=== PATIENT | female | born 1940 | race Caucasian/White ===

== ENCOUNTER 2016-04-19 14:58 | Inpatient (IN) | payer MEDICARE, BC ==
[~2016-04-19] VITALS: Ht 177.8 cm; Wt 74.8 kg
[~2016-04-19 14:58] MED LIST: BLOO-129 IN; DOCU-25 PO; DULO20CA PO; FURO20TA4 PO; INSU100V13 SQ; POTA10CA43 PO; PREG50CA PO; VANC750F IV; WARF2TAB57 PO; [UNRECOGNIZED DRUG - CODE] PO
[2016-04-19 15:51] LABS: BASOPHILS % (AUTO) 0.9 % (0.0-2.0); DIFF TOTAL % 100 %; EOSINOPHILS % (AUTO) 0.6 % (0.0-6.0); HEMATOCRIT 43 % (33-45); HEMOGLOBIN 13.6 g/dL (11.5-14.8); LYMPHOCYTES # (AUTO) 1.1 /CMM (0.8-4.8); MEAN CORPUSCULAR HEMOGLOBIN 24 PG (26.0-33.0); MEAN CORPUSCULAR HGB CONC 32 g/dl (31.0-36.0); MEAN CORPUSCULAR VOLUME 75 fL (82-100); MONOCYTES # (AUTO) 0.6 /CMM (0.1-1.30); MONOCYTES % (AUTO) 11.8 % (2.0-12.0); NEUTROPHILS # (AUTO) 3.6 /CMM (1.8-8.9); NEUTROPHILS % (AUTO) 65.7 % (43.0-81.0); PLATELET COUNT (AUTO) 167 /CMM (150-450); RED BLOOD CELL COUNT(AUTO) 5.76 MIL/uL (4.0-5.2); WHITE BLOOD COUNT (AUTO) 5.3 K/uL (4.3-11.0)
[2016-04-19] MEDS ORDERED: IV NS 0.9% 500 ML BAG IV ONE (16:00)
[2016-04-19 16:07] LABS: INR 1.32 (0.87-1.13); PROTHROMBIN TIME 13.9 SECS (9.5-12.7)
[2016-04-19 16:17] LABS: ANION GAP 12 (5-14); CALCIUM, SERUM 8.9 mg/dL (8.5-10.1); CARBON DIOXIDE 29 mmol/L (21-32); CHLORIDE 105 mmol/L (98-107); CREATININE 1.1 mg/dL (0.6-1.3); GLUCOSE 160 mg/dL (74-106); POTASSIUM 4.2 mmol/L (3.5-5.1); SODIUM SERUM 142 mmol/L (136-145); UREA NITROGEN, BLOOD 23 mg/dL (7-18)
[2016-04-19] MEDS ORDERED: IV NS 0.9% 500 ML IV ONE (16:21)
[2016-04-19] MEDS ORDERED: IV SET PRIMARY 1 EA INFUS.SET MC ONE ×2 (16:21→18:22)
[2016-04-19 16:22] LABS: ALANINE AMINOTRANSFERASE 10 U/L (12-78); ASPARTATE AMINOTRANSFERASE 13 U/L (15-37); BILIRUBIN,DIRECT 0.1 mg/dL (0.0-0.2); BILIRUBIN,TOTAL 0.4 mg/dL (0.2-1.0); INDIRECT BILIRUBIN 0.3 mg/dL (0.0-1.1); TOTAL PROTEIN, SERUM 6.8 g/dL (6.4-8.2)
[2016-04-19 16:26] LABS: LACTIC ACID 1.2 mmol/L (0.4-2.0)
[2016-04-19 16:43] LABS: TROPONIN I < 0.017 ng/mL (0.00-0.056)
[2016-04-19 17:28] LABS: KETONES,URINE Negative (NEGATIVE); LEUKOCYTE ESTERASE ,URINE Large (NEGATIVE); PH,URINE 6.5 (5.0-8.0)
[2016-04-19 17:31] LABS: ADD UA MICROSCOPIC YES
[2016-04-19 17:40] LABS: ADD URINE CULTURE YES; RBC,URINE 21-50 /HPF (0-2); WBC,URINE T /HPF (0-3)
[2016-04-19] MEDS ORDERED: AZTREONAM 1 G in IV NS 0.9% 100 ML IV ONE (18:00)
[2016-04-19] MEDS ORDERED: FURO40TA5 PO (18:05)
[2016-04-19] MEDS ORDERED: POTA10TA15 PO (18:05)
[2016-04-19] MEDS ORDERED: WARF1TAB6 PO (18:05)
[2016-04-19] MEDS ORDERED: VANCOMYCIN 1 GM in IV D5W 250 ML IV ONE (20:30)
[2016-04-19] MEDS ORDERED: FLUCONAZOLE (100 MG) 100 MG TABLET PO ONE (20:30)
[2016-04-19] MEDS ORDERED: IV SET PRIMARY PUMP SET 1 EA INFUS.SET MC ONE (20:41)
[2016-04-19] MEDS ORDERED: IV D5W 250 ML IV ONE (20:41)
[2016-04-19] MEDS ORDERED: FLUCONAZOLE (100 MG) 100 MG TABLET ONE (20:41)
[2016-04-19] MEDS ORDERED: VANCOMYCIN 1 GM VIAL ONE (20:41)
[2016-04-19 22:30] VITALS: BP 147/61
[2016-04-19] MEDS ORDERED: DEXTROSE 50%-WATER 50 ML DISP.SYRIN IV PRN (23:30)
[2016-04-20] VITALS (9 sets, daily range): BP systolic 82–157; BP diastolic 44–85
[2016-04-20] MEDS ORDERED: INSULIN REGULAR, HUMAN 100 UNIT/ML 10 ML VIAL ONE (06:25)
[2016-04-20] MEDS: INSULIN REGULAR, HUMAN 100 UNIT/ML 3 ML VIAL SQ PRN ×2 (06:39→17:58)
[2016-04-20] MEDS: BLOOD SUGAR DIAGNOSTIC 1 EACH STRIP IN SCH ×4 (06:39→21:28)
[2016-04-20 06:58] LABS: BASOPHILS % (AUTO) 0.6 % (0.0-2.0); DIFF TOTAL % 100 %; EOSINOPHILS % (AUTO) 0.3 % (0.0-6.0); HEMATOCRIT 38 % (33-45); HEMOGLOBIN 12.1 g/dL (11.5-14.8); LYMPHOCYTES # (AUTO) 0.7 /CMM (0.8-4.8); MEAN CORPUSCULAR HEMOGLOBIN 24 PG (26.0-33.0); MEAN CORPUSCULAR HGB CONC 32 g/dl (31.0-36.0); MEAN CORPUSCULAR VOLUME 76 fL (82-100); MONOCYTES # (AUTO) 0.5 /CMM (0.1-1.30); MONOCYTES % (AUTO) 11.7 % (2.0-12.0); NEUTROPHILS # (AUTO) 3.3 /CMM (1.8-8.9); NEUTROPHILS % (AUTO) 71.4 % (43.0-81.0); PLATELET COUNT (AUTO) 142 /CMM (150-450); RED BLOOD CELL COUNT(AUTO) 5.06 MIL/uL (4.0-5.2); WHITE BLOOD COUNT (AUTO) 4.6 K/uL (4.3-11.0)
[2016-04-20 07:28] LABS: INR 1.35 (0.87-1.13); PROTHROMBIN TIME 14.6 SECS (9.5-12.7)
[2016-04-20 07:39] LABS: CALCIUM, SERUM 8.4 mg/dL (8.5-10.1); CREATININE 0.9 mg/dL (0.6-1.3); PHOSPHORUS 2.9 mg/dL (2.5-4.9); POTASSIUM 4.1 mmol/L (3.5-5.1)
[2016-04-20] MEDS ORDERED: ACETAMINOPHEN 325 MG TABLET PO PRN (08:30)
[2016-04-20] MEDS ORDERED: [UNRECOGNIZED DRUG - REMARK] XX PRN (08:30)
[2016-04-20] MEDS ORDERED: ONDANSETRON HCL/PF 4 MG/2 ML VIAL IV PRN ×2 (08:30→12:00)
[2016-04-20] MEDS: PANTOPRAZOLE 40 MG TABLET.DR PO SCH ×2 (09:00→10:32)
[2016-04-20] MEDS: AZTREONAM 1 G in IV NS 0.9% 100 ML IV SCH ×2 (10:31→18:05)
[2016-04-20] MEDS ORDERED: ACETAMINOPHEN 650 MG/SUPP.RECT RC PRN (12:00)
[2016-04-20] MEDS ORDERED: IV SET PRIMARY PUMP SET 1 EA INFUS.SET MC ONE (12:01)
[2016-04-20] MEDS: IV D5/0.45 NACL 1,000 ML IV PRN (12:06)
[2016-04-20] MEDS ORDERED: IV NS 0.9% 1,000 ML IV ONE (16:45)
[2016-04-20] MEDS ORDERED: WARFARIN SODIUM 1 MG TABLET PO SCH (17:00)
[2016-04-20] MEDS: WARFARIN SODIUM 2 MG TABLET PO SCH (17:57)
[2016-04-20] MEDS ORDERED: SECONDARY IV SET 1 EA INFUS.SET MC ONE (18:03)
[2016-04-20] MEDS: INSULIN DETEMIR 100 UNIT/ML CARTRIDGE SQ SCH (21:28)
[2016-04-20] MEDS ORDERED: INSULIN GLARGINE, 100 UNIT/ML CARTRIDGE SQ SCH (22:00)
[2016-04-20] MEDS ORDERED: GENTAMICIN 80 MG in IV D5W 100 ML IV SCH (23:00)
[2016-04-20] MEDS ORDERED: MEROPENEM 500 MG in IV NS 0.9% 50 ML IV SCH (23:00)
[2016-04-20] MEDS ORDERED: MEROPENEM 500 MG VIAL IV ONE (23:27)
[2016-04-20] MEDS ORDERED: IV NS 0.9% 50 ML IV ONE (23:30)
[2016-04-21] VITALS: BP 118/70
[2016-04-21] MEDS: IV D5/0.45 NACL 1,000 ML IV PRN ×2 (02:59→16:53)
[2016-04-21 04:00] VITALS: BP 110/61
[2016-04-21] MEDS: BLOOD SUGAR DIAGNOSTIC 1 EACH STRIP IN SCH ×4 (05:46→22:07)
[2016-04-21] MEDS: INSULIN REGULAR, HUMAN 100 UNIT/ML 3 ML VIAL SQ PRN ×4 (05:48→22:13)
[2016-04-21 08:00] VITALS: BP 120/69
[2016-04-21] MEDS ORDERED: FOSFOMYCIN TROMETHAMINE 3 G/PKT PACKET PO ONE (08:00)
[2016-04-21] MEDS ORDERED: MEROPENEM 500 MG in IV NS 0.9% 50 ML IV SCH (08:31)
[2016-04-21 08:39] LABS: BASOPHILS % (AUTO) 0.8 % (0.0-2.0); DIFF TOTAL % 100 %; EOSINOPHILS # (AUTO) 0.1 /CMM (0.0-0.7); EOSINOPHILS % (AUTO) 3.3 % (0.0-6.0); HEMATOCRIT 38 % (33-45); HEMOGLOBIN 12.3 g/dL (11.5-14.8); LYMPHOCYTES # (AUTO) 1.2 /CMM (0.8-4.8); LYMPHOCYTES % (AUTO) 34.1 % (20.0-44.0); MEAN CORPUSCULAR HEMOGLOBIN 24 PG (26.0-33.0); MEAN CORPUSCULAR HGB CONC 33 g/dl (31.0-36.0); MEAN CORPUSCULAR VOLUME 74 fL (82-100); MONOCYTES # (AUTO) 0.5 /CMM (0.1-1.30); MONOCYTES % (AUTO) 13.1 % (2.0-12.0); NEUTROPHILS # (AUTO) 1.7 /CMM (1.8-8.9); NEUTROPHILS % (AUTO) 48.7 % (43.0-81.0); PLATELET COUNT (AUTO) 124 /CMM (150-450); WHITE BLOOD COUNT (AUTO) 3.4 K/uL (4.3-11.0)
[2016-04-21 09:05] LABS: INR 1.43 (0.87-1.13); PROTHROMBIN TIME 15.5 SECS (9.5-12.7)
[2016-04-21 09:32] LABS: CALCIUM, SERUM 7.9 mg/dL (8.5-10.1); CREATININE 0.9 mg/dL (0.6-1.3); POTASSIUM 3.8 mmol/L (3.5-5.1)
[2016-04-21] MEDS: PANTOPRAZOLE 40 MG TABLET.DR PO SCH (10:07)
[2016-04-21] MEDS: MEROPENEM 500 MG in IV NS 0.9% 50 ML IV SCH (12:19)
[2016-04-21 16:00] VITALS: BP 140/73
[2016-04-21] MEDS: WARFARIN SODIUM 2 MG TABLET PO SCH (16:52)
[2016-04-21 20:00] VITALS: BP 104/62
[2016-04-21 22:00] VITALS: BP 104/62
[2016-04-21] MEDS: INSULIN DETEMIR 100 UNIT/ML CARTRIDGE SQ SCH (22:12)
[2016-04-21] MEDS ORDERED: FLUCONAZOLE IN NS,PREMIX 200 MG in PREMIX 1 EA IV ONE ×2 (23:30)
[2016-04-22] MEDS: MEROPENEM 500 MG in IV NS 0.9% 50 ML IV SCH ×3 (00:26→22:57)
[2016-04-22] MEDS ORDERED: SECONDARY IV SET 1 EA INFUS.SET MC ONE ×2 (05:14→14:59)
[2016-04-22] MEDS: INSULIN REGULAR, HUMAN 100 UNIT/ML 3 ML VIAL SQ PRN ×4 (05:58→22:52)
[2016-04-22] MEDS: BLOOD SUGAR DIAGNOSTIC 1 EACH STRIP IN SCH ×4 (05:59→22:53)
[2016-04-22 06:29] LABS: BASOPHILS % (AUTO) 0.7 % (0.0-2.0); DIFF TOTAL % 100 %; EOSINOPHILS # (AUTO) 0.1 /CMM (0.0-0.7); EOSINOPHILS % (AUTO) 2.8 % (0.0-6.0); HEMATOCRIT 35 % (33-45); HEMOGLOBIN 11.3 g/dL (11.5-14.8); LYMPHOCYTES # (AUTO) 1.4 /CMM (0.8-4.8); LYMPHOCYTES % (AUTO) 41.1 % (20.0-44.0); MEAN CORPUSCULAR HEMOGLOBIN 24 PG (26.0-33.0); MEAN CORPUSCULAR HGB CONC 32 g/dl (31.0-36.0); MEAN CORPUSCULAR VOLUME 75 fL (82-100); MONOCYTES # (AUTO) 0.3 /CMM (0.1-1.30); MONOCYTES % (AUTO) 8.6 % (2.0-12.0); NEUTROPHILS # (AUTO) 1.6 /CMM (1.8-8.9); NEUTROPHILS % (AUTO) 46.8 % (43.0-81.0); PLATELET COUNT (AUTO) 126 /CMM (150-450); RED BLOOD CELL COUNT(AUTO) 4.71 MIL/uL (4.0-5.2); WHITE BLOOD COUNT (AUTO) 3.4 K/uL (4.3-11.0)
[2016-04-22 08:00] VITALS: BP 137/74
[2016-04-22 09:03] LABS: INR 1.27 (0.87-1.13); PROTHROMBIN TIME 13.7 SECS (9.5-12.7)
[2016-04-22] MEDS: FLUCONAZOLE (100 MG) 100 MG TABLET PO SCH (09:32)
[2016-04-22] MEDS: PANTOPRAZOLE 40 MG TABLET.DR PO SCH (09:32)
[2016-04-22 11:02] LABS: CALCIUM, SERUM 7.6 mg/dL (8.5-10.1); PHOSPHORUS 2.5 mg/dL (2.5-4.9); POTASSIUM 4.1 mmol/L (3.5-5.1)
[2016-04-22] MEDS: Magnesium 1GM/D5W 100ML PREMIX 100 ML IV SCH ×2 (14:25→15:30)
[2016-04-22 16:00] VITALS: BP 137/70
[2016-04-22] MEDS: WARFARIN SODIUM 2 MG TABLET PO SCH (16:31)
[2016-04-22 20:00] VITALS: BP 146/76
[2016-04-22] MEDS: INSULIN DETEMIR 100 UNIT/ML CARTRIDGE SQ SCH (22:51)
[2016-04-23] MEDS: BLOOD SUGAR DIAGNOSTIC 1 EACH STRIP IN SCH ×4 (06:18→21:51)
[2016-04-23] MEDS: INSULIN REGULAR, HUMAN 100 UNIT/ML 3 ML VIAL SQ PRN ×3 (06:35→21:55)
[2016-04-23 07:23] LABS: CALCIUM, SERUM 7.6 mg/dL (8.5-10.1); CREATININE 0.9 mg/dL (0.6-1.3)
[2016-04-23 08:00] VITALS: BP 128/66
[2016-04-23] MEDS: PANTOPRAZOLE 40 MG TABLET.DR PO SCH (08:47)
[2016-04-23] MEDS: FLUCONAZOLE (100 MG) 100 MG TABLET PO SCH (08:47)
[2016-04-23] MEDS: MEROPENEM 500 MG in IV NS 0.9% 50 ML IV SCH (12:01)
[2016-04-23 12:34] LABS: INR 1.29 (0.87-1.13)
[2016-04-23 16:00] VITALS: BP 136/79
[2016-04-23] MEDS: WARFARIN SODIUM 2 MG TABLET PO SCH (17:20)
[2016-04-23 20:00] VITALS: BP 159/83
[2016-04-23] MEDS: INSULIN DETEMIR 100 UNIT/ML CARTRIDGE SQ SCH (21:54)
[2016-04-24] MEDS: MEROPENEM 500 MG in IV NS 0.9% 50 ML IV SCH ×2 (00:20→12:15)
[2016-04-24] MEDS: BLOOD SUGAR DIAGNOSTIC 1 EACH STRIP IN SCH ×3 (05:37→16:56)
[2016-04-24 07:03] LABS: CREATININE 0.8 mg/dL (0.6-1.3); PHOSPHORUS 2.3 mg/dL (2.5-4.9)
[2016-04-24 07:04] LABS: BASOPHILS % (AUTO) 0.7 % (0.0-2.0); EOSINOPHILS # (AUTO) 0.2 /CMM (0.0-0.7); HEMATOCRIT 37 % (33-45); HEMOGLOBIN 12.1 g/dL (11.5-14.8); LYMPHOCYTES # (AUTO) 1.5 /CMM (0.8-4.8); LYMPHOCYTES % (AUTO) 35.7 % (20.0-44.0); MEAN CORPUSCULAR HEMOGLOBIN 24 PG (26.0-33.0); MEAN CORPUSCULAR HGB CONC 33 g/dl (31.0-36.0); MEAN CORPUSCULAR VOLUME 74 fL (82-100); MONOCYTES # (AUTO) 0.3 /CMM (0.1-1.30); MONOCYTES % (AUTO) 7.3 % (2.0-12.0); NEUTROPHILS # (AUTO) 2.2 /CMM (1.8-8.9); NEUTROPHILS % (AUTO) 51.3 % (43.0-81.0); PLATELET COUNT (AUTO) 147 /CMM (150-450); WHITE BLOOD COUNT (AUTO) 4.3 K/uL (4.3-11.0)
[2016-04-24 08:00] VITALS: BP 131/70
[2016-04-24] MEDS: PANTOPRAZOLE 40 MG TABLET.DR PO SCH (08:37)
[2016-04-24] MEDS: FLUCONAZOLE (100 MG) 100 MG TABLET PO SCH (08:37)
[2016-04-24 11:40] LABS: BAND % (MANUAL) 4 % (0.0-5.0); EOSINOPHILS % (MANUAL) 3 % (0-4); LYMPHOCYTES % (MANUAL) 36 % (16-48)
[2016-04-24 11:51] LABS: ANISOCYTOSIS 1+; PLATELET ESTIMATE DECRE
[2016-04-24] MEDS ORDERED: Magnesium 1GM/D5W 100ML PREMIX 100 ML IV SCH (13:30)
[2016-04-24 15:32] LABS: INR 1.42 (0.87-1.13); PROTHROMBIN TIME 15.4 SECS (9.5-12.7)
[2016-04-24 16:00] VITALS: BP_SYST 131; BP_SYST 138; BP_DIAS 70; BP_DIAS 83
[2016-04-24] MEDS ORDERED: K PHOS NEUTRAL 250 MG TABLET PO ONE (16:00)
== END 2016-04-24 16:59 | disposition home health service (06) | DRG 682 ==
LOC: ER 14:59 → TELE 21:36 → MED 04-21 12:42
PROVIDERS: ADMIT Internal Medicine; ATTEND Internal Medicine
DX: N17.0 Acute kidney failure with tubular necrosis (principal); G93.41 Metabolic encephalopathy; N39.0 Urinary tract infection, site not specified; I69.854 Hemiplegia and hemiparesis following other cerebrovascular disease affecting left non-dominant side; L03.116 Cellulitis of left lower limb; L03.115 Cellulitis of right lower limb; B37.49 Other urogenital candidiasis; E86.0 Dehydration; D64.9 Anemia, unspecified; I48.91 Unspecified atrial fibrillation; I87.2 Venous insufficiency (chronic) (peripheral); Z86.718 Personal history of other venous thrombosis and embolism; M81.0 Age-related osteoporosis without current pathological fracture; J20.9 Acute bronchitis, unspecified; E11.9 Type 2 diabetes mellitus without complications; Z95.0 Presence of cardiac pacemaker; Z88.0 Allergy status to penicillin; B96.5 Pseudomonas (aeruginosa) (mallei) (pseudomallei) as the cause of diseases classified elsewhere; X58.XXXA Exposure to other specified factors, initial encounter; Y93.9 Activity, unspecified; Y92.009 Unspecified place in unspecified non-institutional (private) residence as the place of occurrence of the external cause; Y99.9 Unspecified external cause status; S70.212A Abrasion, left hip, initial encounter; S70.211A Abrasion, right hip, initial encounter; S71.102A Unspecified open wound, left thigh, initial encounter; S71.101A Unspecified open wound, right thigh, initial encounter; E66.01 Morbid (severe) obesity due to excess calories; Z68.23 Body mass index [BMI] 23.0-23.9, adult; I25.10 Atherosclerotic heart disease of native coronary artery without angina pectoris; I69.349 Monoplegia of lower limb following cerebral infarction affecting unspecified side; K21.9 Gastro-esophageal reflux disease without esophagitis; N18.9 Chronic kidney disease, unspecified; I12.9 Hypertensive chronic kidney disease with stage 1 through stage 4 chronic kidney disease, or unspecified chronic kidney disease; E11.22 Type 2 diabetes mellitus with diabetic chronic kidney disease
CPT/HCPCS: 36415; 71010-TC; 80048-TC; 80076-TC; 81000-TC; 82962-TC; 83605-TC; 83735-TC; 84100-TC; 84484-TC; 85025-TC; 85610-TC; 85730-TC; 87040-TC; 87081-TC; 87086-TC; 87186-TC; 87400; A4216; A4606; J1450; J1580; J1815; J2185; J3370; J3475; J3490; J7030; J7040; J7060; Z7610

== ENCOUNTER 2016-08-16 17:51 | Emergency (ER) | payer MEDICARE, BC ==
[~2016-08-16] VITALS: Ht 177.8 cm; Wt 88.5 kg
[~2016-08-16 17:51] MED LIST changes: -BLOO-129 IN; -DOCU-25 PO; -DULO20CA PO; -FURO20TA4 PO; -INSU100V13 SQ; -POTA10CA43 PO; -PREG50CA PO; -VANC750F IV; +WARF1TAB6 PO; -WARF2TAB57 PO; -[UNRECOGNIZED DRUG - CODE] PO
--- NOTE | 2016-08-16 18:15 | NUR ---
ASSUMED CARE OF PT AT THIS TIME. HERE FOR "RECURRENT UTI'S" PER DAUGHTER. STATES "SHE ALSO HAS DIAPER RASH". DENIES ANY ABD PAIN/FEVER/N/V/BACK PAIN. NON DIAPHROETIC. RESP EVEN AND UNLABORED. CALM AND COOPERATIVE. ON MONITOR. CARE PLAN DISCUSSED.
[2016-08-16 18:54] LABS: APPEARANCE,URINE Cloudy (CLEAR); BILIRUBIN,URINE Negative (NEGATIVE); BLOOD, URINE Large Ery/uL (NEGATIVE); COLOR,URINE Yellow (YELLOW); KETONES,URINE Negative (NEGATIVE); LEUKOCYTE ESTERASE ,URINE Large (NEGATIVE); NITRITE, URINE Positive (NEGATIVE); PH,URINE 6.5 (5.0-8.0); PROTEIN,URINE 100 mg/dl (NEGATIVE); UGLUCOSE Negative (NEGATIVE); UROBILINOGEN,URINE 0.2 EU/dL (0.2)
--- NOTE | 2016-08-16 19:16 | NUR ---
REPORT GIVEN TO RAYNE/RN FOR ABENA.
[2016-08-16 19:27] LABS: ADD URINE CULTURE YES; BACTERIA,URINE Few /HPF (None Seen); RBC,URINE TOO NUMEROUS TO COUN /HPF (0-2); SQUAMOUS EPITHELIAL CELL,UR Many /HPF (None Seen); WBC,URINE TOO NUMEROUS TO COUN /HPF (0-3)
--- NOTE | 2016-08-16 20:34 | NUR ---
Patient discharged to home in stable condition. Written and verbal after care instructions given. Patient verbalizes understanding of instruction. Patient is picked up by 2 [facility] paramedics, daughter at bedside. No further complaints.
[2016-08-16 20:35] VITALS: BP 169/78
== END 2016-08-16 20:36 | disposition home or self-care (01) ==
LOC: ER 17:57
DX: N39.0 Urinary tract infection, site not specified (principal); E11.9 Type 2 diabetes mellitus without complications; I10 Essential (primary) hypertension; Z79.01 Long term (current) use of anticoagulants; Z86.73 Personal history of transient ischemic attack (TIA), and cerebral infarction without residual deficits; Z88.0 Allergy status to penicillin; Z95.0 Presence of cardiac pacemaker; Z88.2 Allergy status to sulfonamides; Z91.040 Latex allergy status
CPT/HCPCS: 81000-TC; 87086-TC; A4606; Z7610

== ENCOUNTER 2016-09-26 14:28 | Outpatient (CLI) | payer MEDICARE, BC ==
[2016-09-26] MEDS ORDERED: INSU100V7 SQ (16:02)
[2016-09-26] MEDS ORDERED: BLOO-668 IN (16:02)
== END 2016-09-26 23:59 | disposition home or self-care (01) ==
LOC: WOU 14:28
PROVIDERS: ATTEND Surgery
DX: N76.4 Abscess of vulva (principal); Z88.1 Allergy status to other antibiotic agents; Z88.0 Allergy status to penicillin; Z88.2 Allergy status to sulfonamides; I69.954 Hemiplegia and hemiparesis following unspecified cerebrovascular disease affecting left non-dominant side; E11.22 Type 2 diabetes mellitus with diabetic chronic kidney disease; I12.9 Hypertensive chronic kidney disease with stage 1 through stage 4 chronic kidney disease, or unspecified chronic kidney disease; N18.9 Chronic kidney disease, unspecified; I48.91 Unspecified atrial fibrillation; Z95.0 Presence of cardiac pacemaker; Z86.718 Personal history of other venous thrombosis and embolism; E66.01 Morbid (severe) obesity due to excess calories; Z68.35 Body mass index [BMI] 35.0-35.9, adult; I25.10 Atherosclerotic heart disease of native coronary artery without angina pectoris; E11.9 Type 2 diabetes mellitus without complications; S71.102D Unspecified open wound, left thigh, subsequent encounter; S71.101D Unspecified open wound, right thigh, subsequent encounter; X58.XXXD Exposure to other specified factors, subsequent encounter
CPT/HCPCS: G0463

== ENCOUNTER 2016-09-26 15:30 | Inpatient (IN) | payer MEDICARE, BC ==
[~2016-09-26] VITALS: Ht 160 cm; Wt 83.0 kg
--- NOTE | 2016-09-26 15:45 | NUR ---
PT BIBA FOR C/O SKIN RASH OVER A YEAR ON BILATERAL BACK OF THE THIGH AND INNER THIGH. DAUGHTER AT BS FOR INFO, REPORTS THAT PT WAS STARTED ON SOME ABX PRIOR AND THEN PT DEVELOPED RASHES FROM IT. PT BED BOUND, AAOX1. VSS. SEEN BY FOR EVAL. SAFETY AND COMFORT MEASURES PROVIDED. WILL MONITOR.
[2016-09-26] MEDS ORDERED: INSU100V7 SQ (16:02)
[2016-09-26] MEDS ORDERED: BLOO-668 IN (16:02)
[2016-09-26 16:09] LABS: BASOPHILS # (AUTO) 0.1 /CMM (0.0-0.2); BASOPHILS % (AUTO) 0.8 % (0.0-2.0); EOSINOPHILS # (AUTO) 0.1 /CMM (0.0-0.7); EOSINOPHILS % (AUTO) 1.1 % (0.0-6.0); HEMATOCRIT 46 % (33-45); HEMOGLOBIN 14.9 g/dL (11.5-14.8); LYMPHOCYTES # (AUTO) 1.1 /CMM (0.8-4.8); LYMPHOCYTES % (AUTO) 14.1 % (20.0-44.0); MEAN CORPUSCULAR HEMOGLOBIN 25 PG (26.0-33.0); MEAN CORPUSCULAR HGB CONC 32 g/dl (31.0-36.0); MEAN CORPUSCULAR VOLUME 77 fL (82-100); MONOCYTES # (AUTO) 0.4 /CMM (0.1-1.30); MONOCYTES % (AUTO) 4.7 % (2.0-12.0); NEUTROPHILS # (AUTO) 6.2 /CMM (1.8-8.9); NEUTROPHILS % (AUTO) 79.3 % (43.0-81.0); PLATELET COUNT (AUTO) 183 /CMM (150-450); RDW COEFFICIENT OF VARIATION 16.9 (11.5-15.0); RED BLOOD CELL COUNT(AUTO) 5.99 MIL/uL (4.0-5.2); WHITE BLOOD COUNT (AUTO) 7.9 K/uL (4.3-11.0)
--- NOTE | 2016-09-26 16:10 | NUR ---
IV ACCESS STARTED. CLERICAL WAREHOUSE WORKER AT FOR BLOOD DRAW. URINE SAMPLE OBTAINED, SENT.
[2016-09-26 16:20] LABS: CARBON DIOXIDE 31 mmol/L (21-32); CHLORIDE 105 mmol/L (98-107); CREATININE 0.8 mg/dL (0.6-1.3); GLUCOSE 143 mg/dL (74-106); POTASSIUM 4.5 mmol/L (3.5-5.1); SODIUM SERUM 140 mmol/L (136-145); UREA NITROGEN, BLOOD 18 mg/dL (7-18)
[2016-09-26 16:25] LABS: INR 0.99 (0.87-1.13); PROTHROMBIN TIME 10.3 SECS (9.5-12.7)
[2016-09-26] MEDS ORDERED: IV SET PRIMARY PUMP SET 1 EA INFUS.SET MC ONE ×2 (16:25→21:12)
[2016-09-26 16:28] LABS: TROPONIN I < 0.017 ng/mL (0.00-0.056)
[2016-09-26] MEDS ORDERED: VANCOMYCIN 1 GM in IV D5W 250 ML IV ONE (16:30)
[2016-09-26 16:34] LABS: APPEARANCE,URINE Cloudy (CLEAR); BILIRUBIN,URINE Negative (NEGATIVE); BLOOD, URINE Small Ery/uL (NEGATIVE); COLOR,URINE Yellow (YELLOW); KETONES,URINE Trace (NEGATIVE); LEUKOCYTE ESTERASE ,URINE Large (NEGATIVE); NITRITE, URINE Positive (NEGATIVE); PROTEIN,URINE Negative (NEGATIVE); UGLUCOSE Negative (NEGATIVE); UROBILINOGEN,URINE 0.2 EU/dL (0.2)
[2016-09-26 16:39] LABS: BACTERIA,URINE Few /HPF (None Seen); SQUAMOUS EPITHELIAL CELL,UR Few /HPF (None Seen); WBC,URINE TOO NUMEROUS TO COUN /HPF (0-3)
--- NOTE | 2016-09-26 16:41 | NUR ---
PT MEDICATED ORDERED.
--- NOTE | 2016-09-26 17:26 | NUR ---
REPORT GIVEN TO SAE ORDOÑEZ FOR MS ROOM 201
[2016-09-26] MEDS ORDERED: ONDANSETRON HCL/PF 4 MG/2 ML VIAL IVP PRN (18:30)
[2016-09-26] MEDS ORDERED: ACETAMINOPHEN 325 MG TABLET PO PRN (18:30)
[2016-09-26] MEDS ORDERED: DEXTROSE 50%-WATER 50 ML DISP.SYRIN IV PRN (18:30)
[2016-09-26] MEDS ORDERED: MORPHINE SULFATE INJ 2 MG/ML DISP.SYRIN IV PRN (18:30)
[2016-09-26] MEDS ORDERED: HYDROCODONE/APAP 5/325MG 1 EACH TABLET PO PRN (18:30)
--- NOTE | 2016-09-26 18:46 | NUR ---
AM RN NOTE Received patient from ER via [facility] @ 1800 as accompanied by ER staff and daughter at bedside. Pt A/O X1 verbally responsive able to make simple needs known. Denies any pain or discomfort at this time. Admitting orders obtained from Dr. Dilma Johnson by ER staff. Per Keiko ([facility]) pt noted with rash after vancomycin given in ER. Per daughter, pt had vancomycin IV in past and she did develop redness once. Pt seen and assessed by Dr. Philip for vulvar abscess and he saw pt with redness on her face which is subsiding. Dr. Philip called Dr. Dilma Johnson & made her aware about redness with NNO. Mason (Pharmacist) also made aware about redness. Pt denies any SOB at this time. Will coniine to monitor. Will endorse care to next shift.
--- NOTE | 2016-09-26 19:00 | NUR ---
AM RN NOTE Called Mason (Pharmacist) again & he added vancomycin to allergy list. Pt ate 100% at dinner time. No redness on her face noted at this time. V/S BP119/60 T98.0 P83 R20 PA0/10 O2 sat 97%.
--- NOTE | 2016-09-26 19:30 | NUR ---
RN NOTES RECEIVED PT AWAKE, LEFT SIDED WEAKNESS, DENIES PAIN, NO SOB, CONTINUE TO MONITOR
--- NOTE | 2016-09-26 19:30 | NUR ---
RN NOTES RECEIVED PT. AWAKE FROM ER DAUGHTER AT BEDSIDE, ADMISSION INSTRUCTION WAS GIVEN TO THE FAMILY, CALL LIGHT WITHIN REACH, SIDERAILS UPX2 CONTINUE TO MONITOR
[2016-09-26 20:00] VITALS: BP 128/75
[2016-09-26] MEDS ORDERED: diphenhydrAMINE HCL 25 MG CAPSULE PO PRN (21:00)
[2016-09-26] MEDS ORDERED: FEE PK DOSING 1 MIN EA MC ONE (21:07)
[2016-09-26] MEDS ORDERED: [UNRECOGNIZED DRUG - REMARK] MC ONE (21:07)
[2016-09-26] MEDS ORDERED: SECONDARY IV SET 1 EA INFUS.SET MC ONE (21:11)
[2016-09-26] MEDS ORDERED: IV NS 0.9% 250 ML IV ONE (21:12)
[2016-09-26] MEDS: GENTAMICIN 100 MG in IV D5W 100 ML IV SCH (21:19)
--- NOTE | 2016-09-26 22:00 | NUR ---
RN NOTES BLOOD SUGAR-167, BECAUSE FAMILY JUST FED THE PT. , STATED THAT WE CAN CHECK AGAIN IN THE MORNING
[2016-09-26] MEDS: BLOOD SUGAR DIAGNOSTIC 1 EACH STRIP IN SCH (22:04)
--- NOTE | 2016-09-27 05:00 | NUR ---
RN NOTES MORNING CARE RENDERED
[2016-09-27 07:05] LABS: BASOPHILS % (AUTO) 0.6 % (0.0-2.0); EOSINOPHILS # (AUTO) 0.1 /CMM (0.0-0.7); EOSINOPHILS % (AUTO) 1.2 % (0.0-6.0); HEMATOCRIT 38 % (33-45); HEMOGLOBIN 12.5 g/dL (11.5-14.8); LYMPHOCYTES # (AUTO) 1.3 /CMM (0.8-4.8); LYMPHOCYTES % (AUTO) 15.8 % (20.0-44.0); MEAN CORPUSCULAR HEMOGLOBIN 25 PG (26.0-33.0); MEAN CORPUSCULAR HGB CONC 33 g/dl (31.0-36.0); MEAN CORPUSCULAR VOLUME 77 fL (82-100); MONOCYTES # (AUTO) 0.4 /CMM (0.1-1.30); MONOCYTES % (AUTO) 4.8 % (2.0-12.0); NEUTROPHILS # (AUTO) 6.4 /CMM (1.8-8.9); NEUTROPHILS % (AUTO) 77.6 % (43.0-81.0); PLATELET COUNT (AUTO) 185 /CMM (150-450); RDW COEFFICIENT OF VARIATION 17.5 (11.5-15.0); RED BLOOD CELL COUNT(AUTO) 4.93 MIL/uL (4.0-5.2); WHITE BLOOD COUNT (AUTO) 8.2 K/uL (4.3-11.0)
[2016-09-27 07:11] LABS: CALCIUM, SERUM 8.4 mg/dL (8.5-10.1); CARBON DIOXIDE 28 mmol/L (21-32); CHLORIDE 104 mmol/L (98-107); CREATININE 0.8 mg/dL (0.6-1.3); GLUCOSE 174 mg/dL (74-106); POTASSIUM 4.4 mmol/L (3.5-5.1); SODIUM SERUM 139 mmol/L (136-145); UREA NITROGEN, BLOOD 18 mg/dL (7-18)
[2016-09-27] MEDS: INSULIN REGULAR, HUMAN 100 UNIT/ML 3 ML VIAL SQ PRN ×3 (07:16→16:55)
[2016-09-27] MEDS: BLOOD SUGAR DIAGNOSTIC 1 EACH STRIP IN SCH ×4 (07:16→23:59)
--- NOTE | 2016-09-27 07:21 | NUR ---
RN NOTES AWAKE, MORNING CARE RENDERED, PT. NEEDS ATTENDED
--- NOTE | 2016-09-27 07:26 | NUR ---
MS RN OPENING RECEIVED PATIENT STABLE NO COMPLAINTS NO SOB, DIFFICULTY BREATHING OR PAIN. PATIENT A/OX3. IN POSITION OF COMFORT AND WILL ASSIST TO TURN PATIENT Q2H. ALL NEEDS WITHIN REACH, BED LOWERED AND LOCKED, RAILS UPX3 FOR SAFETY AND WILL ROUND Q2H OR LESS PER NEEDS
[2016-09-27 08:00] VITALS: BP 124/60
--- NOTE | 2016-09-27 08:57 | NUR ---
WOUND CARE CONSULT: PT PRESENTS WITH REDNESS AND EDEMA TO LEFT LOWER LEG, REDNESS TO THIGHS, VULVA AREAS PRESENT ON ADMISSION. DEFER TO MD. LEGS ELEVATED. PT TO BE PLACED ON ISOFLEX LOW AIRLOSS BED. ALL SKIN PROTECTION MEASURES IN PLACE AND DISCUSSED WITH NURSING STAFF. MD IN AGREEMENT WITH PLAN OF CARE. Addendum: 09/27/16 at 0858 by SERGIO LEDESMA WNDNU Amended: Links added.
--- NOTE | 2016-09-27 10:05 | NUR ---
MS RN NOTES DR DENNY AT BEDSIDE. ASSISTED MD WITH OBTAINING ORDERED SWABS. CALLED LAB FOR ORTHODONTIST ASSISTANT
--- NOTE | 2016-09-27 10:22 | NUR ---
MS RN NOTES FIRST STEP MATTRESS AT BEDSIDE. DEPUTY SHERIFF BAILIFF ASSISTING WITH APPLYING TO BED
[2016-09-27] MEDS ORDERED: VANCOMYCIN 1 GM in IV D5W 250 ML IV SCH (12:00)
--- NOTE | 2016-09-27 14:07 | NUR ---
MS RN NOTES DR LAGUNA AT BEDSIDE. NOTIFIED MD COUMADIN HELD. PER MD CONTINUE 4MG DAILY 5PM ORALLY
--- NOTE | 2016-09-27 14:09 | NUR ---
MS RN NOTES CALLED PHARMACY TO BRING GENTAMYCIN AX
--- NOTE | 2016-09-27 14:14 | NUR ---
MS RN NOTES PER MD HOLD SERGIO AT THIS TIME.
[2016-09-27] MEDS: GENTAMICIN 100 MG in IV D5W 100 ML IV SCH (14:17)
[2016-09-27 14:45] LABS: INR 0.97 (0.87-1.13); PROTHROMBIN TIME 10.4 SECS (9.5-12.7)
[2016-09-27 16:00] VITALS: BP 130/74
[2016-09-27 16:14] VITALS: BP 130/74
[2016-09-27] MEDS: LACTOBACILLUS RHAMNOSUS GG 1 EACH CAP.SPRINK PO SCH (16:54)
[2016-09-27] MEDS: WARFARIN SODIUM 2 MG TABLET PO SCH (16:59)
--- NOTE | 2016-09-27 18:42 | NUR ---
MS RN CLOSING PATIENT STABLE NO COMPLICATIONS NO CHANGES. KCI MATTRESS ON. PATIENT TURNED Q2H AND HEELS OFFLOADED AND ELBOWS. PATIENT DAUGHTER AT BEDSIDE. ALL DUE MEDS GIVEN AND ALL NEEDS MET. WILL ENDORSE CARE TO RN FOR ABENA
[2016-09-27 20:00] VITALS: BP 164/86
--- NOTE | 2016-09-27 20:49 | NUR ---
MS2/RN PATIENT IS AWAKE AT THIS TIME, CAREGIVER FEEDING HER, COMFORTABLE, NO C/O NO DISTRESS NOTED. CALL LIGHT IN REACH. WILL MONITOR.
[2016-09-27] MEDS: LINEZOLID 600 MG TABLET PO SCH (22:16)
--- NOTE | 2016-09-28 02:26 | NUR ---
MS2/RN PATIENT IS SLEEPING, AROUSABLE, APPEAR COMFORTABLE, NO SIGNS OF DISTRESS NOTED, CALL LIGHT IN REACH. WILL CONTINUE TO MONITOR.
[2016-09-28 06:36] LABS: BASOPHILS % (AUTO) 0.7 % (0.0-2.0); EOSINOPHILS # (AUTO) 0.3 /CMM (0.0-0.7); EOSINOPHILS % (AUTO) 4.2 % (0.0-6.0); HEMATOCRIT 39 % (33-45); HEMOGLOBIN 12.9 g/dL (11.5-14.8); LYMPHOCYTES # (AUTO) 1.7 /CMM (0.8-4.8); LYMPHOCYTES % (AUTO) 27.3 % (20.0-44.0); MEAN CORPUSCULAR HEMOGLOBIN 26 PG (26.0-33.0); MEAN CORPUSCULAR HGB CONC 33 g/dl (31.0-36.0); MEAN CORPUSCULAR VOLUME 77 fL (82-100); MONOCYTES # (AUTO) 0.4 /CMM (0.1-1.30); MONOCYTES % (AUTO) 6.8 % (2.0-12.0); NEUTROPHILS # (AUTO) 3.7 /CMM (1.8-8.9); PLATELET COUNT (AUTO) 161 /CMM (150-450); RDW COEFFICIENT OF VARIATION 17.4 (11.5-15.0); RED BLOOD CELL COUNT(AUTO) 5.05 MIL/uL (4.0-5.2); WHITE BLOOD COUNT (AUTO) 6.1 K/uL (4.3-11.0)
[2016-09-28 06:46] LABS: INR 0.96 (0.87-1.13); PROTHROMBIN TIME 10.2 SECS (9.5-12.7)
[2016-09-28] MEDS: INSULIN REGULAR, HUMAN 100 UNIT/ML 3 ML VIAL SQ PRN ×4 (06:58→21:21)
[2016-09-28] MEDS: BLOOD SUGAR DIAGNOSTIC 1 EACH STRIP IN SCH ×4 (06:58→21:26)
[2016-09-28 07:05] LABS: CALCIUM, SERUM 8.5 mg/dL (8.5-10.1); CARBON DIOXIDE 28 mmol/L (21-32); CHLORIDE 105 mmol/L (98-107); GLUCOSE 177 mg/dL (74-106); POTASSIUM 4.3 mmol/L (3.5-5.1); SODIUM SERUM 141 mmol/L (136-145); UREA NITROGEN, BLOOD 21 mg/dL (7-18)
[2016-09-28 07:06] LABS: MAGNESIUM 1.7 mg/dL (1.8-2.4); PHOSPHORUS 3.2 mg/dL (2.5-4.9)
--- NOTE | 2016-09-28 07:10 | NUR ---
MS RN NOTES RECEIVED PATIENT IN BED, AWAKE, A/O X2. BREATHING EVEN AND NON LABORED, NO SOB. AFEBRILE. NO C/O PAIN AT THIS TIME. ON ANGELY MATTRESS, WILL CONT TO REPOSITION IN BED. CALL LIGHT WITHIN REACH.
[2016-09-28 08:00] VITALS: BP 161/73
[2016-09-28] MEDS: LACTOBACILLUS RHAMNOSUS GG 1 EACH CAP.SPRINK PO SCH ×2 (08:23→17:28)
[2016-09-28] MEDS: LINEZOLID 600 MG TABLET PO SCH ×2 (08:23→21:14)
[2016-09-28 08:33] VITALS: BP 144/90
[2016-09-28] MEDS: GENTAMICIN 100 MG in IV D5W 100 ML IV SCH (09:13)
[2016-09-28] MEDS ORDERED: SECONDARY IV SET 1 EA INFUS.SET MC ONE (09:54)
[2016-09-28] MEDS: Magnesium 1GM/D5W 100ML PREMIX 100 ML IV SCH ×2 (10:34→11:33)
--- NOTE | 2016-09-28 12:09 | NUR ---
PATIENT IS SEEN BY CARSON MONTENEGRO, PER FAMILY'S REQUEST TO APPLY DESITIN CREAM TO PATIENTS BLE DERMATITIS, SACRAL, BOTH GROINS AND BOTH INNER THIGH BLISTERING. WILL CONT TO REPOSITION PATIENT.
[2016-09-28 16:00] VITALS: BP 153/86
[2016-09-28] MEDS: WARFARIN SODIUM 2 MG TABLET PO SCH (17:34)
--- NOTE | 2016-09-28 18:25 | NUR ---
MS RN CLOSING NOTES PATIENT IN BED, NOT IN DISTRESS. ON ANTIBIOTIC TREATMENT WITH NO ADVERSE REACTION, AFEBRILE. NO S/S OF HYPO/HYPERGLYCEMIA NOTED. MAGNESIUM SUPPLEMENTED. ON COUMADIN WITH NO S/S OF BLEEDING NOTED. REPOSITION Q 2HR. CALL LIGHT WITHIN REACH. WILL ENDORSE TO COIL PLACER RN FOR CONTINUITY OF CARE.
[2016-09-28 20:00] VITALS: BP 157/91
--- NOTE | 2016-09-28 20:23 | NUR ---
MS2/RN RECEIVE PATIENT AWAKE, ALERT, ORIENTED COMFORTABLE, NO C/O PAIN, NO DISTRESS NOTED, CALL LIGHT IN REACH. NEEDS ATTENDED. WILL MONITOR.
--- NOTE | 2016-09-29 02:00 | NUR ---
MS2/RN PATIENT IS SLEEPING, EASILY AROUSABLE, APPEAR COMFORTABLE, NO SIGNS OF DISTRESS NOTED, CALL LIGHT IN REACH. WILL CONTINUE TO MONITOR.
[2016-09-29] MEDS: GENTAMICIN 100 MG in IV D5W 100 ML IV SCH ×2 (02:57→20:47)
[2016-09-29] MEDS: INSULIN REGULAR, HUMAN 100 UNIT/ML 3 ML VIAL SQ PRN ×4 (06:40→21:40)
[2016-09-29] MEDS: BLOOD SUGAR DIAGNOSTIC 1 EACH STRIP IN SCH ×4 (06:43→21:40)
[2016-09-29 06:45] LABS: RED BLOOD CELL COUNT(AUTO) 4.73 MIL/uL (4.0-5.2); WHITE BLOOD COUNT (AUTO) 7.1 K/uL (4.3-11.0)
--- NOTE | 2016-09-29 06:45 | NUR ---
MS2/RN AWAKE AT THIS TIME, COMFORTABLE, NO CHANGE IN CONDITION. TURNED AND REPOSITIONED PER PROTOCOL, MORNING CARE HAS BEEN DONE. ALL NEEDS ATTENDED AT THIS TIME, WILL CONTINUE TO MONITOR AND WILL ENDORSE.
[2016-09-29 06:46] LABS: BASOPHILS % (AUTO) 0.5 % (0.0-2.0); EOSINOPHILS # (AUTO) 0.3 /CMM (0.0-0.7); EOSINOPHILS % (AUTO) 4.2 % (0.0-6.0); HEMATOCRIT 36 % (33-45); HEMOGLOBIN 11.9 g/dL (11.5-14.8); LYMPHOCYTES # (AUTO) 1.7 /CMM (0.8-4.8); LYMPHOCYTES % (AUTO) 24.4 % (20.0-44.0); MEAN CORPUSCULAR HEMOGLOBIN 25 PG (26.0-33.0); MEAN CORPUSCULAR HGB CONC 33 g/dl (31.0-36.0); MEAN CORPUSCULAR VOLUME 77 fL (82-100); MONOCYTES # (AUTO) 0.4 /CMM (0.1-1.30); MONOCYTES % (AUTO) 5.7 % (2.0-12.0); NEUTROPHILS # (AUTO) 4.7 /CMM (1.8-8.9); NEUTROPHILS % (AUTO) 65.2 % (43.0-81.0); PLATELET COUNT (AUTO) 175 /CMM (150-450); RDW COEFFICIENT OF VARIATION 17.5 (11.5-15.0)
[2016-09-29 06:47] LABS: CALCIUM, SERUM 8.4 mg/dL (8.5-10.1); CARBON DIOXIDE 30 mmol/L (21-32); CHLORIDE 104 mmol/L (98-107); CREATININE 0.9 mg/dL (0.6-1.3); GLUCOSE 198 mg/dL (74-106); PHOSPHORUS 3.3 mg/dL (2.5-4.9); POTASSIUM 4.3 mmol/L (3.5-5.1); SODIUM SERUM 138 mmol/L (136-145); UREA NITROGEN, BLOOD 21 mg/dL (7-18)
--- NOTE | 2016-09-29 07:00 | NUR ---
MS RN NOTES RECEIVED PATIENT IN BED, SLEEPING, AROUSES EASILY. BREATHING EVEN AND NON LABORED, ON ROOM AIR, NO SOB NOTED. NO FACIAL GRIMACING. ON ANGELY MATTRESS, WILL CONT TO REPOSITION IN BED. CALL LIGHT WITHIN REACH. WILL CONT TO MONITOR.
[2016-09-29 08:00] VITALS: BP 146/75
[2016-09-29] MEDS: LINEZOLID 600 MG TABLET PO SCH ×2 (08:29→20:46)
[2016-09-29] MEDS: LACTOBACILLUS RHAMNOSUS GG 1 EACH CAP.SPRINK PO SCH ×2 (08:29→16:45)
--- NOTE | 2016-09-29 12:57 | NUR ---
PATIENT IS SEEN BY DR. MEHTA TODAY, REVIEW CULTURE SHOWING YEAST AND EXAMINED PATIENT'S VULVA. WILL START ANTIFUNGAL CREAM ORDERED. Addendum: 09/29/16 at 1320 by ALPA ALLAN RN ERROR ABOVE NOTES. NOT FOR PATIENT PRAFUL CORTEZ. Addendum: 09/29/16 at 1324 by ALPA ALLAN RN PLS DISREGARD ADDENDUM.
[2016-09-29] MEDS: CLOTRIMAZOLE 1% 15 GM TUBE TP SCH ×2 (13:51→17:52)
[2016-09-29 14:53] LABS: INR 0.94 (0.87-1.13)
--- NOTE | 2016-09-29 15:35 | NUR ---
C/O LEFT SHOULDER PAIN 3/10, GIVEN TYLENOL 650MG PO PRN, WILL REASSESS.
[2016-09-29 16:00] VITALS: BP 152/80
[2016-09-29] MEDS: WARFARIN SODIUM 2 MG TABLET PO SCH (16:46)
[2016-09-29 17:13] VITALS: BP 152/80
--- NOTE | 2016-09-29 18:14 | NUR ---
MS RN CLOSING NOTES PATIENT IN BED, NOT IN DISTRESS. ON ANTIBIOTIC TREATMENT WITH NO ADVERSE REACTION, AFEBRILE. NO S/S OF HYPO/HYPERGLYCEMIA NOTED. ON COUMADIN WITH NO S/S OF BLEEDING NOTED. ON ANGELY MATTRESS, REPOSITION Q 2HR. CALL LIGHT WITHIN REACH. NO C/O SHOULDER PAIN, TYLENOL PO EFFECTIVE. WILL ENDORSE TO DATA CONTROL CLERK SUPERVISOR RN FOR CONTINUITY OF CARE.
[2016-09-29 20:00] VITALS: BP 124/68
[2016-09-29 21:15] LABS: *HSV 1 DNA PCR Negative (Negative); *HSV 2 DNA PCR Negative (Negative)
--- NOTE | 2016-09-30 06:13 | NUR ---
rn note; PT IN BED SLEEPING, AROUSES EASILY. BREATHING EVENLY. NO SOB. NAD. NO ACUTE CHANGES OVER THE NIGHT. NO C/O PAIN OR DISCOMFORT. GOOD SKIN CARE RENDERED. CLEANED AND DRIED. REPOSITIONED ROUTINELY. CALL LIGHT WITHIN REACH. WILL CONT TO MONITOR AND WILL ENDORSE TO AM SHIFT FOR ABENA.
[2016-09-30] MEDS: BLOOD SUGAR DIAGNOSTIC 1 EACH STRIP IN SCH ×3 (06:45→17:47)
[2016-09-30] MEDS: INSULIN REGULAR, HUMAN 100 UNIT/ML 3 ML VIAL SQ PRN ×3 (06:46→17:49)
--- NOTE | 2016-09-30 07:00 | NUR ---
MS RN NOTES RECEIVED PATIENT IN BED, AWAKE, A/O X2. BREATHING EVEN AND NON LABORED, ON ROOM AIR, NO SOB NOTED. ON ANGELY MATTRESS, WILL CONT TO REPOSITION IN BED. NO C/O PAIN OR ANY DISCOMFORT. CALL LIGHT WITHIN REACH. WILL CONT TO MONITOR.
[2016-09-30 07:03] LABS: CALCIUM, SERUM 8.7 mg/dL (8.5-10.1); CARBON DIOXIDE 28 mmol/L (21-32); CHLORIDE 104 mmol/L (98-107); CREATININE 0.8 mg/dL (0.6-1.3); GLUCOSE 159 mg/dL (74-106); POTASSIUM 4.6 mmol/L (3.5-5.1); SODIUM SERUM 138 mmol/L (136-145); UREA NITROGEN, BLOOD 21 mg/dL (7-18)
[2016-09-30 08:00] VITALS: BP 150/74
[2016-09-30] MEDS: LINEZOLID 600 MG TABLET PO SCH (08:07)
[2016-09-30] MEDS: LACTOBACILLUS RHAMNOSUS GG 1 EACH CAP.SPRINK PO SCH ×2 (08:07→17:47)
[2016-09-30] MEDS: CLOTRIMAZOLE 1% 15 GM TUBE TP SCH ×2 (09:07→17:52)
--- NOTE | 2016-09-30 11:19 | NUR ---
PATIENT IS SEEN BY DR. LUZ ELENA VELÁSQUEZ TODAY, PATIENT TO BE DISCHARGED HOME ORDERED WITH HOME HEALTH TO FOLLOW.
--- NOTE | 2016-09-30 15:45 | NUR ---
PATIENT IS SEEN BY DR. MARIO, EXAMINED PATIENT AND MD SPOKE TO THE DAUGHTER-CHESTER. DR. BULLOCK WROTE PRESCRIPTION-MYCOLOG CREAM FOR VULVA AREA. DAUGHTER-CHESTER IS AWARE.
[2016-09-30 16:00] VITALS: BP 161/78
[2016-09-30] MEDS ORDERED: GENTAMICIN 120 MG in IV D5W 100 ML IV SCH (16:00)
[2016-09-30 16:56] LABS: INR 0.94 (0.87-1.13)
[2016-09-30 17:30] VITALS: BP 152/76
[2016-09-30] MEDS: WARFARIN SODIUM 2 MG TABLET PO SCH (17:48)
--- NOTE | 2016-09-30 18:34 | NUR ---
MS RN NOTES PATIENT HAS BEEN CLEARED FOR DISCHARGE HOME WITH MD. [facility] TO FOLLOW. DISCHARGE INSTRUCTION GIVEN TO THE DAUGHTER-CHESTER, VERBALIZED UNDERSTANDING. BELONGINGS CHECKED BY THE STEEL POURER HELPER. PRESCRIPTION GIVEN TO CHESTER-DAUGHTER. IV IN RIGHT AC PATENT AND INTACT REMAINS IN PLACE, ANTIBIOTIC IV THROUGH 10/02/16 WILL BE GIVEN AT HOME BY HOME HEALTH NURSE, DAUGHTER-CHESTER IS AWARE. PATIENT NOT IN DISTRESS, IN STABLE CONDITION. WILL ENDORSE TO GIZZARD SKIN REMOVER RN FOR CONTINUITY OF CARE.
--- NOTE | 2016-09-30 19:30 | NUR ---
RN NOTE; RECEIVED PT IN BED AWAKE AND RESPONSIVE W/ DTR AT THE BED SIDE . BREATHING EVENLY. NO SOB. NAD. NO C/O PAIN OR DISCOMFORT .D/C PROCESS WAS DISCUSSED W/ THE FAMILY W/ UNDERSTANDING. AWAITING FOR THE TRANSPORTATION.
--- NOTE | 2016-09-30 20:18 | NUR ---
PT WAS PICKED UP BY AMBULANCE VIA GURNEY IN STABLE CONDITION. 2 PRESCHOOL ADVISER AND THE DTR ACCOMPANIED THE PT. ALL THE BELONGINGS WERE PICKED UP BY THE FAMILY. ALL PAPER WORKS GIVEN TO THE DTR W/ UNDERSTANDING . IV LINE REMAINED IN PLACE PER AM NURSE FOR THE TWO MORE DOSES OF ATB TO BE GIVEN BY HH.
== END 2016-09-30 20:15 | disposition home health service (06) | DRG 757 ==
LOC: ER 15:33 → MEDSG2 17:22
PROVIDERS: ADMIT Internal Medicine Nephrology; ATTEND Internal Medicine Nephrology
DX: N76.2 Acute vulvitis (principal); G92 Toxic encephalopathy; L03.116 Cellulitis of left lower limb; I69.354 Hemiplegia and hemiparesis following cerebral infarction affecting left non-dominant side; N39.0 Urinary tract infection, site not specified; L03.115 Cellulitis of right lower limb; N76.4 Abscess of vulva; E11.9 Type 2 diabetes mellitus without complications; Z95.0 Presence of cardiac pacemaker; Z88.0 Allergy status to penicillin; Z88.2 Allergy status to sulfonamides; I48.91 Unspecified atrial fibrillation; I25.10 Atherosclerotic heart disease of native coronary artery without angina pectoris; K21.9 Gastro-esophageal reflux disease without esophagitis; I89.0 Lymphedema, not elsewhere classified; M81.0 Age-related osteoporosis without current pathological fracture; Z74.01 Bed confinement status; I10 Essential (primary) hypertension; B96.5 Pseudomonas (aeruginosa) (mallei) (pseudomallei) as the cause of diseases classified elsewhere; L30.9 Dermatitis, unspecified; B37.3 Candidiasis of vulva and vagina
CPT/HCPCS: 36415; 71010-TC; 80048-TC; 80170-TC; 81000-TC; 82962-TC; 83605-TC; 83735-TC; 84100-TC; 84484-TC; 85025-TC; 85610-TC; 85730-TC; 87040-TC; 87070-TC; 87081-TC; 87086-TC; 87186-TC; A4606; J1580; J1815; J3370; J3475; J7050; J7060; Z7610

== ENCOUNTER 2016-12-24 17:43 | Inpatient (IN) | payer MEDICARE, BC ==
[~2016-12-24] VITALS: Ht 157.5 cm; Wt 79.4 kg
[~2016-12-24 17:43] MED LIST changes: +BLOO-668 IN; +INSU100V7 SQ
--- NOTE | 2016-12-24 17:50 | NUR ---
PATIENT BIB RA C/O DVT IN LEFT LOWER EXTREMITY, REPORTED PER PATIENT'S PCP. PATIENT'S LLE INFLAMED AND IN PAIN. NO SOB, BREATHING EVEN AND UNLABORED. VITALS STABLE. SAFETY AND COMFORT MEASURES IN PLACE. AWAITING MD ORDERS.
--- NOTE | 2016-12-24 18:00 | NUR ---
NEW IV STARTED ON RFA, 20 G.
[2016-12-24 18:34] LABS: BASOPHILS # (AUTO) 0.1 /CMM (0.0-0.2); BASOPHILS % (AUTO) 0.8 % (0.0-2.0); EOSINOPHILS # (AUTO) 0.3 /CMM (0.0-0.7); EOSINOPHILS % (AUTO) 4.1 % (0.0-6.0); HEMATOCRIT 44 % (33-45); HEMOGLOBIN 14.4 g/dL (11.5-14.8); LYMPHOCYTES # (AUTO) 1.6 /CMM (0.8-4.8); LYMPHOCYTES % (AUTO) 22.5 % (20.0-44.0); MEAN CORPUSCULAR HEMOGLOBIN 26 PG (26.0-33.0); MEAN CORPUSCULAR HGB CONC 33 g/dl (31.0-36.0); MEAN CORPUSCULAR VOLUME 79 fL (82-100); MONOCYTES # (AUTO) 0.2 /CMM (0.1-1.30); MONOCYTES % (AUTO) 3.3 % (2.0-12.0); NEUTROPHILS # (AUTO) 4.9 /CMM (1.8-8.9); NEUTROPHILS % (AUTO) 69.3 % (43.0-81.0); PLATELET COUNT (AUTO) 154 /CMM (150-450); RDW COEFFICIENT OF VARIATION 16.1 (11.5-15.0); WHITE BLOOD COUNT (AUTO) 7.1 K/uL (4.3-11.0)
[2016-12-24 18:38] LABS: CALCIUM, SERUM 8.8 mg/dL (8.5-10.1); CARBON DIOXIDE 29 mmol/L (21-32); CHLORIDE 104 mmol/L (98-107); CREATININE 0.9 mg/dL (0.6-1.3); GLUCOSE 176 mg/dL (74-106); POTASSIUM 4.4 mmol/L (3.5-5.1); SODIUM SERUM 140 mmol/L (136-145); UREA NITROGEN, BLOOD 25 mg/dL (7-18)
[2016-12-24 18:41] LABS: INR 0.95 (0.87-1.13); PROTHROMBIN TIME 9.9 SECS (9.5-12.7)
--- NOTE | 2016-12-24 19:08 | NUR ---
REPORT GIVEN TO SMITA MATHIAS FOR ABENA.
--- NOTE | 2016-12-24 19:10 | NUR ---
RECEIVED REPORT FROM SMITA CUEVAS FOR ABENA. PT APPEARS TO BE COMFORTABLE. DAUGHTER AT BEDSIDE
--- NOTE | 2016-12-24 19:32 | NUR ---
PAGED DR ROMO, PAPER CORE MACHINE OPERATOR FOR DR MARTIN
--- NOTE | 2016-12-24 19:34 | NUR ---
PT ASSIGNED TO 306-1
--- NOTE | 2016-12-24 19:41 | NUR ---
REPORT GIVEN TO SMITA PRADO FOR CONTINUE OF CARE.
--- NOTE | 2016-12-24 19:49 | NUR ---
DR. ORDONEZ SPOKE TO DR. BRAVO REGARDING ADMISSION. PER MD FOR FLOOR RN TO F/U FOR ORDERS.
[2016-12-24] MEDS ORDERED: ENOXAPARIN SODIUM 80 MG/0.8 ML DISP.SYRIN SQ ONE (19:52)
[2016-12-24 20:00] VITALS: BP 157/73
--- NOTE | 2016-12-24 20:08 | NUR ---
PT TRANSFERRED VIA [facility]
[2016-12-24 21:00] VITALS: BP 157/73
[2016-12-24] MEDS ORDERED: WARFARIN SODIUM 5 MG TABLET ONE (22:15)
[2016-12-24] MEDS ORDERED: WARFARIN SODIUM 5 MG TABLET PO SCH (22:30)
[2016-12-24] MEDS ORDERED: ACETAMINOPHEN 650 MG/20.3 ML UDC PO PRN (22:30)
[2016-12-24] MEDS ORDERED: ZOLPIDEM TARTRATE 5 MG TABLET PO PRN (22:30)
--- NOTE | 2016-12-24 22:30 | NUR ---
PT'S BS LEVEL IS 159 NO INSULIN PROVIDED, MESSAGE OF CONTRAINDICATION RECEIVED DUE TO PT'S LATEX ALLERGY, MD CANO PAGED TO CLARIFY IF PT SHOULD RECEIVE INSULIN, CHARGE NURSE MADE AWARE, WILL CONTINUE TO MONITOR CLOSELY.
[2016-12-25 07:09] LABS: BASOPHILS % (AUTO) 0.7 % (0.0-2.0); EOSINOPHILS # (AUTO) 0.3 /CMM (0.0-0.7); EOSINOPHILS % (AUTO) 4.3 % (0.0-6.0); HEMATOCRIT 40 % (33-45); HEMOGLOBIN 13.2 g/dL (11.5-14.8); LYMPHOCYTES # (AUTO) 1.6 /CMM (0.8-4.8); MEAN CORPUSCULAR HEMOGLOBIN 26 PG (26.0-33.0); MEAN CORPUSCULAR HGB CONC 33 g/dl (31.0-36.0); MEAN CORPUSCULAR VOLUME 79 fL (82-100); MONOCYTES # (AUTO) 0.3 /CMM (0.1-1.30); MONOCYTES % (AUTO) 5.4 % (2.0-12.0); NEUTROPHILS # (AUTO) 3.9 /CMM (1.8-8.9); NEUTROPHILS % (AUTO) 63.6 % (43.0-81.0); PLATELET COUNT (AUTO) 145 /CMM (150-450); RDW COEFFICIENT OF VARIATION 16.7 (11.5-15.0); RED BLOOD CELL COUNT(AUTO) 5.06 MIL/uL (4.0-5.2); WHITE BLOOD COUNT (AUTO) 6.1 K/uL (4.3-11.0)
--- NOTE | 2016-12-25 07:22 | NUR ---
MS RN CLOSING NOTE PT REMAINED STABLE DURING SYRUP MIXER HELPER, NO SIGNIFICANT CHANGE IN CONDITION NOTED, WILL ENDORSE TO INCOMING NURSE FOR ABENA.
[2016-12-25 07:24] LABS: ALANINE AMINOTRANSFERASE 14 U/L (12-78); ALBUMIN 2.7 g/dL (3.4-5.0); ALKALINE PHOSPHATASE 77 U/L (46-116); ASPARTATE AMINOTRANSFERASE 16 U/L (15-37); BILIRUBIN,TOTAL 0.4 mg/dL (0.2-1.0); CALCIUM, SERUM 8.5 mg/dL (8.5-10.1); CARBON DIOXIDE 28 mmol/L (21-32); CHLORIDE 109 mmol/L (98-107); CREATININE 0.9 mg/dL (0.6-1.3); GLUCOSE 166 mg/dL (74-106); POTASSIUM 4.1 mmol/L (3.5-5.1); SODIUM SERUM 143 mmol/L (136-145); TOTAL PROTEIN, SERUM 6.1 g/dL (6.4-8.2); UREA NITROGEN, BLOOD 23 mg/dL (7-18)
[2016-12-25] MEDS ORDERED: DEXTROSE 50%-WATER 50 ML DISP.SYRIN IV PRN (07:30)
[2016-12-25 08:00] VITALS: BP 167/85
--- NOTE | 2016-12-25 08:01 | NUR ---
MED SURGE RN: INITIAL NOTE RECEIVED PT ALERT AND ORIENTED X1-2. HAS A LEFT SUBCLAVIAN PACEMAKER. SITE CLEAR. IS ON REGULAR DIET. L FOREARM IV #20. IV PATENT. NO REDNESS. NO INFILTRATION. NO DISTRESS NOTED. NO SOB NOTED. RESTING COMFORTABLY IN BED. CALL LIGHT WITHIN REACH.
[2016-12-25] MEDS: ENOXAPARIN SODIUM 80 MG/0.8 ML DISP.SYRIN SQ SCH ×2 (08:46→21:49)
[2016-12-25] MEDS: BLOOD SUGAR DIAGNOSTIC 1 EACH STRIP IN SCH ×4 (08:47→21:39)
[2016-12-25] MEDS: INSULIN REGULAR, HUMAN 100 UNIT/ML 3 ML VIAL SQ PRN ×3 (09:30→22:45)
[2016-12-25] MEDS ORDERED: [UNRECOGNIZED DRUG - OTHER] XX SCH (14:30)
--- NOTE | 2016-12-25 14:30 | NUR ---
WOUND CARE CONSULT: PT PRESENTS WITH INCONTINENCE AND MOISTURE RELATED EXCORIATED AREAS TO POSTERIOR THIGHS, PRESENT ON ADMISSION. RECOMMENDATIONS MADE FOR SKIN PROTECTION. DISCUSSED WITH NURSING STAFF AND SAUTE CHEF. PT USING HER OWN CALMOSEPTINE FROM HOME. FIRST STEP MATTRESS ORDERED. ALL SKIN PROTECTION MEASURES IN PLACE. WILL SEE PRN. RIZZO IN AGREEMENT WITH PLAN OF CARE. Addendum: 12/25/16 at 1432 by SERGIO LEDESMA WNDNU Amended: Links added.
[2016-12-25 16:09] VITALS: BP 167/91
[2016-12-25] MEDS: WARFARIN SODIUM 5 MG TABLET PO SCH (17:17)
--- NOTE | 2016-12-25 18:10 | NUR ---
MED SURGE RN: CLOSING NOTE PT ALERT AND ORIENTED X1-2. HAS LEFT SUBCLAVIAN PACEMAKER. NO DISTRESS NOTED. NO SOB NOTED. NO PAIN NOTED. ATE LUNCH/ DINNER WITHOUT N/V NOTED. LEFT FOREARM #20 WITH NO IV FLUIDS RUNNING. SITE CLEAR, NO REDNESS, PATENT. REPOSITIONED Q2HRS. RESTING COMFORTABLY IN BED. CALL LIGHT WITHIN REACH.
--- NOTE | 2016-12-25 19:40 | NUR ---
MS RN NOTE: PATIENT RESTING IN BED, NO ACUTE DISTRESS NOTED. BREATHING EVEN AND UNLABORED, NO SOB NOTED. IV TO LFA IN PLACE. NO S/S OF HYPER/HYPOGLYCEMIA NOTED. BED LOCKED AND IN LOWEST POSITION, CALL LIGHT IN REACH. WILL CONTINUE TO MONITOR.
[2016-12-25 20:00] VITALS: BP 164/75
--- NOTE | 2016-12-25 20:15 | NUR ---
MS RN NOTE: PATIENT RESULTS FROM DOPPLER TO VERIFY DVT RECEIVED. CONFIRMED THAT PATIENT HAD DVT TO BLE. PATIENT ADMITTED FOR DVT AND ON ANTICOAGULANTS PER MD ORDER. WILL CONTINUE TO MONITOR.
[2016-12-25] MEDS: CALMOSEPTINE TP PRN (21:40)
[2016-12-25] MEDS: CALMOSEPTINE TP SCH (21:40)
--- NOTE | 2016-12-25 21:45 | NUR ---
MS RN NOTE: PATIENT BLOOD SUGAR LEVEL 193 MG/DL, PATIENT TO RECEIVE 3 UNITS OF INSULIN PER MD. NO S/S OF HYPER/HYPOGLYCEMIA NOTED. WILL CONTINUE TO MONITOR.
--- NOTE | 2016-12-26 06:10 | NUR ---
MS RN NOTE: PATIENT RESTING IN BED, NO ACUTE DISTRESS NOTED. BREATHING EVEN AND UNLABORED, NO SOB NOTED. IV TO LFA IN PLACE. BLOOD SUGAR LEVEL 154 MG/DL, PATIENT TO RECEIVE 2 UNITS OF INSULIN PER SLIDING SCALE. NO S/S OF HYPER/HYPOGLYCEMIA NOTED. BED LOCKED AND IN LOWEST POSITION, CALL LIGHT IN REACH. WILL ENDORSE TO TODAY NURSE TO CONTINUE WITH PLAN OF CARE.
[2016-12-26] MEDS: BLOOD SUGAR DIAGNOSTIC 1 EACH STRIP IN SCH ×4 (06:39→20:53)
[2016-12-26] MEDS: INSULIN REGULAR, HUMAN 100 UNIT/ML 3 ML VIAL SQ PRN ×4 (06:57→20:55)
--- NOTE | 2016-12-26 07:25 | NUR ---
RN MS NOTES PATIENT IN BED, RESTING COMFORTABLY, AROUSABLE EASILY, NO DISTRESS NOTED, BREATHING EVEN AND UNLABORED, NO SOB NOTED, BLE EDEMA OBSERVED, ALL NEEDS ATTENDED AND ANTICIPATED, PIV PATENT AND FLUSHES WELL, SAFETY MEASURES IN PLACED, CALL LIGHT WITHIN REACH, WILL CONTINUE TO MONITOR.
[2016-12-26 07:36] LABS: INR 1.08 (0.87-1.13); PROTHROMBIN TIME 11.6 SECS (9.5-12.7)
[2016-12-26 07:37] LABS: THYROID STIMULATING HORMONE 2.628 uIU/mL (0.358-3.74)
[2016-12-26 08:00] VITALS: BP 153/83
[2016-12-26] MEDS: ENOXAPARIN SODIUM 80 MG/0.8 ML DISP.SYRIN SQ SCH ×2 (08:55→20:58)
[2016-12-26] MEDS: CALMOSEPTINE TP PRN (08:56)
[2016-12-26] MEDS: CALMOSEPTINE TP SCH ×2 (08:58→20:59)
[2016-12-26 16:00] VITALS: BP 106/69
[2016-12-26] MEDS: WARFARIN SODIUM 5 MG TABLET PO SCH (17:18)
--- NOTE | 2016-12-26 18:36 | NUR ---
SMITA MS NOTES PATIENT IN BED, ALERT AND ORIENTED, FAMILY AT BEDSIDE, NO DISTRESS NOTED, BREATHING EVEN AND UNLABORED, SKIN CARE RENDERED, WOUND TREATMENT COMPLETED, TURNED AND REPOSITIONED EVER 2 HOURS AND PRN, OFFLOADED, ADL CARE PROVIDED, PIV PATENT AND FLUSHES WELL, ALL DUE MEDS ADMINISTERED, NO S/SX OF HYPO OR HYPERGLYCEMIA, SAFETY MEASURES IN PLACED, CALL LIGHT WITHIN REACH, WILL CONTINUE TO MONITOR. Addendum: 12/26/16 at 1842 by SHERIF ZAMUDIO RN ADDENDUM: WILL ENDORSE TO DIRECTOR OF DIVERSITY AND INCLUSION FOR ABENA.
--- NOTE | 2016-12-26 19:45 | NUR ---
[facility] HOLD/NOTES SEEN PT IN BED AWAKE AND ALERT DENIES ANY PAIN OR ANY DISCOMFORT. AT THE BEDSIDE. CONCERNED REGARDING PT MENU FOR CHUCK AND TELLING ME THAT HE'S BEEN WAITING FOR THAT. SPOKE TO HIM THAT I WILL TRY MY BEST TO GET TONITE. AND CHECK THEM FIRST IF STILL OPEN . CALLED DIETARY AND SPOKE TO JORGE AND SHE BROUGHT MENUE AND GAVE IT TO THE FAMILY THEN THEY RESPONSE "THANK YOU". WILL ENDORSE TO ANOTHER NURSE SOPHIE FOR CONTINUITY OF CARE.
[2016-12-26 20:00] VITALS: BP 147/72
--- NOTE | 2016-12-26 20:00 | NUR ---
RN NOTE RECEIVED REPORT FROM OUTGOING RN. PT AAOX2-3, NO S/S OF ANY DISTRESS AT THIS TIME. BREATHING NON-LABORED AND EVEN. SKIN WARM TO TOUCH. APPEARS COMFORTABLE. FAMILY AT BEDSIDE. IV INTACT AND PATENT. WILL CONT TO MONITOR.
[2016-12-26] MEDS: TRIAMCINOLONE ACETONIDE 0.1% CR 15 GM TUBE TP SCH (20:53)
[2016-12-27 06:39] LABS: INR 1.11 (0.87-1.13); PROTHROMBIN TIME 11.9 SECS (9.5-12.7)
[2016-12-27] MEDS: BLOOD SUGAR DIAGNOSTIC 1 EACH STRIP IN SCH ×4 (06:49→21:55)
--- NOTE | 2016-12-27 06:50 | NUR ---
RN NOTE NO EVENTS OVERNIGHT- PT SLEPT WELL. KEPT CLEAN AND COMFORTABLY T/O SHIFT. NO S/S OR C/O ANY PAIN OR DISCOMFORT AT THIS TIME. NO DISTRESS NOTED. IV INTACT AND PATENT. ALL NEEDS ATTENDED. WILL F/U WITH DAY SHIFT FOR ABENA.
[2016-12-27 06:52] LABS: BASOPHILS % (AUTO) 0.5 % (0.0-2.0); EOSINOPHILS # (AUTO) 0.3 /CMM (0.0-0.7); EOSINOPHILS % (AUTO) 4.1 % (0.0-6.0); HEMATOCRIT 37 % (33-45); HEMOGLOBIN 12.3 g/dL (11.5-14.8); LYMPHOCYTES # (AUTO) 1.8 /CMM (0.8-4.8); LYMPHOCYTES % (AUTO) 26.3 % (20.0-44.0); MEAN CORPUSCULAR HEMOGLOBIN 26 PG (26.0-33.0); MEAN CORPUSCULAR HGB CONC 33 g/dl (31.0-36.0); MEAN CORPUSCULAR VOLUME 78 fL (82-100); MONOCYTES # (AUTO) 0.4 /CMM (0.1-1.30); MONOCYTES % (AUTO) 5.7 % (2.0-12.0); NEUTROPHILS # (AUTO) 4.4 /CMM (1.8-8.9); NEUTROPHILS % (AUTO) 63.4 % (43.0-81.0); PLATELET COUNT (AUTO) 160 /CMM (150-450); RDW COEFFICIENT OF VARIATION 16.9 (11.5-15.0); RED BLOOD CELL COUNT(AUTO) 4.76 MIL/uL (4.0-5.2)
[2016-12-27 06:55] LABS: CALCIUM, SERUM 8.4 mg/dL (8.5-10.1); CARBON DIOXIDE 27 mmol/L (21-32); CHLORIDE 110 mmol/L (98-107); CREATININE 0.8 mg/dL (0.6-1.3); GLUCOSE 125 mg/dL (74-106); MAGNESIUM 1.8 mg/dL (1.8-2.4); PHOSPHORUS 3.3 mg/dL (2.5-4.9); POTASSIUM 4.1 mmol/L (3.5-5.1); SODIUM SERUM 144 mmol/L (136-145); UREA NITROGEN, BLOOD 29 mg/dL (7-18)
[2016-12-27 08:00] VITALS: BP 149/85
--- NOTE | 2016-12-27 08:00 | NUR ---
MS RN NOTES PATIENT SLEEPING IN BED COMFORTABLY. NO DISTRESS ,NO DISCOMFORT NOTED. PERIPHERAL IV LINE ON LFA, INTACT & PATENT. BED IN LOW LOCKED POSITION. CALL LIGHT WITHIN REACH. OBSERVING CLOSELY.
[2016-12-27 08:12] LABS: CA 27.29 15.8 U/mL (0.0-38.6); CANCER AG, 125 97.4 U/mL (0.0-38.1); CANCER AG, 15-3 14.2 U/mL (0.0-25.0); CARCINOEMBRYONIC AG (CEA) 4.3 ng/mL (0.0-4.7)
--- NOTE | 2016-12-27 08:30 | NUR ---
MS ORDOÑEZ BREAKFAST SERVED, DUE MEDS GIVEN,TOLERATED WELL.
[2016-12-27] MEDS: CALMOSEPTINE TP SCH ×2 (08:38→21:55)
[2016-12-27] MEDS: TRIAMCINOLONE ACETONIDE 0.1% CR 15 GM TUBE TP SCH ×2 (08:39→21:55)
[2016-12-27] MEDS: ENOXAPARIN SODIUM 80 MG/0.8 ML DISP.SYRIN SQ SCH ×2 (08:40→21:00)
--- NOTE | 2016-12-27 12:00 | NUR ---
MS RN BS - 143 - REFUSED COVERAGE, DUE TO PATIENT NOT EATING MUCH.
[2016-12-27 16:00] VITALS: BP 144/74
[2016-12-27] MEDS: WARFARIN SODIUM 5 MG TABLET PO SCH (17:13)
[2016-12-27] MEDS: INSULIN REGULAR, HUMAN 100 UNIT/ML 3 ML VIAL SQ PRN ×2 (17:16→21:57)
--- NOTE | 2016-12-27 17:38 | NUR ---
MS RN PM CARE DONE W/ DYE CAN OPERATOR, DRESSING TO BILATERAL GROIN DONE, TOLERATED WELL.
--- NOTE | 2016-12-27 17:47 | NUR ---
MS RN NOTICED SOME BLEEDING COMING FROM VAGINA, CALLED DR. GODINEZ W/ ORDER TO HOLD LOVENOX TILL FURTHER ORDER AND H AND H IN AM.
--- NOTE | 2016-12-27 19:30 | NUR ---
MS/RN NOTES RECEIVED PT. LYING IN BED. AWAKE, ALERT AND ORIENTED X2-3. BREATHING EVEN AND UNLABORED ON ROOM AIR. NO SOB OR RESPIRATORY DISTRESS NOTED. PT. COMPLAINING OF LOWER BACK PAIN /. PT. REFUSING PAIN MEDICATION AT THIS TIME. EDUCATED PT. ON IMPORTANCE OF PAIN MANAGEMENT. PT. VERBALIZED UNDERSTANDING AND CONTINUES TO REFUSE PAIN MEDICATION AT THIS TIME. PT. WITH LEFT FOREARM 20 GAUGE IV SALINE LOCK PRESENT, PATENT AND INTACT. PT. WITH FAMILY MEMBER PRESENT AT BEDSIDE. PER DAYSHIFT NURSE PT. HAD SLIGHT VAGINAL BLEEDING. DR. GODINEZ WAS INFORMED. PER DAYSHIFT NURSE DR. GODINEZ STATED TO HOLD LOVENOX TONIGHT AND ORDERED H/H IN THE MORNING 12/28/16. BED IN LOWEST POSITION, CALL LIGHT WITHIN REACH, SIDE RAILS UP X2, WILL CONTINUE TO MONITOR.
[2016-12-27 20:24] VITALS: BP 160/91
--- NOTE | 2016-12-28 05:35 | NUR ---
MS/RN NOTES VAGINAL BLEEDING NOTED WHEN CLEANING AND REPOSITIONING THE PT. PT. IN STABLE CONDITION. PT. VITAL SIGNS STABLE. PT. HAS NO COMPLAINTS OF SOB, RESPIRATORY DISTRESS OR PAIN AT THIS TIME. CHARGE NURSE TIESHA NOTIFIED. PT. HAD H/H AND MORNING LABS DRAWN @ 0505 AWAITING RESULTS.
[2016-12-28 06:34] LABS: BASOPHILS % (AUTO) 0.5 % (0.0-2.0); EOSINOPHILS # (AUTO) 0.3 /CMM (0.0-0.7); EOSINOPHILS % (AUTO) 4.4 % (0.0-6.0); HEMATOCRIT 36 % (33-45); HEMOGLOBIN 11.6 g/dL (11.5-14.8); LYMPHOCYTES # (AUTO) 1.8 /CMM (0.8-4.8); MEAN CORPUSCULAR HEMOGLOBIN 25 PG (26.0-33.0); MEAN CORPUSCULAR HGB CONC 32 g/dl (31.0-36.0); MEAN CORPUSCULAR VOLUME 78 fL (82-100); MONOCYTES # (AUTO) 0.4 /CMM (0.1-1.30); MONOCYTES % (AUTO) 6.1 % (2.0-12.0); NEUTROPHILS # (AUTO) 3.9 /CMM (1.8-8.9); PLATELET COUNT (AUTO) 158 /CMM (150-450); RDW COEFFICIENT OF VARIATION 16.9 (11.5-15.0); RED BLOOD CELL COUNT(AUTO) 4.61 MIL/uL (4.0-5.2); WHITE BLOOD COUNT (AUTO) 6.3 K/uL (4.3-11.0)
[2016-12-28] MEDS: BLOOD SUGAR DIAGNOSTIC 1 EACH STRIP IN SCH ×4 (06:46→21:28)
[2016-12-28 06:47] LABS: INR 1.11 (0.87-1.13)
[2016-12-28] MEDS: INSULIN REGULAR, HUMAN 100 UNIT/ML 3 ML VIAL SQ PRN ×4 (06:48→21:38)
--- NOTE | 2016-12-28 06:50 | NUR ---
MS/RN NOTES PT. IS LYING IN BED RESTING. BREATHING EVEN AND UNLABORED ON ROOM AIR. NO SOB OR RESPIRATORY DISTRESS NOTED. PT. WITH LEFT FOREARM 20 GAUGE IV SALINE LOCK PRESENT, PATENT AND INTACT. ALL PT. NEEDS MET. ALL DUE MEDS GIVEN. WOUND CARE PROVIDED ORDERED. PT. TURNED AND REPOSITIONED Q2H AND NEEDED. BED IN LOWEST POSITION, CALL LIGHT WITHIN REACH, SIDE RAILS UP X2, WILL ENDORSE TO DAYSHIFT NURSE FOR CONTINUITY OF CARE.
[2016-12-28 06:54] LABS: CALCIUM, SERUM 8.2 mg/dL (8.5-10.1); CARBON DIOXIDE 27 mmol/L (21-32); CHLORIDE 109 mmol/L (98-107); CREATININE 0.8 mg/dL (0.6-1.3); GLUCOSE 168 mg/dL (74-106); MAGNESIUM 1.8 mg/dL (1.8-2.4); PHOSPHORUS 3.8 mg/dL (2.5-4.9); POTASSIUM 4.3 mmol/L (3.5-5.1); SODIUM SERUM 143 mmol/L (136-145); UREA NITROGEN, BLOOD 29 mg/dL (7-18)
--- NOTE | 2016-12-28 07:40 | NUR ---
MS RN OPEN NOTES RECEIVED REPORT FROM LEGAL COMPLIANCE OFFICER NURSE. PATIENT IS IN BED. COMFORTABLY WITH HER EYES CLOSED AND EASILY AWAKEN. IV SITES INTACT WITH NO SIGNS AND SYMPTOMS OF INFILTRATION OR REDNESS NOTED. RESPIRATIONS EVEN AND UNLABORED. CALL LIGHT WITHIN EASY TO REACH, BED IN LOW POSITION, 2 SIDE RAILS ARE UP. TO ENSURE SAFETY. WILL CONTINUE TO ASSESS AND MONITOR PATIENT
[2016-12-28 08:00] VITALS: BP 116/57
[2016-12-28] MEDS: CALMOSEPTINE TP PRN (08:54)
[2016-12-28] MEDS: TRIAMCINOLONE ACETONIDE 0.1% CR 15 GM TUBE TP SCH ×2 (08:55→21:29)
[2016-12-28] MEDS: CALMOSEPTINE TP SCH ×2 (08:55→21:29)
[2016-12-28] MEDS: ENOXAPARIN SODIUM 80 MG/0.8 ML DISP.SYRIN SQ SCH ×3 (09:00→21:37)
--- NOTE | 2016-12-28 09:00 | NUR ---
HELD LOVENOX DUE TO VAGINAL BLEED. WILL NOTIFY
--- NOTE | 2016-12-28 11:20 | NUR ---
DR LONGORIA MADE AWARE OF HOLDING LOVENOX. DR VELARDE REQUESTED TO ADMINISTERED LOVENOX. LOVENOX ADMINISTERED
[2016-12-28 16:00] VITALS: BP 128/75
[2016-12-28] MEDS: WARFARIN SODIUM 5 MG TABLET PO SCH (16:55)
--- NOTE | 2016-12-28 18:28 | NUR ---
RN CLOSING NOTES PATIENT IS ALERT AND ORIENTED TO NAME AND PLACE. IS AT BEDSIDE. NO SIGNS AND SYMPTOMS OF DISTRESS. DENIED PAIN. BED IN LOW POSITION LOCKED AND TWO SIDE RAILS ARE UP. CALL LIGHT WITHIN REACH. ALL NURSING CARE ANTICIPATED AND PROVIDED. IV SITE IN INTACT AND PATENT. WILL ENDORSE TO KEVIN SHIFT NURSE.
--- NOTE | 2016-12-28 19:40 | NUR ---
MS RN NOTE: PATIENT RESTING IN BED, NO ACUTE DISTRESS NOTED, FAMILY AT BEDSIDE. BREATHING EVEN AND UNLABORED, NO SOB NOTED. IV TO LFA IN PLACE. PATIENT CONTINUES TO HAVE VAGINAL BLEEDING AND MD ARE AWARE. CONTINUE TO MONITOR FOR INCREASE BLEEDING. S/S OF HYPER/HYPOGLYCEMIA NOTED. BED LOCKED AND IN LOWEST POSITION, CALL LIGHT IN REACH. WILL CONTINUE TO MONITOR.
[2016-12-28 20:00] VITALS: BP 153/80
--- NOTE | 2016-12-28 21:30 | NUR ---
MS RN NOTE: PATIENT BLOOD SUGAR LEVEL 184 MG/DL, PATIENT TO RECEIVE 3 UNITS OF INSULIN PER SLIDING SCALE. NO S/S OF HYPER/HYPOGLYCEMIA NOTED. WILL CONTINUE TO MONITOR.
--- NOTE | 2016-12-29 06:20 | NUR ---
MS RN NOTE: PATIENT RESTING IN BED, NO ACUTE DISTRESS NOTED. BREATHING EVEN AND UNLABORED, NO SOB NOTED. IV TO RFA IN PLACE. PATIENT CONTINUES TO HAVE MODERATE VAGINAL BLEEDING, CONTINUE TO MONITOR FOR INCREASE BLEEDING. PATIENT BLOOD SUGAR LEVEL 174 MG/DL, PATIENT TO RECEIVE 3 UNITS PER SLIDING SCALE, S/S OF HYPER/HYPOGLYCEMIA NOTED. BED LOCKED AND IN LOWEST POSITION, CALL LIGHT IN REACH. WILL ENDORSE TO DAY NURSE TO CONTINUE WITH PLAN OF CARE.
[2016-12-29] MEDS: BLOOD SUGAR DIAGNOSTIC 1 EACH STRIP IN SCH ×4 (06:53→21:50)
[2016-12-29] MEDS: INSULIN REGULAR, HUMAN 100 UNIT/ML 3 ML VIAL SQ PRN ×4 (06:54→23:28)
--- NOTE | 2016-12-29 07:15 | NUR ---
RN OPEN NOTES RECEIVED REPORT FROM CLINIC CLERK NURSE. WILL CONTINUE TO MONITOR AND ASSESS PATIENT THROUGH OUT MY SHIFT
[2016-12-29 08:00] VITALS: BP 135/74
[2016-12-29] MEDS: TRIAMCINOLONE ACETONIDE 0.1% CR 15 GM TUBE TP SCH ×2 (09:15→21:49)
[2016-12-29] MEDS: CALMOSEPTINE TP SCH ×2 (09:15→21:50)
[2016-12-29] MEDS: ENOXAPARIN SODIUM 80 MG/0.8 ML DISP.SYRIN SQ SCH ×2 (09:19→21:51)
--- NOTE | 2016-12-29 10:45 | NUR ---
RIGHT HAND 24G IV SITE STARTED. PATIENT TOLERATED PROCEDURE WELL
--- NOTE | 2016-12-29 12:20 | NUR ---
DR VELARDE AT BEDSIDE
[2016-12-29] MEDS: POLYETHYLENE GLYCOL 3350 17 GM POWD.PACK PO PRN (12:33)
[2016-12-29 14:10] LABS: BASOPHILS % (AUTO) 0.6 % (0.0-2.0); EOSINOPHILS # (AUTO) 0.2 /CMM (0.0-0.7); EOSINOPHILS % (AUTO) 3.9 % (0.0-6.0); HEMATOCRIT 36 % (33-45); HEMOGLOBIN 11.9 g/dL (11.5-14.8); LYMPHOCYTES # (AUTO) 1.5 /CMM (0.8-4.8); LYMPHOCYTES % (AUTO) 23.1 % (20.0-44.0); MEAN CORPUSCULAR HEMOGLOBIN 26 PG (26.0-33.0); MEAN CORPUSCULAR HGB CONC 33 g/dl (31.0-36.0); MEAN CORPUSCULAR VOLUME 78 fL (82-100); MONOCYTES # (AUTO) 0.3 /CMM (0.1-1.30); MONOCYTES % (AUTO) 5.1 % (2.0-12.0); NEUTROPHILS # (AUTO) 4.3 /CMM (1.8-8.9); NEUTROPHILS % (AUTO) 67.3 % (43.0-81.0); PLATELET COUNT (AUTO) 184 /CMM (150-450); RDW COEFFICIENT OF VARIATION 17.5 (11.5-15.0); RED BLOOD CELL COUNT(AUTO) 4.62 MIL/uL (4.0-5.2); WHITE BLOOD COUNT (AUTO) 6.4 K/uL (4.3-11.0)
[2016-12-29 14:46] LABS: ALANINE AMINOTRANSFERASE 32 U/L (12-78); ALBUMIN 2.7 g/dL (3.4-5.0); ALKALINE PHOSPHATASE 80 U/L (46-116); ASPARTATE AMINOTRANSFERASE 32 U/L (15-37); BILIRUBIN,TOTAL 0.2 mg/dL (0.2-1.0); CALCIUM, SERUM 8.7 mg/dL (8.5-10.1); CARBON DIOXIDE 30 mmol/L (21-32); CHLORIDE 111 mmol/L (98-107); CREATININE 0.9 mg/dL (0.6-1.3); GLUCOSE 191 mg/dL (74-106); MAGNESIUM 2.1 mg/dL (1.8-2.4); PHOSPHORUS 3.4 mg/dL (2.5-4.9); POTASSIUM 4.2 mmol/L (3.5-5.1); SODIUM SERUM 148 mmol/L (136-145); TOTAL PROTEIN, SERUM 6.1 g/dL (6.4-8.2); UREA NITROGEN, BLOOD 29 mg/dL (7-18)
[2016-12-29 15:12] LABS: INR 1.24 (0.87-1.13); PROTHROMBIN TIME 13.5 SECS (9.5-12.7)
[2016-12-29 16:00] VITALS: BP 127/71
[2016-12-29] MEDS: WARFARIN SODIUM 5 MG TABLET PO SCH (16:39)
--- NOTE | 2016-12-29 19:40 | NUR ---
MS RN NOTE: PATIENT RESTING IN BED, NO ACUTE DISTRESS NOTED, FAMILY AT BEDSIDE. BREATHING EVEN AND UNLABORED, NO SOB NOTED. IV TO RIGHT HAND IN PLACE. PATIENT CONTINUES TO HAVE VAGINAL BLEEDING AND MD ARE AWARE. CONTINUE TO MONITOR FOR INCREASE BLEEDING. S/S OF HYPER/HYPOGLYCEMIA NOTED. BED LOCKED AND IN LOWEST POSITION, CALL LIGHT IN REACH. WILL CONTINUE TO MONITOR.
[2016-12-29 20:00] VITALS: BP 156/66
--- NOTE | 2016-12-29 22:00 | NUR ---
MS RN NOTE: PATIENT BLOOD SUGAR LEVEL 222 MG/DL, PATIENT TO RECEIVE 4 UNITS OF INSULIN PER SLIDING SCALE. NO S/S OF HYPER/HYPOGLYCEMIA NOTED. WILL CONTINUE TO MONITOR.
--- NOTE | 2016-12-30 06:10 | NUR ---
MS RN NOTE: PATIENT RESTING IN BED, NO ACUTE DISTRESS NOTED. BREATHING EVEN AND UNLABORED, NO SOB NOTED. IV TO RIGHT HAND #24G IN PLACE. PATIENT CONTINUES TO HAVE MODERATE VAGINAL BLEEDING, CONTINUE TO MONITOR FOR INCREASE BLEEDING. PATIENT BLOOD SUGAR LEVEL 204 MG/DL, PATIENT TO RECEIVE 4 UNITS PER SLIDING SCALE, S/S OF HYPER/HYPOGLYCEMIA NOTED. BED LOCKED AND IN LOWEST POSITION, CALL LIGHT IN REACH. WILL ENDORSE TO DAY NURSE TO CONTINUE WITH PLAN OF CARE.
[2016-12-30] MEDS: BLOOD SUGAR DIAGNOSTIC 1 EACH STRIP IN SCH ×4 (06:59→21:46)
[2016-12-30] MEDS: INSULIN REGULAR, HUMAN 100 UNIT/ML 3 ML VIAL SQ PRN ×4 (07:00→21:47)
[2016-12-30 07:10] LABS: INR 1.34 (0.87-1.13); PROTHROMBIN TIME 14.6 SECS (9.5-12.7)
--- NOTE | 2016-12-30 07:30 | NUR ---
MS RN OPENING RECEIVED PATIENT AWAKE NODS YES AND NO TO SOME QUESTIONS. PATIENT DENIES PAIN, SOB, DIFFICULTY BREATHING AT THIS TIME. PATIENT POSITIONED TO LEFT LATERAL WITH CLIVE DAVE. IV INTACT PATENT AND NO S/S INFILTRATION. WILL ROUND Q2H OR LESS PER NEEDS. HEELS AND ELBOWS OFFLOADED.
[2016-12-30 07:32] LABS: BASOPHILS # (AUTO) 0.1 /CMM (0.0-0.2); BASOPHILS % (AUTO) 0.8 % (0.0-2.0); EOSINOPHILS # (AUTO) 0.3 /CMM (0.0-0.7); EOSINOPHILS % (AUTO) 4.7 % (0.0-6.0); HEMATOCRIT 37 % (33-45); HEMOGLOBIN 12.8 g/dL (11.5-14.8); LYMPHOCYTES # (AUTO) 1.9 /CMM (0.8-4.8); LYMPHOCYTES % (AUTO) 30.2 % (20.0-44.0); MEAN CORPUSCULAR HEMOGLOBIN 27 PG (26.0-33.0); MEAN CORPUSCULAR HGB CONC 35 g/dl (31.0-36.0); MEAN CORPUSCULAR VOLUME 79 fL (82-100); MONOCYTES # (AUTO) 0.4 /CMM (0.1-1.30); MONOCYTES % (AUTO) 6.8 % (2.0-12.0); NEUTROPHILS # (AUTO) 3.6 /CMM (1.8-8.9); NEUTROPHILS % (AUTO) 57.5 % (43.0-81.0); PLATELET COUNT (AUTO) 151 /CMM (150-450); RDW COEFFICIENT OF VARIATION 17.6 (11.5-15.0); RED BLOOD CELL COUNT(AUTO) 4.67 MIL/uL (4.0-5.2); WHITE BLOOD COUNT (AUTO) 6.3 K/uL (4.3-11.0)
[2016-12-30 08:00] VITALS: BP 140/78
[2016-12-30 08:28] LABS: ALANINE AMINOTRANSFERASE 34 U/L (12-78); ALBUMIN 2.7 g/dL (3.4-5.0); ALKALINE PHOSPHATASE 70 U/L (46-116); ASPARTATE AMINOTRANSFERASE 27 U/L (15-37); BILIRUBIN,TOTAL 0.3 mg/dL (0.2-1.0); CALCIUM, SERUM 8.5 mg/dL (8.5-10.1); CARBON DIOXIDE 28 mmol/L (21-32); CHLORIDE 110 mmol/L (98-107); CREATININE 0.8 mg/dL (0.6-1.3); GLUCOSE 189 mg/dL (74-106); PHOSPHORUS 3.3 mg/dL (2.5-4.9); POTASSIUM 4.5 mmol/L (3.5-5.1); SODIUM SERUM 144 mmol/L (136-145); TOTAL PROTEIN, SERUM 6.1 g/dL (6.4-8.2); UREA NITROGEN, BLOOD 29 mg/dL (7-18)
[2016-12-30] MEDS: TRIAMCINOLONE ACETONIDE 0.1% CR 15 GM TUBE TP SCH ×2 (08:50→21:48)
[2016-12-30] MEDS: ENOXAPARIN SODIUM 80 MG/0.8 ML DISP.SYRIN SQ SCH ×2 (08:54→21:46)
--- NOTE | 2016-12-30 08:55 | NUR ---
MS RN NOTES PATIENT CALMOSEPTINE IS ALMOST EMPTY. CALLED PHARMACY TO HAVE MORE BROUGHT UP
[2016-12-30] MEDS: CALMOSEPTINE TP SCH ×2 (10:21→21:48)
[2016-12-30 16:00] VITALS: BP 144/67
[2016-12-30] MEDS ORDERED: WARFARIN SODIUM 5 MG TABLET PO SCH (17:00)
--- NOTE | 2016-12-30 17:13 | NUR ---
MS RN NOTES NON ADMIN COUMADIN NEW ORDER. CORRECT DOSE GIVEN ORDERED ALREADY.
[2016-12-30] MEDS ORDERED: WARFARIN SODIUM 2 MG TABLET PO ONE (17:30)
--- NOTE | 2016-12-30 19:30 | NUR ---
MS/RN NOTES RECEIVED PT. LYING DOWN IN BED. AWAKE, ALERT AND ORIENTED X 2. BREATHING EVEN AND UNLABORED ON ROOM AIR. NO SOB, RESPIRATORY DISTRESS OR COMPLAINTS OF PAIN NOTED AT THIS TIME. PT. WITH RIGHT HAND 24 GAUGE IV SALINE LOCK PRESENT, PATENT AND INTACT. PT. WITH FAMILY MEMBER PRESENT AT BEDSIDE. BED IN LOWEST POSITION, SIDE RAILS UP X2, BED ALARM ON, CALL LIGHT WITHIN REACH, WILL CONTINUE TO MONITOR.
[2016-12-30 20:00] VITALS: BP 116/65
[2016-12-30] MEDS: POLYETHYLENE GLYCOL 3350 17 GM POWD.PACK PO PRN (21:46)
--- NOTE | 2016-12-31 06:06 | NUR ---
MS/RN NOTES PT. IS LYING DOWN IN BED RESTING. BREATHING EVEN AND UNLABORED ON ROOM AIR. NO SOB, RESPIRATORY DISTRESS OR S/S OF PAIN NOTED AT THIS TIME. PT. WITH RIGHT HAND 24 GAUGE IV SALINE LOCK PRESENT, PATENT AND INTACT. ALL PT. NEEDS MET. PT. OFFLOADED. TURNED AND REPOSITIONED Q2H AND NEEDED. BED IN LOWEST POSITION, SIDE RAILS UP X2, BED ALARM ON, CALL LIGHT WITHIN REACH, WILL ENDORSE TO DAYSHIFT NURSE FOR CONTINUITY OF CARE.
[2016-12-31] MEDS: BLOOD SUGAR DIAGNOSTIC 1 EACH STRIP IN SCH ×4 (06:39→22:24)
[2016-12-31] MEDS: INSULIN REGULAR, HUMAN 100 UNIT/ML 3 ML VIAL SQ PRN ×4 (06:41→22:37)
[2016-12-31 07:04] LABS: INR 1.42 (0.87-1.13); PROTHROMBIN TIME 15.5 SECS (9.5-12.7)
[2016-12-31 07:11] LABS: BASOPHILS % (AUTO) 0.2 % (0.0-2.0); EOSINOPHILS # (AUTO) 0.4 /CMM (0.0-0.7); EOSINOPHILS % (AUTO) 5.1 % (0.0-6.0); HEMATOCRIT 36 % (33-45); HEMOGLOBIN 11.8 g/dL (11.5-14.8); LYMPHOCYTES % (AUTO) 28.5 % (20.0-44.0); MEAN CORPUSCULAR HEMOGLOBIN 26 PG (26.0-33.0); MEAN CORPUSCULAR HGB CONC 33 g/dl (31.0-36.0); MEAN CORPUSCULAR VOLUME 79 fL (82-100); MONOCYTES # (AUTO) 0.5 /CMM (0.1-1.30); MONOCYTES % (AUTO) 6.8 % (2.0-12.0); NEUTROPHILS # (AUTO) 4.2 /CMM (1.8-8.9); NEUTROPHILS % (AUTO) 59.4 % (43.0-81.0); PLATELET COUNT (AUTO) 152 /CMM (150-450); RDW COEFFICIENT OF VARIATION 17.1 (11.5-15.0); RED BLOOD CELL COUNT(AUTO) 4.57 MIL/uL (4.0-5.2)
--- NOTE | 2016-12-31 07:30 | NUR ---
MS RN AM NOTES RECEIVED PT IN BED, AWAKE, ALERT AND ORIENTED X 2. ON ROOM AIR, BREATHING EVEN AND UNLABORED, NO SOB, NO RESPIRATORY DISTRESS OR COMPLAINTS OF PAIN NOTED AT THIS TIME. PT. WITH RIGHT HAND 24 GAUGE IV SALINE LOCK, FLUSHES WELL, SITE CLEAR. SEE NURSING FLOWSHEET FOR SKIN ISSUES. NEEDS ASSIST IN EATING . BED IN LOWEST POSITION, SIDE RAILS UP X2, BED ALARM ON, CALL LIGHT WITHIN REACH, WILL CONTINUE TO MONITOR.
[2016-12-31 07:39] LABS: CALCIUM, SERUM 8.4 mg/dL (8.5-10.1); CARBON DIOXIDE 29 mmol/L (21-32); CHLORIDE 108 mmol/L (98-107); CREATININE 0.7 mg/dL (0.6-1.3); GLUCOSE 176 mg/dL (74-106); MAGNESIUM 1.9 mg/dL (1.8-2.4); PHOSPHORUS 3.3 mg/dL (2.5-4.9); POTASSIUM 4.8 mmol/L (3.5-5.1); SODIUM SERUM 143 mmol/L (136-145); UREA NITROGEN, BLOOD 28 mg/dL (7-18)
[2016-12-31 08:00] VITALS: BP_SYST 143; BP_SYST 147; BP_DIAS 82; BP_DIAS 83
[2016-12-31] MEDS: TRIAMCINOLONE ACETONIDE 0.1% CR 15 GM TUBE TP SCH ×2 (09:02→22:39)
[2016-12-31] MEDS: ENOXAPARIN SODIUM 80 MG/0.8 ML DISP.SYRIN SQ SCH ×2 (09:03→22:14)
[2016-12-31] MEDS: CALMOSEPTINE TP SCH ×2 (09:03→22:39)
--- NOTE | 2016-12-31 09:30 | NUR ---
MS RN NOTES ADMINISTERED DUE MED, ASSISTED IN TURNING AND REPOSITIONING.
--- NOTE | 2016-12-31 11:30 | NUR ---
MS RN NOTES ACCUCHECK. BS 257 MG/DL. ADMINISTERED 6 UNITS HUM R PER SLIDING SCALE.
[2016-12-31 16:00] VITALS: BP 147/77
[2016-12-31] MEDS ORDERED: WARFARIN SODIUM 2 MG TABLET PO SCH (17:00)
[2016-12-31] MEDS: WARFARIN SODIUM 1 MG TABLET PO SCH (17:20)
--- NOTE | 2016-12-31 17:28 | NUR ---
MS RN NOTES ACCUCHECK. BS 183 MG/DL. ADMINISTERED 3 UNITS HUM R PER SLIDING SCALE.
[2016-12-31 18:00] VITALS: BP 147/77
--- NOTE | 2016-12-31 18:28 | NUR ---
MS RN CLOSING NOTES PT IN BED RESTING, FAMILY AT BEDSIDE. AWAKE, ALERT AND ORIENTED X 2. ON ROOM AIR, BREATHING EVEN AND UNLABORED, NO SOB, NO RESPIRATORY DISTRESS OR COMPLAINTS OF PAIN NOTED AT THIS TIME. PT. WITH RIGHT HAND 24 GAUGE IV SALINE LOCK, FLUSHES WELL, SITE CLEAR. ASSISTED BY FAMILY IN EATING. PT SEEN BY DR. MARTIN EARLIER, DECIDED TO KEEP PATIENT FOR 1 MORE NIGHT. FOR POSSIBLE DC TOMORROW. NO BLEEDING NOTED, ON COUMADIN. BED IN LOWEST POSITION, SIDE RAILS UP X2, BED ALARM ON, CALL LIGHT WITHIN REACH, TURNED AND REPOSITIONED, OFFLOAD, ALL NEEDS MET, NO OTHER SIGNIFICANT CHANGE IN CONDITION. WILL ENDORSE TO NEXT SHIFT FOR ABENA.
--- NOTE | 2016-12-31 19:35 | NUR ---
RN OPENING NOTES RECEIVED REPORT FROM Shaina RNTERESA. Pt ARRIVED TO FLOOR VIA GURNEY. FAMILY AT BEDSIDE. NO S/S OF ACUTE DISTRESS OR SOB NOTED. Pt IS A/OX3, VERBAL, ABLE TO MAKE NEEDS KNOWN. ABLE TO AMBULATE. IV ACCESS ON RAC #18G, SL. SAFETY MEASURES IN PLACE. BED LOW, LOCKED, HOB ELEVATED, SIDE RAILS UP, CALL LIGHT AND BEDSIDE TABLE WITHIN REACH. WILL CONTINUE TO MONITOR Pt THROUGHOUT THE NIGHT FOR SAFETY. Addendum: 01/01/17 at 0417 by JANICE DANIELLE RN DISREGARD THIS NOTE. FROM A DIFFERENT Pt
--- NOTE | 2016-12-31 19:35 | NUR ---
RN OPENING NOTES RECEIVED REPORT FROM HOLLEY RNBRADY. DAUGHTER VISITING AT BEDSIDE. NO S/S OF ACUTE DISTRESS OR SOB NOTED. Pt IS A/OX2, VERBAL, ABLE TO MAKE NEEDS KNOWN. IV ACCESS ON R HAND #24G, SL. SAFETY MEASURES IN PLACE. BED LOW, LOCKED, HOB ELEVATED, SIDE RAILS UP, CALL LIGHT AND BEDSIDE TABLE WITHIN REACH. WILL CONTINUE TO MONITOR Pt THROUGHOUT THE NIGHT FOR SAFETY.
[2016-12-31 20:00] VITALS: BP 130/70
--- NOTE | 2016-12-31 22:00 | NUR ---
RN NOTES HS ACCUCHECK BG 221. ADMINISTERED 4UN OF INSULIN PER SLIDING SCALE.
[2017-01-01] MEDS: BLOOD SUGAR DIAGNOSTIC 1 EACH STRIP IN SCH ×4 (06:23→21:17)
[2017-01-01] MEDS: INSULIN REGULAR, HUMAN 100 UNIT/ML 3 ML VIAL SQ PRN ×4 (06:28→21:30)
[2017-01-01 06:29] LABS: BASOPHILS # (AUTO) 0.1 /CMM (0.0-0.2); BASOPHILS % (AUTO) 0.9 % (0.0-2.0); EOSINOPHILS # (AUTO) 0.4 /CMM (0.0-0.7); HEMATOCRIT 35 % (33-45); HEMOGLOBIN 11.5 g/dL (11.5-14.8); LYMPHOCYTES # (AUTO) 1.6 /CMM (0.8-4.8); LYMPHOCYTES % (AUTO) 21.9 % (20.0-44.0); MEAN CORPUSCULAR HEMOGLOBIN 26 PG (26.0-33.0); MEAN CORPUSCULAR HGB CONC 33 g/dl (31.0-36.0); MEAN CORPUSCULAR VOLUME 79 fL (82-100); MONOCYTES # (AUTO) 0.5 /CMM (0.1-1.30); MONOCYTES % (AUTO) 6.9 % (2.0-12.0); NEUTROPHILS # (AUTO) 4.6 /CMM (1.8-8.9); NEUTROPHILS % (AUTO) 65.3 % (43.0-81.0); PLATELET COUNT (AUTO) 181 /CMM (150-450); RDW COEFFICIENT OF VARIATION 17.3 (11.5-15.0); RED BLOOD CELL COUNT(AUTO) 4.42 MIL/uL (4.0-5.2); WHITE BLOOD COUNT (AUTO) 7.1 K/uL (4.3-11.0)
--- NOTE | 2017-01-01 06:29 | NUR ---
RN NOTES AC ACCUCHECK BG 205. ADMINISTERED 4UN OF INSULIN PER SLIDING SCALE.
[2017-01-01 06:34] LABS: INR 1.51 (0.87-1.13); PROTHROMBIN TIME 16.6 SECS (9.5-12.7)
--- NOTE | 2017-01-01 06:34 | NUR ---
RN CLOSING NOTES NO SIGNIFICANT CHANGES IN Pt's CONDITION. Pt REMAINS STABLE. NO S/S OF ACUTE DISTRESS OR SOB NOTED DURING THE NIGHT. ALL NEEDS MET AND ATTENDED TO. SAFETY MEASURES IN PLACE. WILL ENDORSE TO DAYSHIFT RN FOR Pt's ABENA.
[2017-01-01 07:02] LABS: ALANINE AMINOTRANSFERASE 36 U/L (12-78); ALBUMIN 2.7 g/dL (3.4-5.0); ALKALINE PHOSPHATASE 74 U/L (46-116); ASPARTATE AMINOTRANSFERASE 27 U/L (15-37); BILIRUBIN,TOTAL 0.3 mg/dL (0.2-1.0); CALCIUM, SERUM 8.6 mg/dL (8.5-10.1); CARBON DIOXIDE 28 mmol/L (21-32); CHLORIDE 108 mmol/L (98-107); CREATININE 0.7 mg/dL (0.6-1.3); GLUCOSE 205 mg/dL (74-106); PHOSPHORUS 3.1 mg/dL (2.5-4.9); POTASSIUM 4.7 mmol/L (3.5-5.1); SODIUM SERUM 143 mmol/L (136-145); UREA NITROGEN, BLOOD 31 mg/dL (7-18)
[2017-01-01 08:00] VITALS: BP 135/72
[2017-01-01] MEDS: CALMOSEPTINE TP SCH ×2 (09:20→21:16)
[2017-01-01] MEDS: TRIAMCINOLONE ACETONIDE 0.1% CR 15 GM TUBE TP SCH ×2 (09:20→21:16)
[2017-01-01] MEDS: ENOXAPARIN SODIUM 80 MG/0.8 ML DISP.SYRIN SQ SCH ×2 (09:21→21:18)
--- NOTE | 2017-01-01 09:30 | NUR ---
MS RN NOTES ADMINISTERED DUE MED, ASSISTED IN TURNING AND REPOSITIONING.
--- NOTE | 2017-01-01 11:25 | NUR ---
MS RN NOTES ACCUCHECK. BS 233 MG/DL. ADMINISTERED 4 UNITS HUM R PER SLIDING SCALE.
[2017-01-01 16:00] VITALS: BP 117/65
[2017-01-01] MEDS: WARFARIN SODIUM 1 MG TABLET PO SCH (17:24)
--- NOTE | 2017-01-01 17:30 | NUR ---
MS RN NOTES ACCUCHECK. BS 166 MG/DL. ADMINISTERED 3 UNITS HUM R PER SLIDING SCALE.
[2017-01-01 18:00] VITALS: BP 117/65
--- NOTE | 2017-01-01 18:12 | NUR ---
MS RN CLOSING NOTES PT IN BED RESTING, FAMILY AT BEDSIDE. AWAKE, ALERT AND ORIENTED X 2. ON ROOM AIR, BREATHING EVEN AND UNLABORED, NO SOB, NO RESPIRATORY DISTRESS OR COMPLAINTS OF PAIN NOTED AT THIS TIME. PT. WITH LEFT HAND 24 GAUGE IV SALINE LOCK, FLUSHES WELL, SITE CLEAR. ASSISTED BY FAMILY IN EATING. PT SEEN BY DR. Phi GODINEZ EARLIER, DECIDED TO KEEP PATIENT FOR 1 MORE NIGHT. FOR POSSIBLE DC TOMORROW. MODERATE VAGINAL BLEEDING NOTED DURING PM CARE. MD AWARE. REPEAT H&H CHUCK AM. ON COUMADIN. BED IN LOWEST POSITION, SIDE RAILS UP X2, BED ALARM ON, CALL LIGHT WITHIN REACH, TURNED AND REPOSITIONED, OFFLOAD, ALL NEEDS MET, NO OTHER SIGNIFICANT CHANGE IN CONDITION. WILL ENDORSE TO NEXT SHIFT FOR ABENA.
--- NOTE | 2017-01-01 19:45 | NUR ---
MS RN INITIAL NOTES PT IS IN BED RESTING. A/O X2, DAUGHTER AT BEDSIDE. BREATHING EVENLY AND UNLABORED ON ROOM AIR. ON ROOM AIR, NO SIGNS OF SOB OR DISTRESS. PT HAS SOME MILD VAGINAL BLEEDING. NO S/S OF PAIN AT THIS TIME. BED IS IN LOW AND LOCKED POSITION. CALL LIGHT WITHIN REACH. WILL CONTINUE TO MONITOR PT.
[2017-01-01 20:00] VITALS: BP 120/69
[2017-01-01] MEDS ORDERED: KEY,NONCONTROL,TO KEEP IN PYXI 1 EA MC ONE (20:38)
[2017-01-02] MEDS: BLOOD SUGAR DIAGNOSTIC 1 EACH STRIP IN SCH ×4 (06:48→21:29)
[2017-01-02] MEDS: INSULIN REGULAR, HUMAN 100 UNIT/ML 3 ML VIAL SQ PRN ×4 (06:49→21:31)
[2017-01-02 06:58] LABS: BASOPHILS % (AUTO) 0.3 % (0.0-2.0); EOSINOPHILS # (AUTO) 0.3 /CMM (0.0-0.7); EOSINOPHILS % (AUTO) 4.5 % (0.0-6.0); HEMATOCRIT 33 % (33-45); LYMPHOCYTES % (AUTO) 29.7 % (20.0-44.0); MEAN CORPUSCULAR HEMOGLOBIN 26 PG (26.0-33.0); MEAN CORPUSCULAR HGB CONC 33 g/dl (31.0-36.0); MEAN CORPUSCULAR VOLUME 79 fL (82-100); MONOCYTES # (AUTO) 0.4 /CMM (0.1-1.30); MONOCYTES % (AUTO) 6.8 % (2.0-12.0); NEUTROPHILS # (AUTO) 3.9 /CMM (1.8-8.9); NEUTROPHILS % (AUTO) 58.7 % (43.0-81.0); PLATELET COUNT (AUTO) 180 /CMM (150-450); RDW COEFFICIENT OF VARIATION 17.4 (11.5-15.0); RED BLOOD CELL COUNT(AUTO) 4.18 MIL/uL (4.0-5.2); WHITE BLOOD COUNT (AUTO) 6.6 K/uL (4.3-11.0)
[2017-01-02 07:23] LABS: CALCIUM, SERUM 8.3 mg/dL (8.5-10.1); CARBON DIOXIDE 29 mmol/L (21-32); CHLORIDE 109 mmol/L (98-107); CREATININE 0.7 mg/dL (0.6-1.3); GLUCOSE 186 mg/dL (74-106); INR 1.68 (0.87-1.13); MAGNESIUM 1.9 mg/dL (1.8-2.4); PHOSPHORUS 3.7 mg/dL (2.5-4.9); POTASSIUM 4.4 mmol/L (3.5-5.1); PROTHROMBIN TIME 18.6 SECS (9.5-12.7); SODIUM SERUM 144 mmol/L (136-145); UREA NITROGEN, BLOOD 34 mg/dL (7-18)
--- NOTE | 2017-01-02 07:27 | NUR ---
MS RN OPENING NOTE PATIENT IS ALERT AND ORIENTED x2-3. NO PAIN AT THIS TIME. NO SOB OR DISTRESS NOTED. CALL LIGHT WITHIN REACH. SAFETY MEASURES IMPLEMENTED. ABLE TO COMMUNICATE NEEDS. IV INTACT AND PATENT, NO REDNESS NOTED. WILL CONTINUE TO MONITOR
--- NOTE | 2017-01-02 07:39 | NUR ---
MS RN CLOSING NOTES PT IS A/O X2, COMFORTABLE IN BED. NO SIGNS OF SOB OR DISTRESS. WOUND CARE WAS RENDERED. BED IS IN LOW AND LOCKED POSITION. WILL ENDORSE TO DAY SHIFT
[2017-01-02 08:00] VITALS: BP 128/74
[2017-01-02] MEDS: TRIAMCINOLONE ACETONIDE 0.1% CR 15 GM TUBE TP SCH ×2 (09:12→21:28)
[2017-01-02] MEDS: CALMOSEPTINE TP SCH ×2 (09:12→21:28)
[2017-01-02] MEDS: ENOXAPARIN SODIUM 80 MG/0.8 ML DISP.SYRIN SQ SCH ×2 (09:16→21:32)
[2017-01-02 16:00] VITALS: BP 127/69
[2017-01-02] MEDS: WARFARIN SODIUM 1 MG TABLET PO SCH (16:54)
--- NOTE | 2017-01-02 18:29 | NUR ---
MS RN CLOSING NOTE PATIENT IS ALERT AND ORIENTED x2-3. NO PAIN AT THIS TIME NOTED. NO SOB OR DISTRESS NOTED. ON ROOM AIR O2 SATURATION AT 96%. CALL LIGHT WITHIN REACH AT ALL TIMES. SAFETY MEASURES IMPLEMENTED. BED BATH GIVEN. ALL WOUND CARE TREATMENTS DONE x2. PATIENT DOES HAVE SMALL VAGINAL BLEEDING, CHARGE NURSE AWARE. DAUGHTER MENTIONED SHE HAS HAD BLEEDING FOR YEARS NOW AND IS SEEING A DOCTOR OUTPATIENT. ALL DUE MEDICATIONS GIVEN ORDERED. BLOOD SUGARS MONITORED AND INSULIN GIVEN NEEDED. HAS LOVENOX AND COUMADIN FOR BILATERAL DVT. IV INTACT AND PATENT, NO REDNESS OR SWELLING NOTED. POSSIBLE DISCHARGE TOMORROW, WILL ENDORSE TO [employer] DEVELOPER NURSE FOR ABENA.
--- NOTE | 2017-01-02 19:30 | NUR ---
MS RN NOTE RECEIVED PATIENT FROM DAY SHIFT, PATIENT IS ALERT AND ORIENTEDX2, NO S/S OF RESPIRATORY DISTRESS OR PAIN AT THIS TIME. IV ON RIGHT HAND IS PATENT AND INTACT, HL ONLY. SRX2, BED IN LOW POSITION, CALL LIGHT WITHIN REACH, WILL CONTINUE TO MONITOR PATIENT.
[2017-01-02 20:00] VITALS: BP 113/70
[2017-01-03] MEDS: BLOOD SUGAR DIAGNOSTIC 1 EACH STRIP IN SCH ×4 (05:39→21:15)
[2017-01-03] MEDS: INSULIN REGULAR, HUMAN 100 UNIT/ML 3 ML VIAL SQ PRN ×3 (05:40→21:17)
[2017-01-03 06:30] LABS: BASOPHILS # (AUTO) 0.1 /CMM (0.0-0.2); BASOPHILS % (AUTO) 0.7 % (0.0-2.0); EOSINOPHILS # (AUTO) 0.2 /CMM (0.0-0.7); EOSINOPHILS % (AUTO) 2.8 % (0.0-6.0); HEMATOCRIT 32 % (33-45); HEMOGLOBIN 10.5 g/dL (11.5-14.8); LYMPHOCYTES # (AUTO) 1.7 /CMM (0.8-4.8); LYMPHOCYTES % (AUTO) 21.4 % (20.0-44.0); MEAN CORPUSCULAR HEMOGLOBIN 26 PG (26.0-33.0); MEAN CORPUSCULAR HGB CONC 33 g/dl (31.0-36.0); MEAN CORPUSCULAR VOLUME 79 fL (82-100); MONOCYTES # (AUTO) 0.4 /CMM (0.1-1.30); MONOCYTES % (AUTO) 4.6 % (2.0-12.0); NEUTROPHILS # (AUTO) 5.7 /CMM (1.8-8.9); NEUTROPHILS % (AUTO) 70.5 % (43.0-81.0); PLATELET COUNT (AUTO) 198 /CMM (150-450); RDW COEFFICIENT OF VARIATION 17.2 (11.5-15.0); RED BLOOD CELL COUNT(AUTO) 3.99 MIL/uL (4.0-5.2); WHITE BLOOD COUNT (AUTO) 8.1 K/uL (4.3-11.0)
[2017-01-03 06:38] LABS: CALCIUM, SERUM 8.5 mg/dL (8.5-10.1); CARBON DIOXIDE 28 mmol/L (21-32); CHLORIDE 109 mmol/L (98-107); CREATININE 0.8 mg/dL (0.6-1.3); GLUCOSE 203 mg/dL (74-106); MAGNESIUM 2.1 mg/dL (1.8-2.4); PHOSPHORUS 3.9 mg/dL (2.5-4.9); POTASSIUM 4.7 mmol/L (3.5-5.1); SODIUM SERUM 143 mmol/L (136-145); UREA NITROGEN, BLOOD 35 mg/dL (7-18)
[2017-01-03 06:41] LABS: INR 1.79 (0.87-1.13); PROTHROMBIN TIME 19.9 SECS (9.5-12.7)
--- NOTE | 2017-01-03 06:51 | NUR ---
MS RN NOTE PATIENT IS RESTING IN BED, NO ACUTE DISTRESS NOTED, STILL HAVE VAGINAL BLEEDING. BED SEGUN RENDERED, ALL DUE MEDS GIVEN. IV ON RIGHT HAND IS PATENT AND INTACT. Q2H TURN AND REPOSITION PERFORMED. WILL ENDORSE TO DAY SHIFT NURSE FOR ABENA.
--- NOTE | 2017-01-03 07:36 | NUR ---
RN NOTES RECEIVED PT. PT IS STABLE AND IN BED. A/OX2. NO S/S OF DISTRESS OR SOB. PT HAS NO C/O PAIN AT THIS TIME. PT IS ON RA, O2 SAT >95%. IV ACCESS IS LOCATED ON THE RIGHT HAND 24G, SL. SAFETY MEASURES IN PLACE, CALL LIGHT WITHIN REACH. WILL CONTINUE TO MONITOR.
[2017-01-03 08:00] VITALS: BP 107/62
[2017-01-03] MEDS: ENOXAPARIN SODIUM 80 MG/0.8 ML DISP.SYRIN SQ SCH (08:51)
[2017-01-03] MEDS: CALMOSEPTINE TP SCH ×2 (08:52→21:17)
[2017-01-03] MEDS: TRIAMCINOLONE ACETONIDE 0.1% CR 15 GM TUBE TP SCH ×2 (08:53→21:16)
[2017-01-03] MEDS ORDERED: IV NS 0.9% 1,000 ML IV PRN (12:00)
[2017-01-03] MEDS ORDERED: IV NS 0.9% 1,000 ML BAG IV PRN (12:00)
--- NOTE | 2017-01-03 14:19 | NUR ---
RN NOTES DISCUSSED IVC FILTER PLACEMENT WITH PT AND DAUGHTER. PER PT'S REQUEST, CONSENT WILL BE SIGNED FOLLOWING THE ARRIVAL OF PT'S AND DR. BENEDICT. AWARE.
[2017-01-03 16:00] VITALS: BP 123/69
[2017-01-03] MEDS ORDERED: WARFARIN SODIUM 1 MG TABLET PO SCH (17:00)
[2017-01-03] MEDS ORDERED: IOHEXOL 50 ML IV ONE ×2 (17:37→17:46)
[2017-01-03] MEDS ORDERED: LIDOCAINE 1% INJ 50 ML MDV IJ ONE (17:37)
[2017-01-03] MEDS ORDERED: ANESTHESIA TRAY IN PYXIS 1 EA TRAY MC ONE (18:49)
--- NOTE | 2017-01-03 19:35 | NUR ---
RN INITIAL NOTES: RECEIVED REPORT FROM ALFRED ORDOÑEZ, PT IN BED, AWAKE, A/O X2 ON ROOM AIR RESPIRATION EVEN AND UNLABORED, PT CURRENTLY EATING HER DINNER ASSISTED BY DAUGHTER. DENIES ANY PAIN OR DISCOMFORT AT THIS TIME, FAMILY AT BED SIDE, S/P IVC FILTER PLACEMENT TODAY AT 1700 01/03/[address] BENEDICT, RIGHT GROIN DRESSING C/D/I, WITH TRANSPARENT DRESSING IN PLACED, NO ACTIVE BLEEDING NOTED, PER ORDER TO CHECK THE GROIN [id number] X1HR THE [id number] FOR 1HR, THEN Q1HR X4HRS/I WILL START ON CHECKING THE GROIN [id number] DAY RN DID THE Q15 FOR 1HR ALREADY. PT HAS LEFT HANG IV G24 PATENT AND FLUSHING WELL, ON HL. BLE OFFLOADED. SAFETY PRECAUTIONS FOR FALL INITIATED CALL LIGHT IN REACH, WILL CONTINUE TO MONITOR.
--- NOTE | 2017-01-03 19:43 | NUR ---
RN CLOSING NOTE PT IS IN BED RESTING. NO S/S OF DISTRESS OR SOB. NO C/O PAIN AT THIS MOMENT. FAMILY IS BEDSIDE. PATIENT RETURNED FROM IVC FILTER PLACEMENT. HEPARIN WAS REFUSED DUE TO POTENTIAL BLEEDING FROM SURGICAL SITE. SAFETY MEASURES IN PLACE. CALL LIGHT WITHIN REACH. WILL ENDORSE TO RECREATION TECHNICIAN FOR ABENA.
[2017-01-03 20:00] VITALS: BP 123/63
--- NOTE | 2017-01-03 20:00 | NUR ---
RN NOTES: CHECKED PT'S RIGHT GROIN, NO ACTIVE BLEEDING NOTED, TRANSPARENT DRESSING AND GAUZE REMAINS IN PLACED, WILL CONTINUE TO MONITOR
[2017-01-03 21:00] VITALS: BP 119/65
--- NOTE | 2017-01-03 21:00 | NUR ---
REASSESSMENT: NO BLEEDING NOTED ON PT'S RIGHT GROIN AREA, WILL CONTINUE TO MONITOR
--- NOTE | 2017-01-03 21:18 | NUR ---
RN NOTES:l CHECKED BLOOD SUGAR AND REVEAL 152, PT'S DAUGHTER REFUSED TO GIVE 2UNITS OF INSULIN FOR THE PT, EDUCATE FAMILY REGARDING MEDICATION COMPLIANCE, SHE STATED HER MOJM WILL NOT EAT THAT MUCH TONIGHT SO SHES AFRAID THAT HER BLOOD SUGAR WILL GO WAY TOO LOW IN AM, SO SHE WOULD LIKE TO HOLD OFF FOR THE INSULIN FOR NOW.
--- NOTE | 2017-01-03 21:30 | NUR ---
RN NOTES: DRESSING ON PT'S RIGHT GROIN STILL CLEAN DRY AND INTACT, NO BLEEDING NOTED AT THIS TIME, WILL CONTINUE MONITORING THE PT
--- NOTE | 2017-01-03 22:00 | NUR ---
RN NOTES: ASSITED STAFF OCCUPATIONAL THERAPIST IN PROVIDING BED BATH FOR THE PT, ALSO CHECKED THE RIGHT GROIN, NO BLEEDING NOTED, DRESSING IS C/D/I, TRANSPARENT DRESSING IN PLACED, NO VAGINAL BLEEDING NOTED UPON CHANGING PATIENT'S DIAPER AND CLEANING THE PERINEAL AREA
--- NOTE | 2017-01-03 22:30 | NUR ---
RN NOTES: CHECKED THE RIGHT GROIN FOR ANY BLEEDING, NO BLEEDING NOTED AT THIS TIME, TRANSPARENT DRESSING IN PLACED, WILL CONTINUE TO MONITOR
--- NOTE | 2017-01-03 23:03 | NUR ---
RN NOTES: PT RESTING IN BED, APPEARS COMFORTABLE, NO FACIAL GRIMACE NOTED, RIGHT GROIN DRESSING IS C/D/I, NO ACTIVE BLEEDING NOTED, WILL CONTINUE TO MONITOR
--- NOTE | 2017-01-04 | NUR ---
REASSESSMENT OF GROIN: CHECKED PT'S RIGHT GROIN AREA, NO BLEEDING NOTED, DRESSING REMAINS C/D/I, WILL CONTINUE TO MONITOR
--- NOTE | 2017-01-04 05:24 | NUR ---
RN NOTES: BED BATH PROVIDED BY CLIVE DAVE V, NOTED THERE'S VAGINAL BLEEDING MODERATE IN AMOUNT, NO BLEEDING NOTED ON RIGHT GROIN, WILL CONTINUE TO MONITOR
[2017-01-04 05:25] VITALS: BP 130/66
[2017-01-04 06:37] LABS: BASOPHILS % (AUTO) 0.7 % (0.0-2.0); EOSINOPHILS # (AUTO) 0.3 /CMM (0.0-0.7); EOSINOPHILS % (AUTO) 3.7 % (0.0-6.0); HEMATOCRIT 29 % (33-45); HEMOGLOBIN 9.5 g/dL (11.5-14.8); LYMPHOCYTES # (AUTO) 1.5 /CMM (0.8-4.8); LYMPHOCYTES % (AUTO) 22.5 % (20.0-44.0); MEAN CORPUSCULAR HEMOGLOBIN 26 PG (26.0-33.0); MEAN CORPUSCULAR HGB CONC 33 g/dl (31.0-36.0); MEAN CORPUSCULAR VOLUME 79 fL (82-100); MONOCYTES # (AUTO) 0.4 /CMM (0.1-1.30); MONOCYTES % (AUTO) 5.4 % (2.0-12.0); NEUTROPHILS # (AUTO) 4.7 /CMM (1.8-8.9); NEUTROPHILS % (AUTO) 67.7 % (43.0-81.0); PLATELET COUNT (AUTO) 200 /CMM (150-450); RDW COEFFICIENT OF VARIATION 17.3 (11.5-15.0); RED BLOOD CELL COUNT(AUTO) 3.63 MIL/uL (4.0-5.2); WHITE BLOOD COUNT (AUTO) 6.9 K/uL (4.3-11.0)
[2017-01-04 06:42] LABS: INR 1.99 (0.87-1.13); PROTHROMBIN TIME 22.2 SECS (9.5-12.7)
[2017-01-04] MEDS: BLOOD SUGAR DIAGNOSTIC 1 EACH STRIP IN SCH ×4 (06:42→21:27)
[2017-01-04] MEDS: INSULIN REGULAR, HUMAN 100 UNIT/ML 3 ML VIAL SQ PRN ×4 (06:43→21:24)
--- NOTE | 2017-01-04 06:44 | NUR ---
ACCU CHECK: BLOOD SUGAR WAS CHECK AND REVEAL 169, PT REFUSED INSULIN AND STATED SHE DOESNT WANT IT, EDUCATE PT REGARDING MEDICATION COMPLIANCE BUT PT REFUSED, WILL MONITOR PT FOR ANY S/S OF HYPER OR HYPOGLYCEMIA.
--- NOTE | 2017-01-04 06:49 | NUR ---
RN CLOSING NOTES: PT IN BED, REMAINS A/O X2 ON RA RESPIRATION EVEN AND UNLABORED, LEFT HAND IV ACCESS REMAINS PATENT AND FLUSHING WELL, INFUSING WITH NS AT 75ML/HR, RIGHT GROIN DRESSING REMAINS C/D/I, NO ACTIVE BLEEDING NOTED, BLE KEPT OFFLOADED ON PILLOWS. VS REMAINS STABLE, NEEDS ATTENDED, SAFETY PRECAUTIONS FOR FALL REMAINS ENGAGED, CALL LIGHT IN REACH, WILL ENDORSE TO DAY RN FOR ABENA.
[2017-01-04 07:46] LABS: CALCIUM, SERUM 8.3 mg/dL (8.5-10.1); CARBON DIOXIDE 26 mmol/L (21-32); CHLORIDE 111 mmol/L (98-107); CREATININE 1.1 mg/dL (0.6-1.3); GLUCOSE 170 mg/dL (74-106); PHOSPHORUS 3.7 mg/dL (2.5-4.9); POTASSIUM 4.3 mmol/L (3.5-5.1); SODIUM SERUM 145 mmol/L (136-145); UREA NITROGEN, BLOOD 37 mg/dL (7-18)
[2017-01-04 08:00] VITALS: BP 144/83
--- NOTE | 2017-01-04 08:00 | NUR ---
MS NOTES PATIENT SLEEPING IN BED. NO SOB OR ACUTE DISTRESS NOTED. BED IN LOW LOCK POSITION. CALL LIGHT WITHIN REACH. PIV ON LEFT HAND INTACT AND PATENT. WILL CONTINUE TO MONITOR.
[2017-01-04] MEDS: TRIAMCINOLONE ACETONIDE 0.1% CR 15 GM TUBE TP SCH ×2 (09:19→21:27)
[2017-01-04] MEDS: CALMOSEPTINE TP SCH ×2 (09:19→21:26)
[2017-01-04] MEDS ORDERED: PHYTONADIONE 5 MG TABLET PO ONE (13:30)
--- NOTE | 2017-01-04 13:30 | NUR ---
MS RN NOTES PATIENT SEEN AND EVALUATED BY DR. ARROYO ORDERS NOTED AND CARRIED.
--- NOTE | 2017-01-04 19:00 | NUR ---
MS RN NOTES RECEIVE PT RESTING IN BED, A/OX 3. NO S/S OF DISTRESS OR SOB. SAFETY MEASURES IN PLACE, ON LOW BED TO ENSURE SAFETY. CALL LIGHT WITHIN REACH. WILL CONTINUE TO MONITOR.
[2017-01-04 20:00] VITALS: BP 154/79
[2017-01-04 20:10] VITALS: BP 154/79
[2017-01-05] MEDS: BLOOD SUGAR DIAGNOSTIC 1 EACH STRIP IN SCH ×4 (05:35→21:58)
[2017-01-05] MEDS: INSULIN REGULAR, HUMAN 100 UNIT/ML 3 ML VIAL SQ PRN ×4 (05:38→22:00)
[2017-01-05 06:32] LABS: BASOPHILS % (AUTO) 0.9 % (0.0-2.0); EOSINOPHILS # (AUTO) 0.1 /CMM (0.0-0.7); EOSINOPHILS % (AUTO) 2.1 % (0.0-6.0); HEMATOCRIT 28 % (33-45); HEMOGLOBIN 9.1 g/dL (11.5-14.8); LYMPHOCYTES # (AUTO) 0.9 /CMM (0.8-4.8); LYMPHOCYTES % (AUTO) 18.9 % (20.0-44.0); MEAN CORPUSCULAR HEMOGLOBIN 26 PG (26.0-33.0); MEAN CORPUSCULAR HGB CONC 33 g/dl (31.0-36.0); MEAN CORPUSCULAR VOLUME 79 fL (82-100); MONOCYTES # (AUTO) 0.4 /CMM (0.1-1.30); MONOCYTES % (AUTO) 8.4 % (2.0-12.0); NEUTROPHILS # (AUTO) 3.2 /CMM (1.8-8.9); NEUTROPHILS % (AUTO) 69.7 % (43.0-81.0); PLATELET COUNT (AUTO) 185 /CMM (150-450); RED BLOOD CELL COUNT(AUTO) 3.49 MIL/uL (4.0-5.2); WHITE BLOOD COUNT (AUTO) 4.6 K/uL (4.3-11.0)
--- NOTE | 2017-01-05 06:40 | NUR ---
MS RN NOTES PATIENT COMFORTABLY ASLEEP AND EASILY AWAKEN, HEAD OF BED ELEVATED. NO S/S OF HYPO/HYPERGLYCEMIA. L HAND 24 G PATENT AND INTACT WITH NO S/S OF INFILTRATION NOTED. APPEARS NOT IN DISTRESS. RESPIRATIONS EVEN AND UNLABORED, TOLERATING ROOM AIR 02 SAT 98% FREQUENT VISUAL CHECK DONE FOR SAFETY EVERY 2 HOURS. PATIENT ASSISTED REPOSITIONED EVERY 2 HOURS FOR SKIN MGT. NURSING CARE RENDERED, NEEDS ATTENDED AND ANTICIPATED, KEPT CLEAN AND DRY AND COMFORTABLE, TREATMENT ORDERED. GOOD SKIN CARE PROVIDED. OFFLOAD AT ALL TIMES. SAFE HAZARD FREE ENVIRONMENT PROVIDED. CALL LIGHT WITHIN EASY TO REACH, ON LOW BED AT ALL TIMES TO ENSURE SAFETY, WILL ENDORSE TO THE NEXT SHIFT CONTINUE PLAN OF CARE
[2017-01-05 06:51] LABS: INR 1.17 (0.87-1.13); PROTHROMBIN TIME 12.7 SECS (9.5-12.7)
[2017-01-05 06:52] LABS: CALCIUM, SERUM 8.3 mg/dL (8.5-10.1); CARBON DIOXIDE 27 mmol/L (21-32); CHLORIDE 110 mmol/L (98-107); CREATININE 0.8 mg/dL (0.6-1.3); GLUCOSE 167 mg/dL (74-106); MAGNESIUM 1.8 mg/dL (1.8-2.4); PHOSPHORUS 3.2 mg/dL (2.5-4.9); POTASSIUM 3.9 mmol/L (3.5-5.1); SODIUM SERUM 144 mmol/L (136-145); UREA NITROGEN, BLOOD 28 mg/dL (7-18)
--- NOTE | 2017-01-05 07:30 | NUR ---
RN MS NOTES PT IN BED, ASLEEP, EASY TO AROUSE, ALERT, NO COMPLAINT OF PAIN, NOT IN DISTRESS, CALL LIGHT WITHIN REACH, KEPT WARM AND COMFORTABLE IN BED.
[2017-01-05 08:12] VITALS: BP 142/76
[2017-01-05] MEDS: CALMOSEPTINE TP SCH ×2 (08:45→22:02)
[2017-01-05] MEDS: TRIAMCINOLONE ACETONIDE 0.1% CR 15 GM TUBE TP SCH ×2 (08:45→22:02)
--- NOTE | 2017-01-05 12:32 | NUR ---
RN MS NOTES PT IN BED, ASLEEP, EASY TO AROUSE, NO SIGN OF PAIN OR DISCOMFORT, BLOOD SUGAR CHECKED, INSULIN GIVEN ORDERED, PT SEEN BY DR. GODINEZ, ORDERS GIVEN, NOTED AND CARRIED OUT, TURNED AND REPOSITIONED PT, SKIN TREATMENTS DONE, KEPT COMFORTABLE.
[2017-01-05 16:00] VITALS: BP_SYST 110; BP_SYST 154; BP_DIAS 63; BP_DIAS 78
--- NOTE | 2017-01-05 18:25 | NUR ---
RN MS NOTES PT IN BED, RESTING, ALERT AND VERBALLY RESPONSIVE, CALL LIGHT WITHIN REACH, DAUGHTER CHESTER AT BEDSIDE, ASSISTED WITH NEEDS, KEPT CLEAN AND COMFORTABLE.
--- NOTE | 2017-01-05 19:00 | NUR ---
MS RN OPENING NOTES RECEIVE PT RESTING IN BED, A/OX 2. WITH DAUGHTER AT BEDSIDE, NO S/S OF DISTRESS OR SOB. SAFETY MEASURES IN PLACE, ON LOW BED TO ENSURE SAFETY. CALL LIGHT WITHIN REACH. WILL CONTINUE TO MONITOR.
[2017-01-05 20:00] VITALS: BP 113/58
[2017-01-06] MEDS: INSULIN REGULAR, HUMAN 100 UNIT/ML 3 ML VIAL SQ PRN ×3 (05:39→17:19)
[2017-01-06] MEDS: BLOOD SUGAR DIAGNOSTIC 1 EACH STRIP IN SCH ×3 (05:41→17:16)
--- NOTE | 2017-01-06 06:30 | NUR ---
MS RN CLOSING NOTES PATIENT COMFORTABLY ASLEEP AND EASILY AWAKEN, HEAD OF BED ELEVATED FOR BETTER LUNG EXPANSION AND GOOD CIRCULATION. RESPIRATIONS EVEN AND UNLABORED, TOLERATING ROOM AIR 02 SAT 98% L HAND 24 G PATENT AND INTACT WITH NO S/S OF INFILTRATION NOTED. NO S/S OF HYPO/HYPERGLYCEMIA. APPEARS NOT IN DISTRESS. IN STABLE CONDITION, NO COMPLAINS OF PAIN AT THIS TIME. FREQUENT VISUAL CHECK DONE FOR SAFETY EVERY 2 HOURS.REPOSITIONED EVERY 2 HOURS FOR SKIN MGT. NURSING CARE RENDERED, NEEDS ATTENDED AND ANTICIPATED, KEPT CLEAN AND DRY AND COMFORTABLE, TREATMENT ORDERED. GOOD SKIN CARE PROVIDED. OFFLOAD AT ALL TIMES. SAFE HAZARD FREE ENVIRONMENT PROVIDED. CALL LIGHT WITHIN EASY TO REACH, ON LOW BED AT ALL TIMES TO ENSURE SAFETY, WILL ENDORSE TO THE NEXT SHIFT CONTINUE PLAN OF CARE
[2017-01-06 07:32] LABS: BASOPHILS % (AUTO) 0.7 % (0.0-2.0); EOSINOPHILS # (AUTO) 0.3 /CMM (0.0-0.7); EOSINOPHILS % (AUTO) 6.5 % (0.0-6.0); HEMATOCRIT 28 % (33-45); HEMOGLOBIN 9.3 g/dL (11.5-14.8); LYMPHOCYTES # (AUTO) 1.4 /CMM (0.8-4.8); LYMPHOCYTES % (AUTO) 26.9 % (20.0-44.0); MEAN CORPUSCULAR HEMOGLOBIN 26 PG (26.0-33.0); MEAN CORPUSCULAR HGB CONC 33 g/dl (31.0-36.0); MEAN CORPUSCULAR VOLUME 79 fL (82-100); MONOCYTES # (AUTO) 0.5 /CMM (0.1-1.30); MONOCYTES % (AUTO) 10.2 % (2.0-12.0); NEUTROPHILS # (AUTO) 2.8 /CMM (1.8-8.9); NEUTROPHILS % (AUTO) 55.7 % (43.0-81.0); PLATELET COUNT (AUTO) 189 /CMM (150-450); RDW COEFFICIENT OF VARIATION 16.9 (11.5-15.0); RED BLOOD CELL COUNT(AUTO) 3.58 MIL/uL (4.0-5.2); WHITE BLOOD COUNT (AUTO) 5.1 K/uL (4.3-11.0)
--- NOTE | 2017-01-06 07:42 | NUR ---
MED SURGE RN: INITIAL NOTE RECEIVED PT A/O X2. LEFT HAND GAUGE 24 NO IV FLUIDS RUNNING. SITE CLEAR, PATENT. NO DISTRESS. NO SOB NOTED. SATING AT 98% AT ROOM AIR. NO N/V NOTED. RESTING COMFORTABLY IN BED. CALL LIGHT WITHIN REACH.
[2017-01-06 07:44] LABS: INR 0.99 (0.87-1.13); PROTHROMBIN TIME 10.6 SECS (9.5-12.7)
[2017-01-06 07:46] LABS: CALCIUM, SERUM 8.2 mg/dL (8.5-10.1); CARBON DIOXIDE 26 mmol/L (21-32); CHLORIDE 110 mmol/L (98-107); CREATININE 0.8 mg/dL (0.6-1.3); GLUCOSE 172 mg/dL (74-106); MAGNESIUM 1.9 mg/dL (1.8-2.4); PHOSPHORUS 3.3 mg/dL (2.5-4.9); POTASSIUM 4.1 mmol/L (3.5-5.1); SODIUM SERUM 144 mmol/L (136-145); UREA NITROGEN, BLOOD 30 mg/dL (7-18)
[2017-01-06 08:00] VITALS: BP 133/80
[2017-01-06] MEDS: CALMOSEPTINE TP SCH (08:54)
[2017-01-06] MEDS: TRIAMCINOLONE ACETONIDE 0.1% CR 15 GM TUBE TP SCH (08:54)
--- NOTE | 2017-01-06 18:13 | NUR ---
JOEY BALDERAS RN: DISCHARGE NOTE PT D/C HOME WITH HOME HEALTH. DAUGHTER/ AT BEDSIDE. TRANSPORTED VIA AMBULANCE WITH TWO EMT. TOOK ALL MEDICATIONS ON TIME. NO ADVERSE REACTIONS NOTED. NO PAIN NOTED. NO SOB NOTED. SATING AT 985 ROOM AIR. IV LINE ON LEFT WRIST D/C. NO INFILTRATION, NO REDNESS NOTED. A/O X2. NO CHANGES IN CONDITION. ALL BELONGINGS ACCOUNTED FOR. ALL DISCHARGE PAPERS SIGNED/ EDUCATED AND COPIES PROVIDED TO FAMILY.
== END 2017-01-06 18:15 | disposition home health service (06) | DRG 253 ==
LOC: ER 17:45 → TELE 19:48 → MED 19:51
PROVIDERS: ADMIT Internal Medicine; ATTEND Internal Medicine Nephrology
PROC: 06H03DZ Insertion of Intraluminal Device into Inferior Vena Cava, Percutaneous Approach (ICD-10-PCS; principal; 2017-01-03 16:00)
DX: I82.403 Acute embolism and thrombosis of unspecified deep veins of lower extremity, bilateral (principal); I69.354 Hemiplegia and hemiparesis following cerebral infarction affecting left non-dominant side; D68.9 Coagulation defect, unspecified; D64.9 Anemia, unspecified; E11.9 Type 2 diabetes mellitus without complications; I10 Essential (primary) hypertension; I48.91 Unspecified atrial fibrillation; M41.9 Scoliosis, unspecified; I70.0 Atherosclerosis of aorta; I25.10 Atherosclerotic heart disease of native coronary artery without angina pectoris; I87.8 Other specified disorders of veins; I87.2 Venous insufficiency (chronic) (peripheral); M81.0 Age-related osteoporosis without current pathological fracture; N89.8 Other specified noninflammatory disorders of vagina; Z79.01 Long term (current) use of anticoagulants; Z95.0 Presence of cardiac pacemaker; Z86.718 Personal history of other venous thrombosis and embolism; Z88.0 Allergy status to penicillin; Z88.1 Allergy status to other antibiotic agents; Z91.02 Food additives allergy status; Z91.040 Latex allergy status; N93.9 Abnormal uterine and vaginal bleeding, unspecified; N89.9 Noninflammatory disorder of vagina, unspecified; R60.9 Edema, unspecified
CPT/HCPCS: 36415; 71010-TC; 74000-TC; 80048-TC; 80053-TC; 82306; 82378; 82962-TC; 83615-TC; 83735-TC; 84100-TC; 84443-TC; 84550-TC; 85025-TC; 85027-TC; 85610-TC; 85730-TC; 86300; 86301; 86304; 86850-TC; 86921-TC; 87081-TC; 93970-TC; A4606; A6402; A6403; C1769; C1880; J1644; J1650; J1815; J2704; J3490; J7030; Q9967; Z7610

== ENCOUNTER 2017-04-26 15:04 | Inpatient (IN) | payer MEDICARE, BC ==
[~2017-04-26] VITALS: Ht 160 cm; Wt 81.6 kg
--- NOTE | 2017-04-26 15:08 | NUR ---
PT BIBRA FROM HOME TO ER BED 10. PER DAUGHTER, MORE CONFUSED. POSSIBLE UTI STATING FOUL SMELLING URINE. BED BOUND FROM STROKE YEARS AGO. L SIDED WEAKNESS. GOWNED AND PLACED ON MONITOR. STABLE VITALS. AFEBRILE. AWAITING MD BAKER.
--- NOTE | 2017-04-26 15:13 | NUR ---
IV LINE STARTED BLOOD DRAWN AND SENT TO LAB.
--- NOTE | 2017-04-26 15:18 | NUR ---
DR BEAL AT BEDSIDE FOR EVAL.
[2017-04-26] MEDS ORDERED: IV NS 0.9% 1,000 ML BAG IV ONE (15:30)
[2017-04-26 15:36] LABS: BASOPHILS # (AUTO) 0.1 /CMM (0.0-0.2); EOSINOPHILS # (AUTO) 0.1 /CMM (0.0-0.7); MONOCYTES # (AUTO) 0.3 /CMM (0.1-1.30)
[2017-04-26 15:39] LABS: BASOPHILS % (AUTO) 0.8 % (0.0-2.0); EOSINOPHILS % (AUTO) 1.5 % (0.0-6.0); HEMATOCRIT 38 % (33-45); HEMOGLOBIN 12.1 g/dL (11.5-14.8); LYMPHOCYTES # (AUTO) 1.5 /CMM (0.8-4.8); LYMPHOCYTES % (AUTO) 20.4 % (20.0-44.0); MEAN CORPUSCULAR HEMOGLOBIN 21 PG (26.0-33.0); MEAN CORPUSCULAR HGB CONC 32 g/dl (31.0-36.0); MEAN CORPUSCULAR VOLUME 67 fL (82-100); MONOCYTES % (AUTO) 3.9 % (2.0-12.0); NEUTROPHILS # (AUTO) 5.2 /CMM (1.8-8.9); NEUTROPHILS % (AUTO) 73.4 % (43.0-81.0); PLATELET COUNT (AUTO) 248 /CMM (150-450); RDW COEFFICIENT OF VARIATION 18.3 (11.5-15.0); RED BLOOD CELL COUNT(AUTO) 5.65 MIL/uL (4.0-5.2); WHITE BLOOD COUNT (AUTO) 7.2 K/uL (4.3-11.0)
[2017-04-26 15:45] LABS: CALCIUM, SERUM 9.3 mg/dL (8.5-10.1); CARBON DIOXIDE 29 mmol/L (21-32); CHLORIDE 111 mmol/L (98-107); CREATININE 0.9 mg/dL (0.6-1.3); GLUCOSE 164 mg/dL (74-106); POTASSIUM 4.3 mmol/L (3.5-5.1); SODIUM SERUM 145 mmol/L (136-145); UREA NITROGEN, BLOOD 29 mg/dL (7-18)
[2017-04-26 16:14] LABS: APPEARANCE,URINE Cloudy (CLEAR); BILIRUBIN,URINE Negative (NEGATIVE); BLOOD, URINE Moderate Ery/uL (NEGATIVE); COLOR,URINE Yellow (YELLOW); KETONES,URINE Negative (NEGATIVE); LEUKOCYTE ESTERASE ,URINE Large (NEGATIVE); NITRITE, URINE Positive (NEGATIVE); PH,URINE 8.5 (5.0-8.0); PROTEIN,URINE 100 mg/dl (NEGATIVE); UGLUCOSE Negative (NEGATIVE); UROBILINOGEN,URINE 0.2 EU/dL (0.2)
[2017-04-26 16:29] LABS: BACTERIA,URINE 2+ /HPF (None Seen); SQUAMOUS EPITHELIAL CELL,UR Moderate /HPF (None Seen); WBC,URINE TOO NUMEROUS TO COUN /HPF (0-3)
--- NOTE | 2017-04-26 16:55 | NUR ---
PAGED DR GODINEZ FOR ADMISSION
[2017-04-26] MEDS ORDERED: AZTREONAM 2 G in IV NS 0.9% 100 ML IV ONE (17:00)
--- NOTE | 2017-04-26 17:56 | NUR ---
REPORT GIVEN TO ALPA. PT AWAITING TRANSFER TO FLOOR.
[2017-04-26 18:07] LABS: INR 0.97 (0.87-1.13); PROTHROMBIN TIME 10.1 SECS (9.5-12.7)
[2017-04-26 18:35] VITALS: BP 167/88
--- NOTE | 2017-04-26 18:49 | NUR ---
MS RN NOTES PATIENT BROUGHT IN FROM ER DEPT. PATIENT TO BE ADMITTED FOR UTI. PATIENT IS A/O X2, FORGETFUL. IVC IN RIGHT WRIST G20 PATENT AND INTACT, FLUSHES WELL. VS TAKEN AND RECORDED. DUEÑAS CATH INTACT, DRAINING TO GRAVITY, URINE YELLOW WITH SEDIMENTS NOTED, NO C/O BLADDER DISCOMFORT. MADE COMFORTABLE IN BED, PLACE CALL LIGHT WITHIN REACH. WILL ENDORSE TO ACCOUNTANT CONTROLLER RN FOR ADMISSION.
[2017-04-26 20:00] VITALS: BP 167/88
[2017-04-27] MEDS ORDERED: MISCELLANEOUS MED 1 EA EA XX ONE
[2017-04-27] MEDS: AZTREONAM 1 G in IV NS 0.9% 100 ML IV SCH ×3 (05:24→21:11)
--- NOTE | 2017-04-27 06:40 | NUR ---
MS RN NOTES AWAKE & RESPONSIVE. NOT IN ANY DISTRESS. NO SOB NOTED. DENIES ANY PAIN OR DISCOMFORT AT THIS TIME. WITH IV-HL PATENT & INTACT. AM CARE DONE. MONITORED ACCORDINGLY. CALL LIGHT WITHIN REACH. BED IN LOWEST POSITION. SR UP X 3 FOR SAFETY WITH BED ALARM ON. WILL ENDORSE TO NEXT SHIFT.
--- NOTE | 2017-04-27 07:30 | NUR ---
MS RN NOTES PATIENT IN BED, AWAKE. RIGHT WRIST G30 PATENT AND INTACT, FLUSHES WELL. DUEÑAS CATH INTACT, DRAINING TO GRAVITY. BREATHING EVEN AND NON LABORED, NO SOB. CALL LIGHT WITHIN REACH. PATIENT IS ON ISOFLEX MATTRESS, PER DAUGHTER HER MOTHER IS USING ANGELY AT HOME AND SHE PREFERS TO HAVE ANGELY MATTRESS TOO WHILE IN THE HOSP. WILL FOLLOW UP.
[2017-04-27 08:00] VITALS: BP 167/90
[2017-04-27 08:26] LABS: BASOPHILS % (AUTO) 0.7 % (0.0-2.0); EOSINOPHILS # (AUTO) 0.2 /CMM (0.0-0.7); EOSINOPHILS % (AUTO) 3.1 % (0.0-6.0); HEMATOCRIT 34 % (33-45); HEMOGLOBIN 10.9 g/dL (11.5-14.8); LYMPHOCYTES # (AUTO) 1.4 /CMM (0.8-4.8); LYMPHOCYTES % (AUTO) 20.8 % (20.0-44.0); MEAN CORPUSCULAR HEMOGLOBIN 22 PG (26.0-33.0); MEAN CORPUSCULAR HGB CONC 32 g/dl (31.0-36.0); MEAN CORPUSCULAR VOLUME 68 fL (82-100); MONOCYTES # (AUTO) 0.4 /CMM (0.1-1.30); MONOCYTES % (AUTO) 5.7 % (2.0-12.0); NEUTROPHILS # (AUTO) 4.6 /CMM (1.8-8.9); NEUTROPHILS % (AUTO) 69.7 % (43.0-81.0); PLATELET COUNT (AUTO) 213 /CMM (150-450); RDW COEFFICIENT OF VARIATION 18.9 (11.5-15.0); RED BLOOD CELL COUNT(AUTO) 5.01 MIL/uL (4.0-5.2); WHITE BLOOD COUNT (AUTO) 6.6 K/uL (4.3-11.0)
[2017-04-27 08:31] LABS: INR 1.01 (0.87-1.13); PROTHROMBIN TIME 10.5 SECS (9.5-12.7)
[2017-04-27 08:57] LABS: CALCIUM, SERUM 9.1 mg/dL (8.5-10.1); CARBON DIOXIDE 26 mmol/L (21-32); CHLORIDE 112 mmol/L (98-107); CREATININE 0.7 mg/dL (0.6-1.3); GLUCOSE 149 mg/dL (74-106); SODIUM SERUM 147 mmol/L (136-145); UREA NITROGEN, BLOOD 25 mg/dL (7-18)
--- NOTE | 2017-04-27 11:21 | NUR ---
PATIENT IS SEEN BY DR. GODINEZ, HOME MEDICATION FOP REVIEW, MD IS AWARE. ELEVATED BP 167/[address] GODINEZ, AWAITING FOR ORDERS.
[2017-04-27 12:24] LABS: BAND % (MANUAL) 2 % (0.0-5.0); LYMPHOCYTES % (MANUAL) 21 % (16-48); MONOCYTES % (MANUAL) 3 % (0-11.0); NEUTROPHILS % (MANUAL) 73 (42-76)
[2017-04-27 12:25] LABS: EOSINOPHILS % (MANUAL) 1 % (0-4)
[2017-04-27] MEDS ORDERED: NITROGLYCERIN 30 GM TUBE TP PRN (12:30)
[2017-04-27] MEDS ORDERED: ACETAMINOPHEN 325 MG TABLET PO PRN (12:30)
--- NOTE | 2017-04-27 13:00 | NUR ---
PROVIDED [employer] ANGELY MATTRESS TO PATIENT PER DAUGHTERS REQUEST. MADE COMFORTABLE IN BED, TURN AND REPOSITION. RE CHECKED BP 153/67, WILL ADMINISTER NITROGLYCERIN OINT IF SBP >160 ORDERED. PER NURSE BUSINESS UNIT LEADER-EVE TO CONTINUE PATIENTS HOME MEDICATIONS ORDERED BY DR. GODINEZ, PHARMACY INFORMED.
[2017-04-27 16:00] VITALS: BP 153/67
[2017-04-27] MEDS: BLOOD SUGAR DIAGNOSTIC 1 EACH STRIP IN SCH (16:37)
[2017-04-27] MEDS: COD LIVER OIL/ZINC OXIDE 120 GM TUBE TP SCH (16:38)
--- NOTE | 2017-04-27 16:46 | NUR ---
FSBS 189MD/DL WITH NO ISS COVERAGE. ON LEVEMIR INSULIN 22 UNITS SQ SCHEDULED AT HS
[2017-04-27] MEDS ORDERED: WARFARIN SODIUM 1 MG TABLET PO SCH (17:00)
--- NOTE | 2017-04-27 18:10 | NUR ---
MS RN CLOSING NOTES PATIENT IN BED, A/O X2. BREATHING EVEN AND NON LABORED, NO SOB. IVC IN RIGHT WRIST G20 PATENT AND INTACT, FLUSHES WELL. ON ANTIBIOTIC IV ORDERED WITH NO ADVERSE REACTION, AFEBRILE. BLOOD SUGAR MONITORED WITH NO ISS COVERAGE ORDERED. DUEÑAS CATH INTACT, DRAINING TO GRAVITY. ON [facility] LOW AIR LOSS MATTRESS, PATIENT IS SEEN BY TRINA/CUT AND COVER LINE WORKER TODAY FOR WOUND CARE CONSULT. TURN AND REPOSITION WHILE IN BED. WILL ENDORSE TO [facility]INO FLOOR WALKER RN FOR ABENA.
--- NOTE | 2017-04-27 19:30 | NUR ---
RN NOTE; RECEIVED PT IN BED AWAKE W/ DTR AT THE BED SIDE, . BREATHING EVENLY. NO SOB. NAD. SKIN WARM AND DRY. F/C IN PLACE DRAINING CLEAR YELLOW URINE. PT DENIED DYSURIA. AFEBRILE. ALL NEEDS ATTENDED . BED LOW LOCKED .CALL LIGHT WITHIN REACH. WILL CONT TO MONITOR,
[2017-04-27 20:13] VITALS: BP 169/106
--- NOTE | 2017-04-27 21:15 | NUR ---
TYLENOL GIVEN FOR C/O MILD MOUTH SORE . ALSO PT WAS PROVIDED W/ COME ICE CHIPS. NO OBVIOUS REDNESS OR WOUND INSIDE THE MOUTH NOTED , WILL CONT TO MONITOR ,
[2017-04-27] MEDS: INSULIN DETEMIR 100 UNIT/ML CARTRIDGE SQ SCH (21:24)
[2017-04-27 22:00] VITALS: BP 136/73
[2017-04-28] MEDS: AZTREONAM 1 G in IV NS 0.9% 100 ML IV SCH ×3 (04:58→20:28)
--- NOTE | 2017-04-28 06:25 | NUR ---
RN NOTE; PT IN BED SLEEPING AROUSES EASILY. BREATHING EVENLY. NO SOB. NAD. REMAINED AFEBRILE W/ NO C/O PAIN OR DISCOMFORT AT THIS TIME. F/C IN PLACE DRAINING CLEAR YELLOW URINE W. SEDIMENTS. CLEANED AND DRIED .NEEDS ATTENDED .GOOD SKIN CARE RENDERED. CALL LIGHT WITHIN REACH. WILL CONT TO MONITOR AND WILL ENDORSE TO AM SHIFT FOR ABENA,
--- NOTE | 2017-04-28 07:35 | NUR ---
WOUND CARE CONSULT WOUND CARE RECEIVED CONSULT. WOUND CARE WILL DEFER CONSULT AND TREATMENT PLANS TO SURGICAL TEAM AT THIS TIME. PATIENT WITH SELIN AT 14. ALL PRESSURE ULCER PREVENTION MEASURES NOTED TO BE IN PLACE. MD IN AGREEMENT WITH PLAN OF CARE. TREATMENT ORDERS AND STAGING PER SURGICAL TEAM.
[2017-04-28 08:00] VITALS: BP 158/90
[2017-04-28] MEDS: BLOOD SUGAR DIAGNOSTIC 1 EACH STRIP IN SCH ×2 (09:42→17:34)
[2017-04-28] MEDS: COD LIVER OIL/ZINC OXIDE 120 GM TUBE TP SCH (09:42)
[2017-04-28 11:46] LABS: INR 1.03 (0.87-1.13); PROTHROMBIN TIME 10.7 SECS (9.5-12.7)
--- NOTE | 2017-04-28 12:00 | NUR ---
MS/RN Received patient Received patient from RN.
--- NOTE | 2017-04-28 13:02 | NUR ---
MS/RN Non administer IV azactam non administered as per daughter, patient breaks out in rash and gets mouth ulcers. Dr Castro made aware, will speak with ID.
[2017-04-28] MEDS ORDERED: VITAMINS A AND D 56.7 GM TUBE TP PRN (14:00)
[2017-04-28 16:00] VITALS: BP 160/94
--- NOTE | 2017-04-28 17:15 | NUR ---
MS/RN Blood sugar Blood sugar at 5p - 94, no coverage needed.
[2017-04-28] MEDS: WARFARIN SODIUM 1 MG TABLET PO SCH (17:34)
--- NOTE | 2017-04-28 18:56 | NUR ---
MS/RN End note No changes in care at this time. Family requesting that IVAB be held until patient is seen by ID due to possible reaction. All other needs attended, at bedside and updated as to plan of care. Will endorse to wiring technician.
[2017-04-28 20:00] VITALS: BP 117/79
--- NOTE | 2017-04-28 20:00 | NUR ---
RECEIVED PATIENT IN BED, ALERT AND ORIENTED X2, NON-VERBAL, CALM AT THIS TIME, NO SOB, NO DISTRESS, TOLERATING ROOM AIR, SPO2 98%, RIGHT FA SALINE LOCK IS SECURED WITH DRESSING, DUEÑAS CATHETER DRAINING WELL, BAG IS LEAKING, CHANGED BAG, KEPT HOB ELEVATED, AT THE BEDSIDE, CALL LIGHT WITHIN REACH.
--- NOTE | 2017-04-28 20:29 | NUR ---
AZACTAM IV NOT GIVEN TILL SEEN BY ID, PER FAMILY PT DEVELOPS MOUTH ULCER AND RASHES
[2017-04-28 20:30] VITALS: BP 147/79
[2017-04-28] MEDS: INSULIN DETEMIR 100 UNIT/ML CARTRIDGE SQ SCH (21:32)
--- NOTE | 2017-04-28 21:32 | NUR ---
BG 135 MG/DL, REFUSED LEVEMIR 22 UNITS, PATIENT DID NOT EAT MUCH OF DINNER, SAYS BLOOD SUGAR MIGHT GO DOWN.
[2017-04-29] MEDS: AZTREONAM 1 G in IV NS 0.9% 100 ML IV SCH ×2 (04:21→13:00)
--- NOTE | 2017-04-29 04:21 | NUR ---
AZACTAM IVP NOT GIVEN TILL SEEN BY ID. PER FAMILY DEVELOPS MOUTH ULCER AND RASHES
--- NOTE | 2017-04-29 06:38 | NUR ---
RN NOTES PATIENT IS ALERT AND AWAKE, NON-VERBAL, NO SOB, NO DISTRESS, NOT IN APPARENT PAIN, NO FACIAL GRIMACING, NO RESTLESSNESS, RIGHT FA SALINE LOCK IS SECURED WITH DRESSING, AZACTAM NOT GIVEN X2 SECONDARY TO PER FAMILY, PATIENT DEVELOPS MOUTH ULCER. AWAITING TO BE SEEN BY ID. GENERALIZED RASHES RESOLVING WITH DESITIN. PLEASE ENDORSE TO INCOMING RN NOT TO PUT ZGUARD, PT IS ALLERGIC. DUEÑAS CATHETER DRAINING WELL. PROVIDED GOOD PERINEAL CARE, DAUGHTER AT THE BEDSIDE, CALL LIGHT WITHIN REACH.
--- NOTE | 2017-04-29 07:30 | NUR ---
MS RN OPENING NOTES RECEIVED PATIENT IN STABLE CONDITION. IN NO APPARENT DISTRESS. BEDSIDE RAILS ARE UP X2 . BED IS LOCKED AND LOWERED. CALL LIGHT IS WITHIN REACH. WILL CONTINUE TO MONITOR.
[2017-04-29 08:00] VITALS: BP 135/90
[2017-04-29] MEDS: BLOOD SUGAR DIAGNOSTIC 1 EACH STRIP IN SCH ×2 (08:35→16:43)
[2017-04-29] MEDS: COD LIVER OIL/ZINC OXIDE 120 GM TUBE TP SCH (08:36)
[2017-04-29 12:40] LABS: INR 1.03 (0.87-1.13); PROTHROMBIN TIME 10.7 SECS (9.5-12.7)
--- NOTE | 2017-04-29 13:31 | NUR ---
AZACTAM IV NOT GIVEN. PER FAMILY PATIENT DEVELOPS RASH. AWARE.
[2017-04-29 15:51] VITALS: BP 157/82
[2017-04-29] MEDS: WARFARIN SODIUM 1 MG TABLET PO SCH (16:47)
--- NOTE | 2017-04-29 19:21 | NUR ---
MS RN CLOSING NOTES PATIENT IS ALERT AND RESTING IN BED. IN NO APPARENT DISTRESS. BEDSIDE RAILS ARE UP X2 . CALL LIGHT IS WITHIN REACH. ALL NEEDS WERE MET. BED IS LOCKED AND LOWERED. WILL ENDORSE CARE TO CONTINUOUS IMPROVEMENT CONSULTANT NURSE FOR ABENA.
[2017-04-29] MEDS ORDERED: FEE PK DOSING 1 MIN EA MC ONE (19:41)
[2017-04-29 20:00] VITALS: BP 120/72
--- NOTE | 2017-04-29 20:00 | NUR ---
RN NOTES RECEIVED PATIENT IN BED, ALERT AND AWAKE, ABLE TO VERBALIZE HOW SHE FEELS, NO SOB, NO DISTRESS, DENIES ANY PAIN AT THIS TIME, RIGHT HAND SALINE LOCK IS PATENT AND SECURED WITH DRESSING. DUEÑAS CATHETER DRAINING WELL OF CLEAR AND YELLOW URINE. KEPT HOB ELEVATED, DAUGHTER AT THE BEDSIDE, CALL LIGHT WITHIN REACH.
[2017-04-29 20:36] VITALS: BP 120/72
--- NOTE | 2017-04-29 21:21 | NUR ---
GENTAMICIN IV DELAYED, AND DAUGHTER STILL DECIDING IF THEY WANT IT GIVEN TO PATIENT
[2017-04-29] MEDS: GENTAMICIN 80 MG in IV D5W 50 ML IV SCH (21:35)
[2017-04-29] MEDS: INSULIN DETEMIR 100 UNIT/ML CARTRIDGE SQ SCH (21:44)
--- NOTE | 2017-04-30 06:29 | NUR ---
PATIENT IS ALERT AND AWAKE, CALM, ABLE TO ANSWER SIMPLE QUESTIONS, NO DISTRESS, NO COMPLAIN OF PAIN AT THIS TIME, NO ADVERSE CHANGE OF CONDITION DURING SHIFT, ALL DUE MEDICATIONS GIVEN, DAUGHTER AT THE BEDSIDE, CALL LIGHT WITHIN REACH.
--- NOTE | 2017-04-30 07:30 | NUR ---
MS RN OPENING NOTES RECEIVED PATIENT IN NO APPARENT DISTRESS. PATIENT IS SLEEPING COMFORTABLY. CALL LIGHT IS WITHIN REACH. BEDSIDE RAILS ARE UP X2 . BED IS LOCKED AND LOWERED. WILL CONTINUE TO MONITOR. DAUGHTER IS AT BEDSIDE.
[2017-04-30] MEDS: BLOOD SUGAR DIAGNOSTIC 1 EACH STRIP IN SCH ×2 (08:22→17:00)
[2017-04-30] MEDS: COD LIVER OIL/ZINC OXIDE 120 GM TUBE TP SCH (08:25)
[2017-04-30 09:46] VITALS: BP 130/72
[2017-04-30 11:19] LABS: CHLORIDE 107 mmol/L (98-107); POTASSIUM 3.7 mmol/L (3.5-5.1); SODIUM SERUM 142 mmol/L (136-145)
[2017-04-30 11:20] LABS: CALCIUM, SERUM 8.8 mg/dL (8.5-10.1); CARBON DIOXIDE 27 mmol/L (21-32); CREATININE 0.8 mg/dL (0.6-1.3); GLUCOSE 136 mg/dL (74-106); MAGNESIUM 1.9 mg/dL (1.8-2.4); PHOSPHORUS 3.2 mg/dL (2.5-4.9); UREA NITROGEN, BLOOD 20 mg/dL (7-18)
[2017-04-30] MEDS: NYSTATIN TOP POWDER 15 GM BOTTLE TP SCH ×2 (12:30→17:00)
--- NOTE | 2017-04-30 12:30 | NUR ---
NON ADMINISTERED [facility]. CALLED PHARMACY X2. MEDICATION NOT DELIVERED.
[2017-04-30 12:32] LABS: BASOPHILS % (AUTO) 0.1 % (0.0-2.0); EOSINOPHILS # (AUTO) 0.3 /CMM (0.0-0.7); EOSINOPHILS % (AUTO) 4.6 % (0.0-6.0); HEMATOCRIT 35 % (33-45); HEMOGLOBIN 11.6 g/dL (11.5-14.8); LYMPHOCYTES # (AUTO) 1.7 /CMM (0.8-4.8); LYMPHOCYTES % (AUTO) 24.8 % (20.0-44.0); MEAN CORPUSCULAR HEMOGLOBIN 22 PG (26.0-33.0); MEAN CORPUSCULAR HGB CONC 33 g/dl (31.0-36.0); MEAN CORPUSCULAR VOLUME 67 fL (82-100); MONOCYTES # (AUTO) 0.4 /CMM (0.1-1.30); MONOCYTES % (AUTO) 6.1 % (2.0-12.0); NEUTROPHILS # (AUTO) 4.3 /CMM (1.8-8.9); NEUTROPHILS % (AUTO) 64.4 % (43.0-81.0); PLATELET COUNT (AUTO) 179 /CMM (150-450); RED BLOOD CELL COUNT(AUTO) 5.31 MIL/uL (4.0-5.2); WHITE BLOOD COUNT (AUTO) 6.7 K/uL (4.3-11.0)
[2017-04-30 16:07] VITALS: BP 145/99
[2017-04-30 17:21] LABS: INR 1.01 (0.87-1.13); PROTHROMBIN TIME 10.5 SECS (9.5-12.7)
[2017-04-30] MEDS: WARFARIN SODIUM 1 MG TABLET PO SCH (17:40)
--- NOTE | 2017-04-30 18:46 | NUR ---
MS RN CLOSING NOTES PATIENT IS ALERT AND RESTING IN BED. IN NO APPARENT DISTRESS. BEDSIDE RAILS ARE UP X2 . BED IS LOCKED AND LOWERED. CALL LIGHT IS WITHIN REACH. ALL NEEDS WERE MET. WILL ENDORSE CARE TO OUTER DIAMETER GRINDER TOOL NURSE FOR ABENA.
[2017-04-30 20:00] VITALS: BP 130/73
[2017-04-30] MEDS: GENTAMICIN 80 MG in IV D5W 50 ML IV SCH (20:08)
--- NOTE | 2017-04-30 20:42 | NUR ---
RECEIVED PATIENT IN BED NO APPARENT DISTRESS.NOTED PATIENT IS AWAKE ALERT AT THIS TIME IS FEEDING DINNER NEIL ANY PAIN OR DISCOMFORT AT THIS TIME BREATHING EVEN AND UNLABORED VITAL SIGN STABLE,LAYING IN BED COMFORTABLY. CALL LIGHT IS WITHIN REACH. BEDSIDE RAILS ARE UP X2 . BED IS LOCKED AND LOWERED. WILL CONTINUE TO MONITOR. IS IS AT BEDSIDE
[2017-04-30] MEDS: INSULIN DETEMIR 100 UNIT/ML CARTRIDGE SQ SCH (22:17)
--- NOTE | 2017-05-01 07:15 | NUR ---
RN NOTES PT IS LAYING IN BED RESTING COMFORTABLY, NO SIGNS OF DISTRESS NOTED. PT ON RA, RESPIRATIONS ARE EVEN AND UNLABORED. IV ON R HAND INTACT AND SL. DUEÑAS CATHETER IS INTACT AND DRAINING. SAFETY MEASURES ARE IN PLACE, CALL LIGHT IS IN REACH. WILL CONTINUE TO MONITOR.
[2017-05-01 08:00] VITALS: BP 134/76
[2017-05-01] MEDS: COD LIVER OIL/ZINC OXIDE 120 GM TUBE TP SCH (08:47)
[2017-05-01] MEDS: BLOOD SUGAR DIAGNOSTIC 1 EACH STRIP IN SCH ×2 (08:47→17:20)
[2017-05-01] MEDS: NYSTATIN TOP POWDER 15 GM BOTTLE TP SCH ×2 (08:48→17:23)
[2017-05-01 11:44] LABS: CALCIUM, SERUM 8.7 mg/dL (8.5-10.1); CARBON DIOXIDE 28 mmol/L (21-32); CHLORIDE 107 mmol/L (98-107); CREATININE 0.7 mg/dL (0.6-1.3); GLUCOSE 126 mg/dL (74-106); POTASSIUM 3.8 mmol/L (3.5-5.1); SODIUM SERUM 141 mmol/L (136-145); UREA NITROGEN, BLOOD 20 mg/dL (7-18); VANCOMYCIN,TROUGH 0 ug/ml (12-20)
[2017-05-01 16:00] VITALS: BP 128/76
[2017-05-01 16:43] LABS: INR 0.96 (0.87-1.13)
[2017-05-01] MEDS: WARFARIN SODIUM 1 MG TABLET PO SCH (17:21)
--- NOTE | 2017-05-01 18:50 | NUR ---
RN NOTES PT IS RESTING IN BED COMFORTABLY WITH FAMILY AT BEDSIDE. PT ON RA, RESPIRATIONS ARE EVEN AND UNLABORED. ALL MEDS WERE GIVEN ORDERED AND PT NEEDS MET. 1700 ACCUCHECK WAS 151, NO COVERAGE NEEDED. SAFETY MEASURES ARE IN PLACE, CALL LIGHT IS IN REACH. WILL ENDORSE TO HOME HEALTH NURSE LICENSED PRACTICAL RN FOR CONTINUITY OF CARE.
[2017-05-01] MEDS: GENTAMICIN 80 MG in IV D5W 50 ML IV SCH (19:46)
[2017-05-01] MEDS: INSULIN DETEMIR 100 UNIT/ML CARTRIDGE SQ SCH (22:19)
[2017-05-02 06:43] LABS: CALCIUM, SERUM 8.6 mg/dL (8.5-10.1); CARBON DIOXIDE 26 mmol/L (21-32); CHLORIDE 108 mmol/L (98-107); CREATININE 0.7 mg/dL (0.6-1.3); GLUCOSE 150 mg/dL (74-106); POTASSIUM 3.8 mmol/L (3.5-5.1); SODIUM SERUM 141 mmol/L (136-145); UREA NITROGEN, BLOOD 22 mg/dL (7-18)
--- NOTE | 2017-05-02 07:15 | NUR ---
RN NOTES PT IS SLEEPING IN BED COMFORTABLY, NO SIGNS OF DISTRESS NOTED. PT ON RA, RESPIRATIONS ARE EVEN AND UNLABORED. IV ON RFA INTACT AND SL. DUEÑAS CATHETER IS INTACT AND DRAINING. SAFETY MEASURES ARE IN PLACE, CALL LIGHT IS IN REACH. WILL CONTINUE TO MONITOR.
[2017-05-02 08:00] VITALS: BP 119/76
[2017-05-02] MEDS: BLOOD SUGAR DIAGNOSTIC 1 EACH STRIP IN SCH ×2 (09:07→18:03)
[2017-05-02] MEDS: NYSTATIN TOP POWDER 15 GM BOTTLE TP SCH ×2 (09:07→17:00)
[2017-05-02] MEDS: COD LIVER OIL/ZINC OXIDE 120 GM TUBE TP SCH (09:08)
[2017-05-02] MEDS ORDERED: LIDOCAINE HCL/PF 1% 30 ML SDV IJ STA (12:53)
[2017-05-02 12:58] LABS: INR 1.02 (0.87-1.13); PROTHROMBIN TIME 10.6 SECS (9.5-12.7)
[2017-05-02 16:00] VITALS: BP_SYST 134; BP_SYST 154; BP_DIAS 22
--- NOTE | 2017-05-02 16:00 | NUR ---
D/C home tomorrow per ; spoke with Zena at [facility] [phone] and Naomi @ [place] [phone] aware. Spoke with mikhail Black- will need ambulance transport after lunch. Ambulance arranged p/u 2p Friday05/03/17 trip# [id number] Addendum: 05/02/17 at 1601 by MAYLIN NORIEGA RN Amended: Links added.
--- NOTE | 2017-05-02 16:55 | NUR ---
RN NOTES PT IS SITTING UP IN BED WITH AT BEDSIDE. PT ON RA, RESPIRATIONS ARE EVEN AND UNLABORED. IV ON R HAND INTACT AND ALLYSON MIDLINE INTACT AND SL. ALL MEDS WERE GIVEN ORDERED. 1700 ACCUCHECK WAS 149, NO COVERAGE NEEDED AT THIS TIME. SKIN CARE PROVIDED AND TOPICAL TREATMENTS APPLIED. DUEÑAS CATHETER IS INTACT AND DRAINING 500 ML OUTPUT. SAFETY MEASURES ARE IN PLACE, CALL LIGHT IS IN REACH. WILL ENDORSE TO INGOT SUPERVISOR RN FOR CONTINUITY OF CARE.
[2017-05-02] MEDS: WARFARIN SODIUM 1 MG TABLET PO SCH (18:03)
--- NOTE | 2017-05-02 19:25 | NUR ---
MS RN NOTES RECEIVED PT IN BED, AWAKE, A/O X2, VERBALLY RESPONSIVE. AT BEDSIDE. NO DISTRESS, NO SOB NOTED. RESPIRATION IS EVEN AND UNLABORED. IV SITE ON RIGHT HAND AND ALLYSON MIDLINE INTACT AND PATENT. NO S/S OF HYPO/HYPERGLYCEMIA NOTED. NO C/O PAIN OR DISCOMFORT AT THIS TIME. ALL NEEDS ATTENDED AND MET. SAFETY PRECAUTIONS OBSERVED. CALL LIGHT WITHIN REACH. WILL CONT TO MONITOR.
[2017-05-02 20:00] VITALS: BP 164/75
[2017-05-02] MEDS ORDERED: GENTAMICIN 100 MG in IV D5W 100 ML IV SCH (20:00)
[2017-05-02] MEDS: INSULIN DETEMIR 100 UNIT/ML CARTRIDGE SQ SCH (22:00)
--- NOTE | 2017-05-02 22:09 | NUR ---
BS : 140 AT THIS TIME. REFUSED LEVEMIR 22 UNITS, PATIENT DID NOT EAT MUCH OF HER DINNER, PER BLOOD SUGAR MIGHT GO DOWN.
--- NOTE | 2017-05-03 06:42 | NUR ---
MS RN NOTES PT IN BED, ASLEEP,AROUSES EASILY, A/O X2, VERBALLY RESPONSIVE. DAUGHTER AT BEDSIDE. NO DISTRESS, NO SOB NOTED. RESPIRATION IS EVEN AND UNLABORED. IV SITE ON RIGHT HAND AND ALLYSON MIDLINE INTACT AND PATENT. NO S/S OF HYPO/HYPERGLYCEMIA NOTED. NO C/O PAIN OR DISCOMFORT AT THIS TIME. ALL NEEDS ATTENDED AND MET. SAFETY PRECAUTIONS OBSERVED. CALL LIGHT WITHIN REACH. WILL ENDORSE TO NEXT SHIFT FOR ABENA.
[2017-05-03 08:00] VITALS: BP 133/80
--- NOTE | 2017-05-03 08:05 | NUR ---
MS RN NOTES PATIENT IN BED, AWAKE. A/O X2, FORGETFUL. ON ROOM AIR, BREATHING EVEN AND NON LABORED. ALLYSON MIDLINE PATENT AND INTACT, FLUSHES WELL. DUEÑAS CATH IN PLACE, URINE DRAINING TO GRAVITY. CALL LIGHT WITHIN REACH. ON ANGELY MATTRESS FOR SKIN MANAGEMENT. WILL CONT TO MONITOR.
[2017-05-03 08:27] LABS: CALCIUM, SERUM 8.6 mg/dL (8.5-10.1); CARBON DIOXIDE 28 mmol/L (21-32); CHLORIDE 108 mmol/L (98-107); CREATININE 0.6 mg/dL (0.6-1.3); GLUCOSE 133 mg/dL (74-106); POTASSIUM 3.9 mmol/L (3.5-5.1); SODIUM SERUM 141 mmol/L (136-145); UREA NITROGEN, BLOOD 16 mg/dL (7-18)
[2017-05-03] MEDS: NYSTATIN TOP POWDER 15 GM BOTTLE TP SCH (08:33)
[2017-05-03] MEDS: COD LIVER OIL/ZINC OXIDE 120 GM TUBE TP SCH (08:33)
[2017-05-03] MEDS: BLOOD SUGAR DIAGNOSTIC 1 EACH STRIP IN SCH (10:08)
--- NOTE | 2017-05-03 10:08 | NUR ---
FSBS 185MG/DL NO ISS COVERAGE ORDERED.
--- NOTE | 2017-05-03 11:28 | NUR ---
PATIENT IS SEEN BY DR. LAGUNA TODAY, PATIENT TO BE DC HOME WITH HOME HEALTH TODAY.
[2017-05-03 16:00] VITALS: BP 149/78
--- NOTE | 2017-05-03 17:27 | NUR ---
MS GUT CLEANER NOTES PATIENT HAS BEEN CLEARED FOR DISCHARGE HOME BY MD, VS REMAINS STABLE. SKIN CARE RENDERED. ALLYSON MIDLINE REMAINS IN PLACE, DUEÑAS CATH REMOVED. DISCHARGE INSTRUCTION GIVEN TO DAUGHTER-CHESTER, VERBALIZED UNDERSTANDING. BELONGINGS AND PRESCRIPTION GIVEN TO DAUGHTER UPON DC. PATIENT LEFT HOSP VIA AMBULANCE IN STABLE CONDITION ACCOMPANIED BY DAUGHTER.
== END 2017-05-03 17:15 | disposition home or self-care (01) | DRG 689 ==
LOC: ER 15:07 → MEDSG2 17:59
PROVIDERS: ADMIT Internal Medicine Nephrology; ATTEND Internal Medicine Nephrology
PROC: 05H533Z Insertion of Infusion Device into Right Subclavian Vein, Percutaneous Approach (ICD-10-PCS; principal; 2017-05-02)
DX: N39.0 Urinary tract infection, site not specified (principal); G93.41 Metabolic encephalopathy; L89.210 Pressure ulcer of right hip, unstageable; L89.220 Pressure ulcer of left hip, unstageable; E11.22 Type 2 diabetes mellitus with diabetic chronic kidney disease; D68.59 Other primary thrombophilia; D69.2 Other nonthrombocytopenic purpura; E87.0 Hyperosmolality and hypernatremia; I69.354 Hemiplegia and hemiparesis following cerebral infarction affecting left non-dominant side; N18.9 Chronic kidney disease, unspecified; I48.91 Unspecified atrial fibrillation; M81.0 Age-related osteoporosis without current pathological fracture; I87.2 Venous insufficiency (chronic) (peripheral); I12.9 Hypertensive chronic kidney disease with stage 1 through stage 4 chronic kidney disease, or unspecified chronic kidney disease; S70.329A Blister (nonthermal), unspecified thigh, initial encounter; I25.10 Atherosclerotic heart disease of native coronary artery without angina pectoris; K21.9 Gastro-esophageal reflux disease without esophagitis; Z79.01 Long term (current) use of anticoagulants; Z86.718 Personal history of other venous thrombosis and embolism; Z88.0 Allergy status to penicillin; Z88.2 Allergy status to sulfonamides; Z95.0 Presence of cardiac pacemaker; Z87.440 Personal history of urinary (tract) infections; Z79.4 Long term (current) use of insulin; X58.XXXA Exposure to other specified factors, initial encounter; Y93.9 Activity, unspecified; Y92.009 Unspecified place in unspecified non-institutional (private) residence as the place of occurrence of the external cause; R21 Rash and other nonspecific skin eruption; B96.89 Other specified bacterial agents as the cause of diseases classified elsewhere; E11.51 Type 2 diabetes mellitus with diabetic peripheral angiopathy without gangrene; L30.4 Erythema intertrigo; E66.01 Morbid (severe) obesity due to excess calories; Z68.31 Body mass index [BMI] 31.0-31.9, adult; D64.9 Anemia, unspecified; N31.9 Neuromuscular dysfunction of bladder, unspecified; I69.841 Monoplegia of lower limb following other cerebrovascular disease affecting right dominant side; Z74.01 Bed confinement status
CPT/HCPCS: 36415; 71045-TC; 80048-TC; 80170-TC; 80202-TC; 81000-TC; 82962-TC; 83605-TC; 83735-TC; 84100-TC; 85025-TC; 85610-TC; 85730-TC; 87040-TC; 87081-TC; 87086-TC; 87186-TC; 92611-TC; A4606; J1580; J1815; J3490; J7030; J7040; J7050; J7060; Z7610

== ENCOUNTER 2017-06-23 16:00 | Inpatient (IN) | payer MEDICARE, BC, MEDICAID ==
[~2017-06-23] VITALS: Ht 172.7 cm; Wt 74.8 kg
[~2017-06-23 16:00] MED LIST changes: -WARF1TAB6 PO; +WARF1TAB86 PO
[2017-06-23 16:37] LABS: BASOPHILS % (AUTO) 1.2 % (0.0-2.0); EOSINOPHILS # (AUTO) 0.2 /CMM (0.0-0.7); EOSINOPHILS % (AUTO) 4.1 % (0.0-6.0); HEMATOCRIT 29 % (33-45); HEMOGLOBIN 9.4 g/dL (11.5-14.8); LYMPHOCYTES # (AUTO) 1.2 /CMM (0.8-4.8); LYMPHOCYTES % (AUTO) 31.5 % (20.0-44.0); MEAN CORPUSCULAR HEMOGLOBIN 22 PG (26.0-33.0); MEAN CORPUSCULAR HGB CONC 32 g/dl (31.0-36.0); MEAN CORPUSCULAR VOLUME 68 fL (82-100); MONOCYTES # (AUTO) 0.4 /CMM (0.1-1.30); MONOCYTES % (AUTO) 9.4 % (2.0-12.0); NEUTROPHILS # (AUTO) 2.1 /CMM (1.8-8.9); NEUTROPHILS % (AUTO) 53.8 % (43.0-81.0); PLATELET COUNT (AUTO) 282 /CMM (150-450); RED BLOOD CELL COUNT(AUTO) 4.27 MIL/uL (4.0-5.2); WHITE BLOOD COUNT (AUTO) 3.9 K/uL (4.3-11.0)
[2017-06-23 16:48] LABS: CALCIUM, SERUM 8.4 mg/dL (8.5-10.1); CARBON DIOXIDE 26 mmol/L (21-32); CHLORIDE 104 mmol/L (98-107); CREATININE 0.9 mg/dL (0.6-1.3); GLUCOSE 92 mg/dL (74-106); POTASSIUM 3.7 mmol/L (3.5-5.1); SODIUM SERUM 140 mmol/L (136-145); UREA NITROGEN, BLOOD 15 mg/dL (7-18)
[2017-06-23 16:54] LABS: ALBUMIN 2.3 g/dL (3.4-5.0); ALKALINE PHOSPHATASE 104 U/L (46-116); ASPARTATE AMINOTRANSFERASE 17 U/L (15-37); BILIRUBIN,DIRECT 0.2 mg/dL (0.0-0.2); BILIRUBIN,TOTAL 0.4 mg/dL (0.2-1.0); TOTAL PROTEIN, SERUM 6.3 g/dL (6.4-8.2)
[2017-06-23 16:55] LABS: INR 1.28 (0.87-1.13); TROPONIN I < 0.017 ng/mL (0.00-0.056)
[2017-06-23 17:06] LABS: ALANINE AMINOTRANSFERASE 6 U/L (12-78)
[2017-06-23] MEDS ORDERED: MIRT15TA PO (19:24)
[2017-06-23] MEDS ORDERED: LEVOFLOXACIN 750 MG /D5W 150ML 750 MG in PREMIX 1 EA IV SCH (19:30)
[2017-06-23] MEDS ORDERED: LEVOFLOXACIN 750 MG /D5W 150ML 150 ML IV ONE (19:49)
[2017-06-23 19:55] LABS: APPEARANCE,URINE Clear (CLEAR); BILIRUBIN,URINE Negative (NEGATIVE); BLOOD, URINE Negative Ery/uL (NEGATIVE); COLOR,URINE Yellow (YELLOW); KETONES,URINE Trace (NEGATIVE); LEUKOCYTE ESTERASE ,URINE Trace (NEGATIVE); NITRITE, URINE Negative (NEGATIVE); PROTEIN,URINE Negative (NEGATIVE); UGLUCOSE Negative (NEGATIVE); UROBILINOGEN,URINE 0.2 EU/dL (0.2)
[2017-06-23 20:08] LABS: BACTERIA,URINE Moderate /HPF (None Seen); MUCUS,URINE Moderate /LPF (None Seen); RBC,URINE 0-2 /HPF (0-2); SQUAMOUS EPITHELIAL CELL,UR Many /HPF (None Seen); URINE AMORPHOUS URATE Moderate /HPF (None Seen)
[2017-06-23 20:50] VITALS: BP 124/70
[2017-06-23 21:00] VITALS: BP 124/70
[2017-06-23] MEDS ORDERED: ACETAMINOPHEN 325 MG TABLET PO PRN (23:00)
[2017-06-23] MEDS ORDERED: ONDANSETRON HCL/PF 4 MG/2 ML VIAL IV PRN (23:00)
[2017-06-23] MEDS ORDERED: DEXTROSE 50%-WATER 50 ML DISP.SYRIN IV PRN (23:00)
[2017-06-23] MEDS ORDERED: IPRATROPIUM/ALBUTEROL INHALER IH PRN (23:30)
[2017-06-24] VITALS: BP 134/72
[2017-06-24 04:00] VITALS: BP 115/65
[2017-06-24] MEDS: BLOOD SUGAR DIAGNOSTIC 1 EACH STRIP IN SCH ×4 (06:39→22:02)
[2017-06-24 06:47] LABS: CALCIUM, SERUM 8.2 mg/dL (8.5-10.1); CARBON DIOXIDE 30 mmol/L (21-32); CHLORIDE 106 mmol/L (98-107); CREATININE 0.8 mg/dL (0.6-1.3); GLUCOSE 79 mg/dL (74-106); MAGNESIUM 1.8 mg/dL (1.8-2.4); PHOSPHORUS 3.6 mg/dL (2.5-4.9); POTASSIUM 3.8 mmol/L (3.5-5.1); SODIUM SERUM 140 mmol/L (136-145); UREA NITROGEN, BLOOD 15 mg/dL (7-18)
[2017-06-24 06:48] LABS: BASOPHILS % (AUTO) 0.9 % (0.0-2.0); EOSINOPHILS # (AUTO) 0.2 /CMM (0.0-0.7); EOSINOPHILS % (AUTO) 4.3 % (0.0-6.0); HEMATOCRIT 29 % (33-45); HEMOGLOBIN 9.3 g/dL (11.5-14.8); LYMPHOCYTES # (AUTO) 1.5 /CMM (0.8-4.8); LYMPHOCYTES % (AUTO) 37.8 % (20.0-44.0); MEAN CORPUSCULAR HEMOGLOBIN 23 PG (26.0-33.0); MEAN CORPUSCULAR HGB CONC 32 g/dl (31.0-36.0); MEAN CORPUSCULAR VOLUME 70 fL (82-100); MONOCYTES # (AUTO) 0.6 /CMM (0.1-1.30); MONOCYTES % (AUTO) 14.8 % (2.0-12.0); NEUTROPHILS # (AUTO) 1.7 /CMM (1.8-8.9); NEUTROPHILS % (AUTO) 42.2 % (43.0-81.0); PLATELET COUNT (AUTO) 238 /CMM (150-450); RDW COEFFICIENT OF VARIATION 22.4 (11.5-15.0); WHITE BLOOD COUNT (AUTO) 4.1 K/uL (4.3-11.0)
[2017-06-24 08:00] VITALS: BP_SYST 142; BP_SYST 143; BP_DIAS 78
[2017-06-24] MEDS ORDERED: ALBUTEROL FS 2.5 MG/0.5 ML VIAL.NEB NEB PRN (08:30)
[2017-06-24] MEDS ORDERED: IPRATROPIUM NEB FS 0.5 MG/2.5 ML AMPUL.NEB IH PRN (08:30)
[2017-06-24 12:00] VITALS: BP 124/61
[2017-06-24 12:54] LABS: BAND % (MANUAL) 2 % (0.0-5.0); EOSINOPHILS % (MANUAL) 1 % (0-4); LYMPHOCYTES % (MANUAL) 41 % (16-48); MONOCYTES % (MANUAL) 9 % (0-11.0); NEUTROPHILS % (MANUAL) 47 (42-76)
[2017-06-24] MEDS: NYSTATIN CREAM 15 GM TUBE TP SCH (15:54)
[2017-06-24 16:00] VITALS: BP 145/79
[2017-06-24] MEDS: WARFARIN SODIUM 1 MG TABLET PO SCH (17:00)
[2017-06-24 20:00] VITALS: BP 104/57
[2017-06-24] MEDS ORDERED: LEVOFLOXACIN 500 MG /D5W 100ML 500 MG in PREMIX 1 EA IV SCH (20:00)
[2017-06-24] MEDS: MEROPENEM 500 MG in IV NS 0.9% 50 ML IV SCH (22:01)
[2017-06-24] MEDS: LINEZOLID 600 MG TABLET PO SCH (22:02)
[2017-06-24] MEDS: MIRTAZAPINE 15 MG TABLET PO SCH (22:02)
[2017-06-25] MEDS: INSULIN REGULAR, HUMAN 100 UNIT/ML 3 ML VIAL SQ PRN ×4 (02:36→23:32)
[2017-06-25 05:42] VITALS: BP 145/73
[2017-06-25] MEDS: BLOOD SUGAR DIAGNOSTIC 1 EACH STRIP IN SCH ×4 (06:18→22:24)
[2017-06-25 07:19] LABS: BASOPHILS % (AUTO) 0.6 % (0.0-2.0); EOSINOPHILS # (AUTO) 0.2 /CMM (0.0-0.7); EOSINOPHILS % (AUTO) 4.3 % (0.0-6.0); HEMATOCRIT 28 % (33-45); LYMPHOCYTES # (AUTO) 1.3 /CMM (0.8-4.8); MEAN CORPUSCULAR HEMOGLOBIN 22 PG (26.0-33.0); MEAN CORPUSCULAR HGB CONC 32 g/dl (31.0-36.0); MEAN CORPUSCULAR VOLUME 69 fL (82-100); MONOCYTES # (AUTO) 0.4 /CMM (0.1-1.30); NEUTROPHILS # (AUTO) 2.5 /CMM (1.8-8.9); NEUTROPHILS % (AUTO) 55.1 % (43.0-81.0); PLATELET COUNT (AUTO) 280 /CMM (150-450); RDW COEFFICIENT OF VARIATION 22.2 (11.5-15.0); WHITE BLOOD COUNT (AUTO) 4.4 K/uL (4.3-11.0)
[2017-06-25 07:30] LABS: CALCIUM, SERUM 7.9 mg/dL (8.5-10.1); CARBON DIOXIDE 26 mmol/L (21-32); CHLORIDE 103 mmol/L (98-107); CREATININE 0.9 mg/dL (0.6-1.3); GLUCOSE 122 mg/dL (74-106); MAGNESIUM 1.7 mg/dL (1.8-2.4); PHOSPHORUS 2.9 mg/dL (2.5-4.9); POTASSIUM 3.6 mmol/L (3.5-5.1); SODIUM SERUM 138 mmol/L (136-145); UREA NITROGEN, BLOOD 14 mg/dL (7-18)
[2017-06-25 08:00] VITALS: BP 116/62
[2017-06-25 08:14] LABS: BAND % (MANUAL) 2 % (0.0-5.0); EOSINOPHILS % (MANUAL) 3 % (0-4); LYMPHOCYTES % (MANUAL) 29 % (16-48); MONOCYTES % (MANUAL) 6 % (0-11.0); NEUTROPHILS % (MANUAL) 60 (42-76)
[2017-06-25] MEDS: MEROPENEM 500 MG in IV NS 0.9% 50 ML IV SCH ×3 (09:00→22:12)
[2017-06-25] MEDS: LINEZOLID 600 MG TABLET PO SCH ×2 (09:40→21:27)
[2017-06-25] MEDS: NYSTATIN CREAM 15 GM TUBE TP SCH ×2 (09:53→18:10)
[2017-06-25] MEDS: Magnesium 1GM/D5W 100ML PREMIX 100 ML IV SCH ×2 (15:09→16:13)
[2017-06-25 16:00] VITALS: BP 129/69
[2017-06-25] MEDS: LACTOBACILLUS RHAMNOSUS GG 1 EACH CAP.SPRINK PO SCH (18:10)
[2017-06-25] MEDS: WARFARIN SODIUM 1 MG TABLET PO SCH (18:11)
[2017-06-25 20:00] VITALS: BP 94/45
[2017-06-25] MEDS ORDERED: VITAMINS A AND D 56.7 GM TUBE TP PRN (21:00)
[2017-06-25] MEDS: MIRTAZAPINE 15 MG TABLET PO SCH (22:00)
[2017-06-26] MEDS: BLOOD SUGAR DIAGNOSTIC 1 EACH STRIP IN SCH ×4 (06:26→22:44)
[2017-06-26 07:04] LABS: INR 1.02 (0.87-1.13)
[2017-06-26 07:16] LABS: CALCIUM, SERUM 7.8 mg/dL (8.5-10.1); CARBON DIOXIDE 29 mmol/L (21-32); CHLORIDE 106 mmol/L (98-107); CREATININE 0.8 mg/dL (0.6-1.3); GLUCOSE 109 mg/dL (74-106); MAGNESIUM 2.2 mg/dL (1.8-2.4); POTASSIUM 3.7 mmol/L (3.5-5.1); SODIUM SERUM 139 mmol/L (136-145); UREA NITROGEN, BLOOD 12 mg/dL (7-18)
[2017-06-26 08:00] VITALS: BP 137/75
[2017-06-26] MEDS: NYSTATIN CREAM 15 GM TUBE TP SCH ×2 (09:09→17:52)
[2017-06-26] MEDS: LINEZOLID 600 MG TABLET PO SCH ×2 (09:10→20:37)
[2017-06-26] MEDS: LACTOBACILLUS RHAMNOSUS GG 1 EACH CAP.SPRINK PO SCH ×2 (09:10→17:52)
[2017-06-26] MEDS: MEROPENEM 500 MG in IV NS 0.9% 50 ML IV SCH ×2 (09:10→20:38)
[2017-06-26] MEDS ORDERED: FUROSEMIDE 20 MG/2 ML VIAL IV ONE (12:30)
[2017-06-26 16:00] VITALS: BP 144/77
[2017-06-26] MEDS: WARFARIN SODIUM 1 MG TABLET PO SCH (17:52)
[2017-06-26 20:00] VITALS: BP 141/69
[2017-06-26] MEDS: MIRTAZAPINE 15 MG TABLET PO SCH (20:37)
[2017-06-26] MEDS: MUPIROCIN OINT 2% 22 GM TUBE SCH (21:00)
[2017-06-26] MEDS: INSULIN REGULAR, HUMAN 100 UNIT/ML 3 ML VIAL SQ PRN (22:49)
[2017-06-27] MEDS: BLOOD SUGAR DIAGNOSTIC 1 EACH STRIP IN SCH ×4 (06:05→22:20)
[2017-06-27 06:40] LABS: BASOPHILS # (AUTO) 0.1 /CMM (0.0-0.2); BASOPHILS % (AUTO) 0.8 % (0.0-2.0); EOSINOPHILS # (AUTO) 0.2 /CMM (0.0-0.7); EOSINOPHILS % (AUTO) 3.4 % (0.0-6.0); HEMATOCRIT 31 % (33-45); HEMOGLOBIN 9.7 g/dL (11.5-14.8); LYMPHOCYTES % (AUTO) 29.9 % (20.0-44.0); MEAN CORPUSCULAR HEMOGLOBIN 22 PG (26.0-33.0); MEAN CORPUSCULAR HGB CONC 32 g/dl (31.0-36.0); MEAN CORPUSCULAR VOLUME 70 fL (82-100); MONOCYTES # (AUTO) 0.7 /CMM (0.1-1.30); MONOCYTES % (AUTO) 10.7 % (2.0-12.0); NEUTROPHILS # (AUTO) 3.7 /CMM (1.8-8.9); NEUTROPHILS % (AUTO) 55.2 % (43.0-81.0); PLATELET COUNT (AUTO) 301 /CMM (150-450); RDW COEFFICIENT OF VARIATION 22.6 (11.5-15.0); WHITE BLOOD COUNT (AUTO) 6.6 K/uL (4.3-11.0)
[2017-06-27 06:51] LABS: INR 1.01 (0.87-1.13)
[2017-06-27 06:58] LABS: CALCIUM, SERUM 8.3 mg/dL (8.5-10.1); CARBON DIOXIDE 30 mmol/L (21-32); CHLORIDE 106 mmol/L (98-107); CREATININE 0.9 mg/dL (0.6-1.3); GLUCOSE 120 mg/dL (74-106); MAGNESIUM 2.1 mg/dL (1.8-2.4); PHOSPHORUS 2.7 mg/dL (2.5-4.9); POTASSIUM 3.8 mmol/L (3.5-5.1); SODIUM SERUM 140 mmol/L (136-145); UREA NITROGEN, BLOOD 12 mg/dL (7-18)
[2017-06-27 08:26] VITALS: BP 140/68
[2017-06-27] MEDS: MEROPENEM 500 MG in IV NS 0.9% 50 ML IV SCH ×2 (08:41→20:23)
[2017-06-27] MEDS: NYSTATIN CREAM 15 GM TUBE TP SCH ×2 (08:42→16:35)
[2017-06-27] MEDS: LACTOBACILLUS RHAMNOSUS GG 1 EACH CAP.SPRINK PO SCH ×2 (09:00→16:28)
[2017-06-27] MEDS: LINEZOLID 600 MG TABLET PO SCH ×2 (09:00→21:10)
[2017-06-27] MEDS: MUPIROCIN OINT 2% 22 GM TUBE SCH ×2 (09:31→21:10)
[2017-06-27 16:00] VITALS: BP 140/79
[2017-06-27] MEDS: WARFARIN SODIUM 1 MG TABLET PO SCH (16:26)
[2017-06-27 20:00] VITALS: BP 136/64
[2017-06-27] MEDS: MIRTAZAPINE SOLUTAB 15 MG/UDTABLET TAB.RAPDIS PO SCH (21:09)
[2017-06-27] MEDS: INSULIN REGULAR, HUMAN 100 UNIT/ML 3 ML VIAL SQ PRN (22:27)
[2017-06-28] MEDS: BLOOD SUGAR DIAGNOSTIC 1 EACH STRIP IN SCH ×4 (06:01→21:21)
[2017-06-28] MEDS: INSULIN REGULAR, HUMAN 100 UNIT/ML 3 ML VIAL SQ PRN (06:16)
[2017-06-28 08:00] VITALS: BP 132/69
[2017-06-28] MEDS: MEROPENEM 500 MG in IV NS 0.9% 50 ML IV SCH ×2 (08:38→21:19)
[2017-06-28] MEDS: MUPIROCIN OINT 2% 22 GM TUBE SCH ×2 (08:46→21:20)
[2017-06-28] MEDS: NYSTATIN CREAM 15 GM TUBE TP SCH ×2 (08:46→16:31)
[2017-06-28] MEDS: LINEZOLID 600 MG TABLET PO SCH (08:51)
[2017-06-28] MEDS: LACTOBACILLUS RHAMNOSUS GG 1 EACH CAP.SPRINK PO SCH ×2 (08:51→17:00)
[2017-06-28 16:00] VITALS: BP 148/75
[2017-06-28] MEDS: LINEZOLID RTU BAG 600 MG in PREMIX 1 EA IV SCH (18:37)
[2017-06-28 18:55] LABS: INR 1.02 (0.87-1.13)
[2017-06-28] MEDS: WARFARIN SODIUM 1 MG TABLET PO SCH (19:51)
[2017-06-28 20:00] VITALS: BP 116/64
[2017-06-28] MEDS: MIRTAZAPINE SOLUTAB 15 MG/UDTABLET TAB.RAPDIS PO SCH (21:19)
[2017-06-29] MEDS: LINEZOLID RTU BAG 600 MG in PREMIX 1 EA IV SCH (05:08)
[2017-06-29] MEDS: INSULIN REGULAR, HUMAN 100 UNIT/ML 3 ML VIAL SQ PRN (06:32)
[2017-06-29] MEDS: BLOOD SUGAR DIAGNOSTIC 1 EACH STRIP IN SCH (06:33)
[2017-06-29] MEDS ORDERED: MAGNESIUM HYDROXIDE 30 ML UDC PO ONE (07:00)
[2017-06-29 08:00] VITALS: BP 121/75
[2017-06-29] MEDS: LACTOBACILLUS RHAMNOSUS GG 1 EACH CAP.SPRINK PO SCH (09:00)
[2017-06-29] MEDS: MEROPENEM 500 MG in IV NS 0.9% 50 ML IV SCH (09:41)
[2017-06-29] MEDS: MUPIROCIN OINT 2% 22 GM TUBE SCH (09:42)
[2017-06-29] MEDS: NYSTATIN CREAM 15 GM TUBE TP SCH (09:42)
== END 2017-06-29 12:30 | DRG 193 ==
LOC: ER 16:02 → TELE 20:32 → TELE1 20:43 → TELE 21:46 → MED 06-24 16:47
PROVIDERS: ADMIT Internal Medicine Nephrology; ATTEND Internal Medicine Nephrology
PROC: 05HD33Z Insertion of Infusion Device into Right Cephalic Vein, Percutaneous Approach (ICD-10-PCS; principal; 2017-06-25)
DX: J18.9 Pneumonia, unspecified organism (principal); G93.40 Encephalopathy, unspecified; D69.2 Other nonthrombocytopenic purpura; E11.51 Type 2 diabetes mellitus with diabetic peripheral angiopathy without gangrene; E66.01 Morbid (severe) obesity due to excess calories; I48.91 Unspecified atrial fibrillation; I69.354 Hemiplegia and hemiparesis following cerebral infarction affecting left non-dominant side; N39.0 Urinary tract infection, site not specified; L03.116 Cellulitis of left lower limb; I82.512 Chronic embolism and thrombosis of left femoral vein; K21.9 Gastro-esophageal reflux disease without esophagitis; I25.10 Atherosclerotic heart disease of native coronary artery without angina pectoris; Z88.0 Allergy status to penicillin; Z95.0 Presence of cardiac pacemaker; Z88.2 Allergy status to sulfonamides; L98.8 Other specified disorders of the skin and subcutaneous tissue; Z22.322 Carrier or suspected carrier of Methicillin resistant Staphylococcus aureus; S70.322A Blister (nonthermal), left thigh, initial encounter; S70.321A Blister (nonthermal), right thigh, initial encounter; X58.XXXA Exposure to other specified factors, initial encounter; Y93.9 Activity, unspecified; Y92.009 Unspecified place in unspecified non-institutional (private) residence as the place of occurrence of the external cause; I87.2 Venous insufficiency (chronic) (peripheral); B95.2 Enterococcus as the cause of diseases classified elsewhere; I69.341 Monoplegia of lower limb following cerebral infarction affecting right dominant side; M81.0 Age-related osteoporosis without current pathological fracture; Z74.01 Bed confinement status; I10 Essential (primary) hypertension
CPT/HCPCS: 36415; 71045-TC; 80048-TC; 80076-TC; 81000-TC; 82962-TC; 83605-TC; 83735-TC; 84100-TC; 84484-TC; 85025-TC; 85610-TC; 85730-TC; 87040-TC; 87081-TC; 87086-TC; 87186-TC; 92521; 92526; 93970-TC; A4216; A4606; C1751; J1815; J1940; J1956; J2020; J2185; J3475; J7050; Z7610

== ENCOUNTER 2017-07-21 00:49 | Inpatient (IN) | payer MEDICARE, BC, MEDICAID ==
[~2017-07-21] VITALS: Ht 157.5 cm; Wt 75.3 kg
[~2017-07-21 00:49] MED LIST changes: -BLOO-668 IN; +MIRT15TA PO; -WARF1TAB86 PO
--- NOTE | 2017-07-21 01:00 | NUR ---
TO BED 12 A 76 YO FEMALE PATIENT BIB EPA#[id number] FROM [facility] S/P XRAY SHOWING L SHOULDER FX. PATIENT IS AWAKE, ALERT AND RESPONSIVE. VSS. NAD NOTED. SKIN WARM AND DRY. PATIENT WITH ARM SLING ON LEFT ARM. COMFORT MEASURES RENDERED.
--- NOTE | 2017-07-21 01:33 | NUR ---
XR AT BEDSIDE.
--- NOTE | 2017-07-21 02:48 | NUR ---
PAGED DR LANE, OFFICE INSPECTOR FOR DR MARTIN.
[2017-07-21] MEDS ORDERED: ALBU2.5V13 NEB (03:32)
[2017-07-21] MEDS ORDERED: LEVO500T75 PO (03:32)
[2017-07-21] MEDS ORDERED: MUPI15CR12 TP (03:32)
[2017-07-21] MEDS ORDERED: DICL100G16 TP (03:32)
[2017-07-21] MEDS ORDERED: MUPI22OI7 (03:32)
[2017-07-21] MEDS ORDERED: IPRA0.2S49 NEB (03:32)
[2017-07-21] MEDS ORDERED: ASCO500T9 PO (03:32)
[2017-07-21] MEDS ORDERED: MULT-447 PO (03:32)
[2017-07-21] MEDS ORDERED: DULO20CA PO (03:32)
[2017-07-21] MEDS ORDERED: LACT1CAP69 PO (03:32)
[2017-07-21] MEDS ORDERED: ACET-868 PO (03:32)
[2017-07-21] MEDS ORDERED: VITA56.7 TP (03:32)
[2017-07-21] MEDS ORDERED: INSU100V28 SQ (03:32)
[2017-07-21 03:48] LABS: BASOPHILS % (AUTO) 0.5 % (0.0-2.0); EOSINOPHILS % (AUTO) 2.6 % (0.0-6.0); HEMATOCRIT 27 % (33-45); HEMOGLOBIN 8.6 g/dL (11.5-14.8); LYMPHOCYTES # (AUTO) 1.6 /CMM (0.8-4.8); LYMPHOCYTES % (AUTO) 17.6 % (20.0-44.0); MEAN CORPUSCULAR HGB CONC 31 g/dl (31.0-36.0); MEAN CORPUSCULAR VOLUME 69 fL (82-100); MONOCYTES % (AUTO) 10.8 % (2.0-12.0); NEUTROPHILS # (AUTO) 6.3 /CMM (1.8-8.9); NEUTROPHILS % (AUTO) 68.5 % (43.0-81.0); PLATELET COUNT (AUTO) 347 /CMM (150-450); RDW COEFFICIENT OF VARIATION 21.8 (11.5-15.0); RED BLOOD CELL COUNT(AUTO) 3.94 MIL/uL (4.0-5.2); WHITE BLOOD COUNT (AUTO) 9.2 K/uL (4.3-11.0)
[2017-07-21 04:03] LABS: CALCIUM, SERUM 8.1 mg/dL (8.5-10.1); CARBON DIOXIDE 31 mmol/L (21-32); CHLORIDE 114 mmol/L (98-107); CREATININE 0.8 mg/dL (0.6-1.3); GLUCOSE 168 mg/dL (74-106); POTASSIUM 4.1 mmol/L (3.5-5.1); SODIUM SERUM 150 mmol/L (136-145); UREA NITROGEN, BLOOD 15 mg/dL (7-18)
--- NOTE | 2017-07-21 04:23 | NUR ---
TRANSFERRED PATIENT TO TELE BED VIA ALS PROTOCOL, NO INCIDENT NOTED. FAMILY AT BEDSIDE.
--- NOTE | 2017-07-21 04:30 | NUR ---
MANAGER ENGAGEMENT NOTES, RECEIVED 76yo FEMALE ADMITTED FROM ER DEPARTMENT VIA STRETCHER, ACCOMPANIED BY 2 STAFF, AND AND DAUGHTER AT THIS TIME, UNDER THE MEDICAL SERVICES OF ANTONIO TOLENTINO M.D. BREATHING EVEN AND UNLABORED, AT RA SATURATION>96%, NO S/S OF SOB/ACUTE DISTRESS NOTED, ADMITTING DX INCLUDED BUT ARE NOTE LIMITED TO LEFT HUMERUS NECK, AND RIGHT FEMORAL, H/O CVA WITH LEFT SIDED WEAKNESS, AFIB, PACEMAKER DM, AFIB IN THE MONITOR AT THIS TIME, C/O PAIN, WILL ADMINISTERED MEDICATIONS ORDERED, BED BATH GIVEN UPON ADMISSION, KEPT DRY AND CLEAN, BED LOCKED AND IN LOWEST POSITION, GENTLY HANDLE WHILE PROVIDING CARE, WILL CONTINUE TO MONITOR CLOSELY.
[2017-07-21 05:00] VITALS: BP 117/68
[2017-07-21] MEDS ORDERED: IPRATROPIUM NEB FS 0.5 MG/2.5 ML AMPUL.NEB NEB PRN (05:00)
[2017-07-21] MEDS ORDERED: VITAMINS A AND D 56.7 GM TUBE TP PRN (05:00)
[2017-07-21] MEDS ORDERED: LEVOFLOXACIN (250MG) 250 MG TABLET PO SCH (05:00)
[2017-07-21] MEDS ORDERED: DEXTROSE 50%-WATER 50 ML DISP.SYRIN IV PRN (05:00)
[2017-07-21] MEDS: ACETAMINOPHEN 325 MG TABLET PO PRN (06:22)
--- NOTE | 2017-07-21 07:35 | NUR ---
ENTERPRISE ENGINEER NOTE: RECEIVED PATIENT IN BED, ASLEEP, BUT OPENED HER EYES WITH TACTILE STIMULI AND WHEN CALLING HER NAME. HOB ELEVATED AT 30 DEGREE. NO FACIAL GRIMACING NOTED. DENIED PAIN AT THIS TIME. ON CORRECTIONAL CLASSIFICATION COUNSELOR, A. FIB V-PACING HR= 85. RESPIRATION IS EVEN AND UNLABORED. ON ROOM AIR AND SATURATING 100%. AWAITING FOR THE SPEECH THERAPIST PRIOR TO FEEDING THE PATIENT. BED ALARM AND LOCKED AT ALL TIMES. CALL LIGHT WITHIN REACH. NEEDS ANTICIPATED.
[2017-07-21] MEDS: BLOOD SUGAR DIAGNOSTIC 1 EACH STRIP IN SCH ×4 (07:51→22:22)
[2017-07-21 08:00] VITALS: BP 144/84
[2017-07-21] MEDS ORDERED: DULOXETINE HCL 20 MG CAPSULE.DR PO SCH (09:00)
[2017-07-21] MEDS: ALBUTEROL FS 2.5 MG/3 ML VIAL.NEB NEB SCH ×5 (09:05→23:30)
--- NOTE | 2017-07-21 09:30 | NUR ---
DEVELOPER ARCHITECT NOTE: SEEN BY THE SPEECH THERAPIST AND ACCORDING TO HER THE PATIENT WAS SEEN BEFORE AND WAS NOTED POCKETING FOOD IN HER MOUTH. PER ST, IT IS OK TO FEED THE PATIENT W/ THE PUREED 2GM NA W/ NECTAR THICKENED LIQUID BUT IF PATIENT STARTS TO POCKET FOOD IN HER MOUTH, STOP THE FEEDING AND CLEAN HER MOUTH. PATIENT POCKET FOOD ON HER MOUTH DURING THE ST EVALUATION AND SHE REFUSED TO EAT BREAKFAST. INSULIN COVERAGE WAS NOT GIVEN BECAUSE PATIENT REFUSED TO EAT. DR. LANE WAS MADE AWARE.
[2017-07-21 09:36] LABS: INR 4.95 (0.87-1.13)
[2017-07-21] MEDS: LACTOBACILLUS RHAMNOSUS GG 1 EACH CAP.SPRINK PO SCH ×2 (10:00→17:40)
[2017-07-21] MEDS: POTASSIUM CHLORIDE 20 MEQ TAB.PRT.SR PO SCH (10:00)
[2017-07-21] MEDS: ASCORBIC ACID 500 MG TABLET PO SCH (10:00)
[2017-07-21] MEDS: MULTIVITAMINS,THERAGRAN 1 UDTAB TABLET PO SCH (10:00)
[2017-07-21] MEDS: MUPIROCIN OINT 2% 22 GM TUBE SCH ×2 (10:01→21:48)
[2017-07-21 12:00] VITALS: BP 144/76
--- NOTE | 2017-07-21 15:14 | NUR ---
ASSOCIATE AGENT INSURANCE SALES NOTE: CALLED AND PAGED DR. GODINEZ TWICE TO INFORM THAT THE PATIENT'S WAS REQUESTING TO SPEAK WITH HIM REGARDING THE PATIENT'S CONDITION. AWAITING FOR MD'S CALL BACK.
[2017-07-21 16:00] VITALS: BP 120/71
--- NOTE | 2017-07-21 16:00 | NUR ---
CFD ENGINEER NOTE: REPORT WAS GIVEN TO KODAK LAWRENCE RN WAS GIVEN ENDORSEMENT RE: THE PATIENT'S CARE AND TO FOLLOW-UP W/ DR. GODINEZ RE: THE FAMILY'S REQUEST TO SPEAK W/ HIM.
[2017-07-21] MEDS: INSULIN REGULAR, HUMAN 100 UNIT/ML 3 ML VIAL SQ PRN (17:39)
[2017-07-21] MEDS: IV D5/0.45 NACL 1,000 ML IV PRN (17:40)
--- NOTE | 2017-07-21 19:10 | NUR ---
RN NOTES PATIENT SEEN BY RALPH CLAY DRY PRESS OPERATOR ID WITH ORDER TO INSERT DUEÑAS CATH. FAMILY AT BEDSIDE AWARE AND AGREED. WILL CONT TO MONITOR.
--- NOTE | 2017-07-21 19:17 | NUR ---
RN NOTES PATIENT ENDORSED TO NEXT SHIFT IN STABLE CONDITION FOR CONTINUITY OF CARE. NO SIGNIFICANT CHANGES NOTED. WILL CONT TO MONITOR.
[2017-07-21 20:00] VITALS: BP 110/78
[2017-07-22] VITALS: BP 106/55
[2017-07-22] MEDS: ALBUTEROL FS 2.5 MG/3 ML VIAL.NEB NEB SCH ×6 (03:30→23:30)
[2017-07-22 04:00] VITALS: BP 101/60
[2017-07-22] MEDS: IV D5/0.45 NACL 1,000 ML IV PRN (05:49)
[2017-07-22] MEDS: ACETAMINOPHEN 325 MG TABLET PO PRN (06:00)
--- NOTE | 2017-07-22 06:33 | NUR ---
RN NOTE PATIENT SLEPT WELL AT NIGHT, AWAKE, ALERT/ORIENTED X 1, ON SPECIAL MATRESS NOW, TYLENOL WAS ADMINISTERED PRIOR, DUEÑAS CATH IS INTACT, ALL SAFETY MEASURES TAKEN, BED IN THE LOWEST POSITION, CALL LIGHT WITHIN REACH, SIDE RAILS UP X2, WILL ENDORSE TO AM SHIFT
[2017-07-22 07:08] LABS: BASOPHILS % (AUTO) 0.5 % (0.0-2.0); EOSINOPHILS % (AUTO) 2.2 % (0.0-6.0); HEMATOCRIT 24 % (33-45); HEMOGLOBIN 7.7 g/dL (11.5-14.8); LYMPHOCYTES # (AUTO) 1.2 /CMM (0.8-4.8); LYMPHOCYTES % (AUTO) 16.1 % (20.0-44.0); MEAN CORPUSCULAR HGB CONC 32 g/dl (31.0-36.0); MEAN CORPUSCULAR VOLUME 71 fL (82-100); MONOCYTES # (AUTO) 0.7 /CMM (0.1-1.30); MONOCYTES % (AUTO) 8.9 % (2.0-12.0); NEUTROPHILS # (AUTO) 5.5 /CMM (1.8-8.9); NEUTROPHILS % (AUTO) 72.3 % (43.0-81.0); PLATELET COUNT (AUTO) 412 /CMM (150-450); RDW COEFFICIENT OF VARIATION 21.5 (11.5-15.0); RED BLOOD CELL COUNT(AUTO) 3.46 MIL/uL (4.0-5.2); WHITE BLOOD COUNT (AUTO) 7.7 K/uL (4.3-11.0)
--- NOTE | 2017-07-22 07:30 | NUR ---
RN NOTES RECEIVED PATIENT IN BED ALERT, AWAKE, ORIENTED X1 WITH BREATHING NORMAL, EVEN AND UNLABORED. NO SOB NOTED. NO ACUTE DISTRESS NOTED. DENIES ANY PAIN OR DISCOMFORT. TELE MONITOR REVEALS CONTROLLED A FIB=, HR=86. ALLYSON MIDLINE IS PATENT AND INTACT, RUNNING IVF PER ORDER. BOWEL SOUND PRESENT. PULSES PRESENT. SAFETY MEASURE OBSERVED. ALL NEEDS ATTENDED. CALL LIGHT WITH IN REACH. WILL CONT TO MONITOR.
[2017-07-22 07:39] LABS: CALCIUM, SERUM 7.8 mg/dL (8.5-10.1); CARBON DIOXIDE 29 mmol/L (21-32); CHLORIDE 113 mmol/L (98-107); CREATININE 0.8 mg/dL (0.6-1.3); GLUCOSE 201 mg/dL (74-106); PHOSPHORUS 3.3 mg/dL (2.5-4.9); SODIUM SERUM 150 mmol/L (136-145); UREA NITROGEN, BLOOD 16 mg/dL (7-18)
--- NOTE | 2017-07-22 07:40 | NUR ---
RN NOTES RELAYED INR RESULTS =5.81 AND PT,PTT RESULTS TO DR LAGUNA WITH NNO.
[2017-07-22 07:44] LABS: INR 5.81 (0.87-1.13)
[2017-07-22 08:00] VITALS: BP 105/70
[2017-07-22 08:09] LABS: ALBUMIN 2.1 g/dL (3.4-5.0); BILIRUBIN,DIRECT 0.1 mg/dL (0.0-0.2); BILIRUBIN,TOTAL 0.4 mg/dL (0.2-1.0); TOTAL PROTEIN, SERUM 5.4 g/dL (6.4-8.2)
[2017-07-22] MEDS: BLOOD SUGAR DIAGNOSTIC 1 EACH STRIP IN SCH ×4 (08:25→22:09)
[2017-07-22] MEDS: INSULIN REGULAR, HUMAN 100 UNIT/ML 3 ML VIAL SQ PRN ×2 (08:26→12:36)
[2017-07-22 09:30] LABS: BAND % (MANUAL) 1 % (0.0-5.0); EOSINOPHILS % (MANUAL) 5 % (0-4); LYMPHOCYTES % (MANUAL) 23 % (16-48); MONOCYTES % (MANUAL) 11 % (0-11.0); NEUTROPHILS % (MANUAL) 60 (42-76)
[2017-07-22] MEDS: POTASSIUM CHLORIDE 20 MEQ TAB.PRT.SR PO SCH (09:51)
[2017-07-22] MEDS: MULTIVITAMINS,THERAGRAN 1 UDTAB TABLET PO SCH (09:51)
[2017-07-22] MEDS: DULOXETINE HCL 20 MG CAPSULE.DR PO SCH (09:51)
[2017-07-22] MEDS: ASCORBIC ACID 500 MG TABLET PO SCH (09:51)
[2017-07-22] MEDS: LACTOBACILLUS RHAMNOSUS GG 1 EACH CAP.SPRINK PO SCH ×2 (09:51→16:52)
[2017-07-22] MEDS: MUPIROCIN OINT 2% 22 GM TUBE SCH ×2 (09:52→22:09)
[2017-07-22 16:00] VITALS: BP 99/62
[2017-07-22] MEDS: IV D5W 1,000 ML IV PRN (16:49)
--- NOTE | 2017-07-22 17:37 | NUR ---
INITIAL FINDING OF DUPLEX VENOUS LOWER EXT LEFT SHOWED POSITIVE FOR DVT ON CFV, SFV PROX AND SFV MID LEVELS. ADVISED ATTENDING NURSE (ROSALINDA) OF PRELIMINARY RESULT.
--- NOTE | 2017-07-22 18:49 | NUR ---
RN NOTES NOTIFIED DR ROMO THAT PATIENT IS POSITIVE FOR DVT IN LEFT LEG AND NOTIFIED MD THAT PATIENT URINE OUTPUT SINCE MORNING JN=992TI WITH NNO. WILL CONT TO MONITOR.
--- NOTE | 2017-07-22 19:30 | NUR ---
RN NOTES PATIENT ENDORSED TO NEXT SHIFT IN STABLE CONDITION FOR CONTINUITY OF CARE. NO SIGNIFICANT CHANGES NOTED. WILL CONT TO MONITOR.
[2017-07-22 20:00] VITALS: BP 108/66
--- NOTE | 2017-07-22 20:00 | NUR ---
MS RN NOTE PT IN BED AWAKE EATING DINNER WITH ASSIST BY HER DAUGHTER. PT IN NO DISTRESS OR DISCOMFORT NOTED. DENIES PAIN AT THIS TIME. ALLYSON MIDLINE NOTED IT IS LEAKING, STOPPED THE IVF. SIDE RAILS UP X 2 AND CALL LIGHT WITHIN REACH. VSS. CONTINUE TO MONITOR HER.
--- NOTE | 2017-07-22 21:00 | NUR ---
MS RN NOTE DR VELARDE CALLED AND INFORMED HIM ABOUT DTR IS CONCERNED WITH RT ARM WITH SWELLING AND POSSIBLE DVT. MD GAVE NO NEW ORDER JUST CONTINUE TO INFUSE FLUIDS. DTR INFORMED.
--- NOTE | 2017-07-22 22:09 | NUR ---
MS RN NOTE BS 187, DTR REFUSED INSULIN COVERAGE. STATES "MY MOM EAT VERY LITTLE AND IT IS UNDER 200". CONTINUE TO MONITOR HER.
--- NOTE | 2017-07-22 22:40 | NUR ---
MS RN NOTE NOTED ALLYSON MIDLINE IS LEAKING. STOPPED THE INFUSION. CHARGE NURSE INSERTED IV LINE IN LT HAND #22G WITH GOOD BACK FLOW OF BLOOD. RESUMED IVF ORDERED. REPOSITION HER Q2H, KEPT HER DRY AND CLEAN.
[2017-07-23] MEDS: ALBUTEROL FS 2.5 MG/3 ML VIAL.NEB NEB SCH ×6 (03:30→23:20)
[2017-07-23 04:00] VITALS: BP 139/62
--- NOTE | 2017-07-23 06:29 | NUR ---
MS RN NOTE PT IN BED AWAKE, NO CHANGE IN CONDITION DURING THE NIGHT. F/C INTACT AND PATENT DRAINING CLOUDY URINE. REPOSITION HER Q2H GENTLY. PT TOLERATED FAIRLY REPOSITIONING. SIDE RAILS UP X 3 AND CALL LIGHT WITHIN REACH. WILL ENDORSE TO DAY SHIFT NURSE FOR CONTINUE TO CARE.
[2017-07-23 07:17] LABS: BASOPHILS % (AUTO) 0.4 % (0.0-2.0); EOSINOPHILS % (AUTO) 4.1 % (0.0-6.0); HEMATOCRIT 25 % (33-45); HEMOGLOBIN 7.8 g/dL (11.5-14.8); LYMPHOCYTES # (AUTO) 1.2 /CMM (0.8-4.8); MEAN CORPUSCULAR HGB CONC 32 g/dl (31.0-36.0); MEAN CORPUSCULAR VOLUME 70 fL (82-100); MONOCYTES # (AUTO) 0.6 /CMM (0.1-1.30); MONOCYTES % (AUTO) 6.8 % (2.0-12.0); NEUTROPHILS # (AUTO) 6.1 /CMM (1.8-8.9); NEUTROPHILS % (AUTO) 73.7 % (43.0-81.0); PLATELET COUNT (AUTO) 347 /CMM (150-450); RDW COEFFICIENT OF VARIATION 21.4 (11.5-15.0); RED BLOOD CELL COUNT(AUTO) 3.56 MIL/uL (4.0-5.2); WHITE BLOOD COUNT (AUTO) 8.2 K/uL (4.3-11.0)
--- NOTE | 2017-07-23 07:25 | NUR ---
MS RN NOTES RECEIVED REPORT FROM MUSIC THERAPY SPECIALIST NURSE. PATIENT IS IN BED. AWAKE BUT CONFUSED. UNABLE TO TELL ME HER NAME. MIDLINE IS NOT WORKING WITH S/S OF INFILTRATION. RIGHT HAND 22G IS INTACT AND PATENT. BED IN LOW POSITION, LOCKED AND TWO SIDE RAILS ARE UP FOR SAFETY. CALL LIGHT WITHIN REACH. NO SIGNS AND SYMPTOMS OF DISTRESS. PATIENT FACIAL EXPRESSION OF PAIN UPON LIGHT TOUCH AND PER MUSIC THERAPY SPECIALIST RN, FAMILY REFUSING PAIN MEDS - WILL CONFIRM WITH FAMILY. WILL CONTINUE TO ASSESS AND MONITOR PATIENT THROUGH OUT MY SHIFT
[2017-07-23 07:37] LABS: CALCIUM, SERUM 7.8 mg/dL (8.5-10.1); CARBON DIOXIDE 30 mmol/L (21-32); CHLORIDE 113 mmol/L (98-107); CREATININE 0.7 mg/dL (0.6-1.3); GLUCOSE 174 mg/dL (74-106); PHOSPHORUS 3.1 mg/dL (2.5-4.9); POTASSIUM 4.5 mmol/L (3.5-5.1); SODIUM SERUM 147 mmol/L (136-145); UREA NITROGEN, BLOOD 16 mg/dL (7-18)
[2017-07-23 08:00] VITALS: BP 134/79
[2017-07-23] MEDS: BLOOD SUGAR DIAGNOSTIC 1 EACH STRIP IN SCH ×4 (08:00→21:55)
[2017-07-23 08:17] LABS: INR 4.01 (0.87-1.13)
--- NOTE | 2017-07-23 08:18 | NUR ---
LAB CALLED FROM CRITICAL VALUE OF INR 4.01. INR IS TRENDING DOWN
--- NOTE | 2017-07-23 08:45 | NUR ---
POTASSIUM LEVEL IS 4.5. KCL HELD
[2017-07-23] MEDS: MULTIVITAMINS,THERAGRAN 1 UDTAB TABLET PO SCH (08:46)
[2017-07-23] MEDS: ASCORBIC ACID 500 MG TABLET PO SCH (08:46)
[2017-07-23] MEDS: DULOXETINE HCL 20 MG CAPSULE.DR PO SCH (08:46)
[2017-07-23] MEDS: POTASSIUM CHLORIDE 20 MEQ TAB.PRT.SR PO SCH (08:46)
[2017-07-23] MEDS: LACTOBACILLUS RHAMNOSUS GG 1 EACH CAP.SPRINK PO SCH ×2 (08:46→16:14)
[2017-07-23] MEDS: MUPIROCIN OINT 2% 22 GM TUBE SCH ×2 (08:47→21:55)
[2017-07-23 09:51] LABS: BAND % (MANUAL) 1 % (0.0-5.0); EOSINOPHILS % (MANUAL) 4 % (0-4); LYMPHOCYTES % (MANUAL) 15 % (16-48); MONOCYTES % (MANUAL) 7 % (0-11.0); NEUTROPHILS % (MANUAL) 73 (42-76)
[2017-07-23] MEDS: IV D5W 1,000 ML IV PRN (11:23)
--- NOTE | 2017-07-23 11:37 | NUR ---
WOUND CARE CONSULT FOR LOW SELIN, PATIENT NOTED WITH LOW SELIN AT 9. ALL PRESSURE ULCER PREVENTION MEASURES NOTED TO BE IN PLACE AT THIS TIME. PATIENT CURRENTLY BEING FOLLOWED BY SURGICAL TEAM, WILL DEFER ALL TREATMENT PLANS TO SURGICAL TEAM.
[2017-07-23 16:00] VITALS: BP 114/64
--- NOTE | 2017-07-23 16:45 | NUR ---
CM AT BEDSIDE TO TALK WITH PATIENT'S FAMILY ABOUT OPTIONS
--- NOTE | 2017-07-23 17:36 | NUR ---
TAMAR SPENCER NOTIFIED TO START A NEW MIDLINE THE ONE THAT THE PATIENT CURRENTLY HAS IS NOT WORKING. TAMAR SPENCER WILL START A NEW MIDLINE TOMORROW 07/24 IN AM
--- NOTE | 2017-07-23 17:50 | NUR ---
DR VELARDE NOTIFIED THAT PATIENT'S FAMILY REQUESTED TO PROCEED WITH GASTRIC TUBE DUE TO POOR NUTRITION FOR OVER 2 WEEKS
--- NOTE | 2017-07-23 18:40 | NUR ---
DR VELARDE REPLIED THAT HE WILL CONTACT A GI CONSULT
--- NOTE | 2017-07-23 18:55 | NUR ---
MS BON RN NOTES PATIENT IS IN BED. FAMILY AT BEDSIDE. AWAKE BUT CONFUSED. UNABLE TO TELL ME HER NAME. MIDLINE IS NOT WORKING WITH S/S OF INFILTRATION. DR TAMAR SPENCER NOTIFIED AND WILL START A NEW MIDLINE TOMORROW IN AM. RIGHT HAND 22G IS INTACT AND PATENT. BED IN LOW POSITION, LOCKED AND TWO SIDE RAILS ARE UP FOR SAFETY. CALL LIGHT WITHIN REACH. NO SIGNS AND SYMPTOMS OF DISTRESS. PATIENT FACIAL EXPRESSION OF PAIN UPON LIGHT TOUCH, FAMILY REFUSING PAIN MEDS - WILL CONFIRM WITH FAMILY. PER FAMILY REQUEST, NO INSULIN FOR BLOOD SUGAR BELOW 200. DR VELARDE NOTIFIED OF PATIENT'S FAMILY REQUEST FOR GASTRIC TUBE. DR VELARDE WILL CONTACT THE GI CONSULT. WILL ENDORSE TO ADJUNCT PROFESSOR OF VOICE NURSE.
--- NOTE | 2017-07-23 19:20 | NUR ---
RN OPENING NOTES RECEIVED REPORT FROM TYRELL ORDOÑEZ. PATIENT A/A/O X1 W/ CONFUSION. SKIN WARM, DRY & INTACT W/ SWELLING IN BILATERAL LOWER EXTREMITIES NOTED. PULSES PRESENT. BREATHING EVEN & UNLABORED, TOLERATING ROOM AIR. LEFT HAND IV #22 INTACT & PATENT W/ DRESSING CDI & IVF D5W @ 100 ML/HR. NO S/S OF PAIN OR DISCOMFORT @ THIS TIME. SAFETY MEASURES IN PLACE W/ CALL LIGHT WITHIN REACH. INSTRUCTED TO CALL FOR ASSISTANCE. FAMILY @ BEDSIDE. WILL CONTINUE TO MONITOR.
[2017-07-23 20:00] VITALS: BP 127/83
--- NOTE | 2017-07-23 20:50 | NUR ---
RN NOTES SPOKE TO LESLEE ZEPEDA REGARDING NEGATIVE MRSA RESULT & ACTIVE ORDER OF BACTROBAN OINTMENT. PER KATELYN, OK TO KEEP IF HX OF MRSA IS NOTED.
--- NOTE | 2017-07-23 22:06 | NUR ---
RN NOTES PATIENT'S BS = 177 BUT FAMILY REFUSED INSULIN. PER DAUGHTER & , NO INSULIN IF BS <200. DOCTORS AWARE.
[2017-07-24] VITALS: BP 114/62
[2017-07-24 00:04] VITALS: BP 119/45
[2017-07-24] MEDS: ALBUTEROL FS 2.5 MG/3 ML VIAL.NEB NEB SCH ×5 (03:18→19:46)
[2017-07-24 04:00] VITALS: BP 119/45
[2017-07-24] MEDS: IV D5W 1,000 ML IV PRN ×2 (04:33→16:07)
[2017-07-24 07:08] LABS: BASOPHILS # (AUTO) 0.1 /CMM (0.0-0.2); BASOPHILS % (AUTO) 0.7 % (0.0-2.0); EOSINOPHILS % (AUTO) 4.3 % (0.0-6.0); HEMATOCRIT 24 % (33-45); HEMOGLOBIN 7.6 g/dL (11.5-14.8); LYMPHOCYTES # (AUTO) 1.1 /CMM (0.8-4.8); MEAN CORPUSCULAR HGB CONC 32 g/dl (31.0-36.0); MEAN CORPUSCULAR VOLUME 70 fL (82-100); MONOCYTES # (AUTO) 0.6 /CMM (0.1-1.30); MONOCYTES % (AUTO) 6.1 % (2.0-12.0); NEUTROPHILS # (AUTO) 8.1 /CMM (1.8-8.9); NEUTROPHILS % (AUTO) 77.9 % (43.0-81.0); PLATELET COUNT (AUTO) 481 /CMM (150-450); RDW COEFFICIENT OF VARIATION 22.2 (11.5-15.0); RED BLOOD CELL COUNT(AUTO) 3.44 MIL/uL (4.0-5.2); WHITE BLOOD COUNT (AUTO) 10.4 K/uL (4.3-11.0)
[2017-07-24 07:19] LABS: CALCIUM, SERUM 7.5 mg/dL (8.5-10.1); CARBON DIOXIDE 29 mmol/L (21-32); CHLORIDE 106 mmol/L (98-107); CREATININE 0.7 mg/dL (0.6-1.3); GLUCOSE 207 mg/dL (74-106); MAGNESIUM 1.8 mg/dL (1.8-2.4); PHOSPHORUS 2.7 mg/dL (2.5-4.9); POTASSIUM 4.4 mmol/L (3.5-5.1); SODIUM SERUM 141 mmol/L (136-145); UREA NITROGEN, BLOOD 16 mg/dL (7-18)
[2017-07-24 07:57] LABS: INR 2.78 (0.87-1.13)
[2017-07-24 08:00] VITALS: BP 144/82
[2017-07-24] MEDS: BLOOD SUGAR DIAGNOSTIC 1 EACH STRIP IN SCH ×4 (09:42→21:10)
[2017-07-24] MEDS: DULOXETINE HCL 20 MG CAPSULE.DR PO SCH (09:49)
[2017-07-24] MEDS: ASCORBIC ACID 500 MG TABLET PO SCH (09:49)
[2017-07-24] MEDS: LACTOBACILLUS RHAMNOSUS GG 1 EACH CAP.SPRINK PO SCH ×2 (09:49→16:07)
[2017-07-24] MEDS: MULTIVITAMINS,THERAGRAN 1 UDTAB TABLET PO SCH (09:49)
[2017-07-24] MEDS: POTASSIUM CHLORIDE 20 MEQ TAB.PRT.SR PO SCH (09:49)
[2017-07-24] MEDS: MUPIROCIN OINT 2% 22 GM TUBE SCH ×2 (09:49→21:16)
[2017-07-24] MEDS: INSULIN REGULAR, HUMAN 100 UNIT/ML 3 ML VIAL SQ PRN ×4 (09:52→21:15)
[2017-07-24] MEDS: ACETAMINOPHEN 325 MG TABLET PO PRN ×3 (09:53→19:59)
[2017-07-24 10:44] LABS: EOSINOPHILS % (MANUAL) 6 % (0-4); LYMPHOCYTES % (MANUAL) 14 % (16-48); MONOCYTES % (MANUAL) 7 % (0-11.0); NEUTROPHILS % (MANUAL) 73 (42-76)
[2017-07-24 12:15] LABS: CALCITRIOL VIT D,1, 25 DIHYDRO 67.9 pg/mL (19.9-79.3)
[2017-07-24] MEDS: COD LIVER OIL/ZINC OXIDE 120 GM TUBE TP SCH (12:58)
[2017-07-24 16:00] VITALS: BP 121/61
--- NOTE | 2017-07-24 19:20 | NUR ---
RN OPENING NOTES RECEIVED REPORT FROM FRANCISCO ORDOÑEZ. PATIENT A/A/O X1 W/ SOME CONFUSION BUT ABLE TO VERBALIZE PAIN. SKIN WARM, DRY & INTACT W/ SWELLING IN BILATERAL LOWER EXTREMITIES NOTED. MORE REDNESS & WARMTH NOTED ON LEFT LOWER LEG. PULSES PRESENT. BREATHING EVEN & UNLABORED, TOLERATING ROOM AIR. LEFT HAND IV #22 INTACT & PATENT W/ DRESSING CDI. RIGHT UPPER ARM MIDLINE W/ DRESSING CDI & IVF D5W @ 100 ML/HR. DUEÑAS CATH DRAINING CLOUDY, YELLOW URINE. DENIES ANY PAIN OR DISCOMFORT @ THIS TIME. SAFETY MEASURES IN PLACE W/ CALL LIGHT WITHIN REACH. INSTRUCTED TO CALL FOR ASSISTANCE. FAMILY @ BEDSIDE. WILL CONTINUE TO MONITOR.
[2017-07-24 20:00] VITALS: BP 114/62
[2017-07-25] MEDS: ALBUTEROL FS 2.5 MG/3 ML VIAL.NEB NEB SCH ×6 (00:18→19:28)
[2017-07-25 04:00] VITALS: BP 133/77
[2017-07-25 08:00] VITALS: BP 118/77
[2017-07-25 08:04] LABS: BASOPHILS # (AUTO) 0.1 /CMM (0.0-0.2); BASOPHILS % (AUTO) 0.8 % (0.0-2.0); EOSINOPHILS % (AUTO) 6.8 % (0.0-6.0); HEMATOCRIT 25 % (33-45); HEMOGLOBIN 8.2 g/dL (11.5-14.8); LYMPHOCYTES # (AUTO) 1.8 /CMM (0.8-4.8); LYMPHOCYTES % (AUTO) 16.3 % (20.0-44.0); MEAN CORPUSCULAR HGB CONC 32 g/dl (31.0-36.0); MEAN CORPUSCULAR VOLUME 70 fL (82-100); MONOCYTES # (AUTO) 0.6 /CMM (0.1-1.30); MONOCYTES % (AUTO) 5.8 % (2.0-12.0); NEUTROPHILS # (AUTO) 7.6 /CMM (1.8-8.9); NEUTROPHILS % (AUTO) 70.3 % (43.0-81.0); PLATELET COUNT (AUTO) 470 /CMM (150-450); RDW COEFFICIENT OF VARIATION 21.9 (11.5-15.0); RED BLOOD CELL COUNT(AUTO) 3.61 MIL/uL (4.0-5.2); WHITE BLOOD COUNT (AUTO) 10.8 K/uL (4.3-11.0)
[2017-07-25] MEDS: COD LIVER OIL/ZINC OXIDE 120 GM TUBE TP SCH (08:30)
[2017-07-25] MEDS: IV D5W 1,000 ML IV PRN (08:30)
[2017-07-25] MEDS: ACETAMINOPHEN 325 MG TABLET PO PRN ×2 (08:32→17:58)
[2017-07-25] MEDS: LACTOBACILLUS RHAMNOSUS GG 1 EACH CAP.SPRINK PO SCH ×2 (08:32→17:58)
[2017-07-25] MEDS: BLOOD SUGAR DIAGNOSTIC 1 EACH STRIP IN SCH ×3 (08:32→17:58)
[2017-07-25] MEDS: MULTIVITAMINS,THERAGRAN 1 UDTAB TABLET PO SCH (08:32)
[2017-07-25] MEDS: POTASSIUM CHLORIDE 20 MEQ TAB.PRT.SR PO SCH (08:32)
[2017-07-25] MEDS: ASCORBIC ACID 500 MG TABLET PO SCH (08:32)
[2017-07-25] MEDS: DULOXETINE HCL 20 MG CAPSULE.DR PO SCH (08:32)
[2017-07-25] MEDS: INSULIN REGULAR, HUMAN 100 UNIT/ML 3 ML VIAL SQ PRN ×3 (08:39→18:06)
[2017-07-25] MEDS: MUPIROCIN OINT 2% 22 GM TUBE SCH (08:40)
[2017-07-25 09:53] LABS: ALANINE AMINOTRANSFERASE 13 U/L (12-78); ALBUMIN 1.9 g/dL (3.4-5.0); ALKALINE PHOSPHATASE 370 U/L (46-116); ASPARTATE AMINOTRANSFERASE 33 U/L (15-37); BILIRUBIN,TOTAL 0.4 mg/dL (0.2-1.0); CALCIUM, SERUM 7.9 mg/dL (8.5-10.1); CARBON DIOXIDE 28 mmol/L (21-32); CHLORIDE 102 mmol/L (98-107); CREATININE 0.6 mg/dL (0.6-1.3); GLUCOSE 140 mg/dL (74-106); MAGNESIUM 1.7 mg/dL (1.8-2.4); PHOSPHORUS 2.7 mg/dL (2.5-4.9); POTASSIUM 4.9 mmol/L (3.5-5.1); SODIUM SERUM 134 mmol/L (136-145); TOTAL PROTEIN, SERUM 5.4 g/dL (6.4-8.2); UREA NITROGEN, BLOOD 15 mg/dL (7-18)
[2017-07-25 10:48] LABS: EOSINOPHILS % (MANUAL) 5 % (0-4); LYMPHOCYTES % (MANUAL) 19 % (16-48); MONOCYTES % (MANUAL) 4 % (0-11.0); NEUTROPHILS % (MANUAL) 72 (42-76)
--- NOTE | 2017-07-25 15:30 | NUR ---
RN NOTE PT DAUGHTER REQUESTS NECK X-RAY, DR LAGUNA CALLED TO OBTAIN AN ORDER, ORDER PLACED.
[2017-07-25 16:00] VITALS: BP 140/62
--- NOTE | 2017-07-25 19:00 | NUR ---
RN NOTE PT'S DAUGHTER CLAIMS THAT THERE WERE THREE PILLOWS THAT BELONG TO PT, ONE IS MISSING, ASSUMING THAT IT MIGHT BE THROWN AWAY WITH DIRTY LINEN. LONG FILLER CIGAR ROLLER MACHINE NOTIFIED, AND WE NEED TO FOLLOW UP ON FRIDAY WITH THE DAUGHTER, CHESTER, PHONE # [phone], REGARDING THE MISSING PILLOW.
--- NOTE | 2017-07-25 20:20 | NUR ---
RN NOTE PT DISCHARGED TO [facility], REPORT GIVEN TO SMITA LIANG. ALLYSON ALFRED (PT WILL NEED BLOOD DRAW ON FRIDAY), AND DUEÑAS CATHETER LEFT IN PLACE, EXIT CARE DONE, DISCHARGE INSTRUCTIONS PROVIDED TO FAMILY, AND COPIES INCLUDED IN THE FILE SENT TO FACILITY. BELONGINGS LIST SIGNED, BELONGINGS PROVIDED TO PT ECEPT FOR ONE PILLOW THAT IS MISSING. PICTURES TAKEN AND PLACED IN THE CHART. PT LEFT IN STABLE CONDITION.
== END 2017-07-25 20:30 | DRG 543 ==
LOC: ER 00:51 → TELE1 04:00 → MEDSG1 07-22 08:49
PROVIDERS: ADMIT Internal Medicine; ATTEND Internal Medicine
PROC: 05H533Z Insertion of Infusion Device into Right Subclavian Vein, Percutaneous Approach (ICD-10-PCS; principal; 2017-07-24)
PROC: B546ZZA Ultrasonography of Right Subclavian Vein, Guidance (ICD-10-PCS; 2017-07-24)
DX: M80.051A Age-related osteoporosis with current pathological fracture, right femur, initial encounter for fracture (principal); E87.0 Hyperosmolality and hypernatremia; I82.412 Acute embolism and thrombosis of left femoral vein; G82.20 Paraplegia, unspecified; I48.91 Unspecified atrial fibrillation; L03.116 Cellulitis of left lower limb; D64.9 Anemia, unspecified; Y93.9 Activity, unspecified; I25.10 Atherosclerotic heart disease of native coronary artery without angina pectoris; K21.9 Gastro-esophageal reflux disease without esophagitis; Z87.440 Personal history of urinary (tract) infections; Z86.718 Personal history of other venous thrombosis and embolism; Z95.0 Presence of cardiac pacemaker; Z88.0 Allergy status to penicillin; Z88.2 Allergy status to sulfonamides; L98.8 Other specified disorders of the skin and subcutaneous tissue; S70.322A Blister (nonthermal), left thigh, initial encounter; R62.7 Adult failure to thrive; I69.869 Other paralytic syndrome following other cerebrovascular disease affecting unspecified side; Y92.129 Unspecified place in nursing home as the place of occurrence of the external cause; X58.XXXA Exposure to other specified factors, initial encounter; M85.80 Other specified disorders of bone density and structure, unspecified site; R23.4 Changes in skin texture; I89.0 Lymphedema, not elsewhere classified; Z74.01 Bed confinement status; Z86.14 Personal history of Methicillin resistant Staphylococcus aureus infection; E11.9 Type 2 diabetes mellitus without complications
CPT/HCPCS: 36415; 36569; 70360-TC; 71045-TC; 72170-TC; 73020; 80048-TC; 80053-TC; 80076-TC; 82306; 82652; 82728-TC; 82962-TC; 83540-TC; 83735-TC; 83970; 84100-TC; 85025-TC; 85610-TC; 85730-TC; 87081-TC; 92526; 92611-TC; 93971-TC; A4217; A4606; J1815; J3490; J7070; Z7610

== ENCOUNTER 2017-09-11 19:58 | Inpatient (IN) | payer MEDICARE, BC, MEDICAID ==
[~2017-09-11] VITALS: Ht 160 cm; Wt 75.3 kg
[~2017-09-11 19:58] MED LIST changes: +ACET-868 PO; +ALBU2.5V13 NEB; +ASCO500T9 PO; +DICL100G16 TP; +DULO20CA PO; +INSU100V28 SQ; -INSU100V7 SQ; +IPRA0.2S49 NEB; +LACT1CAP69 PO; +LEVO500T75 PO; +MULT-447 PO; +MUPI15CR12 TP; +MUPI22OI7; +VITA56.7 TP
--- NOTE | 2017-09-11 20:15 | NUR ---
PT BBPA FOR ABNORMAL CHEST X-RAY SHOWING MILD PNEUMONIA PER MD SHELLEY. PT IS AAOX1. SKIN WNL. NO S/S OF DISTRESS NOTED. RESP EVEN AND UNLABORED. VSS. PT IS AFEBRIL. PT SAFETY AND COMFORT MEASURES IN PLACE. PT PLACED ON COLD PATCHER AND POX. FAMILY MEMBERS BEDSIDE. BEDSIDE FOR EVAL. WILL CONTINUE TO MONITOR PT.
[2017-09-11] MEDS ORDERED: IV NS 0.9% 500 ML BAG IV ONE (20:30)
[2017-09-11 20:54] LABS: BASOPHILS % (AUTO) 0.8 % (0.0-2.0); EOSINOPHILS % (AUTO) 3.8 % (0.0-6.0); HEMATOCRIT 30 % (33-45); HEMOGLOBIN 9.9 g/dL (11.5-14.8); LYMPHOCYTES # (AUTO) 1.2 /CMM (0.8-4.8); LYMPHOCYTES % (AUTO) 22.6 % (20.0-44.0); MEAN CORPUSCULAR HGB CONC 33 g/dl (31.0-36.0); MEAN CORPUSCULAR VOLUME 74 fL (82-100); MONOCYTES # (AUTO) 0.3 /CMM (0.1-1.30); MONOCYTES % (AUTO) 5.7 % (2.0-12.0); NEUTROPHILS # (AUTO) 3.5 /CMM (1.8-8.9); NEUTROPHILS % (AUTO) 67.1 % (43.0-81.0); PLATELET COUNT (AUTO) 265 /CMM (150-450); RDW COEFFICIENT OF VARIATION 20.1 (11.5-15.0); RED BLOOD CELL COUNT(AUTO) 4.08 MIL/uL (4.0-5.2); WHITE BLOOD COUNT (AUTO) 5.3 K/uL (4.3-11.0)
[2017-09-11 21:04] LABS: CALCIUM, SERUM 7.8 mg/dL (8.5-10.1); CARBON DIOXIDE 28 mmol/L (21-32); CHLORIDE 108 mmol/L (98-107); CREATININE 0.8 mg/dL (0.6-1.3); GLUCOSE 177 mg/dL (74-106); POTASSIUM 4.6 mmol/L (3.5-5.1); SODIUM SERUM 139 mmol/L (136-145); UREA NITROGEN, BLOOD 14 mg/dL (7-18)
[2017-09-11] MEDS ORDERED: LEVOFLOXACIN 750 MG /D5W 150ML 150 ML IV ONE ×2 (21:30→21:35)
--- NOTE | 2017-09-11 21:49 | NUR ---
CALLED [facility], ENGINEERING OPERATOR WAS PAGED.
[2017-09-11] MEDS ORDERED: PREG50CA PO (21:55)
[2017-09-11] MEDS ORDERED: MEGE40TA PO (21:55)
[2017-09-11] MEDS ORDERED: DULO30CA2 PO (21:55)
[2017-09-11] MEDS ORDERED: WARF-58 PO (21:55)
[2017-09-11] MEDS ORDERED: POTA20TA83 PO (21:55)
--- NOTE | 2017-09-11 22:29 | NUR ---
REPORT GIVEN TO RUSS FOR ABENA.
[2017-09-11] MEDS ORDERED: MAG HYDROX/AL HYDROX/SIMETH 30 ML UDC PO PRN (22:30)
[2017-09-11] MEDS ORDERED: MAGNESIUM HYDROXIDE 30 ML UDC PO PRN (22:30)
[2017-09-11] MEDS ORDERED: ACETAMINOPHEN 325 MG TABLET PO PRN (22:30)
[2017-09-11] MEDS ORDERED: HYDROCODONE/APAP 5/325MG 1 EACH TABLET PO PRN (22:30)
[2017-09-11] MEDS ORDERED: ONDANSETRON HCL/PF 4 MG/2 ML VIAL IVP PRN (22:30)
[2017-09-11] MEDS ORDERED: Z GUARD REMEDY 2 OZ OINT TP PRN (22:30)
[2017-09-11] MEDS ORDERED: ZOLPIDEM TARTRATE 5 MG TABLET PO PRN (22:30)
--- NOTE | 2017-09-11 23:16 | NUR ---
REPORT GIVEN TO BENCH LATHE OPERATOR JEFF FOR ABENA.
[2017-09-12] MEDS: LEVOFLOXACIN 500 MG /D5W 100ML 500 MG in PREMIX 1 EA IV SCH ×2
--- NOTE | 2017-09-12 00:29 | NUR ---
RN NOTES PT RECEIVED NEW ADMISSION TRANSFER FROM ED. A/OX 2 CONFUSED. IV 20G R WRIST WITH NEGATIVE SIGNS OF INFECTION/ INFILTRATION. FC IN PLACE AND INTACT DRAINING WITH GRAVITY. PT STABLE CONDITION. NEGATIVE SIGNS OF DISTRESS. WILL CONTINUE TO MONITOR. BED LOCKED LOWEST POSITION. CALL LIGHT WITHIN REACH. 0000 HR SCHEDULED LEVAQUIN NOT GIVEN DUE TO MED ALREADY GIVEN IN ED 2 HRS PRIOR.
[2017-09-12] MEDS ORDERED: ALBUTEROL FS 2.5 MG/0.5 ML VIAL.NEB NEB PRN (00:30)
[2017-09-12] MEDS ORDERED: IPRATROPIUM NEB FS 0.5 MG/2.5 ML AMPUL.NEB NEB PRN (00:30)
[2017-09-12] MEDS ORDERED: ACETAMINOPHEN 325 MG TABLET PO PRN (00:30)
[2017-09-12 04:00] VITALS: BP 122/68
[2017-09-12 06:54] LABS: BASOPHILS % (AUTO) 0.5 % (0.0-2.0); EOSINOPHILS % (AUTO) 0.5 % (0.0-6.0); HEMATOCRIT 30 % (33-45); HEMOGLOBIN 9.7 g/dL (11.5-14.8); LYMPHOCYTES # (AUTO) 0.8 /CMM (0.8-4.8); MEAN CORPUSCULAR HGB CONC 32 g/dl (31.0-36.0); MEAN CORPUSCULAR VOLUME 74 fL (82-100); MONOCYTES # (AUTO) 0.3 /CMM (0.1-1.30); MONOCYTES % (AUTO) 5.5 % (2.0-12.0); NEUTROPHILS # (AUTO) 3.8 /CMM (1.8-8.9); NEUTROPHILS % (AUTO) 77.5 % (43.0-81.0); PLATELET COUNT (AUTO) 237 /CMM (150-450); RDW COEFFICIENT OF VARIATION 21.7 (11.5-15.0); WHITE BLOOD COUNT (AUTO) 4.9 K/uL (4.3-11.0)
[2017-09-12 07:06] LABS: CALCIUM, SERUM 8.3 mg/dL (8.5-10.1); CARBON DIOXIDE 26 mmol/L (21-32); CHLORIDE 108 mmol/L (98-107); CREATININE 0.7 mg/dL (0.6-1.3); GLUCOSE 166 mg/dL (74-106); MAGNESIUM 1.9 mg/dL (1.8-2.4); PHOSPHORUS 3.3 mg/dL (2.5-4.9); POTASSIUM 4.4 mmol/L (3.5-5.1); SODIUM SERUM 142 mmol/L (136-145); UREA NITROGEN, BLOOD 15 mg/dL (7-18)
[2017-09-12] MEDS ORDERED: INSULIN REGULAR, HUMAN 100 UNIT/ML 3 ML VIAL IJ SCH (07:30)
--- NOTE | 2017-09-12 07:40 | NUR ---
RN NOTE RECEIVED PATIENT ALERT AND ORIENTED X 1-2 WITH EPISODES OF CONFUSION. BREATHING EVEN AND UNLABORED WITH NO DISTRESS NOTED. IV SITE INTACT AND PATENT. F/C INTACT AND PATENT AND ADEQUATELY DRAINING. BED LOCKED AND LOW POSITION. PLACED CALL LIGHT WITHIN REACH. WILL CONTINUE TO MONITOR.
[2017-09-12 07:50] LABS: CHOLESTEROL 188 mg/dL (<200); HDL CHOLESTEROL 60 mg/dL (40-60); LDL 132 mg/dL (0-99); TRIGLYCERIDES 82 mg/dL (30-150)
[2017-09-12 08:00] VITALS: BP 150/78
[2017-09-12] MEDS ORDERED: MUPIROCIN OINT 2% 22 GM TUBE SCH (09:00)
[2017-09-12] MEDS: LACTOBACILLUS RHAMNOSUS GG 1 EACH CAP.SPRINK PO SCH ×2 (09:10→16:03)
[2017-09-12] MEDS: ASCORBIC ACID 500 MG TABLET PO SCH (09:11)
[2017-09-12] MEDS: POTASSIUM CHLORIDE 20 MEQ TAB.PRT.SR PO SCH ×2 (09:11→16:03)
[2017-09-12] MEDS: MEGESTROL ACETATE 40 MG TABLET PO SCH (09:11)
[2017-09-12] MEDS: DULOXETINE HCL 20 MG CAPSULE.DR PO SCH ×2 (09:11→16:03)
[2017-09-12] MEDS: MUPIROCIN OINT 2% 22 GM TUBE SCH ×2 (09:47→21:55)
[2017-09-12] MEDS: VITAMINS A AND D 56.7 GM TUBE TP SCH (09:48)
[2017-09-12] MEDS ORDERED: WARFARIN SODIUM 5 MG TABLET PO SCH (13:00)
[2017-09-12] MEDS ORDERED: DEXTROSE 50%-WATER 50 ML DISP.SYRIN IV PRN (13:00)
[2017-09-12 16:00] VITALS: BP 122/68
[2017-09-12] MEDS: INSULIN REGULAR, HUMAN 100 UNIT/ML 3 ML VIAL SQ PRN ×2 (17:09→20:08)
--- NOTE | 2017-09-12 19:25 | NUR ---
RN NOTE PATIENT REMAINED STABLE THROUGHOUT SHIFT WITH NO ACUTE DISTRESS. WILL ENDORSE TO NEXT SHIFT TO CONTINUE CONTINUITY OF CARE.
[2017-09-12] MEDS: BLOOD SUGAR DIAGNOSTIC 1 EACH STRIP IN SCH ×2 (19:48→22:05)
[2017-09-12 20:00] VITALS: BP 140/77
--- NOTE | 2017-09-12 20:00 | NUR ---
KODAK RN NOTE RECEIVED BEDSIDE REPORT FROM AM NURSE. PATIENT A/O X 1-2 WITH EPISODES OF CONFUSION. BREATHING EVEN AND UNLABORED WITH NO DISTRESS NOTED. IV SITE INTACT AND PATENT. F/C INTACT AND PATENT AND ADEQUATELY DRAINING. BED LOCKED AND LOW POSITION. PLACED CALL LIGHT WITHIN REACH. WILL CONTINUE TO MONITOR.
[2017-09-12] MEDS ORDERED: MIRTAZAPINE 15 MG TABLET PO SCH (22:00)
[2017-09-13] MEDS: LEVOFLOXACIN 500 MG /D5W 100ML 500 MG in PREMIX 1 EA IV SCH (00:12)
[2017-09-13 04:00] VITALS: BP 153/72
[2017-09-13] MEDS ORDERED: WARFARIN SODIUM 5 MG TABLET PO SCH (06:58)
--- NOTE | 2017-09-13 07:45 | NUR ---
MS RN OPENING NOTES RECEIVED PATIENT IN STABLE CONDITION. IN NO APPARENT DISTRESS. BEDSIDE RAILS ARE UPX2. BED IS LOCKED AND LOWERED. IV LINE IS INTACT AND PATENT. CALL LIGHT IS WITHIN REACH. WILL CONTINUE TO MONITOR.
[2017-09-13 08:00] VITALS: BP 136/64
[2017-09-13] MEDS: BLOOD SUGAR DIAGNOSTIC 1 EACH STRIP IN SCH ×4 (08:48→21:28)
[2017-09-13] MEDS: LACTOBACILLUS RHAMNOSUS GG 1 EACH CAP.SPRINK PO SCH ×3 (08:48→16:53)
[2017-09-13] MEDS: ASCORBIC ACID 500 MG TABLET PO SCH (08:49)
[2017-09-13] MEDS: DULOXETINE HCL 20 MG CAPSULE.DR PO SCH ×3 (08:49→16:52)
[2017-09-13] MEDS: POTASSIUM CHLORIDE 20 MEQ TAB.PRT.SR PO SCH ×2 (08:49→16:36)
[2017-09-13] MEDS: MEGESTROL ACETATE 40 MG TABLET PO SCH (08:49)
[2017-09-13] MEDS: VITAMINS A AND D 56.7 GM TUBE TP SCH (08:50)
[2017-09-13] MEDS: MUPIROCIN OINT 2% 22 GM TUBE SCH ×2 (08:50→21:28)
[2017-09-13 16:00] VITALS: BP 137/65
[2017-09-13] MEDS: WARFARIN SODIUM 5 MG TABLET PO SCH (16:35)
--- NOTE | 2017-09-13 18:54 | NUR ---
MS RN CLOSING NOTES PATIENT IS RESTING IN STABLE CONDITION. IN NO APPARENT DISTRESS. BEDSIDE RAILS ARE UPX2. BED IS LOCKED AND LOWERED. CALL LIGHT IS WITHIN REACH. IV LINE IS INTACT AND PATENT. ALL NEEDS WERE MET. WILL ENDORSE CARE TO OPTIMIZATION MANAGER NURSE FOR ABENA.
[2017-09-13] MEDS: IPRATROPIUM NEB FS 0.5 MG/2.5 ML AMPUL.NEB NEB SCH (19:55)
[2017-09-13] MEDS: ALBUTEROL FS 2.5 MG/0.5 ML VIAL.NEB NEB SCH (19:55)
[2017-09-13 20:00] VITALS: BP 152/76
--- NOTE | 2017-09-13 21:00 | NUR ---
KODAK RN NOTE RECEIVED BEDSIDE REPORT FROM AM NURSE. PATIENT A/O X 1-2 WITH EPISODES OF CONFUSION. BREATHING EVEN AND UNLABORED WITH NO DISTRESS NOTED. IV SITE RIGHT HAND INTACT AND PATENT. F/C INTACT AND PATENT AND ADEQUATELY DRAINING. BED LOCKED AND LOW POSITION. PLACED CALL LIGHT WITHIN REACH. WILL CONTINUE TO MONITOR.
[2017-09-14] MEDS: ALBUTEROL FS 2.5 MG/0.5 ML VIAL.NEB NEB SCH ×4 (01:22→20:18)
[2017-09-14] MEDS: IPRATROPIUM NEB FS 0.5 MG/2.5 ML AMPUL.NEB NEB SCH ×4 (01:22→20:18)
[2017-09-14] MEDS: LEVOFLOXACIN 500 MG /D5W 100ML 500 MG in PREMIX 1 EA IV SCH (01:49)
[2017-09-14 04:00] VITALS: BP 111/56
--- NOTE | 2017-09-14 04:02 | NUR ---
KODAK RN NOTES RIGHT HAND IV 20G INFILTRATED AND REMOVED. NEW IV IS STARTED RIGHT HAND 22G WITH 3RD ATTEMPT. PT'S DAUGHTER IS REQUESTING OF MIDLINE IV PLACEMENT. REQUEST WILL BE ENDORSE AM NURSE.
[2017-09-14 06:49] LABS: BASOPHILS % (AUTO) 0.6 % (0.0-2.0); EOSINOPHILS % (AUTO) 1.6 % (0.0-6.0); HEMATOCRIT 29 % (33-45); HEMOGLOBIN 9.3 g/dL (11.5-14.8); LYMPHOCYTES # (AUTO) 1.9 /CMM (0.8-4.8); LYMPHOCYTES % (AUTO) 24.7 % (20.0-44.0); MEAN CORPUSCULAR HGB CONC 32 g/dl (31.0-36.0); MEAN CORPUSCULAR VOLUME 74 fL (82-100); MONOCYTES # (AUTO) 0.4 /CMM (0.1-1.30); MONOCYTES % (AUTO) 5.3 % (2.0-12.0); NEUTROPHILS # (AUTO) 5.2 /CMM (1.8-8.9); NEUTROPHILS % (AUTO) 67.8 % (43.0-81.0); PLATELET COUNT (AUTO) 192 /CMM (150-450); RDW COEFFICIENT OF VARIATION 21.6 (11.5-15.0); RED BLOOD CELL COUNT(AUTO) 3.94 MIL/uL (4.0-5.2); WHITE BLOOD COUNT (AUTO) 7.7 K/uL (4.3-11.0)
[2017-09-14 07:09] LABS: INR 1.98 (0.87-1.13)
[2017-09-14 07:14] LABS: ALANINE AMINOTRANSFERASE 11 U/L (12-78); ALBUMIN 1.8 g/dL (3.4-5.0); ALKALINE PHOSPHATASE 95 U/L (46-116); ASPARTATE AMINOTRANSFERASE 15 U/L (15-37); BILIRUBIN,TOTAL 0.3 mg/dL (0.2-1.0); CALCIUM, SERUM 8.4 mg/dL (8.5-10.1); CARBON DIOXIDE 28 mmol/L (21-32); CHLORIDE 108 mmol/L (98-107); CREATININE 0.8 mg/dL (0.6-1.3); GLUCOSE 125 mg/dL (74-106); MAGNESIUM 1.9 mg/dL (1.8-2.4); PHOSPHORUS 2.9 mg/dL (2.5-4.9); POTASSIUM 4.3 mmol/L (3.5-5.1); SODIUM SERUM 140 mmol/L (136-145); TOTAL PROTEIN, SERUM 5.1 g/dL (6.4-8.2); UREA NITROGEN, BLOOD 17 mg/dL (7-18)
--- NOTE | 2017-09-14 07:30 | NUR ---
MS RN NOTE: RECEIVED PATIENT IN BED, ASLEEP, BUT AROUSABLE TO HER NAME AND TO TOUCH. RESPIRATION IS EVEN AND UNLABORED SATURATING 99%. DENIED ANY PAIN AND NO FACIAL GRIMACING NOTED. (R) HAND IV LINE NOTED PATENT AND INTACT. HOB ELEVATED. ON ASPIRATION PRECAUTION AT ALL TIMES. ORAL CARE WAS RENDERED PRIOR TO BREAKFAST MEAL. BED ON LOWEST POSITION WITH ALARM AND LOCKED AT ALL TIMES. CALL LIGHT WITHIN REACH. NEEDS ANTICIPATED.
[2017-09-14] MEDS: BLOOD SUGAR DIAGNOSTIC 1 EACH STRIP IN SCH ×4 (07:48→21:55)
[2017-09-14 08:00] VITALS: BP 106/60
[2017-09-14] MEDS: DULOXETINE HCL 20 MG CAPSULE.DR PO SCH ×2 (08:56→16:16)
[2017-09-14] MEDS: MEGESTROL ACETATE 40 MG TABLET PO SCH (08:56)
[2017-09-14] MEDS: ASCORBIC ACID 500 MG TABLET PO SCH (08:56)
[2017-09-14] MEDS: LACTOBACILLUS RHAMNOSUS GG 1 EACH CAP.SPRINK PO SCH ×2 (08:57→16:16)
[2017-09-14] MEDS: POTASSIUM CHLORIDE 20 MEQ TAB.PRT.SR PO SCH ×2 (08:57→16:17)
[2017-09-14] MEDS: MUPIROCIN OINT 2% 22 GM TUBE SCH (08:58)
[2017-09-14] MEDS: VITAMINS A AND D 56.7 GM TUBE TP SCH (08:59)
--- NOTE | 2017-09-14 09:16 | NUR ---
MS RN NOTE: SPOKE WITH DR. MARTIN RE: THE PATIENT'S BACTROBAN ORDER. MD WAS INFORMED THAT THE MRSA NARES SCREENING CAME BACK NEGATIVE. MD WITH DC ORDER FOR THE BACTROBAN OINTMENT, ORDER, NOTED AND ACKNOWLEDGED.
[2017-09-14 12:00] VITALS: BP 111/69
[2017-09-14 16:00] VITALS: BP_SYST 111; BP_SYST 113; BP_DIAS 49; BP_DIAS 69
[2017-09-14] MEDS: WARFARIN SODIUM 5 MG TABLET PO SCH (16:17)
--- NOTE | 2017-09-14 18:00 | NUR ---
MS RN NOTE: CALLED AND CLARIFIED WITH THE PHARMACY RE: THE PATIENT'S IV FLUID HYDRATION OF D5HNS + KCL 20 MEQ @75ML/HR. PER PHARMACY, THEY WILL MAKE THE IV BAG AND WILL SEND IT TO THE UNIT.
[2017-09-14] MEDS: Potassium Chloride 10 MEQ in IV D5/0.45 NACL 1,000 ML IV PRN (18:16)
--- NOTE | 2017-09-14 19:51 | NUR ---
MS RN NOTE: PATIENT REMAINED ON STABLE CONDITION ATE 100% OF HER DINNER MEAL. DAUGHTER PRESENT AT THE BEDSIDE. INFORMED THEM THAT THE PATIENT'S ANTIBIOTIC WILL BE GIVEN TONIGHT VIA IV FORM. REPORT GIVEN TO PM SHIFT NURSE FOR CONTINUITY OF CARE.
--- NOTE | 2017-09-14 20:00 | NUR ---
RN INITIAL NOTES RECEIVED PATIENT IN STABLE CONDITION. IN NO APPARENT DISTRESS. BEDSIDE RAILS ARE UPX2. BED IS LOCKED AND LOWERED. IV LINE IS INTACT AND PATENT. CALL LIGHT IS WITHIN REACH. FAMILY AT BED SIDE. WILL CONTINUE TO MONITOR.
[2017-09-14 21:00] VITALS: BP 110/60
[2017-09-14] MEDS ORDERED: LEVOFLOXACIN (500MG) 500 MG TABLET PO SCH (22:00)
[2017-09-14] MEDS ORDERED: LEVOFLOXACIN 500 MG /D5W 100ML 500 MG in PREMIX 1 EA IV SCH (22:00)
[2017-09-14] MEDS: INSULIN REGULAR, HUMAN 100 UNIT/ML 3 ML VIAL SQ PRN (22:13)
[2017-09-15] MEDS: ALBUTEROL FS 2.5 MG/0.5 ML VIAL.NEB NEB SCH ×3 (01:31→14:14)
[2017-09-15] MEDS: IPRATROPIUM NEB FS 0.5 MG/2.5 ML AMPUL.NEB NEB SCH ×3 (01:31→14:14)
[2017-09-15 05:00] VITALS: BP 125/59
--- NOTE | 2017-09-15 07:09 | NUR ---
RN CLOSING NOTES PATIENT IS RESTING IN STABLE CONDITION. IN NO APPARENT DISTRESS. BEDSIDE RAILS ARE UPX2. BED IS LOCKED AND LOWERED. CALL LIGHT IS WITHIN REACH. IV LINE IS INTACT AND PATENT. ALL NEEDS WERE MET. WILL ENDORSE CARE TO AM SHIFT NURSE FOR ABENA.
--- NOTE | 2017-09-15 07:30 | NUR ---
MS RN NOTE: RECEIVED THE PATIENT IN BED, ASLEEP, BUT AROUSABLE WITH TACTILE STIMULI. RESPIRATION IS EVEN AND UNLABORED SATURATING 96%. DENIED ANY PAIN. ORAL CARE WILL BE GIVEN PRIOR TO HER BREAKFAST. (R) HAND IV PERIPHERAL LINE NOTED PATENT AND INTACT INFUSING D5HNS +KCL 10MEQ @75CC/HR. DUEÑAS CATHETER IN PLACED AND DRAINING TO GRAVITY WITH YELLOW URINE. HOB ELEVATED. BED IN LOWEST POSITION. BED ALARMED AND LOCKED AT ALL TIMES. CALL LIGHT WITHIN REACH. NEEDS ANTICIPATED. ASPIRATION PRECAUTION NOTED.
[2017-09-15] MEDS: BLOOD SUGAR DIAGNOSTIC 1 EACH STRIP IN SCH ×2 (07:42→11:56)
[2017-09-15 08:00] VITALS: BP 111/58
[2017-09-15] MEDS: MEGESTROL ACETATE 40 MG TABLET PO SCH (08:59)
[2017-09-15] MEDS: ASCORBIC ACID 500 MG TABLET PO SCH (08:59)
[2017-09-15] MEDS: DULOXETINE HCL 20 MG CAPSULE.DR PO SCH (08:59)
[2017-09-15] MEDS: LACTOBACILLUS RHAMNOSUS GG 1 EACH CAP.SPRINK PO SCH (08:59)
[2017-09-15] MEDS: VITAMINS A AND D 56.7 GM TUBE TP SCH (09:01)
[2017-09-15] MEDS: POTASSIUM CHLORIDE 20 MEQ TAB.PRT.SR PO SCH (09:45)
--- NOTE | 2017-09-15 09:45 | NUR ---
MS RN NOTE: CALLED AND PAGED AT [facility] EXCHANGE FOR THE ON-CALL DR. MARTIN RE: THE PATIENT'S IV FLUID HYDRATION WITH POTASSIUM AND THE SCHEDULED PO POTASSIUM OF THE PATIENT. AWAITING FOR MD'S RESPONSE.
[2017-09-15] MEDS: Potassium Chloride 10 MEQ in IV D5/0.45 NACL 1,000 ML IV PRN (09:49)
[2017-09-15] MEDS: INSULIN REGULAR, HUMAN 100 UNIT/ML 3 ML VIAL SQ PRN (12:10)
--- NOTE | 2017-09-15 14:22 | NUR ---
MS RN NOTE: SPOKE WITH DR. GODINEZ AND HE GAVE AN ORDER FOR THE PATIENT TO BE DISCHARGE BACK TO [facility]. ALLIE COMMUNITY ASSISTANT WAS INFORMED ABOUT THE DC ORDER AND TO ARRANGE FOR THE PATIENT'S TRANSFER TO THE FACILITY. AWAITING FOR HIS CALL BACK.
[2017-09-15 16:00] VITALS: BP 118/66
--- NOTE | 2017-09-15 16:15 | NUR ---
MS RN NOTE: PATIENT WAS DISCHARGED BACK TO [facility] VIA [facility] BY 2 BIOMEDICAL ENGINEERING TECHNOLOGIST OF [facility]. PATIENT WAS ACCOMPANIED BY HER DAUGHTER, CHESTER. ALL BELONGINGS WERE RELEASED WITH THE PATIENT. EXIT CARE WAS DONE. PATIENT TEACHING WAS GIVEN TO CHESTER, DAUGHTER AND SHE UNDERSTOOD IT AND NO QUESTIONS WAS ASKED AT THE TIME OF DISCHARGE. (R) HAND IV LINE WAS KEPT IN PLACED PER REQUEST OF THE SNF STAFF FOR THE CONTINUATION OF THE IV ANTIBIOTIC THERAPY. BIOMEDICAL ENGINEERING TECHNOLOGIST WERE INFORMED THAT REPORT TO THE SNF WAS GIVEN TO SMITA WISE TOOL AND EQUIPMENT RENTAL CLERK, BUT NO ROOM NUMBER WAS GIVEN. ALL PAPERWORK WAS RELEASED WITH THE PATIENT. PATIENT REMAINED ON STABLE CONDITION, NO COUGHING AND VITAL SIGNS WERE WITHIN NORMAL LIMIT. PATIENT DENIED PAIN. NO SHORTNESS OF BREATH WAS NOTED DURING THE SHIFT AND UPON DISCHARGE.
== END 2017-09-15 16:15 | DRG 193 ==
LOC: ER 20:03 → TELE 22:38 → TELE1 22:58 → MEDSG1 09-12 03:18 → UNDODISIN 09-15 15:36
PROVIDERS: ADMIT Internal Medicine; ATTEND Internal Medicine
DX: J15.9 Unspecified bacterial pneumonia (principal); G93.40 Encephalopathy, unspecified; I48.91 Unspecified atrial fibrillation; D64.9 Anemia, unspecified; R13.10 Dysphagia, unspecified; E11.9 Type 2 diabetes mellitus without complications; I69.944 Monoplegia of lower limb following unspecified cerebrovascular disease affecting left non-dominant side; J40 Bronchitis, not specified as acute or chronic; Z79.01 Long term (current) use of anticoagulants; Z95.0 Presence of cardiac pacemaker; Z87.891 Personal history of nicotine dependence; Z88.2 Allergy status to sulfonamides; Z88.0 Allergy status to penicillin
CPT/HCPCS: 36415; 71045-TC; 80048-TC; 80053-TC; 80061-TC; 82962-TC; 83735-TC; 84100-TC; 85025-TC; 85610-TC; 85730-TC; 87081-TC; 92611-TC; A4216; A4606; J1815; J1956; J3480; J3490; Z7610

== ENCOUNTER 2017-10-17 20:35 | Inpatient (IN) | payer MEDICARE, BC, MEDICAID ==
[~2017-10-17] VITALS: Ht 160 cm; Wt 76.2 kg
[~2017-10-17 20:35] MED LIST changes: +DULO30CA2 PO; +INSU100V28 IJ; -INSU100V28 SQ; +MEGE40TA PO; +POTA20TA83 PO; +PREG50CA PO; +WARF-58 PO
--- NOTE | 2017-10-17 21:00 | NUR ---
to bed 12 bib private ambulance c/o poor appetite x2 week. pt aaox1 no acute distress noted, resp even and unlaobred. place pt on cardiac monitoring, continuous pox. pt family members at bedside. pending er md jacobsen.
[2017-10-17] MEDS ORDERED: IV NS 0.9% 500 ML BAG IV ONE (21:30)
[2017-10-17 21:56] LABS: BASOPHILS % (AUTO) 0.7 % (0.0-2.0); EOSINOPHILS % (AUTO) 3.4 % (0.0-6.0); HEMATOCRIT 37 % (33-45); HEMOGLOBIN 11.7 g/dL (11.5-14.8); LYMPHOCYTES # (AUTO) 1.7 /CMM (0.8-4.8); LYMPHOCYTES % (AUTO) 24.9 % (20.0-44.0); MEAN CORPUSCULAR HEMOGLOBIN 24 PG (26.0-33.0); MEAN CORPUSCULAR HGB CONC 32 g/dl (31.0-36.0); MEAN CORPUSCULAR VOLUME 75 fL (82-100); MONOCYTES # (AUTO) 0.4 /CMM (0.1-1.30); MONOCYTES % (AUTO) 5.8 % (2.0-12.0); NEUTROPHILS # (AUTO) 4.5 /CMM (1.8-8.9); NEUTROPHILS % (AUTO) 65.2 % (43.0-81.0); PLATELET COUNT (AUTO) 283 /CMM (150-450); RDW COEFFICIENT OF VARIATION 19.4 (11.5-15.0); RED BLOOD CELL COUNT(AUTO) 4.92 MIL/uL (4.0-5.2); WHITE BLOOD COUNT (AUTO) 6.9 K/uL (4.3-11.0)
[2017-10-17 22:08] LABS: APPEARANCE,URINE CLOUDY (CLEAR); COLOR,URINE YELLOW (YELLOW)
[2017-10-17 22:11] LABS: BILIRUBIN,URINE NEGATIVE (NEGATIVE); BLOOD, URINE TRACE Ery/uL (NEGATIVE); PH,URINE 7.5 (5.0-8.0); PROTEIN,URINE TRACE mg/dl (NEGATIVE); UGLUCOSE NEGATIVE (NEGATIVE)
[2017-10-17 22:12] LABS: KETONES,URINE TRACE (NEGATIVE); LEUKOCYTE ESTERASE ,URINE 3+ (NEGATIVE); NITRITE, URINE POSITIVE (NEGATIVE); UROBILINOGEN,URINE 0.2 EU/dL (0.2)
[2017-10-17 22:15] LABS: BACTERIA,URINE Many /HPF (None Seen); RBC,URINE 0-2 /HPF (0-2); SQUAMOUS EPITHELIAL CELL,UR Moderate /HPF (None Seen)
[2017-10-17 22:17] LABS: TROPONIN I < 0.017 ng/mL (0.00-0.056)
[2017-10-17 22:18] LABS: ALANINE AMINOTRANSFERASE 12 U/L (12-78); ALBUMIN 1.9 g/dL (3.4-5.0); ALKALINE PHOSPHATASE 107 U/L (46-116); ASPARTATE AMINOTRANSFERASE 24 U/L (15-37); BILIRUBIN,TOTAL 0.2 mg/dL (0.2-1.0); CALCIUM, SERUM 8.3 mg/dL (8.5-10.1); CARBON DIOXIDE 27 mmol/L (21-32); CHLORIDE 108 mmol/L (98-107); CREATININE 0.8 mg/dL (0.6-1.3); GLUCOSE 159 mg/dL (74-106); LIPASE 34 U/L (73-393); POTASSIUM 4.3 mmol/L (3.5-5.1); SODIUM SERUM 141 mmol/L (136-145); TOTAL PROTEIN, SERUM 5.6 g/dL (6.4-8.2); UREA NITROGEN, BLOOD 11 mg/dL (7-18)
[2017-10-17 22:35] LABS: INR 1.81 (0.87-1.13)
--- NOTE | 2017-10-17 22:54 | NUR ---
CALLED [facility] DRY CELL BATTERY ASSEMBLER WAS PAGED.
--- NOTE | 2017-10-17 23:03 | NUR ---
er md spoke to dr. garay regarding pt admission. will call for report.
--- NOTE | 2017-10-17 23:09 | NUR ---
report called to telecommunication lines repairerraegan sr. will transport pt via acls protocol.
[2017-10-17 23:40] VITALS: BP 125/76
--- NOTE | 2017-10-17 23:40 | NUR ---
MS RN NOTES RECEIVED PT FROM ER VIA STRETCHER, TRANSFERRED PT TO BED SAFELY, DAUGHTER AND AT BEDSIDE. PT IS A/O X 1, CONFUSED , VERBALLY RESPONSIVE. NO DISTRESS, NO SOB NOTED. RESPIRATION IS EVEN AND UNLABORED. IV SITE ON RFA INTACT AND PATENT, NO S/S OF INFILTRATION NOTED. FC IS INTACT , DRAINING WELL, WITH SEDIMENTS AND CLOUDY URINE NOTED, NO HEMATURIA. NO C/O PAIN OR DISCOMFORT A THIS TIME. PM CARE RENDERED, PT APPEARS COMFORTABLE. SAFETY PRECAUTIONS OBSERVED. CALL LIGHT WITHIN WILL CONTINUE TO MONITOR.
--- NOTE | 2017-10-17 23:50 | NUR ---
MS RN NOTES BODY CHECK DONE, WILL MONITOR PT CLOSELY. NO S/S OF HYPO/ HYPERGLYCEMIA NOTED.
[2017-10-18] VITALS: BP 125/76
[2017-10-18] MEDS ORDERED: ALBUTEROL FS 2.5 MG/0.5 ML VIAL.NEB NEB PRN
[2017-10-18] MEDS ORDERED: DEXTROSE 50%-WATER 50 ML DISP.SYRIN IV PRN
[2017-10-18] MEDS ORDERED: ACETAMINOPHEN 325 MG TABLET PO PRN
[2017-10-18] MEDS ORDERED: HYDROCODONE/APAP 5/325MG 1 EACH TABLET PO PRN
[2017-10-18] MEDS ORDERED: MAG HYDROX/AL HYDROX/SIMETH 30 ML UDC PO PRN
[2017-10-18] MEDS ORDERED: MAGNESIUM HYDROXIDE 30 ML UDC PO PRN
[2017-10-18] MEDS ORDERED: ZOLPIDEM TARTRATE 5 MG TABLET PO PRN
[2017-10-18] MEDS ORDERED: ONDANSETRON HCL/PF 4 MG/2 ML VIAL IVP PRN
[2017-10-18] MEDS ORDERED: Z GUARD REMEDY 2 OZ OINT TP PRN
[2017-10-18] MEDS ORDERED: IPRATROPIUM NEB FS 0.5 MG/2.5 ML AMPUL.NEB NEB PRN
[2017-10-18] MEDS: IV D5/0.45 NACL 1,000 ML IV PRN (01:02)
[2017-10-18] MEDS: BLOOD SUGAR DIAGNOSTIC 1 EACH STRIP IN SCH ×5 (01:09→23:12)
[2017-10-18 06:23] LABS: BASOPHILS % (AUTO) 0.6 % (0.0-2.0); EOSINOPHILS % (AUTO) 2.4 % (0.0-6.0); HEMATOCRIT 32 % (33-45); LYMPHOCYTES % (AUTO) 26.7 % (20.0-44.0); MEAN CORPUSCULAR HEMOGLOBIN 24 PG (26.0-33.0); MEAN CORPUSCULAR HGB CONC 32 g/dl (31.0-36.0); MEAN CORPUSCULAR VOLUME 75 fL (82-100); MONOCYTES # (AUTO) 0.4 /CMM (0.1-1.30); MONOCYTES % (AUTO) 5.1 % (2.0-12.0); NEUTROPHILS # (AUTO) 4.8 /CMM (1.8-8.9); NEUTROPHILS % (AUTO) 65.2 % (43.0-81.0); PLATELET COUNT (AUTO) 234 /CMM (150-450); RDW COEFFICIENT OF VARIATION 19.7 (11.5-15.0); RED BLOOD CELL COUNT(AUTO) 4.18 MIL/uL (4.0-5.2); WHITE BLOOD COUNT (AUTO) 7.3 K/uL (4.3-11.0)
[2017-10-18 06:24] LABS: CALCIUM, SERUM 7.8 mg/dL (8.5-10.1); CARBON DIOXIDE 24 mmol/L (21-32); CHLORIDE 106 mmol/L (98-107); CREATININE 0.7 mg/dL (0.6-1.3); GLUCOSE 348 mg/dL (74-106); MAGNESIUM 1.6 mg/dL (1.8-2.4); PHOSPHORUS 2.8 mg/dL (2.5-4.9); POTASSIUM 3.6 mmol/L (3.5-5.1); SODIUM SERUM 137 mmol/L (136-145); UREA NITROGEN, BLOOD 11 mg/dL (7-18)
--- NOTE | 2017-10-18 06:58 | NUR ---
MS RN NOTES PT IN BED, RESTING COMFORTABLY AT TIS TIME. PT IS A/O X 1, CONFUSED , VERBALLY RESPONSIVE. NO DISTRESS, NO SOB NOTED. RESPIRATION IS EVEN AND UNLABORED. IV SITE ON RFA INTACT AND PATENT, NO S/S OF INFILTRATION NOTED. FC IS INTACT , DRAINING WELL, NO HEMATURIA. NO C/O PAIN OR DISCOMFORT A THIS TIME.PT APPEARS COMFORTABLE. SAFETY PRECAUTIONS OBSERVED. IVF INFUSING WELL TO RFA CALL LIGHT WITHIN WILL ENDORSE TO NEXT SHIFT FOR ABENA.
--- NOTE | 2017-10-18 07:05 | NUR ---
RN NOTES PT IS LAYING DOWN IN BED, RESTING COMFORTABLY. PT ON RA, RESPIRATIONS ARE EVEN AND UNLABORED. IV ON RFA INTACT AND RUNNING D51/2 NS@ 75ML/HR. DUEÑAS CATHETER IS IN PLACE. NO SIGNS OF DISTRESS NOTED. SAFETY MEASURES ARE IN PLACE, CALL LIGHT IS IN REACH. WILL CONTINUE TO MONITOR.
[2017-10-18] MEDS: Magnesium 1GM/D5W 100ML PREMIX 100 ML IV SCH ×3 (07:54→10:07)
[2017-10-18 08:00] VITALS: BP 139/73
[2017-10-18 08:10] VITALS: BP 139/73
[2017-10-18] MEDS: ALBUTEROL FS 2.5 MG/3 ML VIAL.NEB NEB SCH ×4 (08:27→19:48)
[2017-10-18] MEDS ORDERED: DULOXETINE HCL 20 MG CAPSULE.DR PO SCH (09:00)
[2017-10-18] MEDS: DULOXETINE HCL 30 MG CAPSULE.DR PO SCH (09:00)
[2017-10-18] MEDS: ASCORBIC ACID 500 MG TABLET PO SCH (09:00)
[2017-10-18] MEDS: LACTOBACILLUS RHAMNOSUS GG 1 EACH CAP.SPRINK PO SCH ×2 (09:00→17:00)
[2017-10-18] MEDS ORDERED: ENOXAPARIN SODIUM 40 MG/0.4 ML DISP.SYRIN SQ SCH (09:00)
[2017-10-18] MEDS: MULTIVIT, IRON, MIN NO. 8, FA 1 TAB PO SCH (09:00)
[2017-10-18] MEDS: MEGESTROL ACETATE 40 MG TABLET PO SCH (09:00)
[2017-10-18] MEDS: VITAMINS A AND D 56.7 GM TUBE TP SCH (09:33)
[2017-10-18] MEDS: MUPIROCIN OINT 2% 22 GM TUBE SCH ×2 (09:33→20:35)
--- NOTE | 2017-10-18 11:32 | NUR ---
RN NOTES BLOOD SUGAR IS 144, NO INSULIN GIVEN DUE TO NPO STATUS. WILL CONTINUE TO MONITOR.
[2017-10-18] MEDS: WARFARIN SODIUM 5 MG TABLET PO SCH (13:00)
[2017-10-18 13:45] LABS: INR 1.85 (0.87-1.13)
--- NOTE | 2017-10-18 14:00 | NUR ---
RN NOTES DUEÑAS CATHETER FROM ADMISSION HAS BEEN LEAKING WITH MINIMAL DRAINAGE INTO COLLECTION BAG. IRRIGATION ATTEMPTED, DUEÑAS CONTINUES TO LEAK. NEW CATHETER INSERTED, CLEAR YELLOW URINE OUTPUT NOTED.
--- NOTE | 2017-10-18 14:30 | NUR ---
RN NOTES AFTER DUEÑAS CATHETER INSERTION, VAGINAL BLEEDING NOTED. PER DR. LAGUNA'S NOTE, PT HAS HISTORY OF VAGINAL BLEEDING DUE TO COUMADIN USE.
[2017-10-18 16:00] VITALS: BP 133/81
--- NOTE | 2017-10-18 17:00 | NUR ---
RN NOTES SPOKE WITH DAUGHTER, STATED THAT URINE SPECIMEN IN ER WAS COLLECTED OUT OF DUEÑAS CATHETER BAG. NEW SPECIMEN COLLECTED FROM NEW DUEÑAS PORT, LAB MADE AWARE FOR NEW ORDER.
--- NOTE | 2017-10-18 17:30 | NUR ---
RN NOTES PTS BLOOD SUGAR 150. NO INSULIN COVERAGE GIVEN DUE TO NPO STATUS
--- NOTE | 2017-10-18 18:43 | NUR ---
RN NOTES PT IS SITING UP IN BED, SLEEPING COMFORTABLY WITH DAUGHTER AT BEDSIDE. PT ON RA, RESPIRATIONS ARE EVEN AND UNLABORED. IV ON RFA INTACT AND RUNNING D51/2 NS @ 75ML/HR. DUEÑAS CATHETER IS INTACT AND DRAINING TO GRAVITY. NO SIGNS OF DISTRESS NOTED. UNABLE TO HAVE SWALLOW EVAL DONE TODAY, PT WAS IN A DEEP SLEEP, WHICH IS NORMAL PER HER DAUGHTER. NO SIGNS OF DISTRESS NOTED. SAFETY MEASURES ARE IN PLACE, CALL LIGHT IS IN REACH. WILL ENDORSE TO RAMP AND CARGO SUPERVISOR RN FOR CONTINUITY OF CARE.
--- NOTE | 2017-10-18 19:45 | NUR ---
RN OPENING NOTES PT IS SITING UP IN BED, SLEEPING. PT ON RA, RESPIRATIONS ARE EVEN AND UNLABORED. IV ON RFA INTACT AND RUNNING D51/2 NS @ 75ML/HR. DUEÑAS CATHETER IN PLACE AND DRAINING TO GRAVITY. NO SIGNS OF DISTRESS NOTED. PT ON NPO. NO SIGNS OF DISTRESS NOTED. SAFETY MEASURES ARE IN PLACE,BED N LOW POSITION . CALL LIGHT WITHIN REACH. WILL CONTINUE TO MONITOR.
[2017-10-18 20:00] VITALS: BP 108/53
[2017-10-18] MEDS: MIRTAZAPINE 15 MG TABLET PO SCH (22:00)
[2017-10-18] MEDS: INSULIN REGULAR, HUMAN 100 UNIT/ML 3 ML VIAL SQ PRN (23:14)
--- NOTE | 2017-10-19 06:45 | NUR ---
MS RN CLOSING NOTES PT IS SITING UP IN BED, A/O X1. PT ON RA, RESPIRATIONS ARE EVEN AND UNLABORED. IV ON RFA INTACT. DUEÑAS CATHETER IN PLACE AND DRAINING TO GRAVITY. NO SIGNS OF DISTRESS NOTED. PT ON NPO. SAFETY MEASURES ARE IN PLACE,BED N LOW POSITION . CALL LIGHT WITHIN REACH. WILL ENDORSE TO NEXT SHIFT FOR ABENA .
--- NOTE | 2017-10-19 07:10 | NUR ---
RN NOTES PT IS SITTING UP IN BED, SLEEPING COMFORTABLY. PT ON RA, RESPIRATIONS ARE EVEN AND UNLABORED. IV ON RFA INTACT AND RUNNING D51/2 NS @ 75ML/HR. DUEÑAS CATHETER IS IN PLACE AND DRAINING TO GRAVITY. NO SIGNS OF DISTRESS NOTED. SAFETY MEASURES ARE IN PLACE, CALL LIGHT IS IN REACH. WILL CONTINUE TO MONITOR.
[2017-10-19] MEDS: ALBUTEROL FS 2.5 MG/3 ML VIAL.NEB NEB SCH ×4 (07:31→20:06)
[2017-10-19] MEDS: BLOOD SUGAR DIAGNOSTIC 1 EACH STRIP IN SCH ×5 (07:34→21:41)
[2017-10-19] MEDS: INSULIN REGULAR, HUMAN 100 UNIT/ML 3 ML VIAL SQ PRN ×3 (07:40→17:21)
[2017-10-19 08:00] VITALS: BP 143/81
[2017-10-19] MEDS: MUPIROCIN OINT 2% 22 GM TUBE SCH ×2 (08:59→21:15)
[2017-10-19] MEDS: LACTOBACILLUS RHAMNOSUS GG 1 EACH CAP.SPRINK PO SCH ×2 (08:59→16:33)
[2017-10-19] MEDS: DULOXETINE HCL 30 MG CAPSULE.DR PO SCH (09:00)
[2017-10-19] MEDS: MEGESTROL ACETATE 40 MG TABLET PO SCH (09:00)
[2017-10-19] MEDS: MULTIVIT, IRON, MIN NO. 8, FA 1 TAB PO SCH (09:00)
[2017-10-19] MEDS: VITAMINS A AND D 56.7 GM TUBE TP SCH (09:00)
[2017-10-19] MEDS: ASCORBIC ACID 500 MG TABLET PO SCH (09:00)
[2017-10-19 10:27] LABS: BASOPHILS % (AUTO) 0.5 % (0.0-2.0); EOSINOPHILS % (AUTO) 1.9 % (0.0-6.0); HEMATOCRIT 33 % (33-45); HEMOGLOBIN 10.4 g/dL (11.5-14.8); LYMPHOCYTES # (AUTO) 2.2 /CMM (0.8-4.8); LYMPHOCYTES % (AUTO) 25.2 % (20.0-44.0); MEAN CORPUSCULAR HEMOGLOBIN 24 PG (26.0-33.0); MEAN CORPUSCULAR HGB CONC 32 g/dl (31.0-36.0); MEAN CORPUSCULAR VOLUME 74 fL (82-100); MONOCYTES # (AUTO) 0.5 /CMM (0.1-1.30); MONOCYTES % (AUTO) 6.2 % (2.0-12.0); NEUTROPHILS # (AUTO) 5.7 /CMM (1.8-8.9); NEUTROPHILS % (AUTO) 66.2 % (43.0-81.0); PLATELET COUNT (AUTO) 260 /CMM (150-450); RDW COEFFICIENT OF VARIATION 19.5 (11.5-15.0); RED BLOOD CELL COUNT(AUTO) 4.38 MIL/uL (4.0-5.2); WHITE BLOOD COUNT (AUTO) 8.7 K/uL (4.3-11.0)
[2017-10-19 10:41] LABS: CALCIUM, SERUM 7.9 mg/dL (8.5-10.1); CARBON DIOXIDE 25 mmol/L (21-32); CHLORIDE 105 mmol/L (98-107); CREATININE 0.7 mg/dL (0.6-1.3); GLUCOSE 153 mg/dL (74-106); MAGNESIUM 2.1 mg/dL (1.8-2.4); PHOSPHORUS 2.8 mg/dL (2.5-4.9); POTASSIUM 3.7 mmol/L (3.5-5.1); SODIUM SERUM 138 mmol/L (136-145); UREA NITROGEN, BLOOD 11 mg/dL (7-18)
[2017-10-19 10:43] LABS: INR 1.93 (0.87-1.13)
[2017-10-19] MEDS: WARFARIN SODIUM 5 MG TABLET PO SCH (13:50)
[2017-10-19 16:00] VITALS: BP_SYST 105; BP_SYST 97; BP_DIAS 50; BP_DIAS 56
--- NOTE | 2017-10-19 18:30 | NUR ---
RN NOTES PT IS SITTING UP IN BED, RESTING COMFORTABLY. PT ON RA, RESPIRATIONS ARE EVEN AND UNLABORED. IV ON RFA INTACT AND RUNNING D5 1/2NS @75ML/HR. DUEÑAS CATHETER IS IN PLACE AND DRAINING TO GRAVITY. PT KEPT CLEAN AND DRY THROUGHOUT SHIFT, REPOSITIONED Q2HRS. PT NEEDS ANTICIPATED FOR AND MET. NO SIGNS OF DISTRESS NOTED. SAFETY MEASURES ARE IN PLACE, CALL LIGHT IS IN REACH. WILL ENDORSE TO FLAT SPRING ASSEMBLER RN FOR CONTINUITY OF CARE.
--- NOTE | 2017-10-19 19:31 | NUR ---
RN OPENING NOTES PT IS SITING UP IN BED, A/O X1, ROOM AIR ,DAUGHTER AT BEDSIDE. RESPIRATIONS ARE EVEN AND UNLABORED. IV ON RFA INTACT AND RUNNING D51/2 NS @ 75ML/HR. DUEÑAS CATHETER IS INTACT AND DRAINING TO GRAVITY. NO SIGNS OF DISTRESS NOTED. NO SIGNS OF DISTRESS NOTED AT THIS TIME. PT ON PUREE DIET WAS ABLE TO TOLERATE, PO MEDS SHOULD BE CRASHED AND GIVEN WITH PUDDING OR APPLE SAUCE. BED IN LOW AND LOCKED POSITION, CALL LIGHT IS IN REACH. WILL CONTINUE TO MONITOR
[2017-10-19 20:00] VITALS: BP 88/54
[2017-10-19] MEDS: NYSTATIN/TRIAMCIN CREAM 15 GM TUBE TP SCH (21:00)
[2017-10-19] MEDS: MIRTAZAPINE 15 MG TABLET PO SCH (21:15)
[2017-10-19] MEDS: IV D5/0.45 NACL 1,000 ML IV PRN (23:07)
--- NOTE | 2017-10-20 03:00 | NUR ---
PT IV ON RIGHT FOREARM IS LEAKING , THERE IS NO BLOOD RETURN, IV DISLODGED . REMOVED IV ,SKIN INTACT AND THERE IS NO BLEEDING OR SWELLING . WILL ATTEMPT TO PUT A NEW IV LINE.
--- NOTE | 2017-10-20 04:30 | NUR ---
ATTEMPTED TO INSERT A NEW IV LINE WITH NO SUCCEEDS. HAND STITCHERSMITA TRAORE CAME FOR HELP , NO SUCCESS . WILL ENDORSE DAY SHIFT NURSE TO PUT ORDER FOR CENTRAL LINE.
[2017-10-20 06:31] LABS: CALCIUM, SERUM 8.5 mg/dL (8.5-10.1); CARBON DIOXIDE 24 mmol/L (21-32); CHLORIDE 105 mmol/L (98-107); CREATININE 0.8 mg/dL (0.6-1.3); GLUCOSE 147 mg/dL (74-106); MAGNESIUM 2.1 mg/dL (1.8-2.4); POTASSIUM 4.3 mmol/L (3.5-5.1); SODIUM SERUM 135 mmol/L (136-145); UREA NITROGEN, BLOOD 12 mg/dL (7-18)
[2017-10-20] MEDS: BLOOD SUGAR DIAGNOSTIC 1 EACH STRIP IN SCH ×4 (06:41→21:17)
[2017-10-20] MEDS: INSULIN REGULAR, HUMAN 100 UNIT/ML 3 ML VIAL SQ PRN ×3 (06:45→21:17)
--- NOTE | 2017-10-20 06:55 | NUR ---
RN CLOSING NOTES PT IS SITING UP IN BED, A/O X1. RESPIRATIONS ARE EVEN AND UNLABORED. DUEÑAS CATHETER IS INTACT AND DRAINING TO GRAVITY. NO SIGNS OF DISTRESS NOTED AT THIS TIME. PT ON PUREE DIET WAS ABLE TO TOLERATE, PO MEDS SHOULD BE CRASHED AND GIVEN WITH PUDDING OR APPLE SAUCE. BED IN LOW AND LOCKED POSITION, CALL LIGHT IS IN REACH. WILL CONTINUE TO MONITOR. Addendum: 10/20/17 at 0711 by MEREDITH COE RN WILL ENDORSE TO DAY SHIFT FOR ABENA.
[2017-10-20] MEDS: ALBUTEROL FS 2.5 MG/3 ML VIAL.NEB NEB SCH ×4 (07:31→20:03)
[2017-10-20 07:46] LABS: BASOPHILS # (AUTO) 0.3 /CMM (0.0-0.2); BASOPHILS % (AUTO) 2.7 % (0.0-2.0); EOSINOPHILS % (AUTO) 1.6 % (0.0-6.0); HEMATOCRIT 32 % (33-45); HEMOGLOBIN 11.2 g/dL (11.5-14.8); LYMPHOCYTES # (AUTO) 2.1 /CMM (0.8-4.8); LYMPHOCYTES % (AUTO) 21.7 % (20.0-44.0); MEAN CORPUSCULAR HEMOGLOBIN 25 PG (26.0-33.0); MEAN CORPUSCULAR HGB CONC 35 g/dl (31.0-36.0); MEAN CORPUSCULAR VOLUME 72 fL (82-100); MONOCYTES # (AUTO) 0.5 /CMM (0.1-1.30); MONOCYTES % (AUTO) 5.7 % (2.0-12.0); NEUTROPHILS # (AUTO) 6.5 /CMM (1.8-8.9); NEUTROPHILS % (AUTO) 68.3 % (43.0-81.0); PLATELET COUNT (AUTO) 189 /CMM (150-450); RDW COEFFICIENT OF VARIATION 17.5 (11.5-15.0); WHITE BLOOD COUNT (AUTO) 9.6 K/uL (4.3-11.0)
[2017-10-20 08:00] VITALS: BP_SYST 120; BP_SYST 93; BP_DIAS 54; BP_DIAS 80
--- NOTE | 2017-10-20 08:00 | NUR ---
RN NOTES RECEIVED PATIENT IN THE BED A/O X1/2, REDIRECTABLE. PATIENT ASPIRATION PRECAUTION,KEEP HEAD OF BED ELEVATED. V/S STABLE, SCHEDULED MEDICATION ADMINISTERED WITH CRUSHED AND MIXED APPLE SAUCE. PATIENT TOTAL CARE, ASSIST TURN AND REPOSTION Q 2 HR. NEEDS ATTENDED AND ANTICIPATED. CONTINUED MONITORING.
--- NOTE | 2017-10-20 08:02 | NUR ---
WOUND CARE CONSULT WOUND CARE RECEIVED CONSULT FOR FURTHER EVAL LEFT ELBOW AND LEF AXILLA AND UNDERBREAST. WOUND CARE WILL DEFER CONSULT AND ALL TREATMENT PLANS TO SURGICAL TEAM WHO ARE CURRENTLY FOLLOWING. PATIENT WITH SELIN AT 11, ALL PRESSURE ULCER PREVENTION MEASURES ARE NOTED TO BE IN PLACE AT THIS TIME.
[2017-10-20] MEDS: ASCORBIC ACID 500 MG TABLET PO SCH (08:28)
[2017-10-20] MEDS: MULTIVIT, IRON, MIN NO. 8, FA 1 TAB PO SCH (08:29)
[2017-10-20] MEDS: MEGESTROL ACETATE 40 MG TABLET PO SCH (08:29)
[2017-10-20] MEDS: DULOXETINE HCL 30 MG CAPSULE.DR PO SCH (08:29)
[2017-10-20] MEDS: LACTOBACILLUS RHAMNOSUS GG 1 EACH CAP.SPRINK PO SCH ×2 (08:29→16:54)
[2017-10-20] MEDS: VITAMINS A AND D 56.7 GM TUBE TP SCH (08:30)
[2017-10-20] MEDS: MUPIROCIN OINT 2% 22 GM TUBE SCH ×2 (08:30→22:14)
--- NOTE | 2017-10-20 09:00 | NUR ---
RN NOTES STARTED NEW IV LINE ON RIGHT UPPER ARM GAUGE #24, STARTED IV D5W1/2 NS AT 75 ML/HR INTACT. CONTINUED MONITORING.
--- NOTE | 2017-10-20 12:00 | NUR ---
RN NOTES PATIENT HAS A SWALLOW EVALUATION AT THIS TIME. WILL BE PUREED DIET WITH HONEY THICKENER, PRONE TO ASPIRATION PRECAUTION. BS-126 MG/DL, NO COVERAGE GIVEN, ASSIST PATIENT EATING, ALSO ASSIST TURN AND REPOSTION Q 2 HR. PATIENT POOR EATER. F/C DRAIN LIGHT YELLOW OUTPUT. CONTINUED MONITORING.
[2017-10-20 12:58] LABS: INR 2.44 (0.87-1.13)
[2017-10-20] MEDS ORDERED: PHYTONADIONE INJ 5 MG in IV D5W 50 ML IV ONE (15:00)
--- NOTE | 2017-10-20 15:00 | NUR ---
RN NOTES PER GI DOCTOR PATIENT WILL GO EGD, AND G-TUBE PLACEMENT TOMORROW 10/21/17 AT 0900 ORDER TAKEN AND CARRIED OUT. CONSENT FORM IN THE CHART. NEXT TO THE BED AWARE OF, BUT WAITING FOR DAUGHTER FOR FINAL DECISION.
[2017-10-20 16:00] VITALS: BP 107/69
[2017-10-20] MEDS: NYSTATIN/TRIAMCIN CREAM 15 GM TUBE TP SCH ×2 (17:20→22:14)
--- NOTE | 2017-10-20 17:30 | NUR ---
RN NOTES BS-178 MG/DL COVERAGE GIVEN, ALSO ADMINISTERED SCHEDULED MEDICATION. ASSIST EATING. CONTINUED MONITORING.
--- NOTE | 2017-10-20 17:45 | NUR ---
RN NOTES PATIENT DAUGHTER IS HER AT THIS TIME , AND REFUSED CONTINUATION OF VIT K INFUSION , AND REFUSED CONSENT FORM TO BE SIGNED. DAUGHTER EXCUSED GI DOCTOR SHOULD BE SEE AND EXPLAINED PROCEDURE. CALLED [facility] AND LEFT MASSAGE ON GI MD. WAITING FOR RESPOND.
--- NOTE | 2017-10-20 18:20 | NUR ---
RN NOTES PATIENT ON KCI MATTRESS.
--- NOTE | 2017-10-20 18:30 | NUR ---
RN NOTES PATIENT STABLE AT THIS TIME, NO ACUTE RESPIRATORY DISTRESS, NO COMPLAINING OF PAIN AT THIS TIME. FAMILY NEXT TO THE BED. STILL WAITING GI MD RESPOND. ENDORSED ONCOMING NURSE FOR FOLLOW PLAN OF CARE.
--- NOTE | 2017-10-20 19:30 | NUR ---
RN MS OPENING NOTES RECEIVED PATIENT IN BED AWAKE. ALERT AND ORIENTED 1-2, VERBALLY RESPONSIVE. BREATHING EVEN AND UNLABORED. NO SOB NOTED. NO DISTRESS. NO COMPLAINTS OF PAIN OR DISCOMFORT. IV LINE ON RIGHT UA# 24, INTACT AND PATENT, CURRENTLY INFUSING D5W 1/2 NS @ 75ML/HR. PATIENT ALSO NOTED WITH DUEÑAS CATH IN PLACE - INTACT AND PATENT, DRAINING CLEAR YELLOW URINE. HEAD OF THE BED ELEVATED FOR ASPIRATION PRECAUTIONS. BED WITH KCI MATTRESS, ON LOWEST LOCKED POSITION. DAUGHTERCHESTER AND TATIANA AT BEDSIDE. AWAITING FOR RESPONSE FROM GI MD. ALL OTHER NEEDS ATTENDED TO. CALL LIGHT WITHIN REACH. WILL CONTINUE TO MONITOR.
[2017-10-20 20:00] VITALS: BP 119/51
--- NOTE | 2017-10-20 20:58 | NUR ---
MS RN NOTES: CALLED [facility] TO [address] HICKS.
--- NOTE | 2017-10-20 21:02 | NUR ---
MS RN NOTES: DR. HICKS ON PHONE SPEAKING TO CHESTER SILVA.
--- NOTE | 2017-10-20 21:18 | NUR ---
MS RN NOTES: DR. VALDES SPOKE WITH CHESTER SILVA, AND SAID NO GT PLACEMENT PROCEDURE TOMORROW. DTR IS UNCOMFORTABLE. , TATIANA, MENTIONED THAT VITAMIN K EARLIER WAS BEING ADMINISTERED BY AM NURSE BUT HE SAID TO STOP IT. FULL VITAMIN K IV WAS NOT ADMINISTERED. DR. VALDES AWARE OF THE SITUATION. DR. VALDES SAID TO CALL HOSPITALIST AND ASK FOR ORDERS.
[2017-10-20] MEDS: MIRTAZAPINE 15 MG TABLET PO SCH (22:14)
--- NOTE | 2017-10-20 22:38 | NUR ---
MS RN NOTES: SPOKE WITH DR. DE LA O. INFORMED HER THAT FAMILY DOES NOT WANT TO PROCEED WITH GT PLACEMENT TOMORROW. AWARE THAT PT GOT HALF OF VITAMIN K TODAY , TATIANA, ASKED AM NURSE TO STOP IT SINCE HE DOES NOT WANT TO PROCEED WITH PROCEDURE TOMORROW. ALSO AWARE THAT PT DID NOT GET COUMADIN TODAY AND AWARE OF INR 2.44 . NO COUMADIN TO BE GIVEN TODAY. WILL RESUME COUMADIN 5MG PO TOMORROW AT 1PM.
--- NOTE | 2017-10-20 22:40 | NUR ---
MS RN NOTES: ALSO, PER DR. JAIRON WHITE TO RESUME BACK TO PREVIOUS DIET CCHO 60GMS CARBS/MEAL PUREED, NECTAR THICK LIQUIDS.
[2017-10-21] MEDS: IV D5/0.45 NACL 1,000 ML IV PRN (01:29)
[2017-10-21] MEDS: BLOOD SUGAR DIAGNOSTIC 1 EACH STRIP IN SCH ×3 (06:05→17:43)
[2017-10-21] MEDS: INSULIN REGULAR, HUMAN 100 UNIT/ML 3 ML VIAL SQ PRN (06:13)
--- NOTE | 2017-10-21 06:13 | NUR ---
MS RN NOTES: BLOOD SUGAR THIS AM WAS 157. 2 UNITS OF INSULIN WAS ADMINISTERED. PT ON IV D5 1/2NS AT 75ML/HR. PT ALSO ADMINISTERED SNACK.
--- NOTE | 2017-10-21 06:44 | NUR ---
RN MS CLOSING NOTES PATIENT IN BED ASLEEP, AROUSABLE TO NAME OR TOUCH. IN STABLE CONDITION. BREATHING EVEN AND UNLABORED. NO DISTRESS NOTED. IV LINE OF ALLYSON#24 INTACT AND PATENT - CURRENTLY INFUSING D5W 1/2 NS @ 75ML/HR. DUEÑAS CATHETER IN PLACE - INTACT AND DRAINING WELL. DUEÑAS CATH OUTPUT WAS 1000ML. ALL OTHER NEEDS ATTENDED TO. KEPT CLEAN, DRY, AND COMFORTABLE. CALL LIGHT WITHIN REACH. BED ON LOWEST LOCKED POSITION. WILL ENDORSE TO ONCOMING RN FOR CONTINUITY OF CARE.
[2017-10-21 07:28] LABS: CALCIUM, SERUM 8.4 mg/dL (8.5-10.1); CARBON DIOXIDE 23 mmol/L (21-32); CHLORIDE 105 mmol/L (98-107); CREATININE 0.7 mg/dL (0.6-1.3); GLUCOSE 169 mg/dL (74-106); PHOSPHORUS 3.3 mg/dL (2.5-4.9); POTASSIUM 3.9 mmol/L (3.5-5.1); SODIUM SERUM 136 mmol/L (136-145); UREA NITROGEN, BLOOD 14 mg/dL (7-18)
--- NOTE | 2017-10-21 07:30 | NUR ---
RN OPENING NOTES RECEIVED PATIENT IN BED ASLEEP, A/OX1, AROUSABLE TO NAME OR TOUCH. IN STABLE CONDITION. NO ACUTE DISTRESS, NO SOB NOTED. NO S/S OF PAIN OR DISCOMFORT. IV LINE OF ALLYSON#24 INTACT AND PATENT - CURRENTLY INFUSING D5W 1/2 NS @ 75ML/HR. DUEÑAS CATHETER IN PLACE, YELLOW CLEAR URINE DRAINING WELL. KEPT CLEAN, DRY, AND COMFORTABLE. BED IN LOW/LOCKED POSITION. CALL LIGHT WITHIN REACH, SIDERAILS UPX2. WILL MONITOR ACCORDINGLY.
[2017-10-21] MEDS: ALBUTEROL FS 2.5 MG/3 ML VIAL.NEB NEB SCH ×3 (07:47→15:32)
[2017-10-21 08:00] VITALS: BP 121/73
[2017-10-21 08:10] LABS: BASOPHILS # (AUTO) 0.1 /CMM (0.0-0.2); BASOPHILS % (AUTO) 0.9 % (0.0-2.0); EOSINOPHILS % (AUTO) 2.5 % (0.0-6.0); HEMATOCRIT 32 % (33-45); HEMOGLOBIN 10.4 g/dL (11.5-14.8); LYMPHOCYTES % (AUTO) 24.3 % (20.0-44.0); MEAN CORPUSCULAR HEMOGLOBIN 24 PG (26.0-33.0); MEAN CORPUSCULAR HGB CONC 33 g/dl (31.0-36.0); MEAN CORPUSCULAR VOLUME 72 fL (82-100); MONOCYTES # (AUTO) 0.5 /CMM (0.1-1.30); MONOCYTES % (AUTO) 5.6 % (2.0-12.0); NEUTROPHILS # (AUTO) 5.6 /CMM (1.8-8.9); NEUTROPHILS % (AUTO) 66.7 % (43.0-81.0); PLATELET COUNT (AUTO) 229 /CMM (150-450); RDW COEFFICIENT OF VARIATION 18.1 (11.5-15.0); RED BLOOD CELL COUNT(AUTO) 4.39 MIL/uL (4.0-5.2); WHITE BLOOD COUNT (AUTO) 8.4 K/uL (4.3-11.0)
[2017-10-21] MEDS: DULOXETINE HCL 30 MG CAPSULE.DR PO SCH (08:33)
[2017-10-21] MEDS: LACTOBACILLUS RHAMNOSUS GG 1 EACH CAP.SPRINK PO SCH ×2 (08:33→17:43)
[2017-10-21] MEDS: ASCORBIC ACID 500 MG TABLET PO SCH (08:34)
[2017-10-21] MEDS: MEGESTROL ACETATE 40 MG TABLET PO SCH (08:34)
[2017-10-21] MEDS: MULTIVIT, IRON, MIN NO. 8, FA 1 TAB PO SCH (08:34)
[2017-10-21 08:35] LABS: INR 1.12 (0.87-1.13)
[2017-10-21] MEDS: MUPIROCIN OINT 2% 22 GM TUBE SCH (08:38)
[2017-10-21] MEDS: VITAMINS A AND D 56.7 GM TUBE TP SCH (08:38)
[2017-10-21] MEDS: NYSTATIN/TRIAMCIN CREAM 15 GM TUBE TP SCH (08:40)
[2017-10-21] MEDS ORDERED: FUROSEMIDE 20 MG/2 ML VIAL IV ONE (13:00)
[2017-10-21 16:00] VITALS: BP 128/53
[2017-10-21] MEDS ORDERED: WARFARIN SODIUM 5 MG TABLET PO SCH (17:00)
--- NOTE | 2017-10-21 18:25 | NUR ---
WAREHOUSE PRODUCTION WORKER NOTES DISCHARGED PATIENT IN STABLE CONDITION, PICKED UP BY BOARD STACKER, FAMILY AT BEDSIDE. DISCHARGED PAPERWORK GIVEN TO BOARD STACKER, ALL BELONGINGS RETURNED, FORMS SIGNED. REPORT GIVEN TO SMITA LAUREN AT [facility], DISCHARTGE INSTRUCTIONS GIVEN,VERBALIZED UNDERSTANDING. REMOVED IV ACCESS, APPLIED PRESSURE, NO BLEEDING, NO COMPLICATIONS. REMOVE NAMEBAND.
== END 2017-10-21 18:30 | DRG 640 ==
LOC: ER 20:37 → MED 23:05
PROVIDERS: ADMIT Internal Medicine; ATTEND Internal Medicine
DX: E86.0 Dehydration (principal); G93.40 Encephalopathy, unspecified; E44.0 Moderate protein-calorie malnutrition; G81.94 Hemiplegia, unspecified affecting left nondominant side; N39.0 Urinary tract infection, site not specified; G82.20 Paraplegia, unspecified; I82.402 Acute embolism and thrombosis of unspecified deep veins of left lower extremity; I25.10 Atherosclerotic heart disease of native coronary artery without angina pectoris; R62.7 Adult failure to thrive; Z87.440 Personal history of urinary (tract) infections; Z87.01 Personal history of pneumonia (recurrent); Z88.5 Allergy status to narcotic agent; Z88.0 Allergy status to penicillin; Z88.2 Allergy status to sulfonamides; Z88.6 Allergy status to analgesic agent; Z88.1 Allergy status to other antibiotic agents; Z91.040 Latex allergy status; Z79.01 Long term (current) use of anticoagulants; Z79.899 Other long term (current) drug therapy; Z79.4 Long term (current) use of insulin; Z87.81 Personal history of (healed) traumatic fracture; I10 Essential (primary) hypertension; I48.91 Unspecified atrial fibrillation; K21.9 Gastro-esophageal reflux disease without esophagitis; L05.91 Pilonidal cyst without abscess; M85.80 Other specified disorders of bone density and structure, unspecified site; L30.4 Erythema intertrigo; R13.10 Dysphagia, unspecified; M81.0 Age-related osteoporosis without current pathological fracture; Z74.01 Bed confinement status; Z95.0 Presence of cardiac pacemaker; Z86.718 Personal history of other venous thrombosis and embolism; Z86.14 Personal history of Methicillin resistant Staphylococcus aureus infection; E11.9 Type 2 diabetes mellitus without complications; D50.9 Iron deficiency anemia, unspecified
CPT/HCPCS: 36415; 71045-TC; 80048-TC; 80076-TC; 81000-TC; 82962-TC; 83690-TC; 83735-TC; 84100-TC; 84484-TC; 85025-TC; 85610-TC; 85730-TC; 87081-TC; 87086-TC; 87186-TC; 92526; 92611-TC; A4217; A4606; A6402; J1650; J1815; J1940; J3430; J3475; J3490; J7040; J7060; Z7610

== ENCOUNTER 2017-11-04 14:00 | Outpatient (CLI) | payer MEDICARE, BC, MEDICAID | END 2017-11-04 23:59 | disposition home or self-care (01) | LOC: VASLAB 14:00 | PROVIDERS: ATTEND Surgery Vascular Surgery | DX: I87.2 Venous insufficiency (chronic) (peripheral) (principal); Z86.718 Personal history of other venous thrombosis and embolism; I48.91 Unspecified atrial fibrillation; Z79.01 Long term (current) use of anticoagulants; I25.10 Atherosclerotic heart disease of native coronary artery without angina pectoris; Z95.0 Presence of cardiac pacemaker; I10 Essential (primary) hypertension; E11.9 Type 2 diabetes mellitus without complications | CPT/HCPCS: G0463; Z7610 ==

== ENCOUNTER 2017-11-29 03:25 | Inpatient (IN) | payer MEDICARE, MEDICAID ==
[2017-11-29] VITALS (21 sets, daily range): BP systolic 100–132; BP diastolic 49–92
[~2017-11-29] VITALS: Ht 154.9 cm; Wt 74.8 kg
[~2017-11-29 03:25] MED LIST changes: -INSU100V28 IJ; +INSU100V28 SQ
--- NOTE | 2017-11-29 03:35 | NUR ---
PT TO ER BED 10. BIB PRIVATE EMS FROM [facility] C/O : "HERNIA OUT FOR 12 HOURS, USUALLY ITS ONLY OUT FOR 4 HOURS". PT PLACED ON SUPERVISOR STAVE CUTTING. VSS/RESP EVEN UNLABORED/NAD NOTED/SKIN WARM AND DRY/AFEBRILE/DENIES N-V-D. AWAITNG MD BAKER. DAUGHTER AT BEDSIDE.
--- NOTE | 2017-11-29 03:47 | NUR ---
ICE PACKS APPLIED TO ABD PER MD ORDERS.
[2017-11-29] MEDS ORDERED: ONDANSETRON HCL/PF 4 MG/2 ML VIAL ONE (03:48)
[2017-11-29] MEDS ORDERED: MORPHINE SULFATE INJ 2 MG/ML DISP.SYRIN ONE (03:49)
[2017-11-29] MEDS ORDERED: IV NS 0.9% 500 ML BAG IV ONE (04:00)
[2017-11-29] MEDS ORDERED: ONDANSETRON HCL/PF 4 MG/2 ML VIAL IVP ONE (04:00)
[2017-11-29] MEDS ORDERED: MORPHINE SULFATE INJ 2 MG/ML DISP.SYRIN IV ONE (04:00)
--- NOTE | 2017-11-29 04:10 | NUR ---
LAB AT BEDSIDE FOR DRAW.
[2017-11-29 04:27] LABS: BASOPHILS % (AUTO) 0.3 % (0.0-2.0); EOSINOPHILS % (AUTO) 1.8 % (0.0-6.0); HEMATOCRIT 30 % (33-45); HEMOGLOBIN 9.6 g/dL (11.5-14.8); LYMPHOCYTES # (AUTO) 1.3 /CMM (0.8-4.8); LYMPHOCYTES % (AUTO) 15.4 % (20.0-44.0); MEAN CORPUSCULAR HEMOGLOBIN 23 PG (26.0-33.0); MEAN CORPUSCULAR HGB CONC 32 g/dl (31.0-36.0); MEAN CORPUSCULAR VOLUME 72 fL (82-100); MONOCYTES # (AUTO) 0.2 /CMM (0.1-1.30); MONOCYTES % (AUTO) 2.4 % (2.0-12.0); NEUTROPHILS # (AUTO) 6.6 /CMM (1.8-8.9); NEUTROPHILS % (AUTO) 80.1 % (43.0-81.0); PLATELET COUNT (AUTO) 324 /CMM (150-450); RDW COEFFICIENT OF VARIATION 18.3 (11.5-15.0); RED BLOOD CELL COUNT(AUTO) 4.13 MIL/uL (4.0-5.2); WHITE BLOOD COUNT (AUTO) 8.2 K/uL (4.3-11.0)
--- NOTE | 2017-11-29 04:30 | NUR ---
20G IV TO L AC X 3 ATTEMPTS USING ASEPTIC TECH. IV FLUSHES EASILY WITH NS, NO S/S INFILTRATION NOTED AT THIS TIME.
[2017-11-29 04:41] LABS: CALCIUM, SERUM 8.2 mg/dL (8.5-10.1); CARBON DIOXIDE 28 mmol/L (21-32); CHLORIDE 108 mmol/L (98-107); CREATININE 0.8 mg/dL (0.6-1.3); GLUCOSE 166 mg/dL (74-106); POTASSIUM 4.6 mmol/L (3.5-5.1); SODIUM SERUM 142 mmol/L (136-145); UREA NITROGEN, BLOOD 18 mg/dL (7-18)
--- NOTE | 2017-11-29 04:41 | NUR ---
PT TO CT VIA STRETCHER. VSS.
[2017-11-29 04:42] LABS: ALANINE AMINOTRANSFERASE 13 U/L (12-78); ALKALINE PHOSPHATASE 96 U/L (46-116); ASPARTATE AMINOTRANSFERASE 15 U/L (15-37); BILIRUBIN,DIRECT 0.1 mg/dL (0.0-0.2); BILIRUBIN,TOTAL 0.2 mg/dL (0.2-1.0); TOTAL PROTEIN, SERUM 5.7 g/dL (6.4-8.2)
[2017-11-29 04:46] LABS: INR 2.08 (0.87-1.13)
[2017-11-29] MEDS ORDERED: MAGN400O21 PO (06:20)
[2017-11-29] MEDS ORDERED: MAG30ORA PO (06:20)
[2017-11-29] MEDS ORDERED: PROT946L PO (06:20)
[2017-11-29] MEDS ORDERED: ZOLP5TAB8 PO (06:20)
--- NOTE | 2017-11-29 06:20 | NUR ---
REPORT GIVEN TO SMITA ABERNATHY FOR ABENA.
--- NOTE | 2017-11-29 07:08 | NUR ---
REPORT GIVEN TO SMITA MOORE FOR ABENA.
--- NOTE | 2017-11-29 07:27 | NUR ---
DR MASTERS PAGED THRU EXCHANGE
--- NOTE | 2017-11-29 08:18 | NUR ---
DAUGHTER AT BEDSIDE AND WOULD LIKE TO TALK TO DR LAGUNA AND DR MASTERS BEFORE SIGNING THE CONSENT SAYING THAT SHE IS SHOCKED BECAUSE NOBODY EVEN TALKED TO HER YET ON WHAT'S GOING ON. RECEIVING NURSE ELLEN ORDOÑEZ INFORMED.
[2017-11-29] MEDS ORDERED: BLOO-668 IN (08:30)
[2017-11-29 08:50] LABS: IRON, SERUM 23 ug/dl (50-175); TOTAL IRON BINDING CAPACITY 319 ug/dl (250-450)
--- NOTE | 2017-11-29 09:00 | NUR ---
ADMISSION NOTES PATIENT ADMITTED FROM ER A/O X2/3 ON DX OF INCARCERATED HERNIA. PATIENT COOPERATIVE, HAS NO ACUTE RESPIRATORY DISTRESS, V/S TAKEN STABLE PATIENT C/O PAIN 2 /10 PER PAIN SCALE AT THIS TIME BUT REFUSED PAIN MEDICATION. SKIN ASSESSMENT DONE PICTURE TAKEN. PATIENT TOTAL CARE GENERALIZED EDEMA IN THE BODY. NEEDS ATTENDED AND ANTICIPATED. ASSIST TURN AND REPOSTION Q 2 HR. APPLIED ICE BAG ON ABDOMEN. IV ACCESS ON LEFT HAND INTACT. CALL LIGHT WITHIN TO REACH. DR LAGUNA AWARE OF NEW PATIENT AND MEDICATION. FAMILY NEXT TO THE BED. CONTINUED MONITORING.
[2017-11-29 09:16] LABS: FERRITIN 11 ng/mL (8-388); MAGNESIUM 1.8 mg/dL (1.8-2.4); PHOSPHORUS 3.7 mg/dL (2.5-4.9); THYROID STIMULATING HORMONE 5.572 uIU/mL (0.358-3.74); TROPONIN I < 0.017 ng/mL (0.00-0.056)
[2017-11-29] MEDS ORDERED: ONDANSETRON HCL/PF 4 MG/2 ML VIAL IV PRN (09:30)
[2017-11-29] MEDS ORDERED: DEXTROSE 50%-WATER 50 ML DISP.SYRIN IV PRN (09:30)
[2017-11-29] MEDS ORDERED: ALBUTEROL FS 2.5 MG/0.5 ML VIAL.NEB NEB PRN (10:00)
[2017-11-29] MEDS: IV D5/0.45 NACL 1,000 ML IV PRN (10:47)
[2017-11-29] MEDS: MORPHINE SULFATE INJ 2 MG/ML DISP.SYRIN IV PRN (10:58)
--- NOTE | 2017-11-29 10:58 | NUR ---
RN NOTES ADMINISTERED MORPHINE SULFATE 2 MG/ML IV PUSH PER PATIENT REQUEST FOR PAIN 10/28, V/S TAKEN BP- 130/64, P-87, CONTINUED MONITORING. NEXT TO THE BED.
[2017-11-29] MEDS: BLOOD SUGAR DIAGNOSTIC 1 EACH STRIP IN SCH ×3 (12:33→22:17)
--- NOTE | 2017-11-29 14:38 | NUR ---
RN NOTES STARTED PLASMA TRANSFUSION 211 ML AT THIS TIME PER DR MASTERS ORDER 60 ML/HR IN 15 MINS LEFT FA INTACT, V/S TAKEN T-97.9, P-84, R-17, BP-112/66, PATIENT STABLE NO S/S OF REACTION, NO ACUTE RESPIRATORY DISTRESS, AND INFILTRATION. PATIENT TOLERATING TRANSFUSION WELL. MEDICATION WERE ADMINISTERED FOR PAIN EFFECTIVE, ALSO APPLIED ICE ON BELLY AREA, ASSIST TURN AND REPOSTION Q 2 HR. COLLECTED UA /UC , CALLED LAB FOR PRESS FEEDER. CONTINUED MONITORING.
--- NOTE | 2017-11-29 15:00 | NUR ---
RN NOTES PATIENT TOLERATING TRANSFUSION WELL V/S TAKEN T-98.6, P-84, R-18, BP-102/60, PATIENT HAS NO COMPLAINING S/S OF ANY REACTION, NO BLEEDING AT THIS TIME. CONTINUED MONITORING.
--- NOTE | 2017-11-29 15:30 | NUR ---
RN NOTES PATIENT STABLE RESTING. V/S TAKEN BP- 113/56, P-87, R-18, ,T-98.3, PATIENT REFUSED PAIN, NO ANY S/S OF REACTION NOTES PATIENT TOLERATED TRANSFUSION WELL , CALL LIGHT WITHIN TO REACH, SAFETY PRECAUTION MAINTAINED ALL THE TIME.
--- NOTE | 2017-11-29 16:45 | NUR ---
RN NOTES FINISHED 1 -ST PLASMA TRANSFUSION AT THIS TIME, V/S TAKEN BP- 111/64, P-89, R-18, T-98.5, O2-98 ROOM AIR, NO S/S OF REACTION NOTES. CONTINUED MONITORING.
--- NOTE | 2017-11-29 17:27 | NUR ---
RN NOTES STARTED 2 -ND TRANSFUSION OF PLASMA 213 ML ON 60ML/HR AT THIS TIME, V/S STABLE BP- 111/55, P-91, R-18, O2-97 ROOM AIR, T-98.5, PATIENT AWAKE HAS NO C/O PAIN AT THIS TIME, NO ACUTE RESPIRATORY DISTRESS. CONTINUED MONITORING.
--- NOTE | 2017-11-29 17:42 | NUR ---
rn notes patient tolerated transfusion well, v/s taken stable t-98,45, p-90, r-18, bp-106/66, o2-98 room air. bs-148 mg/dl, no coverage given, patient npo, call light within to reach, continued monitoring.
--- NOTE | 2017-11-29 18:15 | NUR ---
RN NOTES PATIENT STABLE , NO ACUTE RESPIRATORY DISTRESS, V/S STABLE , NO S/S OF REACTION. CONTINUED MONITORING.
--- NOTE | 2017-11-29 19:00 | NUR ---
RN NOTES PATIENT IN THE BED NO ACUTE RESPIRATORY DISTRESS, STILL TRANSFUSING PLASMA 2-ND BAG, NO S/S OF REACTION NOTES, NO BLEEDING, NO N/V AT THIS TIME, V/S STABLE, ASSIST TURN AND REPOSTION Q 2 HR. ENDORSED ONCOMING NURSE FOR PLAN OF CARE.
--- NOTE | 2017-11-29 19:35 | NUR ---
RN INITIAL NOTES: RECEIVED REPORT FROM SUJEY ORDOÑEZ. PT IN BED, AWAKE, A/O X2-3 ON RA RESPIRATION EVEN AND UNLABORED, PT WITH ONGOING FFP TRANSFUSION, 2ND BAG. ORDER TO TRANSFUSE 4UNITS OF FFP, 3RD AND 4TH UNIT TO BE GIVEN TONIGHT. PER REPORT TO ORDER STAT PT INR AFTER TRANSFUSING 4TH UNIT OF FFP PER DR MASTERS. PT FOR SURGERY IN AM, CONSENT SECURED BY MURRAY RN. PT DENIES ANY PAIN OR DISCOMFORT AT THIS TIME. ICE PACK APPLIED ON ABDOMEN ORDERED. DISCUSSED PLAN OF CARE TO FAMILY AND PT. BLE OFFLOADED. SAFETY PRECAUTIONS FOR FALL INITIATED, CALL LIGHT IN REACH, WILL CONTINUE MONITORING PT.
--- NOTE | 2017-11-29 20:00 | NUR ---
RN NOTES: CHECKED PT'S BLOOD SUGAR 122
--- NOTE | 2017-11-29 20:12 | NUR ---
BLOOD TRANSFUSION NOTES: VS TAKEN AND RECORDED PRIOR TO GIVING THE PLASMA, COSIGNED WITNESS BY SMITA SPRAGUE. FFP TRANSFUSION STARTED, TO START AT 60ML/HR FOR 15MINS A S ORDERED THEN INCREASE RATE. WILL STAY WITH THE PT FOR 30MINS TO MONITOR FOR ANY S/S OF BLOOD TRANSFUSION REACTION.
--- NOTE | 2017-11-29 22:08 | NUR ---
PLASMA COMPLETED: PLASMA TRANSFUSION COMPLETED, NO TRANSFUSION REACTION NOTED. NORMAL SALINE RUNNING AT THIS TIME. VS TAKEN AND RECORDED. WILL CONTINUE TO MONITOR AND REASSESS
[2017-11-29] MEDS: INSULIN REGULAR, HUMAN 100 UNIT/ML 3 ML VIAL SQ PRN (22:18)
--- NOTE | 2017-11-29 22:35 | NUR ---
4TH UNIT OF FFP: COSIGNED/WITNESSED BY ANOTHER RN, 4TH UNIT OF FFP ADMINISTERED AT THIS TIME, VS TAKEN PRIOR TO ADMINISTERING FFP. DAUGHTER AT BED SIDE. WILL STAY FOR 15-30MINS TO MONITOR FOR ANY S/S OF TRANSFUSION REACTION. FIRST 15MINS TO RUN FFP AT 60ML/HR ORDERED THEN INCREASE RATE .
[2017-11-30] VITALS (7 sets, daily range): BP systolic 94–159; BP diastolic 58–98
--- NOTE | 2017-11-30 00:11 | NUR ---
FFP COMPLETED: 4TH UNIT OF FFP TRANSFUSION COMPLETED, NO S/S OF BLOOD TRANSFUSION REACTION NOTED. VS REMAINS STABLE, VS TAKEN AND RECORDED, WILL CONTINUE MONITORING PT.
--- NOTE | 2017-11-30 00:12 | NUR ---
RN NOTES: WILL CALL LAB TO DRAW STAT PT INR AFTER AN HOUR (0111) BECAUSE FFP JUST COMPLETED
--- NOTE | 2017-11-30 01:11 | NUR ---
RN NOTES: ROVING MACHINE OPERATOR CAME TO DRAW BLOOD (PT INR)
[2017-11-30 01:59] LABS: INR 1.37 (0.87-1.13)
--- NOTE | 2017-11-30 04:00 | NUR ---
RN NOTES: ASSISTED EPITAXIAL REACTOR OPERATOR IN PROVIDING BED BATH TO THE PT
[2017-11-30] MEDS: IV D5/0.45 NACL 1,000 ML IV PRN (05:40)
[2017-11-30] MEDS: BLOOD SUGAR DIAGNOSTIC 1 EACH STRIP IN SCH ×4 (06:29→21:47)
[2017-11-30] MEDS: INSULIN REGULAR, HUMAN 100 UNIT/ML 3 ML VIAL SQ PRN ×4 (06:29→21:53)
--- NOTE | 2017-11-30 06:30 | NUR ---
BS 94: BS 94 NO INSULIN GIVEN PER SLIDING SCALE, PT ON NPO
--- NOTE | 2017-11-30 07:00 | NUR ---
RN CLOSING NOTES: PT REMAINS A/O X2-3 ON RA RESPIRATION EVEN AND UNLABORED, DENIES ANY PAIN OR DISCOMFORT AT THIS TIME. IV ACCESS ON LEFT HAND REMAINS PATENT AND FLUSHING WELL, INFUSING WITH D5 1/2NS AT 75ML/HR. PT REMAINS NPO, FOR SURGERY IN AM WITH DR MASTERS. BLE, BUE KEPT OFFLOADED, ICE PACKED REMAINS ON ABDOMINAL AREA. VS REMAINS STABLE, NO TRANSFUSION REACTION NOTED. SAFETY PRECAUTIONS FOR FALL REMAINS ENGAGED, CALL LIGHT IN REACH, WILL ENDORSE TO DAY RN FOR ABENA.
--- NOTE | 2017-11-30 07:15 | NUR ---
MS RN NOTES Patient in bed, awake, eyes open, refusing to respond/speak, no facial grimacing. On room air with no SOB. Patient is currently NPO, IVC in left hand with IVF D5 1/2 infusing at 75ml/hr. For surgery today per report. Will cont to monitor.
[2017-11-30 07:32] LABS: BASOPHILS # (AUTO) 0.1 /CMM (0.0-0.2); EOSINOPHILS % (AUTO) 5.3 % (0.0-6.0); HEMATOCRIT 26 % (33-45); HEMOGLOBIN 8.3 g/dL (11.5-14.8); LYMPHOCYTES # (AUTO) 1.8 /CMM (0.8-4.8); LYMPHOCYTES % (AUTO) 31.3 % (20.0-44.0); MEAN CORPUSCULAR HEMOGLOBIN 23 PG (26.0-33.0); MEAN CORPUSCULAR HGB CONC 32 g/dl (31.0-36.0); MEAN CORPUSCULAR VOLUME 72 fL (82-100); MONOCYTES # (AUTO) 0.3 /CMM (0.1-1.30); MONOCYTES % (AUTO) 5.5 % (2.0-12.0); NEUTROPHILS # (AUTO) 3.2 /CMM (1.8-8.9); NEUTROPHILS % (AUTO) 56.9 % (43.0-81.0); PLATELET COUNT (AUTO) 231 /CMM (150-450); RDW COEFFICIENT OF VARIATION 18.2 (11.5-15.0); RED BLOOD CELL COUNT(AUTO) 3.59 MIL/uL (4.0-5.2); WHITE BLOOD COUNT (AUTO) 5.6 K/uL (4.3-11.0)
[2017-11-30 07:42] LABS: INR 1.43 (0.87-1.13)
[2017-11-30 07:44] LABS: TROPONIN I < 0.017 ng/mL (0.00-0.056)
[2017-11-30 07:45] LABS: ALANINE AMINOTRANSFERASE 16 U/L (12-78); ALBUMIN 2.3 g/dL (3.4-5.0); ALKALINE PHOSPHATASE 85 U/L (46-116); ASPARTATE AMINOTRANSFERASE 20 U/L (15-37); BILIRUBIN,TOTAL 0.3 mg/dL (0.2-1.0); CALCIUM, SERUM 8.2 mg/dL (8.5-10.1); CARBON DIOXIDE 29 mmol/L (21-32); CHLORIDE 108 mmol/L (98-107); CREATININE 0.6 mg/dL (0.6-1.3); GLUCOSE 100 mg/dL (74-106); MAGNESIUM 1.9 mg/dL (1.8-2.4); PHOSPHORUS 3.3 mg/dL (2.5-4.9); POTASSIUM 4.3 mmol/L (3.5-5.1); SODIUM SERUM 141 mmol/L (136-145); TOTAL PROTEIN, SERUM 5.7 g/dL (6.4-8.2); UREA NITROGEN, BLOOD 16 mg/dL (7-18)
[2017-11-30 08:09] LABS: BAND % (MANUAL) 1 % (0.0-5.0); LYMPHOCYTES % (MANUAL) 31 % (16-48); MONOCYTES % (MANUAL) 3 % (0-11.0); NEUTROPHILS % (MANUAL) 60 (42-76)
[2017-11-30 08:10] LABS: EOSINOPHILS % (MANUAL) 5 % (0-4)
[2017-11-30] MEDS ORDERED: HYDROMORPHONE INJ 2 MG/ML DISP.SYRIN ONE (10:19)
[2017-11-30] MEDS ORDERED: ROCURONIUM BROMIDE 50 MG/5 ML ONE (10:20)
[2017-11-30] MEDS ORDERED: PROPOFOL 0 ML IV ONE (10:20)
[2017-11-30] MEDS ORDERED: CLINDAMYCIN 900 MG/6 ML VIAL ONE (10:39)
[2017-11-30] MEDS ORDERED: BUPIVACAINE MPF 0.75% 30 ML VIAL ONE (10:55)
[2017-11-30] MEDS ORDERED: LEVOFLOXACIN 500 MG /D5W 100ML 500 MG in PREMIX 1 EA IV ONE (11:00)
--- NOTE | 2017-11-30 11:57 | NUR ---
Patient is back to the unit, levaquin 500mg IV was given at the OR at 1050am, see surgical notes.
[2017-11-30] MEDS ORDERED: HYDROCODONE/APAP 5/325MG 1 EACH TABLET PO PRN (12:00)
[2017-11-30] MEDS: Potassium Chloride 20 MEQ in IV D5 / 0.2% NACL 1,000 ML IV PRN (14:36)
[2017-11-30] MEDS: SOD FERRIC GLUC 125 MG in IV NS 0.9% 100 ML IV SCH (15:03)
--- NOTE | 2017-11-30 18:31 | NUR ---
MS RN closing notes Patient in bed, s/p repair of incarcerated umbilical hernia, surgical incision dressing C/D/I, no bleeding, denies pain, afebrile during the shift. Torres cath in place, bag off the floor. Started soft diet post surgery, tolerating well. Maintained IVF D5 1/4 NS + 20meq KCL 60ml/hr. KCI in place. Bed low and locked. Will endorse to oncoming RN.
--- NOTE | 2017-11-30 19:35 | NUR ---
MS RN NOTES RECEIVED ON BED A/O X2,S/P SURGERY ON INCARCERATED HERNIA TODAY.SURGICAL DRESSING INTACT AND DRY.WITH DUEÑAS CATH IN PLACE DRAINING YELLOWISH OUTPUT.ON KCI MATTRESS FOR SKIN MANAGEMENT.PRESENT IVF WITH 20 MEQ KCL IN PROGRESS.FAMILY MEMBER AT BEDSIDE.WILL CONTINUE TO MONITOR STATUS.
--- NOTE | 2017-11-30 21:30 | NUR ---
MS RN NOTES ACCU-CHECK BLOOD SUGAR CHECK 197,COVERED WITH 3 UNITS HUMULIN R PER SLIDING SCALE.GIVEN SQ ON RIGHT DELTOID
--- NOTE | 2017-12-01 | NUR ---
MS RN NOTES OFFERED TO BE REPOSITION BUT REFUSED,CLAIMED SHE'S OKAY
[2017-12-01] MEDS: BLOOD SUGAR DIAGNOSTIC 1 EACH STRIP IN SCH ×4 (05:38→22:34)
[2017-12-01] MEDS: Potassium Chloride 20 MEQ in IV D5 / 0.2% NACL 1,000 ML IV PRN (06:49)
--- NOTE | 2017-12-01 07:00 | NUR ---
MS RN NOTES FAIRLY RESTED,DENIES PAIN.IVF INFUSING DUEÑAS CATH EMPTIED,DAUGHTER AT BEDSIDE.IN NO ACUTE DISTRESS.ENDORSED TO PRINCE ORDOÑEZ FOR ABENA.
[2017-12-01 07:05] LABS: BASOPHILS # (AUTO) 0.1 /CMM (0.0-0.2); BASOPHILS % (AUTO) 0.5 % (0.0-2.0); EOSINOPHILS % (AUTO) 0.1 % (0.0-6.0); HEMATOCRIT 30 % (33-45); HEMOGLOBIN 9.5 g/dL (11.5-14.8); LYMPHOCYTES % (AUTO) 9.3 % (20.0-44.0); MEAN CORPUSCULAR HEMOGLOBIN 23 PG (26.0-33.0); MEAN CORPUSCULAR HGB CONC 32 g/dl (31.0-36.0); MEAN CORPUSCULAR VOLUME 73 fL (82-100); MONOCYTES # (AUTO) 0.5 /CMM (0.1-1.30); MONOCYTES % (AUTO) 4.7 % (2.0-12.0); NEUTROPHILS # (AUTO) 8.9 /CMM (1.8-8.9); NEUTROPHILS % (AUTO) 85.4 % (43.0-81.0); PLATELET COUNT (AUTO) 299 /CMM (150-450); RDW COEFFICIENT OF VARIATION 18.7 (11.5-15.0); WHITE BLOOD COUNT (AUTO) 10.4 K/uL (4.3-11.0)
[2017-12-01 07:19] LABS: CALCIUM, SERUM 8.4 mg/dL (8.5-10.1); CARBON DIOXIDE 27 mmol/L (21-32); CHLORIDE 105 mmol/L (98-107); CREATININE 0.8 mg/dL (0.6-1.3); GLUCOSE 143 mg/dL (74-106); MAGNESIUM 1.9 mg/dL (1.8-2.4); PHOSPHORUS 3.2 mg/dL (2.5-4.9); POTASSIUM 4.5 mmol/L (3.5-5.1); SODIUM SERUM 136 mmol/L (136-145); UREA NITROGEN, BLOOD 17 mg/dL (7-18)
--- NOTE | 2017-12-01 07:34 | NUR ---
MS/RN Patient received Patient received from night court magistrate. Sleeping at this time, appears in no distress. Daughter at bedside, updated as to plan of care. Safety measures in place. Will continue to monitor and ensure safety.
[2017-12-01 07:47] VITALS: BP 113/53
[2017-12-01 08:00] VITALS: BP 113/53
[2017-12-01 08:26] LABS: BAND % (MANUAL) 1 % (0.0-5.0); LYMPHOCYTES % (MANUAL) 9 % (16-48); MONOCYTES % (MANUAL) 3 % (0-11.0); NEUTROPHILS % (MANUAL) 87 (42-76)
--- NOTE | 2017-12-01 11:30 | NUR ---
MS/RN S/B Dr Mathis Seen by Dr Mathis - patient cleared for discharge from surgical standpoint. Needs to follow up in office in two weeks for removal of erick.
--- NOTE | 2017-12-01 12:30 | NUR ---
MS/RN Blood sugar Blood sugar at noon 161, insulin coverage not administered as patient not eating.
--- NOTE | 2017-12-01 14:00 | NUR ---
MS/RN Rounds Full bed bath provided to patient, diaper rash cream applied per daughters request. Has been turned and repositioned every 2-3 hours or as condition allows. Heels off loaded on pillows at all time.
[2017-12-01] MEDS: SOD FERRIC GLUC 125 MG in IV NS 0.9% 100 ML IV SCH (14:09)
[2017-12-01 16:00] VITALS: BP 112/50
[2017-12-01 16:15] VITALS: BP 112/50
--- NOTE | 2017-12-01 16:40 | NUR ---
MS/RN Blood sugar Blood sugar 141.
--- NOTE | 2017-12-01 18:20 | NUR ---
MS/RN End note Patient remains in stable condition, family at bedside and updated as to plan of care. Made aware that although patient had been cleared by surgeon, Dr Sexton had not ordered for discharge and that she would be staying overnight. Family in agreement. Has been turned and repositioned every 2-3 hours throughout the day to prevent skin breakdown with heels being off loaded at all times. Wash cloths placed in each hand to prevent nails from causing skin breakdown. Safety measures in place, will continue to monitor and ensure safety.
--- NOTE | 2017-12-01 19:40 | NUR ---
MS RN NOTE: PATIENT RESTING IN BED, NO ACUTE DISTRESS NOTED, FAMILY AT BEDSIDE. BREATHING EVEN AND UNLABORED, NO SOB NOTED. IV TO LEFT HAND IN PLACE, INFUSING D5 1/4 NS WITH 20 MEQ KCL AT 60ML/HR. ANTHONY TO ABDOMEN IN PLACE, NO BLEEDING NOTED. DUEÑAS CATHETER IN PLACE, EMPTY AT THIS TIME. BED LOCKED AND IN LOWEST POSITION, CALL LIGHT IN REACH. WILL CONTINUE TO MONITOR.
[2017-12-01 20:00] VITALS: BP 121/64
--- NOTE | 2017-12-01 22:45 | NUR ---
MS RN NOTE: PATIENT BLOOD SUGAR LEVEL 148 MG/D, NO INSULIN GIVEN PER DAUGHTER REQUEST. PATIENT NOT EATING MUCH AND DOES NOT WANT BLOOD SUGAR TO DROP TOO LOW. NO S/S OF HYPER/HYPOGLYCEMIA NOTED. WILL CONTINUE TO MONITOR.
[2017-12-01] MEDS: MORPHINE SULFATE INJ 2 MG/ML DISP.SYRIN IV PRN (23:19)
--- NOTE | 2017-12-01 23:30 | NUR ---
MS RN NOTE: PATIENT COMPLAINS OF PAIN TO ABDOMEN 8/, MORPHINE 2MG IV GIVEN PER MD ORDER. WILL CONTINUE TO MONITOR.
[2017-12-02] MEDS: Potassium Chloride 20 MEQ in IV D5 / 0.2% NACL 1,000 ML IV PRN (02:21)
[2017-12-02] MEDS: BLOOD SUGAR DIAGNOSTIC 1 EACH STRIP IN SCH ×3 (06:50→17:44)
--- NOTE | 2017-12-02 07:00 | NUR ---
MS RN NOTE: PATIENT RESTING IN BED, NO ACUTE DISTRESS NOTED, FAMILY AT BEDSIDE. BREATHING EVEN AND UNLABORED, NO SOB NOTED. IV TO LEFT HAND IN PLACE, INFUSING D5 1/4 NS WITH 20 MEQ KCL AT 60ML/HR. ANTHONY TO ABDOMEN IN PLACE, NO BLEEDING NOTED. DUEÑAS CATHETER IN PLACE. BLOOD SUGAR LEVEL 126 ML/HR, NO INSULIN NEEDED PER SLIDING SCALE. NO S/S OF HYPER/HYPOGLYCEMIA NOTED. BED LOCKED AND IN LOWEST POSITION, CALL LIGHT IN REACH. WILL ENDORSE TO DAY NURSE TO CONTINUE WITH PLAN OF CARE.
--- NOTE | 2017-12-02 07:30 | NUR ---
MS/RN Patient received Patient received from shift foreman, sleeping soundly at this time. Daughter at bedside, assisting with care. Safety measures in place, will continue to monitor and ensure safety.
--- NOTE | 2017-12-02 07:47 | NUR ---
WOUND CARE CONSULT WOUND CARE RECEIVED CONSULT FOR LEFT ELBOW AND BILATERAL LOWER EXTREMITIES. WOUND CARE WILL DEFER CONSULT AND ALL TREATMENT PLANS TO SURGICAL TEAM WHO ARE CURRENTLY FOLLOWING. PATIENT WITH SELIN AT 11, ALL PRESSURE ULCER PREVENTION MEASURES ARE NOTED TO BE IN PLACE AT THIS TIME. WILL SEE PRN.
[2017-12-02 08:00] VITALS: BP_SYST 107; BP_DIAS 65; BP_DIAS 68
[2017-12-02] MEDS ORDERED: RIVAROXABAN 10 MG TABLET PO SCH ×2 (08:00→17:00)
[2017-12-02 08:36] LABS: CALCIUM, SERUM 7.9 mg/dL (8.5-10.1); CARBON DIOXIDE 28 mmol/L (21-32); CHLORIDE 107 mmol/L (98-107); CREATININE 0.8 mg/dL (0.6-1.3); GLUCOSE 136 mg/dL (74-106); POTASSIUM 4.8 mmol/L (3.5-5.1); SODIUM SERUM 140 mmol/L (136-145); UREA NITROGEN, BLOOD 16 mg/dL (7-18)
[2017-12-02 08:42] LABS: ALANINE AMINOTRANSFERASE 13 U/L (12-78); ALKALINE PHOSPHATASE 80 U/L (46-116); ASPARTATE AMINOTRANSFERASE 29 U/L (15-37); BILIRUBIN,TOTAL 0.3 mg/dL (0.2-1.0); MAGNESIUM 1.8 mg/dL (1.8-2.4); PHOSPHORUS 3.2 mg/dL (2.5-4.9); TOTAL PROTEIN, SERUM 5.1 g/dL (6.4-8.2)
--- NOTE | 2017-12-02 09:00 | NUR ---
MS/RN Orders New order noted from Dr Clement to start patient back on anti-coagulants following surgery, xarelto 20mg ordered. Per patient's daughter, patient normally takes coumadin 5mg and had been previously told by her personal loom fixer to stay with coumadin and not switch to any other medication. Stat INR ordered, once resulted will call Dr Clement for new orders.
--- NOTE | 2017-12-02 11:30 | NUR ---
MS/cardiology consultant order Discharge order noted in the computer from Dr Sexton for patient to be discharged bach to SNF today. qualitative field project manager made aware.
--- NOTE | 2017-12-02 12:00 | NUR ---
MS/RN Blood sugar Blood sugar at noon 121, no coverage needed.
[2017-12-02] MEDS: SOD FERRIC GLUC 125 MG in IV NS 0.9% 100 ML IV SCH (14:37)
[2017-12-02 16:00] VITALS: BP 132/66
[2017-12-02] MEDS ORDERED: WARFARIN SODIUM 5 MG TABLET PO SCH (17:00)
--- NOTE | 2017-12-02 17:00 | NUR ---
MS/RN Dr Sexton Per Dr Sexton - as lab are unable to draw blood from patient, may be discharged back to SNF on 5mg coumadin.
--- NOTE | 2017-12-02 18:00 | NUR ---
MS/RN Report Report called to Ned at [facility], patient will be going into room 59B, transport arranged for 20:30 greens picker.
--- NOTE | 2017-12-02 18:20 | NUR ---
RN NOTES RECEIVED PT ASLEEP, ON HIGH FOWLERS POSITION, BREATHING REGULAR AND UNLABORED, NO SIGNS OF DISTRESS AND DISCOMFORT NOTED. IV ACCESS ON LEFT HAND INTACT. DUEÑAS CATH INTACT WITH CLEAR YELLOW URINE OUTPUT NOTED. 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
--- NOTE | 2017-12-02 19:20 | NUR ---
RN NOTES RECEIVED PT ASLEEP, ON HIGH FOWLERS POSITION, BREATHING REGULAR AND UNLABORED, NO SIGNS OF DISTRESS AND DISCOMFORT NOTED. IV ACCESS ON LEFT HAND INTACT. DUEÑAS CATH INTACT WITH CLEAR YELLOW URINE OUTPUT NOTED. PT FOR DISCHARGE TO [facility] AWAITING FOR AMBULANCE CONSULTANT [employer], DAUGHTER AT BEDSIDE.
[2017-12-02 20:00] VITALS: BP_SYST 122; BP_SYST 129; BP_DIAS 66; BP_DIAS 73
--- NOTE | 2017-12-02 20:20 | NUR ---
RN NOTES AMBULANZ EMT IN THE FLOOR TO METHODS AND PROCEDURES ANALYST THE PT. PT AWAKE, ALERT, DENIES ANY PAIN AND DISCOMFORT. VITAL SIGNS STABLE BP 122/66, HR 77, RR 20, TEMP 98.3, O2SAT 96% AT ROOM AIR. ID BAND AND IV ACCESS REMOVED AND PRESSURE DRESSING APPLIED. DISCHARGE PAPERS GIVEN TO EMT WITH REPORT. ALL BELONGINGS SENT WITH THE PT. DISCHARGED PT IN STABLE CONDITION ACCOMPANIED BY DAUGHTER.
[2017-12-03] MEDS ORDERED: WARFARIN SODIUM 5 MG TABLET PO SCH (17:00)
== END 2017-12-02 20:20 | DRG 353 ==
LOC: ER 03:29 → MEDSG2 06:11
PROVIDERS: ADMIT Internal Medicine Nephrology; ATTEND Internal Medicine Nephrology
PROC: 30233K1 Transfusion of Nonautologous Frozen Plasma into Peripheral Vein, Percutaneous Approach (ICD-10-PCS; 2017-11-29)
PROC: 0WUF0JZ Supplement Abdominal Wall with Synthetic Substitute, Open Approach (ICD-10-PCS; principal; 2017-11-30 10:30)
DX: K42.0 Umbilical hernia with obstruction, without gangrene (principal); R53.2 Functional quadriplegia; J90 Pleural effusion, not elsewhere classified; G81.94 Hemiplegia, unspecified affecting left nondominant side; J98.11 Atelectasis; M80.051A Age-related osteoporosis with current pathological fracture, right femur, initial encounter for fracture; E44.1 Mild protein-calorie malnutrition; I48.91 Unspecified atrial fibrillation; K21.9 Gastro-esophageal reflux disease without esophagitis; Z87.01 Personal history of pneumonia (recurrent); Z87.81 Personal history of (healed) traumatic fracture; Z88.5 Allergy status to narcotic agent; Z88.2 Allergy status to sulfonamides; Z88.1 Allergy status to other antibiotic agents; Z91.040 Latex allergy status; Z79.4 Long term (current) use of insulin; Z79.01 Long term (current) use of anticoagulants; E21.3 Hyperparathyroidism, unspecified; I25.10 Atherosclerotic heart disease of native coronary artery without angina pectoris; R60.1 Generalized edema; D64.9 Anemia, unspecified; E11.51 Type 2 diabetes mellitus with diabetic peripheral angiopathy without gangrene; I10 Essential (primary) hypertension; Z87.891 Personal history of nicotine dependence
CPT/HCPCS: 36415; 71045-TC; 80048-TC; 80053-TC; 80076-TC; 82306; 82728-TC; 82962-TC; 83540-TC; 83735-TC; 84100-TC; 84439-TC; 84443-TC; 84484-TC; 85025-TC; 85610-TC; 85730-TC; 86850-TC; 87081-TC; 87086-TC; 88302-TC; 93307-TC; A4216; A4606; A6209; A6402; J1100; J1170; J1815; J1956; J2270; J2405; J2704; J2710; J2916; J3480; J3490; J7030; J7040; J7042; J7050; P9017-BL; Z7610

== ENCOUNTER 2019-03-07 19:46 | Inpatient (IN) | payer MEDICARE, MEDICAID ==
[~2019-03-07] VITALS: Ht 160 cm; Wt 71.2 kg
[~2019-03-07 19:46] MED LIST changes: -ACET-868 PO; +ACET325T53 PO; +ALBU2.5V38 IH; +ASCO-340 PO; -ASCO500T9 PO; -DULO20CA PO; -DULO30CA2 PO; -IPRA0.2S49 NEB; -LEVO500T75 PO; +MAG-55 PO; +MAGN400O21 PO; -MEGE40TA PO; +MULT-213 PO; -MULT-447 PO; -MUPI15CR12 TP; -MUPI22OI7; -POTA20TA83 PO; -PREG50CA PO; +PROT946L PO; -VITA56.7 TP; -WARF-58 PO; +WARF4TAB41 PO
[2019-03-07] MEDS ORDERED: D MANNOSE PO (20:50)
[2019-03-07] MEDS ORDERED: NA P133E RC (20:50)
[2019-03-07] MEDS ORDERED: FURO-145 PO (20:50)
[2019-03-07] MEDS ORDERED: METH1POW39 PO (20:50)
[2019-03-07] MEDS ORDERED: NYST15PO4 TP (20:50)
[2019-03-07] MEDS ORDERED: GUAI5SYR PO (20:50)
[2019-03-07 21:00] LABS: BASOPHILS # (AUTO) 0.4 /CMM (0.0-0.2); EOSINOPHILS % (AUTO) 1.9 % (0.0-6.0); HEMATOCRIT 37 % (33-45); HEMOGLOBIN 11.7 g/dL (11.5-14.8); LYMPHOCYTES # (AUTO) 0.9 /CMM (0.8-4.8); LYMPHOCYTES % (AUTO) 11.5 % (20.0-44.0); MEAN CORPUSCULAR HGB CONC 32 g/dl (31.0-36.0); MEAN CORPUSCULAR VOLUME 75 fL (82-100); MONOCYTES # (AUTO) 0.5 /CMM (0.1-1.30); MONOCYTES % (AUTO) 6.2 % (2.0-12.0); NEUTROPHILS % (AUTO) 75.2 % (43.0-81.0); PLATELET COUNT (AUTO) 213 /CMM (150-450); RED BLOOD CELL COUNT(AUTO) 4.92 MIL/uL (4.0-5.2); WHITE BLOOD COUNT (AUTO) 7.9 K/uL (4.3-11.0)
[2019-03-07] MEDS ORDERED: IV NS 0.9% 1,000 ML IV ONE (21:00)
[2019-03-07] MEDS ORDERED: IV NS 0.9% 500 ML BAG IV ONE (21:00)
[2019-03-07] MEDS ORDERED: GENTAMICIN 80 MG in IV D5W 50 ML IV ONE (21:00)
[2019-03-07 21:03] LABS: BASOPHILS % (AUTO) 5.2 % (0.0-2.0)
[2019-03-07] MEDS ORDERED: GENTAMICIN 80 MG/2 ML VIAL ONE (21:07)
[2019-03-07 21:09] LABS: APPEARANCE,URINE Cloudy (CLEAR); BILIRUBIN,URINE Negative (NEGATIVE); BLOOD, URINE Moderate Ery/uL (NEGATIVE); COLOR,URINE Dark (YELLOW); KETONES,URINE Negative (NEGATIVE); LEUKOCYTE ESTERASE ,URINE Large (NEGATIVE); NITRITE, URINE Positive (NEGATIVE); PROTEIN,URINE 100 mg/dl (NEGATIVE); UGLUCOSE Negative (NEGATIVE); UROBILINOGEN,URINE 0.2 EU/dL (0.2)
[2019-03-07 21:27] LABS: BACTERIA,URINE Many /HPF (None Seen); WBC,URINE 21-50 /HPF (0-3)
[2019-03-07 21:28] LABS: SQUAMOUS EPITHELIAL CELL,UR Few /HPF (None Seen)
[2019-03-07] MEDS ORDERED: IV D5/0.45 NACL 500 ML IV ONE (21:30)
[2019-03-07] MEDS ORDERED: IV D5/0.45 NACL 1,000 ML IV ONE (21:30)
[2019-03-07 21:58] LABS: ALANINE AMINOTRANSFERASE 10 U/L (12-78); ALBUMIN 2.5 g/dL (3.4-5.0); ALKALINE PHOSPHATASE 84 U/L (46-116); ASPARTATE AMINOTRANSFERASE 11 U/L (15-37); BILIRUBIN,DIRECT 0.1 mg/dL (0.0-0.2); BILIRUBIN,TOTAL 0.5 mg/dL (0.2-1.0); CALCIUM, SERUM 9.2 mg/dL (8.5-10.1); CARBON DIOXIDE 30 mmol/L (21-32); CHLORIDE 104 mmol/L (98-107); CREATININE 0.9 mg/dL (0.6-1.3); GLUCOSE 150 mg/dL (74-106); POTASSIUM 4.2 mmol/L (3.5-5.1); SODIUM SERUM 138 mmol/L (136-145); TOTAL PROTEIN, SERUM 6.6 g/dL (6.4-8.2); UREA NITROGEN, BLOOD 28 mg/dL (7-18)
[2019-03-07 22:10] VITALS: BP 118/66
[2019-03-07 22:11] LABS: EOSINOPHILS % (MANUAL) 2 % (0-4); LYMPHOCYTES % (MANUAL) 17 % (16-48); MONOCYTES % (MANUAL) 6 % (0-11.0); NEUTROPHILS % (MANUAL) 75 (42-76)
[2019-03-07 22:20] VITALS: BP 118/66
[2019-03-07] MEDS ORDERED: MAGNESIUM HYDROXIDE 30 ML UDC PO PRN (23:00)
[2019-03-07] MEDS ORDERED: ACETAMINOPHEN 325 MG TABLET PO PRN (23:00)
[2019-03-07] MEDS ORDERED: ALBUTEROL FS 2.5 MG/0.5 ML VIAL.NEB NEB PRN (23:00)
[2019-03-07] MEDS ORDERED: NA PHOS,M-B/NA PHOS,DI-BA 1 EA ENEMA RC PRN (23:00)
[2019-03-07] MEDS ORDERED: IV D5/0.45 NACL 1,000 ML IV PRN (23:19)
[2019-03-07] MEDS ORDERED: ONDANSETRON HCL/PF 4 MG/2 ML VIAL IVP PRN (23:30)
[2019-03-07] MEDS ORDERED: ZOLPIDEM TARTRATE 5 MG TABLET PO PRN (23:30)
[2019-03-07] MEDS ORDERED: Z GUARD REMEDY 2 OZ OINT TP PRN (23:30)
[2019-03-07] MEDS ORDERED: DEXTROSE 50%-WATER 50 ML DISP.SYRIN IV PRN (23:30)
[2019-03-08] MEDS: GUAIFENESIN/D-METHORPHAN HB 5 ML UDC PO SCH ×4 (06:00→17:12)
[2019-03-08] MEDS: BLOOD SUGAR DIAGNOSTIC 1 EACH STRIP IN SCH ×4 (06:21→22:49)
[2019-03-08 06:42] LABS: BASOPHILS % (AUTO) 0.5 % (0.0-2.0); EOSINOPHILS % (AUTO) 3.3 % (0.0-6.0); HEMATOCRIT 33 % (33-45); HEMOGLOBIN 10.5 g/dL (11.5-14.8); LYMPHOCYTES # (AUTO) 0.8 /CMM (0.8-4.8); MEAN CORPUSCULAR HGB CONC 32 g/dl (31.0-36.0); MEAN CORPUSCULAR VOLUME 75 fL (82-100); MONOCYTES # (AUTO) 0.6 /CMM (0.1-1.30); MONOCYTES % (AUTO) 9.4 % (2.0-12.0); NEUTROPHILS # (AUTO) 4.8 /CMM (1.8-8.9); NEUTROPHILS % (AUTO) 73.8 % (43.0-81.0); PLATELET COUNT (AUTO) 187 /CMM (150-450); WHITE BLOOD COUNT (AUTO) 6.5 K/uL (4.3-11.0)
[2019-03-08] MEDS ORDERED: FEE PK DOSING 1 MIN EA MC ONE (06:44)
[2019-03-08 07:03] LABS: CALCIUM, SERUM 8.3 mg/dL (8.5-10.1); CREATININE 0.7 mg/dL (0.6-1.3); MAGNESIUM 1.8 mg/dL (1.8-2.4); PHOSPHORUS 3.4 mg/dL (2.5-4.9)
[2019-03-08 07:22] LABS: THYROID STIMULATING HORMONE 1.349 uIU/mL (0.358-3.74)
[2019-03-08 08:00] VITALS: BP 138/68
[2019-03-08 08:39] LABS: ABG BASE EXCESS 3.4 mmol/L; ABG OXYGEN SATURATION 96.4 % (92.0-98.5); ABG PCO2 40.1 mmHg (35.0-45.0); ABG PH 7.455 (7.350-7.450); ABG PO2 87.4 mmHg (75.0-100.0); AaDO2 14.3 mmHg; COHb 0.8 % (0.5-1.5); MetHb 0.7 % (0.0-1.5); SITE, ABG Right Radial; VENT MODE, BG ROOM AIR 21%
[2019-03-08] MEDS ORDERED: NYSTATIN TOP POWDER 15 GM BOTTLE TP SCH (09:00)
[2019-03-08] MEDS: ASCORBIC ACID 500 MG TABLET PO SCH (09:32)
[2019-03-08] MEDS: ACIDOPHILUS/BULGARICUS 1 EACH TAB.CHEW PO SCH (09:32)
[2019-03-08] MEDS: INSULIN REGULAR, HUMAN 100 UNIT/ML 3 ML VIAL SQ PRN ×3 (12:25→22:51)
[2019-03-08] MEDS: GENTAMICIN 80 MG in IV D5W 50 ML IV SCH (15:52)
[2019-03-08 16:00] VITALS: BP 138/80
[2019-03-08] MEDS ORDERED: WARFARIN SODIUM 2 MG TABLET PO SCH (17:00)
[2019-03-08] MEDS: NYSTATIN TOP POWDER 15 GM BOTTLE TP SCH (17:11)
[2019-03-08 20:00] VITALS: BP 119/77
[2019-03-08] MEDS ORDERED: ALBUTEROL FS 2.5 MG/3 ML VIAL.NEB IH SCH (22:00)
[2019-03-08] MEDS: MIRTAZAPINE 15 MG TABLET PO SCH (22:49)
[2019-03-09 06:40] VITALS: BP 147/73
[2019-03-09] MEDS: INSULIN REGULAR, HUMAN 100 UNIT/ML 3 ML VIAL SQ PRN ×3 (06:54→21:15)
[2019-03-09] MEDS: GUAIFENESIN/D-METHORPHAN HB 5 ML UDC PO SCH ×4 (07:00→17:20)
[2019-03-09 08:00] VITALS: BP 113/66
[2019-03-09 08:46] LABS: BASOPHILS # (AUTO) 0.1 /CMM (0.0-0.2); BASOPHILS % (AUTO) 0.9 % (0.0-2.0); EOSINOPHILS % (AUTO) 3.4 % (0.0-6.0); HEMATOCRIT 34 % (33-45); HEMOGLOBIN 10.6 g/dL (11.5-14.8); LYMPHOCYTES # (AUTO) 1.3 /CMM (0.8-4.8); LYMPHOCYTES % (AUTO) 21.6 % (20.0-44.0); MEAN CORPUSCULAR HGB CONC 31 g/dl (31.0-36.0); MEAN CORPUSCULAR VOLUME 75 fL (82-100); MONOCYTES # (AUTO) 0.6 /CMM (0.1-1.30); MONOCYTES % (AUTO) 9.6 % (2.0-12.0); NEUTROPHILS # (AUTO) 3.9 /CMM (1.8-8.9); NEUTROPHILS % (AUTO) 64.5 % (43.0-81.0); PLATELET COUNT (AUTO) 217 /CMM (150-450); RED BLOOD CELL COUNT(AUTO) 4.49 MIL/uL (4.0-5.2)
[2019-03-09] MEDS: BLOOD SUGAR DIAGNOSTIC 1 EACH STRIP IN SCH ×4 (09:15→21:15)
[2019-03-09] MEDS: NYSTATIN TOP POWDER 15 GM BOTTLE TP SCH ×2 (09:15→17:23)
[2019-03-09] MEDS: ACIDOPHILUS/BULGARICUS 1 EACH TAB.CHEW PO SCH (09:15)
[2019-03-09] MEDS: ASCORBIC ACID 500 MG TABLET PO SCH (09:15)
[2019-03-09 10:15] LABS: CALCIUM, SERUM 8.4 mg/dL (8.5-10.1); CREATININE 0.8 mg/dL (0.6-1.3); MAGNESIUM 1.9 mg/dL (1.8-2.4); PHOSPHORUS 3.2 mg/dL (2.5-4.9); POTASSIUM 4.3 mmol/L (3.5-5.1)
[2019-03-09] MEDS: GENTAMICIN 80 MG in IV D5W 50 ML IV SCH (14:15)
[2019-03-09 16:00] VITALS: BP 125/66
[2019-03-09 20:00] VITALS: BP 116/71
[2019-03-09] MEDS: MUPIROCIN OINT 2% 22 GM TUBE SCH (21:16)
[2019-03-09] MEDS: MIRTAZAPINE 15 MG TABLET PO SCH (22:24)
[2019-03-10] MEDS: GUAIFENESIN/D-METHORPHAN HB 5 ML UDC PO SCH ×3 (05:42→14:06)
[2019-03-10] MEDS: BLOOD SUGAR DIAGNOSTIC 1 EACH STRIP IN SCH ×2 (06:03→14:04)
[2019-03-10] MEDS: INSULIN REGULAR, HUMAN 100 UNIT/ML 3 ML VIAL SQ PRN ×2 (06:04→14:08)
[2019-03-10 06:57] LABS: CALCIUM, SERUM 8.7 mg/dL (8.5-10.1); CREATININE 0.8 mg/dL (0.6-1.3); POTASSIUM 4.3 mmol/L (3.5-5.1)
[2019-03-10 08:00] VITALS: BP 120/71
[2019-03-10] MEDS ORDERED: GENTAMICIN 80 MG in IV D5W 50 ML IV SCH (08:00)
[2019-03-10] MEDS: ASCORBIC ACID 500 MG TABLET PO SCH (09:16)
[2019-03-10] MEDS: ACIDOPHILUS/BULGARICUS 1 EACH TAB.CHEW PO SCH (09:16)
[2019-03-10] MEDS: NYSTATIN TOP POWDER 15 GM BOTTLE TP SCH (09:26)
[2019-03-10] MEDS: MUPIROCIN OINT 2% 22 GM TUBE SCH (09:26)
== END 2019-03-10 16:45 | DRG 640 ==
LOC: ER 19:47 → MED 21:27
PROVIDERS: ADMIT Internal Medicine Nephrology; ATTEND Internal Medicine Nephrology
DX: E86.0 Dehydration (principal); G92 Toxic encephalopathy; N39.0 Urinary tract infection, site not specified; I69.359 Hemiplegia and hemiparesis following cerebral infarction affecting unspecified side; R53.1 Weakness; N93.9 Abnormal uterine and vaginal bleeding, unspecified; T45.515A Adverse effect of anticoagulants, initial encounter; Y92.89 Other specified places as the place of occurrence of the external cause; Z88.2 Allergy status to sulfonamides; Z88.0 Allergy status to penicillin; Z87.440 Personal history of urinary (tract) infections; Z87.891 Personal history of nicotine dependence; I25.10 Atherosclerotic heart disease of native coronary artery without angina pectoris; I48.91 Unspecified atrial fibrillation; I10 Essential (primary) hypertension; K21.9 Gastro-esophageal reflux disease without esophagitis; G89.29 Other chronic pain; M54.5 Low back pain; M81.0 Age-related osteoporosis without current pathological fracture; E11.9 Type 2 diabetes mellitus without complications; D64.9 Anemia, unspecified; F41.9 Anxiety disorder, unspecified; Z79.01 Long term (current) use of anticoagulants; N89.8 Other specified noninflammatory disorders of vagina; Z95.0 Presence of cardiac pacemaker; L30.4 Erythema intertrigo; M24.522 Contracture, left elbow; M24.542 Contracture, left hand
CPT/HCPCS: 36415; 36600; 80048-TC; 80061-TC; 80076-TC; 80170-TC; 81000-TC; 82803-TC; 82962-TC; 83735-TC; 84100-TC; 84443-TC; 85025-TC; 85610-TC; 85730-TC; 87040-TC; 87081-TC; 87086-TC; 87186-TC; 92611-TC; G0378; J1580; J1815; J3490; J7030; J7040; J7060

== ENCOUNTER 2019-03-23 22:35 | Inpatient (IN) | payer MEDICARE, MEDICAID ==
[~2019-03-23] VITALS: Ht 160 cm; Wt 78.5 kg
[~2019-03-23 22:35] MED LIST changes: +D MANNOSE PO; -DICL100G16 TP; +FURO-145 PO; +GUAI5SYR PO; +METH1POW39 PO; +NA P133E RC; +NYST15PO4 TP
--- NOTE | 2019-03-23 23:05 | NUR ---
PT BIB [facility] WITH A C/O COUGH, BLE EDEMA - PITTING +3, NOT EATING. PT IS BEDBOUND AND HAS BILATERAL FOOT DROP AND BUE CONTRACTURES. PT IS AA&O X 1. PT IS ON THE MONITOR AND CONTINUOUS PULSE OX. PT HAS A PACEMAKER ON THE LT UPPER CHEST AND A PORT A CATH ON THE RT UPPER CHEST.
--- NOTE | 2019-03-23 23:58 | NUR ---
DR LYONS IS AT THE BEDSIDE EVALUATING THE PT.
[2019-03-24] MEDS ORDERED: IV NS 0.9% 500 ML BAG IV ONE
--- NOTE | 2019-03-24 00:13 | NUR ---
SMITA MAHONEY AND SEAM STAY STITCHER IS AT THE BEDSIDE FOR BLOOD DRAW. INFLUENZA SWAB DONE AT THE BEDSIDE.
--- NOTE | 2019-03-24 00:14 | NUR ---
ATTEMPT TO COLLECT WITH THE YANKEUR WAS UNSUCCESSFUL. CALLED RT FOR SPUTUM CULTURE COLLECTION.
[2019-03-24 00:21] LABS: BASOPHILS # (AUTO) 0.1 /CMM (0.0-0.2); BASOPHILS % (AUTO) 0.9 % (0.0-2.0); HEMATOCRIT 30 % (33-45); HEMOGLOBIN 9.5 g/dL (11.5-14.8); LYMPHOCYTES # (AUTO) 1.1 /CMM (0.8-4.8); LYMPHOCYTES % (AUTO) 15.3 % (20.0-44.0); MEAN CORPUSCULAR HGB CONC 31 g/dl (31.0-36.0); MEAN CORPUSCULAR VOLUME 74 fL (82-100); MONOCYTES # (AUTO) 0.5 /CMM (0.1-1.30); MONOCYTES % (AUTO) 7.5 % (2.0-12.0); NEUTROPHILS # (AUTO) 5.1 /CMM (1.8-8.9); NEUTROPHILS % (AUTO) 74.3 % (43.0-81.0); PLATELET COUNT (AUTO) 243 /CMM (150-450); RED BLOOD CELL COUNT(AUTO) 4.08 MIL/uL (4.0-5.2); WHITE BLOOD COUNT (AUTO) 6.9 K/uL (4.3-11.0)
[2019-03-24 00:31] LABS: CALCIUM, SERUM 8.5 mg/dL (8.5-10.1); CARBON DIOXIDE 26 mmol/L (21-32); CHLORIDE 113 mmol/L (98-107); GLUCOSE 146 mg/dL (74-106); SODIUM SERUM 145 mmol/L (136-145); UREA NITROGEN, BLOOD 21 mg/dL (7-18)
[2019-03-24 00:47] LABS: ALANINE AMINOTRANSFERASE 6 U/L (12-78); ALKALINE PHOSPHATASE 71 U/L (46-116); ASPARTATE AMINOTRANSFERASE 9 U/L (15-37); B-TYPE NATRIURETIC PEPTIDE 4234 PG/ML (0-125); BILIRUBIN,DIRECT 0.1 mg/dL (0.0-0.2); BILIRUBIN,TOTAL 0.3 mg/dL (0.2-1.0); TOTAL PROTEIN, SERUM 5.9 g/dL (6.4-8.2)
[2019-03-24] MEDS ORDERED: ALBUTEROL FS 2.5 MG/3 ML VIAL.NEB NEB ONE (01:30)
[2019-03-24] MEDS ORDERED: methylPREDNISolone SOD SUCC 125 MG/2ML VIAL IV ONE (01:30)
[2019-03-24] MEDS ORDERED: IPRATROPIUM NEB FS 0.5 MG/2.5 ML AMPUL.NEB NEB ONE (01:30)
--- NOTE | 2019-03-24 01:30 | NUR ---
PT APPEARS TO BE RESTING COMFORTABLY. NO S/S OF PAIN OR DISTRESS.
[2019-03-24] MEDS ORDERED: methylPREDNISolone SOD SUCC 125 MG/2ML VIAL ONE (01:46)
[2019-03-24] MEDS ORDERED: CT SWABBABLE VALVE TRANS SET 1 EA INFUS.SET MC ONE (02:06)
[2019-03-24] MEDS ORDERED: IOHEXOL-350 100 ML VIAL IV ONE (02:06)
[2019-03-24] MEDS ORDERED: IV NS 0.9% 250 ML IV ONE (02:06)
[2019-03-24] MEDS ORDERED: ALBUTEROL FS 2.5 MG/3 ML VIAL.NEB ONE (02:32)
[2019-03-24] MEDS ORDERED: IPRATROPIUM NEB FS 0.5 MG/2.5 ML AMPUL.NEB ONE (02:32)
--- NOTE | 2019-03-24 02:34 | NUR ---
PAGED DR. DIDIER LAGUNA
--- NOTE | 2019-03-24 02:41 | NUR ---
DR. LYONS ON THE PHONE WITH DR. DIDIER LAGUNA
--- NOTE | 2019-03-24 02:56 | NUR ---
BED ASSIGNMENT MS [id number]
--- NOTE | 2019-03-24 02:58 | NUR ---
CALLING REPORT TO MS ORDOÑEZ.
--- NOTE | 2019-03-24 03:05 | NUR ---
REPORT GIVEN TO SMITA LEE
--- NOTE | 2019-03-24 04:01 | NUR ---
PT'S ROOM IS READY AND PT IS BEING TRANSPORTED TO [place] [facility] [facility] [place].
--- NOTE | 2019-03-24 04:11 | NUR ---
M/S MACHINE GRAINER NOTES Patient received from ER via gurney accompanied by ED employee and daughter Sofia. Patient appeared in no apparent distress, no SOB noted, or no complaints of pain. Stable on room air. Patient A/O x1 able to respond to name and touch but not verbally responsive. Daughter was able to provide medical history and any other medical information. Cough was noted, but little to no production of sputum. Patient is bed bound with left sided hemiplegia, paraplegic, and bilateral drop feet, and bilateral upper contractures. No IV access, eb cath on Right upper chest is present. Pacemaker also noted on left side. Bilateral edema +3 noted on both lower extremities. Patient also wearing diaper. All items were accounted for and placed in chart. Will continue to monitor.
[2019-03-24 05:57] VITALS: BP 150/74
--- NOTE | 2019-03-24 06:53 | NUR ---
M/S RN CLOSING NOTES Patient is currently resting in bed with daughter at bedside. A/o x1 not verbally responsive, patient is complete bed rest with diaper. No signs of distress or SOB. Stable on room air. Umair cath is located on right upper chest. Patient kept clean and dry all needs attended to. Safety precautions are in place with bed in lowest position, call light within reach, breaks on. Will endorse to oncoming shift about ABENA.
[2019-03-24 07:52] LABS: BASOPHILS % (AUTO) 0.4 % (0.0-2.0); EOSINOPHILS % (AUTO) 0.2 % (0.0-6.0); HEMATOCRIT 32 % (33-45); LYMPHOCYTES # (AUTO) 0.3 /CMM (0.8-4.8); LYMPHOCYTES % (AUTO) 5.9 % (20.0-44.0); MEAN CORPUSCULAR HGB CONC 31 g/dl (31.0-36.0); MEAN CORPUSCULAR VOLUME 73 fL (82-100); MONOCYTES # (AUTO) 0.1 /CMM (0.1-1.30); MONOCYTES % (AUTO) 2.3 % (2.0-12.0); NEUTROPHILS # (AUTO) 4.8 /CMM (1.8-8.9); NEUTROPHILS % (AUTO) 91.2 % (43.0-81.0); PLATELET COUNT (AUTO) 244 /CMM (150-450); RED BLOOD CELL COUNT(AUTO) 4.35 MIL/uL (4.0-5.2); WHITE BLOOD COUNT (AUTO) 5.2 K/uL (4.3-11.0)
[2019-03-24 08:00] VITALS: BP 148/78
[2019-03-24 08:11] LABS: CALCIUM, SERUM 8.5 mg/dL (8.5-10.1); CREATININE 0.9 mg/dL (0.6-1.3); MAGNESIUM 2.1 mg/dL (1.8-2.4); POTASSIUM 4.5 mmol/L (3.5-5.1)
[2019-03-24] MEDS ORDERED: NA PHOS,M-B/NA PHOS,DI-BA 1 EA ENEMA RC PRN (08:30)
[2019-03-24] MEDS ORDERED: GUAIFENESIN/D-METHORPHAN HB 5 ML UDC PO PRN (08:30)
[2019-03-24] MEDS ORDERED: ALBUTEROL FS 2.5 MG/0.5 ML VIAL.NEB NEB PRN (08:30)
[2019-03-24] MEDS ORDERED: MAGNESIUM HYDROXIDE 30 ML UDC PO PRN (08:30)
[2019-03-24] MEDS ORDERED: ACETAMINOPHEN 325 MG TABLET PO PRN (08:30)
[2019-03-24] MEDS ORDERED: METHENAMINE MANDELATE 1 GM TABLET PO SCH ×2 (09:00→17:00)
[2019-03-24] MEDS: MULTIVIT W/MINERALS 1 TAB TABLET PO SCH (09:27)
[2019-03-24] MEDS: PROSOURCE / PROSTAT (PYXIS) 30 ML UDC PO SCH ×3 (09:27→17:36)
[2019-03-24] MEDS: FUROSEMIDE 20 MG TABLET PO SCH ×2 (09:27→17:34)
[2019-03-24] MEDS: LACTOBACILLUS RHAMNOSUS GG 1 EACH CAP.SPRINK PO SCH (09:27)
[2019-03-24] MEDS: ASCORBIC ACID 500 MG TABLET PO SCH (09:27)
[2019-03-24] MEDS ORDERED: DEXTROSE 50%-WATER 50 ML DISP.SYRIN IV PRN (09:30)
[2019-03-24] MEDS: NYSTATIN TOP POWDER 15 GM BOTTLE TP SCH ×2 (09:56→17:36)
--- NOTE | 2019-03-24 10:30 | NUR ---
MS/RN VQ scan patient taken down to VQ scan
[2019-03-24] MEDS ORDERED: FEE PK DOSING 1 MIN EA MC ONE (10:44)
--- NOTE | 2019-03-24 13:37 | NUR ---
MS/RN note Patient is back from VQ scan Addendum: 03/24/19 at 1338 by BHAKTI SALEEM RN Patient is stable, will continue to monitor
--- NOTE | 2019-03-24 14:11 | NUR ---
MS/RN note Per richar Villarreal to give Gentamicin through right upper chest eb cath.
[2019-03-24] MEDS: INSULIN REGULAR, HUMAN 100 UNIT/ML 3 ML VIAL SQ PRN ×2 (14:20→17:58)
[2019-03-24] MEDS: GENTAMICIN 80 MG in IV D5W 50 ML IV SCH (14:20)
[2019-03-24] MEDS: BLOOD SUGAR DIAGNOSTIC 1 EACH STRIP VI SCH ×3 (14:20→22:45)
[2019-03-24 16:00] VITALS: BP_SYST 148; BP_SYST 162; BP_DIAS 84; BP_DIAS 94
[2019-03-24] MEDS: WARFARIN SODIUM 1 MG TABLET PO SCH (17:35)
--- NOTE | 2019-03-24 19:24 | NUR ---
MS/RN Closing note Patient is resting in bed, A/O x1, open eyes, smiles, family at the bedside. Showing no signs of acute distress or SOB, saturating >95% on RA. Umair cath noted on the right upper chest, flushing well, clean and patent. Patient is bedbound, kept clean and dry throughout shift, linens changed. All patient needs met, all due meds given. Bed is in lowest position, side rails x3 in upright position. Safety and aspiration precautions enforced. Will endorse to shift leader.
--- NOTE | 2019-03-24 19:25 | NUR ---
MS RN OPENING NOTES Received patient A/O x1, asleep, easily awaken on bed. On RA, no SOB/respiratory distress noted. No s/sx of distress/discomfort noted at this time. Kept on bed clean, dry and comfortable. On fall and aspiration precautions. Call light within easy reach. Will continue to monitor accordingly.
[2019-03-24 20:00] VITALS: BP_SYST 148; BP_SYST 157; BP_DIAS 75; BP_DIAS 79
--- NOTE | 2019-03-24 22:15 | NUR ---
MS RN NOTES BS - CHECKED: 198MG/DL. PER , PT DOES NOT EAT MUCH, WOULD LIKE TO HOLD THE INSULIN AT THIS TIME. PATIENT NOTED ASLEEP, EASILY AWAKEN TO TOUCH/PAIN STIMULI. WILL CONTINUE TO MONITOR ACCORDINGLY.
[2019-03-24] MEDS: MIRTAZAPINE 15 MG TABLET PO SCH (22:46)
[2019-03-24] MEDS: ALBUTEROL FS 2.5 MG/3 ML VIAL.NEB IH SCH (23:18)
[2019-03-25] MEDS: GENTAMICIN 80 MG in IV D5W 50 ML IV SCH (04:27)
--- NOTE | 2019-03-25 06:47 | NUR ---
MS RN CLOSING NOTES Patient asleep, easily awaken. On RA, no SOB/respiratory distress noted. No s/sx of discomfort noted at this time. All nursing needs attended, due meds given as ordered. Kept on bed clean, dry and comfortable. Call light within easy reach. On fall and aspiration precautions. For KCI bed placement. Endorsed to the next shift.
--- NOTE | 2019-03-25 07:20 | NUR ---
RN OPENING NOTES RECEIVED PATIENT IN BED RESTING. AT BEDSIDE. NOT IN ANY FORM OF DISTRESS. NO SOB, ON ROOM AIR SATTING 99%. NO S/S OF PAIN OR DISCOMFORT AT THIS TIME. KEPT PATIENT SAFE AND COMFORTABLE. BED IN LOW/LOCKED POSITION, SIDERAILS UPX2, CALL LIGHT IN REACH. BED ALARM ON. WILL CONTINUE TO MONITOR ACCORDINGLY
[2019-03-25] MEDS: BLOOD SUGAR DIAGNOSTIC 1 EACH STRIP VI SCH ×4 (07:30→21:27)
[2019-03-25 07:46] LABS: CALCIUM, SERUM 8.5 mg/dL (8.5-10.1); CREATININE 0.9 mg/dL (0.6-1.3); POTASSIUM 4.6 mmol/L (3.5-5.1)
[2019-03-25 08:00] VITALS: BP 153/90
[2019-03-25] MEDS: MULTIVIT W/MINERALS 1 TAB TABLET PO SCH (09:10)
[2019-03-25] MEDS: FUROSEMIDE 20 MG TABLET PO SCH ×2 (09:11→17:48)
[2019-03-25] MEDS: ASCORBIC ACID 500 MG TABLET PO SCH (09:11)
[2019-03-25] MEDS: LACTOBACILLUS RHAMNOSUS GG 1 EACH CAP.SPRINK PO SCH (09:11)
[2019-03-25] MEDS: PROSOURCE / PROSTAT (PYXIS) 30 ML UDC PO SCH ×3 (09:12→17:48)
[2019-03-25] MEDS: NYSTATIN TOP POWDER 15 GM BOTTLE TP SCH ×2 (09:13→17:47)
[2019-03-25] MEDS: INSULIN REGULAR, HUMAN 100 UNIT/ML 3 ML VIAL SQ PRN (12:42)
[2019-03-25 16:00] VITALS: BP 148/72
[2019-03-25] MEDS: WARFARIN SODIUM 1 MG TABLET PO SCH (17:55)
--- NOTE | 2019-03-25 19:26 | NUR ---
RN CLOSING NOTES PATIENT IN STABLE CONDITION. ALL NEEDS ATTENDED AND PROVIDED. ALL DUE MEDS GIVEN ORDERED. KEPT PATIENT SAFE AND COMFORTABLE. TURNED AND REPOSITION EVERY 2HRS NEEDED. BED IN LOW/LOCKED POSITION, SIDERAILS UPX2, CALL LIGHT IN REACH. ENDORSED TO NIGHT RN FOR ABENA
--- NOTE | 2019-03-25 19:30 | NUR ---
CHANGE OF SHIFT REPORT Patient in bed, awake, A/O to self only. Tolerating RA, breathing even non labored. BLE edema with pillows under both legs, offload heels at all times. Fall, skin precaution. Daughter at bedside, supportive of care.
[2019-03-25 20:00] VITALS: BP 133/74
[2019-03-25 20:13] VITALS: BP 133/74
[2019-03-25] MEDS: ALBUTEROL FS 2.5 MG/3 ML VIAL.NEB IH SCH (21:04)
[2019-03-25] MEDS: MIRTAZAPINE 15 MG TABLET PO SCH (21:27)
[2019-03-25] MEDS: *INSULIN REGULAR(HUMULIN R)HUM 100 UNIT/ML VIAL SQ PRN (21:30)
--- NOTE | 2019-03-26 06:31 | NUR ---
END OF SHIFT REPORT Patient in bed, A/O x1. Tolerating RA, no acute events overnight. BLE edema, elevated on pillows, denies pain. On Coumadin with no s/s of bleeding. OFF antibiotic, plan xray chest today. Fall, aspiration, skin precaution maintained.
--- NOTE | 2019-03-26 07:15 | NUR ---
RN OPENING NOTES RECEIVED PATIENT IN BED RESTING. DAUGHTER AT BEDSIDE. NOT IN ANY FORM OF DISTRESS. NO SOB, ON ROOM AIR SATTING 99%. NO S/S OF PAIN OR DISCOMFORT AT THIS TIME. KEPT PATIENT SAFE AND COMFORTABLE. BED IN LOW/LOCKED POSITION, SIDERAILS UP, ON KCI MATTRESS, CALL LIGHT IN REACH. BED ALARM ON. WILL CONTINUE TO MONITOR ACCORDINGLY
[2019-03-26 07:32] LABS: CALCIUM, SERUM 8.7 mg/dL (8.5-10.1); CREATININE 0.9 mg/dL (0.6-1.3); POTASSIUM 4.3 mmol/L (3.5-5.1)
[2019-03-26 08:00] VITALS: BP 131/88
[2019-03-26] MEDS: BLOOD SUGAR DIAGNOSTIC 1 EACH STRIP VI SCH ×4 (08:30→21:39)
[2019-03-26] MEDS: ASCORBIC ACID 500 MG TABLET PO SCH (09:00)
[2019-03-26] MEDS: FUROSEMIDE 20 MG TABLET PO SCH ×2 (09:01→17:45)
[2019-03-26] MEDS: LACTOBACILLUS RHAMNOSUS GG 1 EACH CAP.SPRINK PO SCH (09:01)
[2019-03-26] MEDS: MULTIVIT W/MINERALS 1 TAB TABLET PO SCH (09:01)
[2019-03-26] MEDS: INSULIN REGULAR, HUMAN 100 UNIT/ML 3 ML VIAL SQ PRN ×3 (09:17→17:47)
[2019-03-26] MEDS: PROSOURCE / PROSTAT (PYXIS) 30 ML UDC PO SCH ×3 (09:19→17:46)
[2019-03-26] MEDS: NYSTATIN TOP POWDER 15 GM BOTTLE TP SCH ×2 (09:19→17:52)
[2019-03-26 16:15] VITALS: BP 154/72
[2019-03-26] MEDS: WARFARIN SODIUM 1 MG TABLET PO SCH (17:44)
--- NOTE | 2019-03-26 18:59 | NUR ---
RN CLOSING NOTES PATIENT IN STABLE CONDITION. ALL NEEDS ATTENDED AND PROVIDED. ALL DUE MEDS GIVEN ORDERED. KEPT PATIENT SAFE AND COMFORTABLE. TURNED AND REPOSITION EVERY 2HRS NEEDED. BED IN LOW/LOCKED POSITION, SIDERAILS UPX2, CALL LIGHT IN REACH. WILL ENDORSED TO NIGHT RN FOR ABENA
--- NOTE | 2019-03-26 19:50 | NUR ---
RN OPENING NOTES RECEIVED REPORT FROM DAYSHIFT SMITA ALCALA. FOUND Pt AWAKE, RESTING IN BED. FAMILY AT BEDSIDE. Pt IS A/OX1, ALERT TO SELF ONLY. NO S/S OF ACUTE DISTRESS OR SOB NOTED. RCW GABY. DC PLANNING FOR TOMORROW IN THE AM. FAMILY IS AWARE. DAUGHTER WILL BE STAYING OVER FOR THE NIGHT. SAFETY MEASURES IN PLACE. BED LOW, LOCKED, HOB ELEVATED, SIDE RAILS UP. WILL CONTINUE TO MONITOR Pt's CONDITION AND SAFETY THROUGHOUT THE NIGHT.
[2019-03-26 20:20] VITALS: BP 137/77
[2019-03-26] MEDS: MIRTAZAPINE 15 MG TABLET PO SCH (21:37)
[2019-03-26] MEDS: *INSULIN REGULAR(HUMULIN R)HUM 100 UNIT/ML VIAL SQ PRN (21:56)
--- NOTE | 2019-03-26 22:35 | NUR ---
RN NOTES HS BG 162. ADMINISTERED 3UN OF INSULIN PER SLIDING SCALE VIA RT DELTOID. SNACKS PROVIDED AT BEDSIDE.
[2019-03-26] MEDS: ALBUTEROL FS 2.5 MG/3 ML VIAL.NEB IH SCH (22:43)
--- NOTE | 2019-03-27 06:35 | NUR ---
RN NOTES AC ACCUCHECK BG 136. ADMINISTERED 2UN OF INSULIN PER SLIDING SCALE VIA LT DELTOID.
[2019-03-27] MEDS: BLOOD SUGAR DIAGNOSTIC 1 EACH STRIP VI SCH ×2 (06:40→12:27)
[2019-03-27] MEDS: INSULIN REGULAR, HUMAN 100 UNIT/ML 3 ML VIAL SQ PRN (06:40)
--- NOTE | 2019-03-27 07:02 | NUR ---
RN CLOSING NOTES NO SIGNIFICANT CHANGES IN Pt's CONDITION. ALL NEEDS MET AND ATTENDED TO. SAFETY MEASURES IN PLACE. Pt RESTING IN BED WITH EQUAL CHEST RISE AND FALL. DAUGHTER AT BEDSIDE. NO S/S OF ACUTE DISTRESS OR SOB NOTED DURING THE NIGHT. WILL ENDORSE TO DAYSHIFT RN FOR Pt's ABENA.
--- NOTE | 2019-03-27 07:30 | NUR ---
MS RN OPENING NOTES RECEIVED PT IN BED, ASLEEP, EASILY AROUSED. A/O X1. PT TOLERATING RA, WITH NO ACUTE RESPIRATORY DISTRESS NOTED. PT DENIES ANY PAIN OR DISCOMFORT AT THIS TIME. DAUGHTER AT BEDSIDE AND CONCERNED ABOUT TALKING TO NEURO PSYCH SALES SPECIALIST REGARDING NM LUNG SCAN THAT WAS DONE 03/24/19, NODES ON THE LUNGS AND PT'S STATUS. PT HAS RCW PORT-A-CATH, FLUSHED WITH NS, INTACT AND OPERATIONAL.PT KEPT COMFORTABLE. HOB ELEVATED. CALL LIGHT KEPT WITHIN REACH. PT'S BED IN LOWEST, LOCKED POSITION WITH SR X3. WILL CONTINUE TO PLAN OF CARE.
[2019-03-27 07:45] LABS: CALCIUM, SERUM 8.6 mg/dL (8.5-10.1); CREATININE 0.9 mg/dL (0.6-1.3); POTASSIUM 4.6 mmol/L (3.5-5.1)
[2019-03-27 08:00] VITALS: BP 137/71
[2019-03-27] MEDS: ASCORBIC ACID 500 MG TABLET PO SCH (09:23)
[2019-03-27] MEDS: LACTOBACILLUS RHAMNOSUS GG 1 EACH CAP.SPRINK PO SCH (09:23)
[2019-03-27] MEDS: MULTIVIT W/MINERALS 1 TAB TABLET PO SCH (09:23)
[2019-03-27] MEDS: FUROSEMIDE 20 MG TABLET PO SCH (09:23)
[2019-03-27] MEDS: PROSOURCE / PROSTAT (PYXIS) 30 ML UDC PO SCH ×2 (09:24→13:11)
[2019-03-27] MEDS: NYSTATIN TOP POWDER 15 GM BOTTLE TP SCH (09:34)
[2019-03-27] MEDS: *INSULIN REGULAR(HUMULIN R)HUM 100 UNIT/ML VIAL SQ PRN (12:29)
--- NOTE | 2019-03-27 15:40 | NUR ---
MS SOFTBALL UMPIRE NOTES PT IN BED, AWAKE, A/O X1, TO BE DISCHARGE TO [facility]. REPORT GIVEN TO ОЛЬГА/SMITA CUTTER HELPER. PT TOLERATING RA, WITH NO ACUTE RESPIRATORY DISTRESS NOTED. PT DENIES ANY PAIN OR DISCOMFORT AT THIS TIME. DAUGHTER AT BEDSIDE AWARE OF THE SITUATION. PT UNABLE TO SIGN DISCHARGE PAPERS. DAUGHTER REVIEWED AND SIGNED DISCHARGE PAPERS AND INVENTORY LIST. ALL BELONGINGS WITH THE DAUGHTER. PT HAS RCW PORT-A-CATH, FLUSHED WITH NS, INTACT AND OPERATIONAL. SITE WAS NOT REMOVED, PER DAUGHTER THAT'S THEIR ACCESS AT THE FACILITY. PT REFUSED FOR PICTURES TO BE TAKEN, DAUGHTER AT BEDSIDE AWARE, MADE AWARE OF PROTOCOL WELL. ALL NEEDS AND CARE ATTENDED. PT TRANSPORTED VIA AMBULANCE, PT IN A GURNEY WITH 2 SENIOR SALES OPERATIONS MANAGER ASSIST. PT AND DAUGHTER LEFT THE UNIT AT 1535. MD/SHERLEY AND REGINA/LEROY AWARE OF DISCHARGE.
== END 2019-03-27 15:30 | DRG 202 ==
LOC: ER 22:37 → MED 03-24 02:57
PROVIDERS: ADMIT Internal Medicine Nephrology; ATTEND Internal Medicine Nephrology
DX: J20.9 Acute bronchitis, unspecified (principal); G92 Toxic encephalopathy; I69.359 Hemiplegia and hemiparesis following cerebral infarction affecting unspecified side; I10 Essential (primary) hypertension; I48.91 Unspecified atrial fibrillation; E11.9 Type 2 diabetes mellitus without complications; D63.8 Anemia in other chronic diseases classified elsewhere; Z86.718 Personal history of other venous thrombosis and embolism; Z79.01 Long term (current) use of anticoagulants; Z95.0 Presence of cardiac pacemaker; F32.9 Major depressive disorder, single episode, unspecified; Z88.0 Allergy status to penicillin; Z88.2 Allergy status to sulfonamides; I25.10 Atherosclerotic heart disease of native coronary artery without angina pectoris; K21.9 Gastro-esophageal reflux disease without esophagitis; G89.29 Other chronic pain; M54.5 Low back pain; M81.0 Age-related osteoporosis without current pathological fracture; Z87.891 Personal history of nicotine dependence; R53.1 Weakness
CPT/HCPCS: 36415; 70220-TC; 71045-TC; 78582; 80048-TC; 80076-TC; 82962-TC; 83605-TC; 83735-TC; 83880; 84100-TC; 84484-TC; 85025-TC; 85378-TC; 85610-TC; 87040-TC; 87070-TC; 87081-TC; 92611-TC; 93970-TC; 97112-TC; 97530-TC; A9540; A9567; G0378; J1580; J1815; J2930; J7040; J7050; J7060; Q9967

== ENCOUNTER 2019-03-27 19:50 | Inpatient (IN) | payer MEDICARE, MEDICAID ==
[~2019-03-27] VITALS: Ht 160 cm; Wt 73.9 kg
[~2019-03-27 19:50] MED LIST changes: -MAG-55 PO
[2019-03-27] MEDS ORDERED: IV D5/0.45 NACL 500 ML IV ONE (22:00)
[2019-03-27 22:24] LABS: BASOPHILS # (AUTO) 0.1 /CMM (0.0-0.2); BASOPHILS % (AUTO) 0.7 % (0.0-2.0); EOSINOPHILS % (AUTO) 1.9 % (0.0-6.0); HEMATOCRIT 37 % (33-45); HEMOGLOBIN 11.5 g/dL (11.5-14.8); LYMPHOCYTES # (AUTO) 1.5 /CMM (0.8-4.8); LYMPHOCYTES % (AUTO) 17.5 % (20.0-44.0); MEAN CORPUSCULAR HGB CONC 31 g/dl (31.0-36.0); MEAN CORPUSCULAR VOLUME 73 fL (82-100); MONOCYTES # (AUTO) 0.5 /CMM (0.1-1.30); MONOCYTES % (AUTO) 5.8 % (2.0-12.0); NEUTROPHILS # (AUTO) 6.3 /CMM (1.8-8.9); NEUTROPHILS % (AUTO) 74.1 % (43.0-81.0); PLATELET COUNT (AUTO) 286 /CMM (150-450); RED BLOOD CELL COUNT(AUTO) 5.08 MIL/uL (4.0-5.2); WHITE BLOOD COUNT (AUTO) 8.6 K/uL (4.3-11.0)
[2019-03-27] MEDS ORDERED: ONDANSETRON HCL/PF 4 MG/2 ML VIAL IVP PRN (22:30)
[2019-03-27] MEDS ORDERED: Z GUARD REMEDY 2 OZ OINT TP PRN (22:30)
[2019-03-27] MEDS ORDERED: MAGNESIUM HYDROXIDE 30 ML UDC PO PRN ×2 (22:30→23:00)
[2019-03-27] MEDS ORDERED: ACETAMINOPHEN 325 MG TABLET PO PRN ×2 (22:30→23:00)
[2019-03-27] MEDS ORDERED: MAG HYDROX/AL HYDROX/SIMETH 30 ML UDC PO PRN (22:30)
[2019-03-27 22:33] LABS: CALCIUM, SERUM 8.5 mg/dL (8.5-10.1); CARBON DIOXIDE 31 mmol/L (21-32); CHLORIDE 104 mmol/L (98-107); CREATININE 0.9 mg/dL (0.6-1.3); GLUCOSE 181 mg/dL (74-106); POTASSIUM 4.5 mmol/L (3.5-5.1); SODIUM SERUM 141 mmol/L (136-145); UREA NITROGEN, BLOOD 35 mg/dL (7-18)
[2019-03-27] MEDS ORDERED: ALBUTEROL FS 2.5 MG/0.5 ML VIAL.NEB NEB PRN (23:00)
[2019-03-27] MEDS ORDERED: INSULIN REGULAR, HUMAN 100 UNIT/ML 3 ML VIAL SQ PRN (23:00)
[2019-03-27] MEDS ORDERED: IV NS 0.9% 1,000 ML IV PRN (23:30)
[2019-03-27 23:45] VITALS: BP 164/84
[2019-03-28] MEDS ORDERED: GUAIFENESIN/D-METHORPHAN HB 5 ML UDC PO PRN
[2019-03-28] MEDS ORDERED: DEXTROSE 50%-WATER 50 ML DISP.SYRIN IV PRN (00:30)
[2019-03-28] MEDS ORDERED: ACETAMINOPHEN 650 MG/SUPP.RECT RC PRN (02:00)
[2019-03-28] MEDS: BLOOD SUGAR DIAGNOSTIC 1 EACH STRIP IN SCH ×4 (06:38→22:09)
[2019-03-28] MEDS ORDERED: PANTOPRAZOLE 40 MG TABLET.DR PO SCH (07:30)
[2019-03-28 08:00] VITALS: BP 150/87
[2019-03-28] MEDS: PROSOURCE / PROSTAT (PYXIS) 30 ML UDC PO SCH ×3 (09:00→16:18)
[2019-03-28] MEDS: LACTOBACILLUS RHAMNOSUS GG 1 EACH CAP.SPRINK PO SCH (09:00)
[2019-03-28] MEDS ORDERED: METHENAMINE 1 GM PO SCH (09:00)
[2019-03-28] MEDS: FUROSEMIDE 20 MG TABLET PO SCH ×2 (09:00→16:18)
[2019-03-28] MEDS ORDERED: IV D5/ 0.9% NACL 1,000 ML IV PRN (09:00)
[2019-03-28] MEDS ORDERED: D MANNOSE 500 MG PO SCH (09:00)
[2019-03-28] MEDS: MULTIVIT W/MINERALS 1 TAB TABLET PO SCH (09:00)
[2019-03-28] MEDS: ASCORBIC ACID 500 MG TABLET PO SCH (09:00)
[2019-03-28 09:40] LABS: BASOPHILS % (AUTO) 0.4 % (0.0-2.0); EOSINOPHILS % (AUTO) 2.3 % (0.0-6.0); HEMATOCRIT 39 % (33-45); LYMPHOCYTES # (AUTO) 1.4 /CMM (0.8-4.8); LYMPHOCYTES % (AUTO) 21.7 % (20.0-44.0); MEAN CORPUSCULAR HGB CONC 31 g/dl (31.0-36.0); MEAN CORPUSCULAR VOLUME 74 fL (82-100); MONOCYTES # (AUTO) 0.4 /CMM (0.1-1.30); MONOCYTES % (AUTO) 5.6 % (2.0-12.0); NEUTROPHILS # (AUTO) 4.5 /CMM (1.8-8.9); PLATELET COUNT (AUTO) 209 /CMM (150-450); RED BLOOD CELL COUNT(AUTO) 5.26 MIL/uL (4.0-5.2); WHITE BLOOD COUNT (AUTO) 6.4 K/uL (4.3-11.0)
[2019-03-28 10:02] LABS: CALCIUM, SERUM 8.8 mg/dL (8.5-10.1); CREATININE 0.8 mg/dL (0.6-1.3); MAGNESIUM 1.9 mg/dL (1.8-2.4); PHOSPHORUS 2.7 mg/dL (2.5-4.9); POTASSIUM 4.3 mmol/L (3.5-5.1)
[2019-03-28 10:17] LABS: THYROID STIMULATING HORMONE 2.98 uIU/mL (0.358-3.74)
[2019-03-28 12:00] LABS: EOSINOPHILS % (MANUAL) 2 % (0-4); LYMPHOCYTES % (MANUAL) 20 % (16-48); MONOCYTES % (MANUAL) 3 % (0-11.0); NEUTROPHILS % (MANUAL) 75 (42-76)
[2019-03-28] MEDS: INSULIN REGULAR, HUMAN 100 UNIT/ML 3 ML VIAL SQ PRN ×2 (13:34→22:22)
[2019-03-28] MEDS: NYSTATIN TOP POWDER 15 GM BOTTLE TP SCH ×2 (14:33→16:56)
[2019-03-28 16:00] VITALS: BP 172/99
[2019-03-28] MEDS: WARFARIN SODIUM 1 MG TABLET PO SCH (16:18)
[2019-03-28 20:00] VITALS: BP 134/72
[2019-03-28 21:04] VITALS: BP 134/72
[2019-03-28] MEDS: MIRTAZAPINE 15 MG TABLET PO SCH (22:09)
[2019-03-29] MEDS ORDERED: IV NS 0.9% 1,000 ML BAG IV PRN (02:30)
[2019-03-29] MEDS ORDERED: IV NS 0.9% 1,000 ML IV PRN (03:30)
[2019-03-29] MEDS: BLOOD SUGAR DIAGNOSTIC 1 EACH STRIP IN SCH ×4 (06:32→22:02)
[2019-03-29 06:46] LABS: BASOPHILS % (AUTO) 0.3 % (0.0-2.0); HEMATOCRIT 36 % (33-45); HEMOGLOBIN 11.3 g/dL (11.5-14.8); LYMPHOCYTES # (AUTO) 1.8 /CMM (0.8-4.8); LYMPHOCYTES % (AUTO) 26.9 % (20.0-44.0); MEAN CORPUSCULAR HGB CONC 31 g/dl (31.0-36.0); MEAN CORPUSCULAR VOLUME 73 fL (82-100); MONOCYTES # (AUTO) 0.4 /CMM (0.1-1.30); NEUTROPHILS # (AUTO) 4.3 /CMM (1.8-8.9); NEUTROPHILS % (AUTO) 63.8 % (43.0-81.0); PLATELET COUNT (AUTO) 237 /CMM (150-450); RED BLOOD CELL COUNT(AUTO) 4.98 MIL/uL (4.0-5.2); WHITE BLOOD COUNT (AUTO) 6.8 K/uL (4.3-11.0)
[2019-03-29 07:09] LABS: CALCIUM, SERUM 8.5 mg/dL (8.5-10.1); CREATININE 0.7 mg/dL (0.6-1.3); MAGNESIUM 1.9 mg/dL (1.8-2.4); PHOSPHORUS 3.2 mg/dL (2.5-4.9); POTASSIUM 4.5 mmol/L (3.5-5.1)
[2019-03-29 08:00] VITALS: BP 146/85
[2019-03-29] MEDS: PROSOURCE / PROSTAT (PYXIS) 30 ML UDC PO SCH ×3 (08:27→18:07)
[2019-03-29] MEDS: FUROSEMIDE 20 MG TABLET PO SCH ×2 (08:27→18:06)
[2019-03-29] MEDS: LACTOBACILLUS RHAMNOSUS GG 1 EACH CAP.SPRINK PO SCH (08:27)
[2019-03-29] MEDS: ASCORBIC ACID 500 MG TABLET PO SCH (08:28)
[2019-03-29] MEDS: MULTIVIT W/MINERALS 1 TAB TABLET PO SCH (08:28)
[2019-03-29] MEDS: [UNRECOGNIZED DRUG - OTHER] TP SCH ×2 (08:28→21:00)
[2019-03-29] MEDS: NYSTATIN TOP POWDER 15 GM BOTTLE TP SCH ×2 (10:12→18:09)
[2019-03-29] MEDS: ENOXAPARIN SODIUM 80 MG/0.8 ML DISP.SYRIN SQ SCH ×2 (12:45→22:04)
[2019-03-29] MEDS: INSULIN REGULAR, HUMAN 100 UNIT/ML 3 ML VIAL SQ PRN ×2 (12:47→22:22)
[2019-03-29 16:00] VITALS: BP 108/64
[2019-03-29] MEDS: WARFARIN SODIUM 1 MG TABLET PO SCH (18:09)
[2019-03-29 20:00] VITALS: BP_SYST 122; BP_SYST 134; BP_DIAS 53; BP_DIAS 72
[2019-03-29] MEDS: MIRTAZAPINE 15 MG TABLET PO SCH (22:02)
== END 2019-03-29 22:40 | DRG 158 ==
LOC: ER 19:52 → MEDSG2 22:48
PROVIDERS: ADMIT Registered Nurse; ATTEND Internal Medicine
PROC: 0RSCXZZ Reposition Right Temporomandibular Joint, External Approach (ICD-10-PCS; principal; 2019-03-28)
PROC: 0RSDXZZ Reposition Left Temporomandibular Joint, External Approach (ICD-10-PCS; 2019-03-28)
DX: S03.03XA Dislocation of jaw, bilateral, initial encounter (principal); I69.354 Hemiplegia and hemiparesis following cerebral infarction affecting left non-dominant side; I82.503 Chronic embolism and thrombosis of unspecified deep veins of lower extremity, bilateral; M81.0 Age-related osteoporosis without current pathological fracture; I10 Essential (primary) hypertension; I25.10 Atherosclerotic heart disease of native coronary artery without angina pectoris; D63.8 Anemia in other chronic diseases classified elsewhere; Z79.01 Long term (current) use of anticoagulants; E11.9 Type 2 diabetes mellitus without complications; Z87.891 Personal history of nicotine dependence; Z87.01 Personal history of pneumonia (recurrent); Z95.828 Presence of other vascular implants and grafts; Z88.0 Allergy status to penicillin; Z88.2 Allergy status to sulfonamides; M62.50 Muscle wasting and atrophy, not elsewhere classified, unspecified site; Z79.4 Long term (current) use of insulin; I48.91 Unspecified atrial fibrillation; J32.0 Chronic maxillary sinusitis; Z95.0 Presence of cardiac pacemaker
CPT/HCPCS: 36415; 70486-TC; 71045-TC; 80048-TC; 80061-TC; 82962-TC; 83735-TC; 84100-TC; 84443-TC; 85025-TC; 85610-TC; 85730-TC; 87081-TC; 93307-TC; G0378; J1650; J1815; J3490; J7030; J7042

== ENCOUNTER 2019-05-19 00:09 | Inpatient (IN) | payer MEDICARE, MEDICAID ==
[~2019-05-19] VITALS: Ht 160 cm; Wt 79.4 kg
--- NOTE | 2019-05-19 00:25 | NUR ---
PT BIB PA WITH A C/O BLE EDEMA. PT HAS A PORT ON THE RUC. PT IS NON AMBULATORY AND
[2019-05-19 00:46] LABS: BASOPHILS # (AUTO) 0.1 /CMM (0.0-0.2); BASOPHILS % (AUTO) 1.4 % (0.0-2.0); EOSINOPHILS % (AUTO) 4.9 % (0.0-6.0); HEMATOCRIT 26 % (33-45); HEMOGLOBIN 8.1 g/dL (11.5-14.8); LYMPHOCYTES # (AUTO) 1.7 /CMM (0.8-4.8); LYMPHOCYTES % (AUTO) 25.6 % (20.0-44.0); MEAN CORPUSCULAR HGB CONC 32 g/dl (31.0-36.0); MEAN CORPUSCULAR VOLUME 77 fL (82-100); MONOCYTES # (AUTO) 0.5 /CMM (0.1-1.30); MONOCYTES % (AUTO) 8.2 % (2.0-12.0); NEUTROPHILS # (AUTO) 3.9 /CMM (1.8-8.9); NEUTROPHILS % (AUTO) 59.9 % (43.0-81.0); PLATELET COUNT (AUTO) 191 /CMM (150-450); RED BLOOD CELL COUNT(AUTO) 3.36 MIL/uL (4.0-5.2); WHITE BLOOD COUNT (AUTO) 6.5 K/uL (4.3-11.0)
--- NOTE | 2019-05-19 01:00 | NUR ---
US TECH IS AT THE BEDSIDE.
[2019-05-19 01:06] LABS: CALCIUM, SERUM 8.8 mg/dL (8.5-10.1); CARBON DIOXIDE 31 mmol/L (21-32); CHLORIDE 107 mmol/L (98-107); GLUCOSE 141 mg/dL (74-106); POTASSIUM 4.7 mmol/L (3.5-5.1); SODIUM SERUM 143 mmol/L (136-145); UREA NITROGEN, BLOOD 40 mg/dL (7-18)
[2019-05-19 01:20] LABS: ALANINE AMINOTRANSFERASE 12 U/L (12-78); ALBUMIN 2.4 g/dL (3.4-5.0); ALKALINE PHOSPHATASE 82 U/L (46-116); ASPARTATE AMINOTRANSFERASE 12 U/L (15-37); B-TYPE NATRIURETIC PEPTIDE 1412 PG/ML (0-125); BILIRUBIN,TOTAL 0.2 mg/dL (0.2-1.0); TOTAL PROTEIN, SERUM 5.5 g/dL (6.4-8.2)
--- NOTE | 2019-05-19 01:56 | NUR ---
US IS STILL AT THE BEDSIDE.
--- NOTE | 2019-05-19 02:17 | NUR ---
US TECH IS FINISHED.
--- NOTE | 2019-05-19 02:37 | NUR ---
CALLING DR CASTLE ([facility]) FOR DR SKINNER
--- NOTE | 2019-05-19 02:43 | NUR ---
PT APPEARS TO BE RESTING COMFORTABLY WITH NO S/S OF PAIN OR DISTRESS.
--- NOTE | 2019-05-19 03:52 | NUR ---
PT APPEARS TO BE RESTING COMFORTABLY. VSS.
--- NOTE | 2019-05-19 03:54 | NUR ---
PT IS GOING TO 325 [phone]
[2019-05-19] MEDS ORDERED: ENOXAPARIN SODIUM 80 MG/0.8 ML DISP.SYRIN SQ ONE (04:09)
[2019-05-19] MEDS ORDERED: ENOXAPARIN SODIUM 80 MG/0.8 ML DISP.SYRIN SQ SCH (04:30)
--- NOTE | 2019-05-19 04:35 | NUR ---
TELE/RN NOTES RECEIVED PT. FROM ER VIA [facility]. PT. IS AWAKE, ALERT AND ORIENTED TO SELF. BREATHING EVEN AND UNLABORED ON ROOM AIR. NO SOB, RESPIRATORY DISTRESS OR COMPLAINTS OF PAIN NOTED AT THIS TIME. ORIENTED PT. TO ROOM. PLACED EXTERNAL ASSISTANT FAMILY TEACHER ON PT. CURRENT RHYTHM = VPACING 70. PT. NOTED WITH BILATERAL LOWER EXTREMITY EDEMA. OFFLOADED BILATERAL LEGS ON PILLOWS. PT. DAUGHTER CHESTER PRESENT AT BEDSIDE. BED LOCKED AND IN LOWEST POSITION, SIDE RAILS UP X3, BED ALARM ON, CALL LIGHT WITHIN REACH, AWAITING ADMITTING ORDERS. WILL CONTINUE TO MONITOR.
--- NOTE | 2019-05-19 04:50 | NUR ---
TELE/RN NOTES PT. DAUGHTER CHESTER WANTS TO BE CALLED AND SPEAK WITH THE DOCTOR WHEN THEY ARE WITH THE PATIENT. HER CELL PHONE NUMBER IS: . WILL CONTINUE TO MONITOR.
[2019-05-19 05:30] VITALS: BP 101/55
--- NOTE | 2019-05-19 05:30 | NUR ---
TELE/RN NOTES NOTIFIED EPIC NUDE MODEL DR. CASTLE PT. ARRIVED ON FLOOR AND AWAITING ADMITTING ORDERS. PER DR. CASTLE HE IS WORKING ON IT. WILL CONTINUE TO MONITOR.
--- NOTE | 2019-05-19 06:27 | NUR ---
TELE/RN NOTES PT. IS LYING IN BED RESTING. BREATHING EVEN AND UNLABORED ON ROOM AIR. NO SOB, RESPIRATORY DISTRESS OR COMPLAINTS OF PAIN NOTED AT THIS TIME. PT. WITH EXTERNAL DIRECTOR MARKETING ANALYTICS ON PT. CURRENT RHYTHM = V PACING 66. ALL PT. NEEDS MET. BED LOCKED AND IN LOWEST POSITION, SIDE RAILS UP X3, BED ALARM ON, CALL LIGHT WITHIN REACH, WILL ENDORSE TO DAYSHIFT NURSE FOR CONTINUITY OF CARE.
[2019-05-19] MEDS ORDERED: ACETAMINOPHEN 325 MG TABLET PO PRN (06:30)
[2019-05-19] MEDS ORDERED: ONDANSETRON HCL/PF 4 MG/2 ML VIAL IVP PRN (06:30)
[2019-05-19] MEDS ORDERED: DEXTROSE 50%-WATER 50 ML DISP.SYRIN IV PRN (06:30)
[2019-05-19] MEDS ORDERED: ALBUTEROL FS 2.5 MG/0.5 ML VIAL.NEB NEB PRN (06:30)
[2019-05-19] MEDS ORDERED: NA PHOS,M-B/NA PHOS,DI-BA 1 EA ENEMA RC PRN (06:30)
[2019-05-19] MEDS ORDERED: Z GUARD REMEDY 2 OZ OINT TP PRN (06:30)
[2019-05-19] MEDS: BLOOD SUGAR DIAGNOSTIC 1 EACH STRIP IN SCH ×4 (07:13→22:30)
[2019-05-19 08:00] VITALS: BP 124/63
--- NOTE | 2019-05-19 08:07 | NUR ---
RN OPENING NOTE PT WAS RECEIVED IN BED AT LOWEST AND LOCKED POSITION WITH SIDE RAILS UP X2, A/O X1, BREATHING EVEN AND UNLABORED ON RA WITH NO S/S OF ANY DISTRESS OR PAIN NOTED AT THIS TIME, IV IS PATENT AND INTACT, NOTED TO HAVE RCW PORT A CATH, LAST BS WAS NOTED TO BE 104, SAFETY PRECAUTIONS IN PLACE, CALL LIGHT IN REACH, WILL MONITOR ACCORDINGLY
[2019-05-19] MEDS: ACIDOPHILUS/BULGARICUS 1 EACH TAB.CHEW PO SCH (08:18)
[2019-05-19] MEDS: MULTIVIT W/MINERALS 1 TAB TABLET PO SCH (08:18)
[2019-05-19] MEDS: PROSOURCE / PROSTAT (PYXIS) 30 ML UDC PO SCH ×3 (08:18→16:02)
[2019-05-19] MEDS: ASCORBIC ACID 500 MG TABLET PO SCH (08:18)
[2019-05-19] MEDS: FUROSEMIDE 40 MG/4 ML VIAL IV SCH ×3 (08:18→14:30)
[2019-05-19] MEDS: PANTOPRAZOLE 40 MG TABLET.DR PO SCH (08:18)
[2019-05-19] MEDS: RIVAROXABAN 15 MG TABLET PO SCH ×2 (08:21→16:03)
[2019-05-19 08:49] LABS: CALCIUM, SERUM 8.8 mg/dL (8.5-10.1); CARBON DIOXIDE 31 mmol/L (21-32); CHLORIDE 106 mmol/L (98-107); CREATININE 1.1 mg/dL (0.6-1.3); GLUCOSE 108 mg/dL (74-106); POTASSIUM 4.5 mmol/L (3.5-5.1); SODIUM SERUM 142 mmol/L (136-145); UREA NITROGEN, BLOOD 37 mg/dL (7-18)
[2019-05-19 08:54] LABS: ALANINE AMINOTRANSFERASE 15 U/L (12-78); ALBUMIN 2.5 g/dL (3.4-5.0); ALKALINE PHOSPHATASE 82 U/L (46-116); ASPARTATE AMINOTRANSFERASE 16 U/L (15-37); BILIRUBIN,TOTAL 0.3 mg/dL (0.2-1.0); MAGNESIUM 2.1 mg/dL (1.8-2.4); PHOSPHORUS 4.4 mg/dL (2.5-4.9); TOTAL PROTEIN, SERUM 5.7 g/dL (6.4-8.2)
[2019-05-19] MEDS ORDERED: METHENAMINE 1 GM PO SCH (09:00)
[2019-05-19] MEDS ORDERED: WARFARIN SODIUM 3.5 MG PO SCH (09:00)
[2019-05-19] MEDS ORDERED: FUROSEMIDE 20 MG/2 ML VIAL IV SCH (09:00)
[2019-05-19 09:02] LABS: CHOLESTEROL 214 mg/dL (<200); HDL CHOLESTEROL 39 mg/dL (40-60); LDL 155 mg/dL (0-99); TRIGLYCERIDES 62 mg/dL (30-150)
[2019-05-19 09:32] LABS: IRON, SERUM 17 ug/dl (50-175)
[2019-05-19 09:45] LABS: TOTAL IRON BINDING CAPACITY 319 ug/dl (250-450)
[2019-05-19 10:10] LABS: BASOPHILS # (AUTO) 0.1 /CMM (0.0-0.2); BASOPHILS % (AUTO) 2.1 % (0.0-2.0); EOSINOPHILS % (AUTO) 5.8 % (0.0-6.0); HEMATOCRIT 28 % (33-45); HEMOGLOBIN 8.8 g/dL (11.5-14.8); LYMPHOCYTES # (AUTO) 1.6 /CMM (0.8-4.8); LYMPHOCYTES % (AUTO) 26.1 % (20.0-44.0); MEAN CORPUSCULAR HGB CONC 31 g/dl (31.0-36.0); MEAN CORPUSCULAR VOLUME 77 fL (82-100); MONOCYTES # (AUTO) 0.5 /CMM (0.1-1.30); MONOCYTES % (AUTO) 7.7 % (2.0-12.0); NEUTROPHILS # (AUTO) 3.6 /CMM (1.8-8.9); NEUTROPHILS % (AUTO) 58.3 % (43.0-81.0); PLATELET COUNT (AUTO) 185 /CMM (150-450); RED BLOOD CELL COUNT(AUTO) 3.65 MIL/uL (4.0-5.2); WHITE BLOOD COUNT (AUTO) 6.1 K/uL (4.3-11.0)
[2019-05-19] MEDS: INSULIN REGULAR, HUMAN 100 UNIT/ML 3 ML VIAL SQ PRN ×3 (11:53→22:54)
[2019-05-19] MEDS: NYSTATIN TOP POWDER 15 GM BOTTLE TP SCH ×2 (13:34→16:02)
--- NOTE | 2019-05-19 14:40 | NUR ---
RN NOTE THIRD DOSE OF IV FUROSEMIDE SCHEDULED FOR 1430 NOT GIVEN DUE TO BP OF 99/40, WILL CONTINUE TO MONITOR
[2019-05-19 14:41] VITALS: BP 99/40
[2019-05-19 16:00] VITALS: BP 94/50
--- NOTE | 2019-05-19 17:20 | NUR ---
RN NOTE BS WAS TAKEN AT THIS TIME AND NOTED TO BE 129, NO INSULIN REQUIRED PER S/S, WILL MONITOR ACCORDINGLY
--- NOTE | 2019-05-19 18:02 | NUR ---
RN CLOSING NOTE PT IN BED AT LOWEST AND LOCKED POSITION WITH SIDE RAILS UP X2, A/O X1, BREATHING EVEN AND UNLABORED ON WITH NO DISTRESS OR PAIN AT THIS TIME, RCW PORTACATH IS PATENT AND INTACT, LAST BS WAS NOTED TO BE 129 WITH NO INSULIN GIVEN, SAFETY PRECAUTIONS IN PLACE, CALL LIGHT IN REACH, ALL NEEDS ATTENDED TO, WILL ENDORSE TO NIGHT RN FOR ABENA.
--- NOTE | 2019-05-19 18:44 | NUR ---
RN NOTE PT NOTED WITH TINY SMEAR OF BLOOD IN DIAPER WHILE BE CHANGED AT THIS TIME, WILL CONTINUE TO MONITOR AND ENDORSE TO NIGHT RN FOR ABENA.
[2019-05-19 20:00] VITALS: BP 89/43
[2019-05-19 22:00] VITALS: BP 112/44
[2019-05-19] MEDS: MIRTAZAPINE 15 MG TABLET PO SCH (22:35)
--- NOTE | 2019-05-20 06:33 | NUR ---
MS RN NOTES AWAKE & ALERT. NOT IN ANY DISTRESS. NO SOB NOTED. DENIES ANY PAIN OR DISCOMFORT AT THIS TIME. WITH IV-HL PATENT & INTACT. AM CARE DONE. MONITORED ACCORDINGLY. CALL LIGHT WITHIN REACH. BED IN LOWEST POSITION. SR UP X 3 WITH BED ALARM ON FOR SAFETY. WILL ENDORSE TO NEXT SHIFT.
[2019-05-20] MEDS: BLOOD SUGAR DIAGNOSTIC 1 EACH STRIP IN SCH ×4 (06:34→22:24)
[2019-05-20] MEDS: INSULIN REGULAR, HUMAN 100 UNIT/ML 3 ML VIAL SQ PRN ×2 (06:37→12:26)
[2019-05-20 07:18] LABS: BASOPHILS # (AUTO) 0.1 /CMM (0.0-0.2); BASOPHILS % (AUTO) 1.2 % (0.0-2.0); EOSINOPHILS % (AUTO) 3.8 % (0.0-6.0); HEMATOCRIT 28 % (33-45); HEMOGLOBIN 8.7 g/dL (11.5-14.8); LYMPHOCYTES % (AUTO) 16.7 % (20.0-44.0); MEAN CORPUSCULAR HGB CONC 32 g/dl (31.0-36.0); MEAN CORPUSCULAR VOLUME 76 fL (82-100); MONOCYTES # (AUTO) 0.4 /CMM (0.1-1.30); MONOCYTES % (AUTO) 6.6 % (2.0-12.0); NEUTROPHILS # (AUTO) 4.5 /CMM (1.8-8.9); NEUTROPHILS % (AUTO) 71.7 % (43.0-81.0); PLATELET COUNT (AUTO) 195 /CMM (150-450); RED BLOOD CELL COUNT(AUTO) 3.61 MIL/uL (4.0-5.2); WHITE BLOOD COUNT (AUTO) 6.3 K/uL (4.3-11.0)
[2019-05-20 07:48] LABS: ALANINE AMINOTRANSFERASE 13 U/L (12-78); ALBUMIN 2.5 g/dL (3.4-5.0); ALKALINE PHOSPHATASE 81 U/L (46-116); ASPARTATE AMINOTRANSFERASE 10 U/L (15-37); BILIRUBIN,TOTAL 0.3 mg/dL (0.2-1.0); CALCIUM, SERUM 8.8 mg/dL (8.5-10.1); CARBON DIOXIDE 31 mmol/L (21-32); CHLORIDE 103 mmol/L (98-107); CREATININE 1.3 mg/dL (0.6-1.3); GLUCOSE 143 mg/dL (74-106); PHOSPHORUS 4.8 mg/dL (2.5-4.9); POTASSIUM 4.3 mmol/L (3.5-5.1); SODIUM SERUM 141 mmol/L (136-145); TOTAL PROTEIN, SERUM 5.6 g/dL (6.4-8.2); UREA NITROGEN, BLOOD 45 mg/dL (7-18)
[2019-05-20 08:00] VITALS: BP_SYST 104; BP_SYST 143; BP_DIAS 58; BP_DIAS 74
[2019-05-20] MEDS: MULTIVIT W/MINERALS 1 TAB TABLET PO SCH (08:18)
[2019-05-20] MEDS: ASCORBIC ACID 500 MG TABLET PO SCH (08:18)
[2019-05-20] MEDS: PANTOPRAZOLE 40 MG TABLET.DR PO SCH (08:18)
[2019-05-20] MEDS: ACIDOPHILUS/BULGARICUS 1 EACH TAB.CHEW PO SCH (08:18)
[2019-05-20] MEDS: PROSOURCE / PROSTAT (PYXIS) 30 ML UDC PO SCH ×3 (08:20→16:26)
[2019-05-20] MEDS: RIVAROXABAN 15 MG TABLET PO SCH ×2 (08:20→16:23)
--- NOTE | 2019-05-20 09:53 | NUR ---
WOUND CARE CONSULT WOUND CARE RECEIVED CONSULT FOR RIGHT HEEL NON BLANCHING REDNESS,GROIN REDNESS AND BLE DISCOLORATIONS. WOUND CARE WILL DEFER CONSULT AND TREATMENT PLANS TO PLASTIC SURGICAL TEAM WHO ARE CURRENTLY FOLLOWING THIS PATIENT. PATIENT WITH SELIN AT 12, ALL PRESSURE ULCER PREVENTION MEASURES ARE NOTED TO BE IN PLACE AT THIS TIME. WILL SEE PRN.
[2019-05-20] MEDS ORDERED: Magnesium 1GM/D5W 100ML PREMIX 100 ML IV SCH (10:10)
[2019-05-20] MEDS: NYSTATIN TOP POWDER 15 GM BOTTLE TP SCH ×2 (12:16→16:26)
[2019-05-20] MEDS: SOD FERRIC GLUC 125 MG in IV NS 0.9% 100 ML IV SCH (15:34)
[2019-05-20 16:00] VITALS: BP 108/65
--- NOTE | 2019-05-20 18:34 | NUR ---
Patient resting in bed , remains in stable condition on room air, oriented x1 . Daughter at bedside. Patient had good PO intake. All needs attended , patient turned and repositioned Q2H. Safety precautions implemented and call light within reach.
[2019-05-20 20:00] VITALS: BP 100/30
[2019-05-20] MEDS: MIRTAZAPINE 15 MG TABLET PO SCH (22:00)
[2019-05-21] MEDS: BLOOD SUGAR DIAGNOSTIC 1 EACH STRIP IN SCH ×4 (06:17→22:00)
[2019-05-21] MEDS: INSULIN REGULAR, HUMAN 100 UNIT/ML 3 ML VIAL SQ PRN ×3 (06:19→23:12)
[2019-05-21 07:52] VITALS: BP 101/63
[2019-05-21 08:00] VITALS: BP 101/63
[2019-05-21 08:03] LABS: CALCIUM, SERUM 8.5 mg/dL (8.5-10.1); CREATININE 1.3 mg/dL (0.6-1.3); MAGNESIUM 2.1 mg/dL (1.8-2.4); POTASSIUM 4.3 mmol/L (3.5-5.1)
[2019-05-21] MEDS: ACIDOPHILUS/BULGARICUS 1 EACH TAB.CHEW PO SCH (08:11)
[2019-05-21] MEDS: PROSOURCE / PROSTAT (PYXIS) 30 ML UDC PO SCH ×3 (08:11→17:00)
[2019-05-21] MEDS: PANTOPRAZOLE 40 MG TABLET.DR PO SCH (08:11)
[2019-05-21] MEDS: ASCORBIC ACID 500 MG TABLET PO SCH (08:11)
[2019-05-21] MEDS: MULTIVIT W/MINERALS 1 TAB TABLET PO SCH (08:11)
[2019-05-21] MEDS: RIVAROXABAN 15 MG TABLET PO SCH ×2 (08:12→17:12)
[2019-05-21] MEDS: NYSTATIN TOP POWDER 15 GM BOTTLE TP SCH ×2 (08:13→17:12)
[2019-05-21 08:25] LABS: BASOPHILS # (AUTO) 0.1 /CMM (0.0-0.2); BASOPHILS % (AUTO) 0.8 % (0.0-2.0); EOSINOPHILS % (AUTO) 2.9 % (0.0-6.0); HEMATOCRIT 26 % (33-45); HEMOGLOBIN 8.1 g/dL (11.5-14.8); LYMPHOCYTES # (AUTO) 1.2 /CMM (0.8-4.8); LYMPHOCYTES % (AUTO) 19.2 % (20.0-44.0); MEAN CORPUSCULAR HGB CONC 32 g/dl (31.0-36.0); MEAN CORPUSCULAR VOLUME 77 fL (82-100); MONOCYTES # (AUTO) 0.5 /CMM (0.1-1.30); MONOCYTES % (AUTO) 7.2 % (2.0-12.0); NEUTROPHILS # (AUTO) 4.5 /CMM (1.8-8.9); NEUTROPHILS % (AUTO) 69.9 % (43.0-81.0); PLATELET COUNT (AUTO) 206 /CMM (150-450); RED BLOOD CELL COUNT(AUTO) 3.34 MIL/uL (4.0-5.2); WHITE BLOOD COUNT (AUTO) 6.4 K/uL (4.3-11.0)
[2019-05-21] MEDS ORDERED: RIVA15TA PO (15:06)
[2019-05-21] MEDS ORDERED: FERR325T23 PO (15:06)
[2019-05-21] MEDS: SOD FERRIC GLUC 125 MG in IV NS 0.9% 100 ML IV SCH (15:10)
[2019-05-21 16:00] VITALS: BP 134/59
--- NOTE | 2019-05-21 18:37 | NUR ---
Patient resting in bed , remains in stable condition on room air, oriented x1 . Patient refused to eat dinner; awaiting for daughter. Patient had good PO intake. Patient d/c to SNF but family refused transfer today. All needs attended , patient turned and repositioned Q2H. Safety precautions implemented and call light within reach. Will endorse to next shift for ABENA
--- NOTE | 2019-05-21 19:34 | NUR ---
A FAMILY MEMBER CAME.
[2019-05-21 20:00] VITALS: BP 107/55
[2019-05-21] MEDS: MIRTAZAPINE 15 MG TABLET PO SCH (21:37)
--- NOTE | 2019-05-21 22:05 | NUR ---
DAUGHTER CAME EARLIER AND FED THE PATIENT. AND ACCORDING TO THE DAUGHTER PATIENT CONSUMED 95% OF THE MEAL. PATIENT'S DIAPER CHANGED, PERINEAL CARE DONE. SMALL VAGINAL BLEEDING NOTED, ACCORDING TO THE DAUGHTER PATIENT IS HAVING VAG BLEEDING SINCE PATIENT IS ON XERALTO FOR FEW MONTHS NOW. GROINS AND BILATERAL BREASTFOLDS CLEANSED AND PAT DRIED AND APPLIED NYASTIN POWDER. PATIENT'S DAUGHTER WANTS TO USE THE CREAM FORM HOME CALLED TRIPLE PASTE DIAPER RASH CREAM FOR THE SACRAL AND PERINEAL AREA. SKIN ON SACROCOCCYX AREA IS INTACT.
[2019-05-22] VITALS (8 sets, daily range): BP systolic 78–95; BP diastolic 30–49
--- NOTE | 2019-05-22 06:34 | NUR ---
MS RN CLOSING NOTES: PATIENT IN BED ASLEEP, AROUSABLE. VITALS STABLE. NO COMPLAIN OF PAIN. HAD ONLY ONE EPISODE OF VAGINAL BLEEDING, SMALL AMOUNT. KEPT PATIENT DRY. CALL LIGHT WITHIN REACH. BED ALARM ON. BED IN LOWEST AND LOCKED POSITION. NO SOB NOTED.
--- NOTE | 2019-05-22 06:40 | NUR ---
BILATERAL HEELS OFFLOADED. BILATERAL LEGS ELEVATED WITH PILLOWS AT ALL TIMES.
[2019-05-22] MEDS: BLOOD SUGAR DIAGNOSTIC 1 EACH STRIP IN SCH ×4 (06:55→22:00)
[2019-05-22] MEDS: INSULIN REGULAR, HUMAN 100 UNIT/ML 3 ML VIAL SQ PRN ×3 (06:55→21:29)
--- NOTE | 2019-05-22 07:47 | NUR ---
MS RN NOTES RECEIVED PATIENT IN BED, ASLEEP. PATIENT ON ROOM AIR BREATHING EVENLY WITH NO SIGNS OF SOB OR ANY DISTRESS. NO SIGNS OF PAIN SUCH FACIAL GRIMACING OR GUARDING. R CHEST ANGELI CATH PRESENT. SAFETY MEASURES IN PLACE: BED IN LOW POSITION AND LOCKED, RAILS UP X 2, CALL LIGHT WITHIN REACH, HEELS OFF LOAD BILATERALLY. WILL CONTINUE TO MONITOR PATIENT.
[2019-05-22] MEDS: PANTOPRAZOLE 40 MG TABLET.DR PO SCH (08:33)
[2019-05-22] MEDS: PROSOURCE / PROSTAT (PYXIS) 30 ML UDC PO SCH ×3 (09:00→18:02)
[2019-05-22] MEDS: ACIDOPHILUS/BULGARICUS 1 EACH TAB.CHEW PO SCH (09:56)
[2019-05-22] MEDS: MULTIVIT W/MINERALS 1 TAB TABLET PO SCH (09:56)
[2019-05-22] MEDS: ASCORBIC ACID 500 MG TABLET PO SCH (09:57)
[2019-05-22] MEDS: RIVAROXABAN 15 MG TABLET PO SCH ×2 (09:57→18:01)
[2019-05-22] MEDS: NYSTATIN TOP POWDER 15 GM BOTTLE TP SCH ×2 (10:35→18:03)
--- NOTE | 2019-05-22 12:17 | NUR ---
MS RN NOTES PATIENT ATE VERY LITTLE. A FEW SPOONS OF FRUIT AND REFUSED ANYTHING ELSE. TO GIVE MEDS I OFFERED HER CHOCOLATE PUDDING. SHE HAD A FEW SPOONS AND SOME WAS LEFT. BS AT 1200 CHECK 99. NO INSULIN COVERAGE
[2019-05-22] MEDS: SOD FERRIC GLUC 125 MG in IV NS 0.9% 100 ML IV SCH (14:37)
--- NOTE | 2019-05-22 19:01 | NUR ---
MS RN CLOSING NOTES PATIENT IN BED, AWAKE AND WATCHING TV. FAMILY AND THE BEDSIDE ( AND DAUGHTER) THROUGHOUT THE DAY PATIENT A/O X 1. PATIENT ON ROOM AIR BREATHING EVENLY WITH NO SIGNS OF DISTRESS. R CHEST PORT CATH PRESENT AND INTACT. PATIENT KEPT CLEAN THROUGHOUT THE DAY. ALL NEEDS ATTENDED FOR THROUGHOUT THE DAY. SAFETY MEASURES IN PLACE: BED IN LOW POSITION AND LOCKED, RAILS UP X 2, CALL LIGHT WITHIN REACH. WILL ENDORSE TO PRINTING WORKER SUPERVISOR NURSE.
[2019-05-22] MEDS: MIRTAZAPINE 15 MG TABLET PO SCH (20:29)
--- NOTE | 2019-05-22 20:59 | NUR ---
BP RECHECKED=78/30, HR=55, O2 SAT=96. PLACED PATIENT ON [place] POSITION. AT THE BEDSIDE. REGINA WADE MADE AWARE.AND INFORMED DR CASTLE. 2100-500ML NS BOLUS GIVEN. PATIENT TOLERATES. PATIENT IS SLEEPY BUT AROUSABLE. 2121- BP=94/37 HR=43-46 AND IRREGULAR 99% RA. 2133- BP=94/37 HR=83 O2 SAT= 97% RA. PATIENT'S HR IS VERY IRREGULAR AND INFORMED MD AGAIN AND SUGGESTED TO PLACED PATIENT ON TELE MONITOR, DONE. 2143- BP=80/40 HR=42 O2 SAT= 100% RA. NS BOLUS FINISHED. 2199- BP=79/34 HR=41, UPDATED DR CASTLE AND REGINA WADE MADE AWARE.
[2019-05-22] MEDS ORDERED: IV NS 0.9% 500 ML IV ONE (21:30)
[2019-05-22] MEDS ORDERED: NOREPINEPHRINE 8 MG in IV D5W 500 ML IV PRN (23:30)
[2019-05-22] MEDS ORDERED: NOREPINEPHRINE 4 MG/4 ML AMPUL IV ONE (23:46)
[2019-05-23] VITALS (66 sets, daily range): BP systolic 66–164; BP diastolic 39–83
--- NOTE | 2019-05-23 00:05 | NUR ---
REPORTS GIVEN TO ICU NURSE ED FOR ABENA OF CARE.
[2019-05-23] MEDS: NOREPINEPHRINE 8 MG in IV D5W 500 ML IV PRN (01:02)
--- NOTE | 2019-05-23 01:49 | NUR ---
PATIENT'S DAUGHTER WANTS DR CARLOS GODINEZ TO BE THE PRIMARY MD, ENDORSED TO THE ICU NURSE ED.
--- NOTE | 2019-05-23 06:54 | NUR ---
RELAY SHOP SUPERVISOR PT WAS TRANSFERRED FROM [facility]. NS BOLUS 500 ML GIVEN ON THE FLOOR. PT IS CONFUSED, ORIENTED X 1. ON ADMISSION SBP-70'S. STARTED LEVOPHED DRIP. TITRATED TO KEEP SBP >90. VSS, AFEBRILE. V-PACING. /LEFT UPPER CHEST WALL PACEMAKER/. PT HAS RIGHT UPPER CHEST WALL ANGELI-CATH. PT HAS CHF & DVT ON BILATERAL LOWER EXTREMITIES. INCONTINENT, IN DIAPER. REPORT GIVEN TO CUONG FOR ABENA.
[2019-05-23] MEDS: PANTOPRAZOLE 40 MG TABLET.DR PO SCH (07:30)
[2019-05-23] MEDS: BLOOD SUGAR DIAGNOSTIC 1 EACH STRIP IN SCH ×4 (08:17→22:28)
[2019-05-23 08:21] LABS: BASOPHILS # (AUTO) 0.1 /CMM (0.0-0.2); BASOPHILS % (AUTO) 0.8 % (0.0-2.0); EOSINOPHILS % (AUTO) 5.2 % (0.0-6.0); HEMATOCRIT 27 % (33-45); HEMOGLOBIN 8.5 g/dL (11.5-14.8); LYMPHOCYTES # (AUTO) 1.6 /CMM (0.8-4.8); LYMPHOCYTES % (AUTO) 21.5 % (20.0-44.0); MEAN CORPUSCULAR HGB CONC 32 g/dl (31.0-36.0); MEAN CORPUSCULAR VOLUME 76 fL (82-100); MONOCYTES # (AUTO) 0.6 /CMM (0.1-1.30); MONOCYTES % (AUTO) 7.9 % (2.0-12.0); NEUTROPHILS % (AUTO) 64.6 % (43.0-81.0); PLATELET COUNT (AUTO) 255 /CMM (150-450); RED BLOOD CELL COUNT(AUTO) 3.51 MIL/uL (4.0-5.2); WHITE BLOOD COUNT (AUTO) 7.7 K/uL (4.3-11.0)
[2019-05-23 08:42] LABS: CALCIUM, SERUM 8.7 mg/dL (8.5-10.1); CARBON DIOXIDE 30 mmol/L (21-32); CHLORIDE 106 mmol/L (98-107); CREATININE 1.1 mg/dL (0.6-1.3); GLUCOSE 129 mg/dL (74-106); POTASSIUM 4.2 mmol/L (3.5-5.1); SODIUM SERUM 141 mmol/L (136-145); UREA NITROGEN, BLOOD 50 mg/dL (7-18)
[2019-05-23 09:06] LABS: ALANINE AMINOTRANSFERASE 13 U/L (12-78); ALBUMIN 2.4 g/dL (3.4-5.0); ALKALINE PHOSPHATASE 77 U/L (46-116); ASPARTATE AMINOTRANSFERASE 15 U/L (15-37); BILIRUBIN,TOTAL 0.3 mg/dL (0.2-1.0); PHOSPHORUS 3.3 mg/dL (2.5-4.9); TOTAL PROTEIN, SERUM 5.6 g/dL (6.4-8.2)
[2019-05-23] MEDS: MULTIVIT W/MINERALS 1 TAB TABLET PO SCH (10:01)
[2019-05-23] MEDS: PROSOURCE / PROSTAT (PYXIS) 30 ML UDC PO SCH ×3 (10:01→17:00)
[2019-05-23] MEDS: ACIDOPHILUS/BULGARICUS 1 EACH TAB.CHEW PO SCH (10:01)
[2019-05-23] MEDS: NYSTATIN TOP POWDER 15 GM BOTTLE TP SCH ×2 (10:01→17:00)
[2019-05-23] MEDS: ASCORBIC ACID 500 MG TABLET PO SCH (10:01)
[2019-05-23] MEDS: INSULIN REGULAR, HUMAN 100 UNIT/ML 3 ML VIAL SQ PRN ×3 (12:32→23:14)
[2019-05-23 15:30] LABS: APPEARANCE,URINE CLOUDY (CLEAR); BILIRUBIN,URINE NEGATIVE (NEGATIVE); BLOOD, URINE LARGE Ery/uL (NEGATIVE); COLOR,URINE BROWN (YELLOW); KETONES,URINE NEGATIVE (NEGATIVE); LEUKOCYTE ESTERASE ,URINE LARGE (NEGATIVE); NITRITE, URINE POSITIVE (NEGATIVE); PROTEIN,URINE 100 mg/dl (NEGATIVE); UGLUCOSE NEGATIVE (NEGATIVE); UROBILINOGEN,URINE 0.2 EU/dL (0.2)
[2019-05-23 15:47] LABS: BACTERIA,URINE 4+ /HPF (None Seen); RBC,URINE 21-50 /HPF (0-2); SQUAMOUS EPITHELIAL CELL,UR 0-2 /HPF (None Seen); WBC,URINE TOO NUMEROUS TO COUN /HPF (0-3)
[2019-05-23] MEDS: SOD FERRIC GLUC 125 MG in IV NS 0.9% 100 ML IV SCH (16:59)
--- NOTE | 2019-05-23 19:30 | NUR ---
ROTATING FIELD ASSEMBLER OPENING NOTES, PATIENT IN BED RESTING, A/O X 1. PATIENT HAS RIGHT UPPER CHEST WALL ANGELI-CATH BEING USED IV ACCESS RUNNING LEVOPHED DRIP. VITAL SIGN 159/71, WILL CONTINUE TO MONITOR AND TITRATE THE DRIP TO KEEP SBP>90. PATIENT HAS LEFT UPPER CHEST PACEMAKER. HR ON MONITOR V-PACING. ON RA TOLERATING WELL NO SOB OR ACUTE DISTRESS NOTED AT THIS TIME. PATIENT HAS EDEMA ON BLE. FAMILY AT BED SIDE. BED IN LOW LOCKED POSITION. CALL LIGHT WITHIN REACH. WILL CONTINUE TO MONITOR.
[2019-05-23] MEDS: MIRTAZAPINE 15 MG TABLET PO SCH (22:20)
[2019-05-24] VITALS (89 sets, daily range): BP systolic 78–143; BP diastolic 38–90
[2019-05-24 05:32] LABS: BASOPHILS # (AUTO) 0.1 /CMM (0.0-0.2); BASOPHILS % (AUTO) 0.8 % (0.0-2.0); EOSINOPHILS % (AUTO) 4.6 % (0.0-6.0); HEMATOCRIT 29 % (33-45); HEMOGLOBIN 9.1 g/dL (11.5-14.8); LYMPHOCYTES # (AUTO) 1.6 /CMM (0.8-4.8); LYMPHOCYTES % (AUTO) 19.2 % (20.0-44.0); MEAN CORPUSCULAR HGB CONC 32 g/dl (31.0-36.0); MEAN CORPUSCULAR VOLUME 78 fL (82-100); MONOCYTES # (AUTO) 0.6 /CMM (0.1-1.30); MONOCYTES % (AUTO) 7.3 % (2.0-12.0); NEUTROPHILS # (AUTO) 5.6 /CMM (1.8-8.9); NEUTROPHILS % (AUTO) 68.1 % (43.0-81.0); PLATELET COUNT (AUTO) 283 /CMM (150-450); RED BLOOD CELL COUNT(AUTO) 3.64 MIL/uL (4.0-5.2); WHITE BLOOD COUNT (AUTO) 8.3 K/uL (4.3-11.0)
[2019-05-24 05:48] LABS: ALBUMIN 2.5 g/dL (3.4-5.0); BILIRUBIN,TOTAL 0.2 mg/dL (0.2-1.0); CALCIUM, SERUM 8.9 mg/dL (8.5-10.1); MAGNESIUM 2.1 mg/dL (1.8-2.4); PHOSPHORUS 3.2 mg/dL (2.5-4.9); POTASSIUM 4.5 mmol/L (3.5-5.1); TOTAL PROTEIN, SERUM 5.8 g/dL (6.4-8.2)
--- NOTE | 2019-05-24 07:30 | NUR ---
BALLAST CLEANING MACHINE OPERATOR INITIAL NOTE RECEIVED PATIENT ASLEEP, AROUSABLE. NO S/S OF PAIN OR DISCOMFORT. IN NO RESPIRATORY DISTRESS. ON ROOM AIR. ON TELE MONITOR VPACING. RIGHT CHEST WALL PORT A CATH WITH LEVO AT RESTARTED AT 2MCG/ MIN. HOB ELEVATED. TURNED AND REPOSITIONED. SIDE RAILS UP AND LOCKED. BED KEPT AT LOWEST POSITION. CALL LIGHT KEPT WITHIN EASY REACH. WILL CONTINUE TO MONITOR.
--- NOTE | 2019-05-24 07:31 | NUR ---
SCRAP SAWYER CLOSING NOTES, PATIENT IN BED SLEEPING, A/O X 1. PATIENT HAS RIGHT UPPER CHEST WALL ANGELI-CATH BEING USED IV ACCESS, LEVOPHED DRIP STOPED, VITAL SIGN STABLE. PATIENT HAS LEFT UPPER CHEST PACEMAKER. HR ON MONITOR V-PACING. ON RA TOLERATING WELL NO SOB OR ACUTE DISTRESS NOTED AT THIS TIME. PATIENT HAS EDEMA ON BLE. BED IN LOW LOCKED POSITION. CALL LIGHT WITHIN REACH. ENDORSED THE PATIENT TO AM RN FOR ABENA.
[2019-05-24] MEDS: BLOOD SUGAR DIAGNOSTIC 1 EACH STRIP IN SCH ×4 (08:07→22:47)
[2019-05-24] MEDS: INSULIN REGULAR, HUMAN 100 UNIT/ML 3 ML VIAL SQ PRN ×4 (08:08→22:51)
[2019-05-24] MEDS: PROSOURCE / PROSTAT (PYXIS) 30 ML UDC PO SCH ×3 (08:10→17:44)
[2019-05-24] MEDS: MULTIVIT W/MINERALS 1 TAB TABLET PO SCH (08:10)
[2019-05-24] MEDS: ASCORBIC ACID 500 MG TABLET PO SCH (08:10)
[2019-05-24] MEDS: ACIDOPHILUS/BULGARICUS 1 EACH TAB.CHEW PO SCH (08:10)
[2019-05-24] MEDS: PANTOPRAZOLE 40 MG TABLET.DR PO SCH (08:10)
[2019-05-24] MEDS: NYSTATIN TOP POWDER 15 GM BOTTLE TP SCH (08:11)
--- NOTE | 2019-05-24 09:13 | NUR ---
IT SECURITY PROJECT MANAGER NOTE UPDATES GIVEN TO DAUGHTER CHESTER, INFORMED REGARDING STARTING HER ON ANTIBIOTICS MACROBID FOR UTI. PER DAUGHTER HER MOTHER HAS TAKEN MACROBID BEFORE AND HAS NOT HAD A REACTION.
[2019-05-24] MEDS: NITROFURANTOIN/NITROFURAN MAC 100 MG CAPSULE PO SCH ×2 (10:53→21:24)
[2019-05-24] MEDS: HYDROCORTISONE SOD SUCCINATE 100 MG/2 ML VIAL IV SCH ×2 (12:45→17:43)
[2019-05-24] MEDS: SOD FERRIC GLUC 125 MG in IV NS 0.9% 100 ML IV SCH (15:02)
[2019-05-24] MEDS: CLOTRIMAZOLE 1% 15 GM TUBE TP SCH ×2 (17:00→17:43)
--- NOTE | 2019-05-24 19:00 | NUR ---
MANUAL EQUIPMENT MECHANIC OPENING NOTE RECEIVED PATIENT IN BED, AWAKE, A/OX 2. NO S/S OF PAIN OR DISCOMFORT. IN NO RESPIRATORY DISTRESS. ON ROOM AIR, TOLERATING WELL. ON TELE MONITOR V-PACING. RIGHT CHEST WALL PORT A CATH . BILATERAL LOWER EXTREMITY EDEMA. HOB ELEVATED. AT BEDSIDE. SIDE RAILS UP AND LOCKED. BED IN LOW/LOCKED POSITION. CALL LIGHT KEPT WITHIN EASY REACH. WILL CONTINUE TO MONITOR.
--- NOTE | 2019-05-24 19:26 | NUR ---
HOME BASED ASSISTANT CLOSING NOTE ALL DUE MEDS GIVEN. NO DISTRESS NOTED ON ROOM AIR. PATIENT WITH GREAT APPETITE. KEPT CLEAN AND DRY. TURNED AND REPOSITIONED Q2 AND PRN. HOB ELEVATED. SIDE RAILS UP AND LOCKED. BED KEPT AT LOWEST POSITION. CONTINUITY OF CARE ENDORSED TO PM NURSE.
[2019-05-24] MEDS: MIRTAZAPINE 15 MG TABLET PO SCH (22:00)
[2019-05-25] VITALS (80 sets, daily range): BP systolic 82–178; BP diastolic 30–82
[2019-05-25] MEDS ORDERED: NOREPINEPHRINE 4 MG/4 ML AMPUL IV ONE (02:38)
[2019-05-25] MEDS: NOREPINEPHRINE 8 MG in IV D5W 500 ML IV PRN (02:44)
--- NOTE | 2019-05-25 02:56 | NUR ---
LEVO DRIP STARTED DUE TO LOW BP, ON PATIENT's RIGHT CHEST WALL PORT A CATH @2MCG/MIN. WILL CONTINUE TO MONITOR.
[2019-05-25 04:36] LABS: BASOPHILS % (AUTO) 0.2 % (0.0-2.0); EOSINOPHILS % (AUTO) 0.1 % (0.0-6.0); HEMATOCRIT 30 % (33-45); HEMOGLOBIN 9.5 g/dL (11.5-14.8); LYMPHOCYTES # (AUTO) 0.6 /CMM (0.8-4.8); LYMPHOCYTES % (AUTO) 9.4 % (20.0-44.0); MEAN CORPUSCULAR HGB CONC 32 g/dl (31.0-36.0); MEAN CORPUSCULAR VOLUME 79 fL (82-100); MONOCYTES # (AUTO) 0.1 /CMM (0.1-1.30); MONOCYTES % (AUTO) 1.7 % (2.0-12.0); NEUTROPHILS # (AUTO) 5.7 /CMM (1.8-8.9); NEUTROPHILS % (AUTO) 88.6 % (43.0-81.0); PLATELET COUNT (AUTO) 312 /CMM (150-450); RED BLOOD CELL COUNT(AUTO) 3.81 MIL/uL (4.0-5.2); WHITE BLOOD COUNT (AUTO) 6.5 K/uL (4.3-11.0)
[2019-05-25 04:37] LABS: CALCIUM, SERUM 9.4 mg/dL (8.5-10.1); POTASSIUM 4.4 mmol/L (3.5-5.1)
--- NOTE | 2019-05-25 04:50 | NUR ---
LEVO DRIP WAS TITRATED DOWN TO 1MCG/MIN DUE TO RISE IN BP 156/77 AND 178/79. WILL CONTINUE TO MONITOR.
--- NOTE | 2019-05-25 05:00 | NUR ---
LEVO DRIP WAS DISCONTINUED AT 0330, BP 107/60 WILL CONTINUE TO MONITOR.
--- NOTE | 2019-05-25 07:10 | NUR ---
RN NOTE RECEIVED PATIENT ON BED, AWAKE, A/OX 1. ON RA, NO SOB NOTED, O2 SAT WNL, NO S/S OF PAIN OR DISCOMFORT ON TELE MONITOR V-PACING. RIGHT CHEST WALL PORT A CATH SITE CLEAN, DRY AND INTACT . BILATERAL LOWER EXTREMITY EDEMA NOTED, HOB ELEVATED. SIDE RAILS UP x3, CALL LIGHT WITHIN EASY REACH, BED LOCKED AND IN LOWEST POSITION,CALL LIGHT KEPT WITHIN EASY REACH. WILL CONTINUE TO MONITOR.
--- NOTE | 2019-05-25 07:13 | NUR ---
PERSONNEL ADMINISTRATOR CLOSING NOTE PATIENT IN BED, SLEEPING, A/OX 2. NO S/S OF PAIN OR DISCOMFORT. IN NO RESPIRATORY DISTRESS. ON ROOM AIR, TOLERATING WELL. ON TELE MONITOR V-PACING. RIGHT CHEST WALL PORT A CATH. PATIENT WAS ON AND OFF ON LEVO DRIP OVER NIGHT (CHECK PREVIOUS NOTES). BILATERAL LOWER EXTREMITY EDEMA. HOB ELEVATED. SIDE RAILS UP AND LOCKED. BED IN LOW/LOCKED POSITION. CALL LIGHT KEPT WITHIN EASY REACH. WILL ENDORSED THE PATIENT TO AM RN FOR ABENA.
--- NOTE | 2019-05-25 08:00 | NUR ---
RN NOTES DUEÑAS INSERTED PER MD ORDER .
[2019-05-25] MEDS: BLOOD SUGAR DIAGNOSTIC 1 EACH STRIP IN SCH ×4 (08:15→22:06)
[2019-05-25] MEDS: INSULIN REGULAR, HUMAN 100 UNIT/ML 3 ML VIAL SQ PRN ×4 (08:15→22:08)
[2019-05-25] MEDS: ASCORBIC ACID 500 MG TABLET PO SCH (08:20)
[2019-05-25] MEDS: NITROFURANTOIN/NITROFURAN MAC 100 MG CAPSULE PO SCH ×2 (08:21→21:33)
[2019-05-25] MEDS: MULTIVIT W/MINERALS 1 TAB TABLET PO SCH (08:21)
[2019-05-25] MEDS: HYDROCORTISONE SOD SUCCINATE 100 MG/2 ML VIAL IV SCH ×3 (08:21→16:15)
[2019-05-25] MEDS: PANTOPRAZOLE 40 MG TABLET.DR PO SCH (08:21)
[2019-05-25] MEDS: ACIDOPHILUS/BULGARICUS 1 EACH TAB.CHEW PO SCH (08:21)
[2019-05-25] MEDS: CLOTRIMAZOLE 1% 15 GM TUBE TP SCH ×2 (08:22→16:12)
[2019-05-25] MEDS: PROSOURCE / PROSTAT (PYXIS) 30 ML UDC PO SCH ×3 (08:23→16:12)
--- NOTE | 2019-05-25 12:00 | NUR ---
RN NOTES VSS STABLE, CONTINUE TO MONITOR .
[2019-05-25] MEDS: RIVAROXABAN 15 MG TABLET PO SCH ×2 (12:46→16:12)
--- NOTE | 2019-05-25 18:00 | NUR ---
RN NOTES NO SIGNIFCANT CHANGES NOTED ON THIS SHIFT, WILL ENDORSE TO CERTIFIED VEHICLE FIRE INVESTIGATOR NURSE FOR CONTINUITY OF CARE.
--- NOTE | 2019-05-25 20:00 | NUR ---
YOUTH CARE WORKER - NOTES - PATIENT IN BED, A/OX 2. NO S/S OF PAIN OR DISCOMFORT. IN NO RESPIRATORY DISTRESS. ON ROOM AIR, TOLERATING WELL. ON TELE MONITOR V-PACING. RIGHT CHEST WALL PORT A CATH. BILATERAL LOWER EXTREMITY EDEMA. HOB ELEVATED. SIDE RAILS UP AND LOCKED. BED IN LOW/LOCKED POSITION. CALL LIGHT KEPT WITHIN EASY REACH. WILL ENDORSED THE PATIENT TO AM RN FOR ABENA.
[2019-05-25] MEDS: MIRTAZAPINE 15 MG TABLET PO SCH (21:33)
[2019-05-26] VITALS (27 sets, daily range): BP systolic 102–145; BP diastolic 48–86
[2019-05-26 04:31] LABS: BASOPHILS % (AUTO) 0.2 % (0.0-2.0); HEMATOCRIT 29 % (33-45); HEMOGLOBIN 9.1 g/dL (11.5-14.8); LYMPHOCYTES # (AUTO) 0.6 /CMM (0.8-4.8); LYMPHOCYTES % (AUTO) 9.7 % (20.0-44.0); MEAN CORPUSCULAR HGB CONC 32 g/dl (31.0-36.0); MEAN CORPUSCULAR VOLUME 79 fL (82-100); MONOCYTES # (AUTO) 0.2 /CMM (0.1-1.30); MONOCYTES % (AUTO) 3.4 % (2.0-12.0); NEUTROPHILS # (AUTO) 5.7 /CMM (1.8-8.9); NEUTROPHILS % (AUTO) 86.7 % (43.0-81.0); PLATELET COUNT (AUTO) 272 /CMM (150-450); WHITE BLOOD COUNT (AUTO) 6.6 K/uL (4.3-11.0)
[2019-05-26 04:45] LABS: ALBUMIN 2.6 g/dL (3.4-5.0); BILIRUBIN,TOTAL 0.2 mg/dL (0.2-1.0); CALCIUM, SERUM 9.1 mg/dL (8.5-10.1); CREATININE 1.1 mg/dL (0.6-1.3); PHOSPHORUS 3.2 mg/dL (2.5-4.9); TOTAL PROTEIN, SERUM 6.1 g/dL (6.4-8.2)
--- NOTE | 2019-05-26 07:15 | NUR ---
MECHANICAL SERVICE TECHNICIAN OPENING NOTE RECEIVED REPORT FROM PM NURSE.PATIENT IN BED. A/OX 3 WITH CONFUSION. NO S/S OF PAIN OR DISCOMFORT.ON ROOM AIR. NO RESPIRATORY DISTRESS. TOLERATING WELL.SATURATING 97%. ON TELE MONITOR V-PACING. RIGHT CHEST WALL PORT A CATH. BILATERAL LOWER EXTREMITY EDEMA WITH REDNESS.DUEÑAS CATH DRAINING YELLOW FOUL SMELLING, SEDIMENTED URINE. ON CONTACT ISOLATION FOR ESBL URINE.BED IN LOW/LOCKED POSITION. SR X3. CALL LIGHT KEPT WITHIN EASY REACH.BED ALARM ON. WILL CONTINUE TO MONITOR.
[2019-05-26] MEDS: BLOOD SUGAR DIAGNOSTIC 1 EACH STRIP IN SCH ×4 (07:48→21:36)
[2019-05-26] MEDS: PANTOPRAZOLE 40 MG TABLET.DR PO SCH (07:49)
[2019-05-26] MEDS: INSULIN REGULAR, HUMAN 100 UNIT/ML 3 ML VIAL SQ PRN ×4 (07:56→21:47)
[2019-05-26] MEDS: ASCORBIC ACID 500 MG TABLET PO SCH (08:40)
[2019-05-26] MEDS: MULTIVIT W/MINERALS 1 TAB TABLET PO SCH (08:40)
[2019-05-26] MEDS: HYDROCORTISONE SOD SUCCINATE 100 MG/2 ML VIAL IV SCH ×3 (08:40→17:13)
[2019-05-26] MEDS: ACIDOPHILUS/BULGARICUS 1 EACH TAB.CHEW PO SCH (08:40)
[2019-05-26] MEDS: NITROFURANTOIN/NITROFURAN MAC 100 MG CAPSULE PO SCH ×3 (08:40→22:51)
[2019-05-26] MEDS: RIVAROXABAN 15 MG TABLET PO SCH ×2 (08:40→17:12)
[2019-05-26] MEDS: PROSOURCE / PROSTAT (PYXIS) 30 ML UDC PO SCH ×3 (08:42→17:19)
[2019-05-26] MEDS: CLOTRIMAZOLE 1% 15 GM TUBE TP SCH ×2 (08:44→17:16)
--- NOTE | 2019-05-26 11:15 | NUR ---
DIRECTOR OF EVENT SALES NOTE REPORT GIVEN TO VADOM RN FOR ABENA.PATIENT IN STABLE CONDITION .READY TO BE TRANSFER TO TELE.KEPT CLEAN.SAFETY AND ASPIRATION MEASURES IN PLACE.
--- NOTE | 2019-05-26 19:44 | NUR ---
RN CLOSING NOTES PATIENT IN STABLE CONDITION DURING MY SHIFT. NO ACUTE CHANGES TO PATIENT CONDITION DURING MY SHIFT. PATIENT IS CURRENTLY AWAKE IN BED, A/O X3. NO DISTRESS IS NOTED. ON ROOM AIR, TOLERATING WELL, SATURATION IN THE HIGH 90S. DUEÑAS CATHETER INTACT, DRAINING FOULLY SMELLING SEDIMENT URINE. CONTACT ISOLATION IS OBSERVED FOR ESBL OF URINE. SON IS AT BEDSIDE. SAFETY MAINTAINED, ALL PATIENT NEEDS MET, CALL LIGHT WITHIN REACH. ENDORSED TO STAINED GLASS ARTIST NURSE TO CONTINUE CARE.
--- NOTE | 2019-05-26 21:10 | NUR ---
MAINTENANCE INSTRUCTOR NOTE PT UNABLE TO TAKE MACROBID CAPSULE. PT UNABLE TO SWALLOW PILL WITH APPLESAUCE. CALLED PHARMACY. PER PHARMACIST CAPSULE NOT TO BE OPEN
[2019-05-26] MEDS: MIRTAZAPINE 15 MG TABLET PO SCH (21:36)
--- NOTE | 2019-05-26 22:31 | NUR ---
LEGAL RESEARCHER NOTE RAJESH WIRE PRODUCTS INSPECTOR CALLED, NOTIFIED PATIENT UNABLE TO TAKE CAPSULE
--- NOTE | 2019-05-26 22:39 | NUR ---
PROJECTION ENGINEER NOTE SPOKE TO ODD JOB WORKER RAJESH WILL CONTINUE MEDICATION ORDERED. PER ODD JOB WORKER OKAY TO OPEN CAPSULE AND GIVE WITH APPLESAUCE. WILL CONTINUE TO MONITOR PATIENT.
[2019-05-27] VITALS (7 sets, daily range): BP systolic 117–137; BP diastolic 59–73
[2019-05-27] MEDS: PANTOPRAZOLE 40 MG TABLET.DR PO SCH (07:30)
[2019-05-27] MEDS: BLOOD SUGAR DIAGNOSTIC 1 EACH STRIP IN SCH ×4 (08:11→22:14)
[2019-05-27] MEDS: INSULIN REGULAR, HUMAN 100 UNIT/ML 3 ML VIAL SQ PRN ×4 (08:12→22:19)
[2019-05-27] MEDS: ACIDOPHILUS/BULGARICUS 1 EACH TAB.CHEW PO SCH (08:24)
[2019-05-27] MEDS: MULTIVIT W/MINERALS 1 TAB TABLET PO SCH (08:24)
[2019-05-27] MEDS: ASCORBIC ACID 500 MG TABLET PO SCH (08:24)
[2019-05-27] MEDS: HYDROCORTISONE SOD SUCCINATE 100 MG/2 ML VIAL IV SCH ×3 (08:24→16:06)
[2019-05-27] MEDS: NITROFURANTOIN/NITROFURAN MAC 100 MG CAPSULE PO SCH ×2 (08:25→22:14)
[2019-05-27] MEDS: RIVAROXABAN 15 MG TABLET PO SCH ×2 (08:27→16:07)
[2019-05-27] MEDS: CLOTRIMAZOLE 1% 15 GM TUBE TP SCH ×2 (08:27→16:06)
[2019-05-27] MEDS: PROSOURCE / PROSTAT (PYXIS) 30 ML UDC PO SCH ×3 (08:28→16:06)
--- NOTE | 2019-05-27 11:31 | NUR ---
TRANSFER OF CARE NOTE PT WAS RECEIVED IN BED AT LOWEST AND LOCKED POSITION WITH SIDE RAILS UP X2, A/O X2, BREATHING EVEN AND UNLABORED WITH NO DISTRESS NOTED AT THIS TIME, DUEÑAS IN PLACE NOTED WITH DARK GREEN BROWN URINE WITH CLOTS, RCW PORTACATH IS PATENT AND INTACT, NOTED TO ALSO HAVE LCW PACEMAKER AND L WRIST IV, SAFETY PRECAUTIONS IN PLACE, CALL LIGHT IN REACH, WILL MONITOR ACCORDINGLY
--- NOTE | 2019-05-27 11:50 | NUR ---
rnn ote abg results relayed to dr Grimaldo, no new orders at this time. pt stable, no sob, co pain in her arms and legs.
--- NOTE | 2019-05-27 18:25 | NUR ---
RN CLOSING NOTE PT IN BED AT LOWEST AND LOCKED POSITION WITH SIDE RAILS UP X2, A/O X2 VERBAL, BREATHING EVEN AND UNLABORED ONRA WITH NO S/S OF ANY DISTRESS OR PAIN NOTED AT THIS TIME, IV ARE PATENT AND INTACT, DUEÑAS IN PLACE WITH 600 CC OF DARK BROWN OUT, ALL NEEDS ATTENDED TO DURING SHIFT, SAFETY PRECAUTIONS IN PLACE, CALL LIGHT IN REACH, WILL ENDORSE TO ONCOMING NIGHT RN FOR ABENA.
--- NOTE | 2019-05-27 19:25 | NUR ---
RN OPEN NOTES RECEIVED PATIENT AWAKE IN BED WITH FAMILY AT BEDSIDE. A/OX2. NO SIGNS OF DISTRESS OR DISCOMFORT. BREATHING EVEN AND UNLABORED. ON TELE MONITOR WITH V-PACING 76 NOTED. HAS RCW PORTACATH INTACT. LCW PACEMAKER INTACT. IV ACCESS IN L WRIST, PATENT AND INTACT, NO SIGNS OF REDNESS OR INFILTRATION. F/C INTACT DRAINING CLOUDY BROWN FLUID. BED IN LOW LOCKED POSITION WITH SIDE RAILS X2. CALL LIGHT WITHIN REACH. WILL CONTINUE TO MONITOR.
[2019-05-27] MEDS: MIRTAZAPINE 15 MG TABLET PO SCH (22:14)
[2019-05-28] VITALS: BP 140/70
[2019-05-28 04:00] VITALS: BP 140/73
[2019-05-28] MEDS: ACETAMINOPHEN 325 MG TABLET PO PRN ×2 (06:28→12:23)
[2019-05-28] MEDS: BLOOD SUGAR DIAGNOSTIC 1 EACH STRIP IN SCH ×4 (06:38→21:32)
[2019-05-28] MEDS: INSULIN REGULAR, HUMAN 100 UNIT/ML 3 ML VIAL SQ PRN ×4 (06:40→21:35)
--- NOTE | 2019-05-28 07:31 | NUR ---
RN CLOSING NOTES PATIENT RESTING COMFORTABLY IN BED, EASILY AROUSABLE. A/OX2. NO SIGNS OF DISTRESS OR DISCOMFORT. BREATHING EVEN AND UNLABORED. ON TELE MONITOR WITH AV-PACING 60 NOTED. HAS RCW PORTACATH INTACT. LCW PACEMAKER INTACT. IV ACCESS IN L WRIST, PATENT AND INTACT, NO SIGNS OF REDNESS OR INFILTRATION. F/C INTACT DRAINING CLOUDY BROWN FLUID. ALL NEEDS MET. NO SIGNIFICANT CHANGES THROUGH THE NIGHT. PATIENT KEPT CLEAN DRY AND COMFORTABLE. REPOSITIONED Q2H. BED IN LOW LOCKED POSITION WITH SIDE RAILS X2. CALL LIGHT WITHIN REACH. ENDORSED TO AM SHIFT FOR ABENA.
[2019-05-28 08:00] VITALS: BP 162/82
[2019-05-28] MEDS: RIVAROXABAN 15 MG TABLET PO SCH ×2 (09:00→17:00)
[2019-05-28] MEDS: HYDROCORTISONE SOD SUCCINATE 100 MG/2 ML VIAL IV SCH ×3 (09:02→17:12)
[2019-05-28] MEDS: ACIDOPHILUS/BULGARICUS 1 EACH TAB.CHEW PO SCH (09:03)
[2019-05-28] MEDS: NITROFURANTOIN/NITROFURAN MAC 100 MG CAPSULE PO SCH ×2 (09:03→21:28)
[2019-05-28] MEDS: ASCORBIC ACID 500 MG TABLET PO SCH (09:03)
[2019-05-28] MEDS: PANTOPRAZOLE 40 MG/PACK PACK PO SCH (09:03)
[2019-05-28] MEDS: MULTIVIT W/MINERALS 1 TAB TABLET PO SCH (09:03)
[2019-05-28] MEDS: PROSOURCE / PROSTAT (PYXIS) 30 ML UDC PO SCH ×3 (09:07→17:12)
[2019-05-28] MEDS: CLOTRIMAZOLE 1% 15 GM TUBE TP SCH ×2 (09:17→17:13)
--- NOTE | 2019-05-28 10:01 | NUR ---
RN NOTE XARELTO DOSE THIS AM HELD PER DR DIMITRY FLORES, DUE TO BLOODY URINE. WILL MONITOR FURTHER.
[2019-05-28 12:00] VITALS: BP 160/71
[2019-05-28 13:33] LABS: BASOPHILS % (AUTO) 0.1 % (0.0-2.0); HEMATOCRIT 31 % (33-45); HEMOGLOBIN 9.7 g/dL (11.5-14.8); LYMPHOCYTES # (AUTO) 0.6 /CMM (0.8-4.8); LYMPHOCYTES % (AUTO) 7.2 % (20.0-44.0); MEAN CORPUSCULAR HGB CONC 32 g/dl (31.0-36.0); MEAN CORPUSCULAR VOLUME 80 fL (82-100); MONOCYTES # (AUTO) 0.5 /CMM (0.1-1.30); MONOCYTES % (AUTO) 5.9 % (2.0-12.0); NEUTROPHILS # (AUTO) 7.8 /CMM (1.8-8.9); NEUTROPHILS % (AUTO) 86.8 % (43.0-81.0); PLATELET COUNT (AUTO) 265 /CMM (150-450); RED BLOOD CELL COUNT(AUTO) 3.83 MIL/uL (4.0-5.2)
[2019-05-28 16:00] VITALS: BP 148/71
--- NOTE | 2019-05-28 19:00 | NUR ---
RN NOTES: RECEIVED AWAKE ON BED, ON SEMI FOWLERS POSITION, BLE OFF LOADING TOTAL CARE, ON ROOM AIR SPO2-97% A/O 1-2, ABLE TO VERBALIZE NEEDS, ON CONTRACT ADMINISTRATOR V-PACING RATE-74, DUEÑAS CATH DRAINING INTO TEA COLORED URINE WITH SEDIMENTS AND BLOOD STREAK NOTED, PER ENDORSEMENT PMD AWARE, XARELTO IS ON HOLD, PORT A CATH RUC INTACT DRESSING, PACEMAKER ON RUPA, IV ON THE RIGHT WRIST #20 TKO,ORIENTED TO UNIT AND STAFF, BED LOW AND LOCKED, CALL LIGHT WITHIN EASY REACH, ISOLATION OBSERVED FOR ESBL-URINE,FALL, SAFETY AND ASPIRATION PRECAUTION OBSERVED. PRESENT IN BED SIDE.
[2019-05-28 20:00] VITALS: BP 146/67
--- NOTE | 2019-05-28 21:09 | NUR ---
RN NOTES: 2044 TURNING AND REPOSITIONING DONE, OFF LOADING OF BLE.
[2019-05-28] MEDS: MIRTAZAPINE 15 MG TABLET PO SCH (21:28)
--- NOTE | 2019-05-28 21:49 | NUR ---
RN NOTES: BLOOD SUGAR 302, INSULIN GIVEN PER SCALE, DUE MEDS GIVEN TOLERATED, ASPIRATION PRECAUTION OBSERVED, KEPT ON HIGH FOWLERS POSITION FOR SOMETIME AFTER TAKING MEDICATION.
[2019-05-29] VITALS: BP 148/59
--- NOTE | 2019-05-29 00:09 | NUR ---
RN NOTES: TURN AND REPOSITIONING DONE, OFF LOADING OF BOTH LOWER EXTREMITY, NO BM, DUEÑAS CATH DRAINING WELL, STILL TEA COLORED URINE , NO BLOOD STREAK IN THE URINE.KEPT CALL LIGHT WITHIN EASY REACH.
[2019-05-29 02:00] VITALS: BP 155/59
[2019-05-29 04:00] VITALS: BP 155/59
--- NOTE | 2019-05-29 07:19 | NUR ---
RN NOTES: SLEEP WELL IN THE NIGHT, NEEDS ATTENDED, FALL,SAFETY AND ASPIRATION PRECAUTION OBSERVED, ENDORSED FOR CONTINUITY OF CARE.
[2019-05-29] MEDS: BLOOD SUGAR DIAGNOSTIC 1 EACH STRIP IN SCH ×2 (07:38→12:19)
--- NOTE | 2019-05-29 07:38 | NUR ---
RN OPENING NOTES RECEIVED PATIENT IN BED, AWAKE. A/O X2. VERBALLY RESPONSIVE AND ABLE TO MAKE NEEDS KNOWN. DENIES ANY PAIN OR DISCOMFORT. ON ROOM AIR, TOLERATING WELL, NO SOB NOTED. ON TELE MONITOR AV PAVING HR 82 . DENIES ANY CHEST PAIN. PORT A CATCH ON R CHEST WALL INTACT, PATENT AND FLUSHED WELL WITH ON GOING NS 0.9% TKO WITH REMAINING 95ML ON THE BAG. NO SIGNS OF INFILTRATION. BED ON LOWEST POSITION AND LOCKED. CALL LIGHT WITHIN REACH FOR EASY ACCESS . WILL CONTINUE TO MONITOR.
[2019-05-29 08:00] VITALS: BP 150/72
[2019-05-29] MEDS: INSULIN REGULAR, HUMAN 100 UNIT/ML 3 ML VIAL SQ PRN (08:14)
[2019-05-29] MEDS: NITROFURANTOIN/NITROFURAN MAC 100 MG CAPSULE PO SCH (08:32)
[2019-05-29] MEDS: PANTOPRAZOLE 40 MG/PACK PACK PO SCH (08:32)
[2019-05-29] MEDS: ASCORBIC ACID 500 MG TABLET PO SCH (08:32)
[2019-05-29] MEDS: HYDROCORTISONE SOD SUCCINATE 100 MG/2 ML VIAL IV SCH ×2 (08:32→13:04)
[2019-05-29] MEDS: ACIDOPHILUS/BULGARICUS 1 EACH TAB.CHEW PO SCH (08:32)
[2019-05-29] MEDS: MULTIVIT W/MINERALS 1 TAB TABLET PO SCH (08:34)
[2019-05-29] MEDS: RIVAROXABAN 15 MG TABLET PO SCH (09:00)
[2019-05-29] MEDS: CLOTRIMAZOLE 1% 15 GM TUBE TP SCH (09:25)
[2019-05-29] MEDS: PROSOURCE / PROSTAT (PYXIS) 30 ML UDC PO SCH ×2 (09:25→13:02)
--- NOTE | 2019-05-29 11:45 | NUR ---
RN NOTES CALLED ASHLEIGH KOWALSKI TO GIVE REPORT PER MISTY TO CALL BACK BECAUSE THE RN SUP IS NOT AVAILABLE
--- NOTE | 2019-05-29 14:35 | NUR ---
RN NOTES REPORT GIVEN TO PAT RN PORTABLE TRACK LINE MARKER AFTER 5X ATTEMPT OF CALLING THE FACILITY
[2019-07-28] MEDS ORDERED: MERO500V21 IV (11:14)
== END 2019-05-29 14:28 | DRG 281 ==
LOC: ER 00:12 → TELE 03:56 → MED 09:31 → TELE 05-22 23:14 → ICU 05-23 00:21 → TELE1 05-26 12:55 → MEDSG1 05-29 09:19
PROVIDERS: ADMIT Nurse Practitioner Acute Care
DX: I11.0 Hypertensive heart disease with heart failure (principal); I21.A1 Myocardial infarction type 2; E44.0 Moderate protein-calorie malnutrition; I48.20 Chronic atrial fibrillation, unspecified; N39.0 Urinary tract infection, site not specified; Z16.12 Extended spectrum beta lactamase (ESBL) resistance; D68.69 Other thrombophilia; I69.354 Hemiplegia and hemiparesis following cerebral infarction affecting left non-dominant side; I82.593 Chronic embolism and thrombosis of other specified deep vein of lower extremity, bilateral; K76.6 Portal hypertension; E66.2 Morbid (severe) obesity with alveolar hypoventilation; F03.90 Unspecified dementia, unspecified severity, without behavioral disturbance, psychotic disturbance, mood disturbance, and anxiety; E11.9 Type 2 diabetes mellitus without complications; I50.33 Acute on chronic diastolic (congestive) heart failure; E86.0 Dehydration; F32.9 Major depressive disorder, single episode, unspecified; I25.10 Atherosclerotic heart disease of native coronary artery without angina pectoris; L30.4 Erythema intertrigo; M81.0 Age-related osteoporosis without current pathological fracture; Z79.01 Long term (current) use of anticoagulants; Z79.4 Long term (current) use of insulin; Z91.14 Patient's other noncompliance with medication regimen; Z95.0 Presence of cardiac pacemaker; D50.9 Iron deficiency anemia, unspecified; E88.09 Other disorders of plasma-protein metabolism, not elsewhere classified; Z68.31 Body mass index [BMI] 31.0-31.9, adult; M24.522 Contracture, left elbow; M24.542 Contracture, left hand; N93.9 Abnormal uterine and vaginal bleeding, unspecified; B96.20 Unspecified Escherichia coli [E. coli] as the cause of diseases classified elsewhere; I27.20 Pulmonary hypertension, unspecified; Z87.440 Personal history of urinary (tract) infections
CPT/HCPCS: 36415; 71045-TC; 74018; 80048-TC; 80053-TC; 80061-TC; 80076-TC; 81000-TC; 82533; 82728-TC; 82962-TC; 83540-TC; 83605-TC; 83735-TC; 83880; 84100-TC; 84443-TC; 84484-TC; 85025-TC; 85730-TC; 87040-TC; 87081-TC; 87086-TC; 87186-TC; 93307-TC; 93970-TC; 97530-TC; G0378; J1650; J1720; J1815; J1940; J2916; J7030; J7040; J7050; J7060

== ENCOUNTER 2019-07-24 20:40 | Inpatient (IN) | payer MEDICARE, OTHER ==
[~2019-07-24] VITALS: Ht 162.6 cm; Wt 77.1 kg
[~2019-07-24 20:40] MED LIST changes: +FERR325T23 PO; -INSU100V28 SQ; +RIVA15TA PO; -WARF4TAB41 PO
--- NOTE | 2019-07-24 20:50 | NUR ---
KEVIN FROM [facility] C/O PRODUCTIVE COUGH FOR 2 WEEKS PER PT DAUGHTER. pt to bed 5, enhanced isolation precautions started, pt appears comfortable, aaox1, -sob, placed on monitor, pending er provider ann-marie
--- NOTE | 2019-07-24 21:03 | NUR ---
PT DAUGHTER CHESTER [phone]
[2019-07-24 21:28] LABS: BASOPHILS # (AUTO) 0.1 /CMM (0.0-0.2); BASOPHILS % (AUTO) 0.9 % (0.0-2.0); EOSINOPHILS % (AUTO) 3.3 % (0.0-6.0); HEMATOCRIT 40 % (33-45); HEMOGLOBIN 12.6 g/dL (11.5-14.8); LYMPHOCYTES # (AUTO) 0.8 /CMM (0.8-4.8); LYMPHOCYTES % (AUTO) 10.5 % (20.0-44.0); MEAN CORPUSCULAR HGB CONC 31 g/dl (31.0-36.0); MEAN CORPUSCULAR VOLUME 79 fL (82-100); MONOCYTES # (AUTO) 0.4 /CMM (0.1-1.30); NEUTROPHILS # (AUTO) 6.4 /CMM (1.8-8.9); NEUTROPHILS % (AUTO) 80.3 % (43.0-81.0); PLATELET COUNT (AUTO) 252 /CMM (150-450); RED BLOOD CELL COUNT(AUTO) 5.09 MIL/uL (4.0-5.2)
[2019-07-24] MEDS ORDERED: IV NS 0.9% 500 ML BAG IV ONE (21:30)
[2019-07-24 21:38] LABS: CALCIUM, SERUM 9.2 mg/dL (8.5-10.1); CARBON DIOXIDE 29 mmol/L (21-32); CHLORIDE 108 mmol/L (98-107); CREATININE 0.9 mg/dL (0.6-1.3); GLUCOSE 161 mg/dL (74-106); POTASSIUM 4.4 mmol/L (3.5-5.1); SODIUM SERUM 143 mmol/L (136-145); UREA NITROGEN, BLOOD 26 mg/dL (7-18)
[2019-07-24 21:44] LABS: ALANINE AMINOTRANSFERASE 9 U/L (12-78); ALBUMIN 2.6 g/dL (3.4-5.0); ALKALINE PHOSPHATASE 91 U/L (46-116); ASPARTATE AMINOTRANSFERASE 15 U/L (15-37); BILIRUBIN,DIRECT 0.1 mg/dL (0.0-0.2); BILIRUBIN,TOTAL 0.3 mg/dL (0.2-1.0); TOTAL PROTEIN, SERUM 6.3 g/dL (6.4-8.2)
--- NOTE | 2019-07-24 21:54 | NUR ---
covid swab sent
[2019-07-24] MEDS ORDERED: DOXYCYCLINE HYCLATE (100 MG) 100 MG TABLET ONE (22:27)
[2019-07-24] MEDS ORDERED: AZITHROMYCIN 500 MG in IV D5W 250 ML IV ONE (22:30)
[2019-07-24] MEDS ORDERED: DOXYCYCLINE HYCLATE (100 MG) 100 MG TABLET PO ONE ×2 (22:30)
[2019-07-24] MEDS ORDERED: AZTREONAM 1 G VIAL ONE (22:34)
[2019-07-24] MEDS ORDERED: AZITHROMYCIN 500 MG VIAL ONE (22:36)
--- NOTE | 2019-07-24 22:38 | NUR ---
ROOM GIVEN 107.
[2019-07-24 22:47] LABS: APPEARANCE,URINE Cloudy (CLEAR); BILIRUBIN,URINE Negative (NEGATIVE); BLOOD, URINE Moderate Ery/uL (NEGATIVE); COLOR,URINE Yellow (YELLOW); KETONES,URINE Negative (NEGATIVE); LEUKOCYTE ESTERASE ,URINE Small (NEGATIVE); NITRITE, URINE Positive (NEGATIVE); PROTEIN,URINE 100 mg/dl (NEGATIVE); UGLUCOSE Negative (NEGATIVE); UROBILINOGEN,URINE 0.2 EU/dL (0.2)
[2019-07-24 23:02] LABS: BACTERIA,URINE Moderate /HPF (None Seen); SQUAMOUS EPITHELIAL CELL,UR Few /HPF (None Seen); WBC,URINE 81-100 /HPF (0-3)
--- NOTE | 2019-07-24 23:03 | NUR ---
report given to keith carlin for anupam pt will be transported to 1st floor
--- NOTE | 2019-07-24 23:05 | NUR ---
Received report from Raheel in ER.
--- NOTE | 2019-07-24 23:50 | NUR ---
RN NOTE: Pt brought into unit via gurney accompanied by RN. Transferred over to bed. Cleaned, head to toe assessment done, pictures taken. Admit dx of PNA. On isolation for r/o covid. Pt on room air, tolerating well. No respiratory distress noted. A&Ox1, confused. On tele monitor showing SR. Has pacemaker on left upper chest wall, portacath on right chest wall. Has IV site on right FA #18, flushed and patent. Dressing c/d/i. Dr. Kolb made aware of pt arrival to unit. Vital signs: BP 132/42 P 100 RR 18 SaO2 97% T 99.1 oral. Gave orders for IV fluids, TORB, noted and carried out. Safety measures in place. Bed in lowest and locked position, side rails up x3, call light within reach. Will continue to monitor.
--- NOTE | 2019-07-24 23:58 | NUR ---
pt transported to 1st floor
[2019-07-25] MEDS ORDERED: IV NS 0.9% 1,000 ML BAG IV PRN (01:00)
[2019-07-25] MEDS: IV NS 0.9% 1,000 ML IV PRN (01:10)
[2019-07-25 04:00] VITALS: BP_SYST 112; BP_SYST 127; BP_DIAS 57; BP_DIAS 58
--- NOTE | 2019-07-25 06:43 | NUR ---
RN CLOSING NOTE: Pt asleep in bed, easily arousable, A&Ox1. On isolation for R/O Covid pending results. On room air tolerating well. No respiratory distress noted. No acute changes noted during shift. Has pacemaker on left chest wall and port a cath on right chest wall. IV site on right FA #18 patent and flushing. Dressing c/d/i. Has NS running at 40cc/hr. Safety measures in place. Bed in lowest and locked position, side rails up x3, call light within reach. Will endorse to AM nurse for ABENA.
[2019-07-25] MEDS ORDERED: NYST15OI2 TP (07:39)
[2019-07-25] MEDS ORDERED: PANT40TA2 PO (07:39)
[2019-07-25] MEDS ORDERED: INSU100V3 SQ (07:39)
[2019-07-25] MEDS ORDERED: ACID1TAB12 PO (07:39)
[2019-07-25] MEDS ORDERED: INSU100V7 SQ (07:39)
[2019-07-25] MEDS ORDERED: DABI75CA3 PO (07:39)
[2019-07-25] MEDS ORDERED: DICL100G16 TP (07:39)
[2019-07-25] MEDS ORDERED: GUAI100S11 PO (07:39)
--- NOTE | 2019-07-25 07:43 | NUR ---
RN OPENING NOTES RECEIVED PATIENT SLEEPING IN BED COMFORTABLY. SHE IS AOX1, CONFUSED, VERBAL, AND BEDBOUND. TELE MONITOR SHOWING SR. EDEMA PRESENT ON BLE. RFA 18 G IS PATENT AND INTACT, INFUSING NS AT 40 ML/HR. NO ORDERS AT THIS TIME, PER NIGHTSHIFT RN, MD MASON IS TO ENTER ORDERS THIS AM. SAFETY MEASURES HAVE BEEN IMPLEMENTED, CALL LIGHT IS WITHIN REACH, BED IS IN LOWEST AND LOCKED POSITION, SIDE RAILS UP X2, WILL CONTINUE TO MONITOR FOR ANY CHANGES.
[2019-07-25 08:00] VITALS: BP 125/58
[2019-07-25] MEDS ORDERED: ONDANSETRON HCL/PF 4 MG/2 ML VIAL IVP PRN (08:30)
[2019-07-25] MEDS ORDERED: MAG HYDROX/AL HYDROX/SIMETH 30 ML UDC PO PRN (08:30)
[2019-07-25] MEDS ORDERED: GUAIFENESIN 300 MG/15 ML UDC PO PRN (08:30)
[2019-07-25] MEDS ORDERED: Z GUARD REMEDY 2 OZ OINT TP PRN (08:30)
[2019-07-25] MEDS ORDERED: HYDROCODONE/APAP 5/325MG 1 EACH TABLET PO PRN (08:30)
[2019-07-25] MEDS ORDERED: MAGNESIUM HYDROXIDE 30 ML UDC PO PRN (08:30)
[2019-07-25] MEDS ORDERED: NA PHOS,M-B/NA PHOS,DI-BA 1 EA ENEMA RC PRN (08:30)
[2019-07-25] MEDS ORDERED: ZOLPIDEM TARTRATE 5 MG TABLET PO PRN (08:30)
[2019-07-25] MEDS ORDERED: ACETAMINOPHEN 325 MG TABLET PO PRN (08:30)
[2019-07-25] MEDS ORDERED: DICLOFENAC TOPICAL 100 GM GEL..GM. TP SCH (09:00)
[2019-07-25] MEDS: PROSOURCE / PROSTAT (PYXIS) 30 ML UDC PO SCH ×3 (09:41→16:06)
[2019-07-25] MEDS: ASCORBIC ACID 500 MG TABLET PO SCH (09:42)
[2019-07-25] MEDS: NYSTATIN/TRIAMCIN OINT 15 GM TUBE TP SCH ×2 (09:42→16:16)
[2019-07-25] MEDS: ACIDOPHILUS/BULGARICUS 1 EACH TAB.CHEW PO SCH (09:42)
[2019-07-25] MEDS: MULTIVIT W/MINERALS 1 TAB TABLET PO SCH (09:42)
[2019-07-25] MEDS: NYSTATIN TOP POWDER 15 GM BOTTLE TP SCH ×3 (09:42→16:16)
[2019-07-25] MEDS: DABIGATRAN ETEXILATE MESYLATE 75 MG CAPSULE PO SCH ×2 (09:44→16:06)
[2019-07-25] MEDS: MEROPENEM 1 G in IV NS 0.9% 100 ML IV SCH ×2 (09:47→21:19)
[2019-07-25 12:00] VITALS: BP 128/77
--- NOTE | 2019-07-25 12:52 | NUR ---
RN NOTES PATIENT HAS ORDER FOR PROTONIX PO STARTING TOMORROW AM, PT IS ALLERGIC TO PPIs. DR. TEMPLE MADE AWARE, RECEIVED ORDER TO DC PROTONIX
[2019-07-25 16:00] VITALS: BP 120/71
--- NOTE | 2019-07-25 19:07 | NUR ---
RN CLOSING NOTES PATIENT IS RESTING COMFORTABLY IN BED AT THIS TIME. SHE IS ON DROPLET AND CONTACT ISO FOR RULE OUT COVID-19. SHE IS ON RA, DENIES HAVE SOB, NO RESP DISTRESS NOTED. PT DENIES ANY PAIN OR DISCOMFORT. NO ACUTE CHANGES OCCURRED THROUGHOUT THE SHIFT, VITAL SIGNS ARE STABLE, PT NEEDS HAVE BEEN MET. SAFETY MEASURES HAVE BEEN IMPLEMENTED, CALL LIGHT IS WITHIN REACH, BED IS IN LOWEST AND LOCKED POSITION, SIDE RIALS UP X2, PT HAS BEEN ENDORSED TO NIGHTSHIFT RN FOR ABENA.
[2019-07-25 20:00] VITALS: BP 149/80
[2019-07-25] MEDS: INSULIN GLARGINE, 100 UNIT/ML CARTRIDGE SQ SCH (22:00)
[2019-07-25] MEDS: MIRTAZAPINE 15 MG TABLET PO SCH (22:55)
[2019-07-26] VITALS: BP 128/64
[2019-07-26] MEDS: IV NS 0.9% 1,000 ML IV PRN (00:34)
[2019-07-26 04:00] VITALS: BP 129/60
[2019-07-26 06:45] LABS: BASOPHILS # (AUTO) 0.1 /CMM (0.0-0.2); EOSINOPHILS % (AUTO) 4.9 % (0.0-6.0); HEMATOCRIT 40 % (33-45); HEMOGLOBIN 12.4 g/dL (11.5-14.8); LYMPHOCYTES # (AUTO) 1.1 /CMM (0.8-4.8); LYMPHOCYTES % (AUTO) 18.3 % (20.0-44.0); MEAN CORPUSCULAR HGB CONC 31 g/dl (31.0-36.0); MEAN CORPUSCULAR VOLUME 80 fL (82-100); MONOCYTES # (AUTO) 0.4 /CMM (0.1-1.30); MONOCYTES % (AUTO) 6.5 % (2.0-12.0); NEUTROPHILS # (AUTO) 4.2 /CMM (1.8-8.9); NEUTROPHILS % (AUTO) 69.3 % (43.0-81.0); PLATELET COUNT (AUTO) 225 /CMM (150-450); RED BLOOD CELL COUNT(AUTO) 5.03 MIL/uL (4.0-5.2); WHITE BLOOD COUNT (AUTO) 6.1 K/uL (4.3-11.0)
[2019-07-26 07:05] LABS: ALBUMIN 2.4 g/dL (3.4-5.0); BILIRUBIN,TOTAL 0.4 mg/dL (0.2-1.0); CALCIUM, SERUM 8.7 mg/dL (8.5-10.1); CREATININE 0.9 mg/dL (0.6-1.3); MAGNESIUM 1.6 mg/dL (1.8-2.4); PHOSPHORUS 2.8 mg/dL (2.5-4.9); POTASSIUM 4.1 mmol/L (3.5-5.1); TOTAL PROTEIN, SERUM 5.8 g/dL (6.4-8.2)
[2019-07-26] MEDS ORDERED: PANTOPRAZOLE 40 MG TABLET.DR PO SCH (07:30)
--- NOTE | 2019-07-26 07:48 | NUR ---
RN OPENING NOTES RECEIVED PATIENT SLEEPING IN BED COMFORTABLY BUT EASY AROUSE BY LIGHT TOUCH AND VOICE. AOX1, AND BEDBOUND. ON ROOM AIR TOLERATING WELL. NO SOB NOTED. ON TELE MONITOR READING SINUS BAUTISTA 54 BPM, EDEMA PRESENT ON BLE. IV ACCESS ON RFA 18 G IS PATENT AND INTACT, INFUSING NS AT 40 ML/HR. SAFETY MEASURES HAVE CALL LIGHT IS WITHIN REACH, BED IS IN LOWEST AND LOCKED POSITION, SIDE RAILS UP X2, WILL CONTINUE TO MONITOR FOR ANY CHANGES.
[2019-07-26 08:00] VITALS: BP 135/96
[2019-07-26 08:41] LABS: ABG BASE EXCESS 1.4 mmol/L; ABG OXYGEN SATURATION 95.6 % (92.0-98.5); ABG PCO2 36.6 mmHg (35.0-45.0); ABG PH 7.455 (7.350-7.450); ABG PO2 79.2 mmHg (75.0-100.0); AaDO2 26.7 mmHg; COHb 0.5 % (0.5-1.5); MetHb 0.4 % (0.0-1.5); O2Hb 94.7 % (94.0-97.0); SITE, ABG Right Radial; VENT MODE, BG ROOM AIR
[2019-07-26] MEDS: MULTIVIT W/MINERALS 1 TAB TABLET PO SCH (08:48)
[2019-07-26] MEDS: ACIDOPHILUS/BULGARICUS 1 EACH TAB.CHEW PO SCH (08:48)
[2019-07-26] MEDS: MEROPENEM 1 G in IV NS 0.9% 100 ML IV SCH ×2 (08:48→21:45)
[2019-07-26] MEDS: ASCORBIC ACID 500 MG TABLET PO SCH (08:48)
[2019-07-26] MEDS: NYSTATIN TOP POWDER 15 GM BOTTLE TP SCH ×2 (08:49→17:28)
[2019-07-26] MEDS: NYSTATIN/TRIAMCIN OINT 15 GM TUBE TP SCH ×2 (08:49→17:28)
[2019-07-26] MEDS: DABIGATRAN ETEXILATE MESYLATE 75 MG CAPSULE PO SCH ×2 (08:53→17:06)
[2019-07-26] MEDS: PROSOURCE / PROSTAT (PYXIS) 30 ML UDC PO SCH ×3 (08:54→17:05)
[2019-07-26] MEDS: Magnesium 1GM/D5W 100ML PREMIX 100 ML IV SCH ×2 (11:36→12:58)
[2019-07-26] MEDS: CLOTRIMAZOLE/BETAMETASONE DIPROPIONATE 15 GM TUBE TP SCH ×2 (11:38→17:28)
[2019-07-26 12:00] VITALS: BP 149/83
[2019-07-26 16:00] VITALS: BP 151/76
--- NOTE | 2019-07-26 19:10 | NUR ---
RN CLOSING NOTES PATIENT IN BED, AWAKE, WATCHING TELEVISION. IN NO APPARENT DISTRESS NOTED. ON ROOM AIR, SATURATING WELL. NO SOB NOTED. NO CHANGED OF CONDITIONED DURING AM SHIFT. DENIES ANY PAIN OR DISCOMFORT. IV ACCESS INTACT,PATENT, AND FLUSHED WELL WITH NS RUNNING @40 ML/HR. NO SIGNS OF INFILTRATION NOTED. KEPT CLEAN AND DRY. ALL NEEDS MET. SAFETY MEASURES IN PLACED, CALL LIGHT WITHIN REACHED. ENDORSED TO PM RN FOR ABENA.
--- NOTE | 2019-07-26 19:45 | NUR ---
SENIOR ORACLE DBA OPENING NOTES PATIENT RECEIVED RESTING IN BED A/O X1-2. STABLE ON RA WITH BREATHING EVEN AND UNLABORED, NO SOB NOTED. NO SIGNS OF ACUTE DISTRESS. NO COMPLAINTS OF PAIN OR DISCOMFORT. TELE MONITOR READING A/V PACING 77. IV LOCATED ON RFA #18 PATENT AND INTACT RUNNING NS @ 40 ML/HR. SAFETY PRECAUTIONS IN PLACE WITH BED IN LOWEST POSITION, CALL LIGHT WITHIN REACH, BREAKS ON, SIDE RAILS UP. WILL CONTINUE TO MONITOR THROUGHOUT THE SHIFT.
[2019-07-26 20:00] VITALS: BP 150/80
--- NOTE | 2019-07-26 20:32 | NUR ---
CONTACT DAUGHTER CHESTER [phone] CONTACT DAUGHTER FOR ANY NEW UPDATES ON PATIENT. DAUGHTER REQUESTS SHE DOES NOT GET SENT BACK TO [facility], WOULD RATHER BE DISCHARGED BACK HOME.
[2019-07-26] MEDS: MIRTAZAPINE 15 MG TABLET PO SCH (21:45)
[2019-07-26] MEDS: INSULIN GLARGINE, 100 UNIT/ML CARTRIDGE SQ SCH (21:56)
[2019-07-27] VITALS: BP_SYST 137; BP_DIAS 78; BP_DIAS 82
[2019-07-27 04:00] VITALS: BP 135/75
[2019-07-27] MEDS: IV NS 0.9% 1,000 ML IV PRN (04:00)
[2019-07-27 06:28] LABS: BASOPHILS # (AUTO) 0.1 /CMM (0.0-0.2); BASOPHILS % (AUTO) 1.2 % (0.0-2.0); EOSINOPHILS % (AUTO) 4.7 % (0.0-6.0); HEMATOCRIT 37 % (33-45); HEMOGLOBIN 11.7 g/dL (11.5-14.8); LYMPHOCYTES # (AUTO) 1.2 /CMM (0.8-4.8); LYMPHOCYTES % (AUTO) 17.2 % (20.0-44.0); MEAN CORPUSCULAR HGB CONC 32 g/dl (31.0-36.0); MEAN CORPUSCULAR VOLUME 79 fL (82-100); MONOCYTES # (AUTO) 0.6 /CMM (0.1-1.30); MONOCYTES % (AUTO) 9.2 % (2.0-12.0); NEUTROPHILS # (AUTO) 4.8 /CMM (1.8-8.9); NEUTROPHILS % (AUTO) 67.7 % (43.0-81.0); PLATELET COUNT (AUTO) 233 /CMM (150-450); RED BLOOD CELL COUNT(AUTO) 4.63 MIL/uL (4.0-5.2)
--- NOTE | 2019-07-27 06:28 | NUR ---
WOUND CARE CONSULT WOUND CARE RECEIVED CONSULT FOR BREAST FOLD RASHES. WOUND CARE WILL DEFER CONSULT AND TREATMENT PLANS TO PLASTIC SURGICAL TEAM WHO ARE CURRENTLY FOLLOWING THIS PATIENT. PATIENT WITH SELIN AT 14, ALL PRESSURE ULCER PREVENTION MEASURES ARE NOTED TO BE IN PLACE AT THIS TIME. WILL SEE PRN.
--- NOTE | 2019-07-27 06:43 | NUR ---
RN CLOSING NOTES PATIENT RESTING IN BED A/O X1-2. STABLE ON RA WITH BREATHING EVEN AND UNLABORED, NO SOB NOTED. NO SIGNS OF ACUTE DISTRESS. NO COMPLAINTS OF PAIN OR DISCOMFORT. TELE MONITOR READING A/V PACING 77. IV LOCATED ON RFA #18 PATENT AND INTACT RUNNING NS @ 40 ML/HR. SAFETY PRECAUTIONS IN PLACE WITH BED IN LOWEST POSITION, CALL LIGHT WITHIN REACH, BREAKS ON, SIDE RAILS UP. PATIENT WAS KEPT CLEAN AND DRY THROUGHOUT THE NIGHT. ALL NEEDS ATTENDED TO. WILL ENDORSE TO ONCOMING SHIFT ABOUT ABENA.
[2019-07-27 06:48] LABS: CALCIUM, SERUM 8.3 mg/dL (8.5-10.1); CREATININE 0.8 mg/dL (0.6-1.3); MAGNESIUM 2.2 mg/dL (1.8-2.4); PHOSPHORUS 2.6 mg/dL (2.5-4.9); POTASSIUM 3.9 mmol/L (3.5-5.1)
[2019-07-27 08:00] VITALS: BP 121/69
--- NOTE | 2019-07-27 08:00 | NUR ---
cottonseed meat presser Notes Opening Shift Patient is alert and oriented x 1. On telemetry v-pacing. Patient is on bed rest. Mild redness noted on legs. Legs are edematous +4 pitting. Mild redness noted on breast folds. Wound tx done as ordered. Patient is on a consistent carb diet. Takes medication crushed, with nectar thickened liquids. RFA 18g IV patient and running 3mL KVO. 0800 VS are 97.6 T, HR 65, RR 18, BP 121/69, no pain. COVID result is negative.
[2019-07-27] MEDS ORDERED: DEXTROSE 50%-WATER 50 ML DISP.SYRIN IV PRN (08:30)
[2019-07-27] MEDS ORDERED: INSULIN REGULAR, HUMAN 100 UNIT/ML 3 ML VIAL SQ PRN (08:30)
[2019-07-27] MEDS: ASCORBIC ACID 500 MG TABLET PO SCH (08:35)
[2019-07-27] MEDS: MULTIVIT W/MINERALS 1 TAB TABLET PO SCH (08:35)
[2019-07-27] MEDS: ACIDOPHILUS/BULGARICUS 1 EACH TAB.CHEW PO SCH (08:35)
[2019-07-27] MEDS: PROSOURCE / PROSTAT (PYXIS) 30 ML UDC PO SCH ×3 (08:36→16:35)
[2019-07-27] MEDS: DABIGATRAN ETEXILATE MESYLATE 75 MG CAPSULE PO SCH ×2 (08:36→16:27)
[2019-07-27] MEDS: MEROPENEM 1 G in IV NS 0.9% 100 ML IV SCH ×2 (08:37→21:50)
[2019-07-27] MEDS: NYSTATIN/TRIAMCIN OINT 15 GM TUBE TP SCH ×2 (08:38→16:37)
[2019-07-27] MEDS: CLOTRIMAZOLE/BETAMETASONE DIPROPIONATE 15 GM TUBE TP SCH ×2 (08:38→16:36)
[2019-07-27] MEDS: NYSTATIN TOP POWDER 15 GM BOTTLE TP SCH ×2 (08:40→16:38)
[2019-07-27 12:00] VITALS: BP 152/83
[2019-07-27] MEDS: BLOOD SUGAR DIAGNOSTIC 1 EACH STRIP IN SCH ×3 (12:43→22:07)
[2019-07-27 16:00] VITALS: BP 144/96
--- NOTE | 2019-07-27 17:41 | NUR ---
residential coordinator Notes Offered to change IV site out for patient. She is strongly refusing. Explained that IV needs to be replaced due to leaking of blood outside of dressing. Also refusing to have dressing change on portacath. Explained risks associated with leaving IV and dressing unchanged. Will endorse this to buttonhole maker to try and replace them when she is less stimulated by other activities.
--- NOTE | 2019-07-27 19:15 | NUR ---
blood tester Notes Patient is in bed resting comfortably, no signs or symptoms of distress. All treatments done as ordered. COVID test came back negative. Family has requested via several phone calls today that she is to be sent home with them, and not skilled nursing. This is due to fears verbalized about potential COVID spread. Encouraged family to speak to skilled nursing and express wishes. Bed in lowest position, call light within reach. All measures taken to ensure patient safety. Will endorse care to oncoming RN. Also need for portacath dressing change was endorsed and IV site change.
--- NOTE | 2019-07-27 19:26 | NUR ---
RN OPENING NOTES: Received pt in bed, A&Ox1. On room air, tolerating well. No respiratory distress noted. On telemonitor showing V pacing. Has IV site on right forearm #18. Has right chest portacath. Will change IV site, and dressing on portacath per report. Pt refusing at this time. Explained risks and benefits. Will attempt later. Safety measures in place, bed in lowest and locked position, side rails up x3, call light within reach. Will continue to monitor.
[2019-07-27 20:00] VITALS: BP 151/78
[2019-07-27] MEDS: MIRTAZAPINE 15 MG TABLET PO SCH (21:58)
[2019-07-27] MEDS: INSULIN GLARGINE, 100 UNIT/ML CARTRIDGE SQ SCH (22:00)
--- NOTE | 2019-07-27 22:11 | NUR ---
RN NOTE: Pt's BS 82. Held sliding scale and 15u of Lantus. Will continue to monitor.
[2019-07-28] VITALS (8 sets, daily range): BP systolic 119–173; BP diastolic 67–92
--- NOTE | 2019-07-28 02:30 | NUR ---
RN NOTE: Changed dressing on portacath. Pt refused site change of IV. Explained risks and benefits x3 and continued refusal.
[2019-07-28 06:35] LABS: BASOPHILS # (AUTO) 0.1 /CMM (0.0-0.2); EOSINOPHILS % (AUTO) 5.8 % (0.0-6.0); HEMATOCRIT 40 % (33-45); HEMOGLOBIN 12.7 g/dL (11.5-14.8); LYMPHOCYTES # (AUTO) 1.5 /CMM (0.8-4.8); LYMPHOCYTES % (AUTO) 22.4 % (20.0-44.0); MEAN CORPUSCULAR HGB CONC 31 g/dl (31.0-36.0); MEAN CORPUSCULAR VOLUME 79 fL (82-100); MONOCYTES # (AUTO) 0.6 /CMM (0.1-1.30); MONOCYTES % (AUTO) 9.3 % (2.0-12.0); NEUTROPHILS # (AUTO) 4.1 /CMM (1.8-8.9); NEUTROPHILS % (AUTO) 61.5 % (43.0-81.0); PLATELET COUNT (AUTO) 233 /CMM (150-450); RED BLOOD CELL COUNT(AUTO) 5.09 MIL/uL (4.0-5.2); WHITE BLOOD COUNT (AUTO) 6.7 K/uL (4.3-11.0)
--- NOTE | 2019-07-28 06:51 | NUR ---
RN CLOSING NOTE: Pt resting in bed, A&Ox1-2. On room air, no respiratory distress noted. No acute changes noted during shift. On tele monitor showing V pacing. IV site on right FA patent and flushing. Safety measures in place, bed in lowest and locked position, side rails up x3, call light within reach. Addendum: 07/28/19 at 0655 by KYLE PIMENTEL RN Will endorse to AM nurse for ABENA
[2019-07-28 06:54] LABS: ALBUMIN 2.2 g/dL (3.4-5.0); BILIRUBIN,TOTAL 0.2 mg/dL (0.2-1.0); CALCIUM, SERUM 8.7 mg/dL (8.5-10.1); CREATININE 0.7 mg/dL (0.6-1.3); MAGNESIUM 2.2 mg/dL (1.8-2.4); PHOSPHORUS 2.7 mg/dL (2.5-4.9); POTASSIUM 4.3 mmol/L (3.5-5.1); TOTAL PROTEIN, SERUM 5.4 g/dL (6.4-8.2)
--- NOTE | 2019-07-28 07:30 | NUR ---
FITTING ROOM ASSOCIATE NOTES PT IN BED, AWAKE, ALERT TO SELF, VERBALLY RESPONSIVE, NOT IN DISTRESS, NO SIGN OF PAIN, KEPT WARM AND COMFORTABLE IN BED.
[2019-07-28] MEDS: BLOOD SUGAR DIAGNOSTIC 1 EACH STRIP IN SCH ×4 (08:00→21:51)
[2019-07-28] MEDS: ASCORBIC ACID 500 MG TABLET PO SCH (08:10)
[2019-07-28] MEDS: MEROPENEM 1 G in IV NS 0.9% 100 ML IV SCH ×2 (08:10→21:34)
[2019-07-28] MEDS: MULTIVIT W/MINERALS 1 TAB TABLET PO SCH (08:10)
[2019-07-28] MEDS: ACIDOPHILUS/BULGARICUS 1 EACH TAB.CHEW PO SCH (08:10)
[2019-07-28] MEDS: DABIGATRAN ETEXILATE MESYLATE 75 MG CAPSULE PO SCH ×2 (08:12→16:18)
[2019-07-28] MEDS: PROSOURCE / PROSTAT (PYXIS) 30 ML UDC PO SCH ×3 (08:13→16:18)
[2019-07-28] MEDS: NYSTATIN TOP POWDER 15 GM BOTTLE TP SCH ×2 (08:27→16:19)
[2019-07-28] MEDS: CLOTRIMAZOLE/BETAMETASONE DIPROPIONATE 15 GM TUBE TP SCH ×2 (08:27→16:19)
[2019-07-28] MEDS: NYSTATIN/TRIAMCIN OINT 15 GM TUBE TP SCH ×2 (08:27→16:19)
[2019-07-28] MEDS ORDERED: MERO500V21 IV (11:14)
--- NOTE | 2019-07-28 12:20 | NUR ---
PHARMACY CASHIER NOTES PT IN BED, AWAKE, ALERT TO SELF, NO SIGN OF PAIN OR DISTRESS, DISCHARGE ORDER RECEIVED FROM DR. TEMPLE.
[2019-07-28] MEDS ORDERED: CLONIDINE HCL 0.1 MG TABLET PO ONE (18:00)
--- NOTE | 2019-07-28 18:00 | NUR ---
WASHERY BOSS NOTES PT IN BED, AWAKE, ALERT TO SELF, NO SIGN OF PAIN OR DISTRESS, VERBALLY RESPONSIVE, DR. TEMPLE GAVE DISCHARGE ORDER, DISCHARGE AND MEDICATION INSTRUCTIONS GIVEN TO ADMITTING NURSE AT [facility], DAVID RN, PT'S BP 173/85 HR 84, DR. TEMPLE INFORMED, ORDERED CLONIDINE 0.2 MG PO ONE TIME, GIVEN TO PT, WILL CONTINUE TO MONITOR, SIEVE GRADER TENDER INFORMED.
--- NOTE | 2019-07-28 19:00 | NUR ---
RN MS NOTES PT IN BED, NO SIGN OF PAIN OR DISTRESS, RECHECKED BP 160/81 HR 78, ENDORSED TO INCOMING NURSE FOR CONTINUITY OF CARE.
--- NOTE | 2019-07-28 19:05 | NUR ---
SLIVER FORMER NOTES, RECEIVED PT ON BED ASLEEP NO SIGN AND SYMPTOMS OF RESPIRATORY DISTRESS,ON RA SPO2 @ 99% R CHEST PORTACATH STILL NOTED, BP @ 160/81 FOR POSSIBLE DISCHARGE TO [facility] SAFETY MEASURE MAINTAINED BED ON LOWEST POSITION AND LOCKED CALL LIGHT WITHIN REACH AND WILL CONT. TO MONITOR
--- NOTE | 2019-07-28 19:40 | NUR ---
RN NOTES PT LATEST BP 119/78 HR 85 TEMP 97.6 AUTOMATION TENDER INFORMED ABOUT THE CHANGES TRANSPORT WAS SET UP FOR HER TO BE DISCHARGE IN [facility]
[2019-07-28] MEDS: MIRTAZAPINE 15 MG TABLET PO SCH (21:44)
[2019-07-28] MEDS: INSULIN GLARGINE, 100 UNIT/ML CARTRIDGE SQ SCH (21:46)
--- NOTE | 2019-07-28 22:07 | NUR ---
DIRECTOR NETWORK DEVELOPMENT NOTES CALLED AGAIN THE [facility] AND FOLLOW UP ABOUT THE TRANSPORT TALK TO AJ AND SAYS THAT THEY EXPERIENCE GLITCH IN THEIR SYSTEM AND THE TRANSPORT WILL COME @ [id number], PT LATEST BP 115/78 WILL CONT. TO MONITOR THE PT
--- NOTE | 2019-07-28 23:49 | NUR ---
CLERK TO JUSTICE NOTES [employer] EMT ARRIVED TO TRANSPORTATION AID PT TO BE TRANSFERRED TO [facility], PT IS AWAKE A/O X 1 V/S CHECKED 124/78 HR 74 RR 19 TEMP 97.2 SPO2 99%,VIA RA PORTACATH ON RCW STILL INTACT, SAFELY TRANSFER FROM BED TO [facility], COVERED PT WITH BLANKET TO WARM , [facility] INFORMED ABOUT THE PT COMING TO THEM, FAMILY ALSO INFORMED VIA PHONE CALL ABOUT THE DISCHARGE, PT ON ROUTE TO [facility]
== END 2019-07-28 23:48 | DRG 193 ==
LOC: ER 20:41 → TELE1 23:34 → UNDODISIN 07-28 17:18
PROVIDERS: ADMIT Internal Medicine; ATTEND Internal Medicine
DX: J15.9 Unspecified bacterial pneumonia (principal); J96.01 Acute respiratory failure with hypoxia; N17.0 Acute kidney failure with tubular necrosis; G93.41 Metabolic encephalopathy; E43 Unspecified severe protein-calorie malnutrition; N39.0 Urinary tract infection, site not specified; Z16.12 Extended spectrum beta lactamase (ESBL) resistance; D68.59 Other primary thrombophilia; I50.32 Chronic diastolic (congestive) heart failure; I69.954 Hemiplegia and hemiparesis following unspecified cerebrovascular disease affecting left non-dominant side; I82.502 Chronic embolism and thrombosis of unspecified deep veins of left lower extremity; I48.20 Chronic atrial fibrillation, unspecified; Z79.01 Long term (current) use of anticoagulants; F03.90 Unspecified dementia, unspecified severity, without behavioral disturbance, psychotic disturbance, mood disturbance, and anxiety; Z95.0 Presence of cardiac pacemaker; Z95.828 Presence of other vascular implants and grafts; Z87.440 Personal history of urinary (tract) infections; F32.9 Major depressive disorder, single episode, unspecified; M62.50 Muscle wasting and atrophy, not elsewhere classified, unspecified site; Z88.0 Allergy status to penicillin; Z88.2 Allergy status to sulfonamides; L30.4 Erythema intertrigo; M24.542 Contracture, left hand; M24.522 Contracture, left elbow; D50.9 Iron deficiency anemia, unspecified; E11.9 Type 2 diabetes mellitus without complications; E78.5 Hyperlipidemia, unspecified; I11.0 Hypertensive heart disease with heart failure; Z68.29 Body mass index [BMI] 29.0-29.9, adult; I25.10 Atherosclerotic heart disease of native coronary artery without angina pectoris; K21.9 Gastro-esophageal reflux disease without esophagitis; M81.0 Age-related osteoporosis without current pathological fracture; G89.29 Other chronic pain; M54.5 Low back pain; F41.9 Anxiety disorder, unspecified; B96.20 Unspecified Escherichia coli [E. coli] as the cause of diseases classified elsewhere
CPT/HCPCS: 36415; 36600; 71045-TC; 80048-TC; 80053-TC; 80061-TC; 80076-TC; 81000-TC; 82962-TC; 83605-TC; 83735-TC; 84100-TC; 84484-TC; 85025-TC; 85730-TC; 87040-TC; 87081-TC; 87086-TC; 87186-TC; 92526; 92611-TC; G0378; J0456; J1815; J2185; J3475; J3490; J7030; J7040; J7060

== ENCOUNTER 2020-06-07 12:30 | Inpatient (IN) | payer MEDICARE, OTHER ==
[~2020-06-07] VITALS: Ht 160 cm; Wt 73.5 kg
[~2020-06-07 12:30] MED LIST changes: +ACET-868 PO; -ALBU2.5V13 NEB; -ALBU2.5V38 IH; +CLON0.1T PO; +CRAN425C6 PO; -D MANNOSE PO; +DABI75CA3 PO; +DICL100G16 TP; -FERR325T23 PO; -FURO-145 PO; -GUAI5SYR PO; +INSU100V7 SQ; -LACT1CAP69 PO; -MAGN400O21 PO; +MAGN400T26 PO; -METH1POW39 PO; +MIRT-121 PO; -MIRT15TA PO; -NA P133E RC; +NA P133E33 RC; -NYST15PO4 TP; -PROT946L PO; -RIVA15TA PO
--- NOTE | 2020-06-07 12:50 | NUR ---
BIB ems for low o2 saturation during transport. Patient a/ox1, breathing even and unlabored, no sob noted. Needs attended. Attached to the cardiac care nurse.
[2020-06-07] MEDS ORDERED: IV NS 0.9% 500 ML BAG IV ONE (13:00)
--- NOTE | 2020-06-07 13:20 | NUR ---
patient has a right chest wall port-a-cath, patent and intact, flushes with ns. Blood drawn from line and sent to lab.
--- NOTE | 2020-06-07 13:36 | NUR ---
STRAIGHT CATHETER DONE VIA STERILE TECHNIQUE, URINE SENT TO LAB.
[2020-06-07 13:38] LABS: HEMATOCRIT 25 % (33-45); LYMPHOCYTES # (AUTO) 0.5 /CMM (0.8-4.8); MONOCYTES # (AUTO) 0.9 /CMM (0.1-1.30); RED BLOOD CELL COUNT(AUTO) 3.13 MIL/uL (4.0-5.2)
[2020-06-07 13:40] LABS: CALCIUM, SERUM 8.7 mg/dL (8.5-10.1); CARBON DIOXIDE 33 mmol/L (21-32); CHLORIDE 108 mmol/L (98-107); CREATININE 0.9 mg/dL (0.6-1.3); GLUCOSE 210 mg/dL (74-106); POTASSIUM 5.4 mmol/L (3.5-5.1); SODIUM SERUM 142 mmol/L (136-145); UREA NITROGEN, BLOOD 60 mg/dL (7-18)
[2020-06-07 13:43] LABS: BASOPHILS # (AUTO) 0.1 /CMM (0.0-0.2); BASOPHILS % (AUTO) 0.8 % (0.0-2.0); EOSINOPHILS % (AUTO) 1.2 % (0.0-6.0); HEMOGLOBIN 7.7 g/dL (11.5-14.8); MEAN CORPUSCULAR HGB CONC 31 g/dl (31.0-36.0); MEAN CORPUSCULAR VOLUME 79 fL (82-100); MONOCYTES % (AUTO) 6.8 % (2.0-12.0); NEUTROPHILS # (AUTO) 11.4 /CMM (1.8-8.9); NEUTROPHILS % (AUTO) 87.2 % (43.0-81.0); PLATELET COUNT (AUTO) 239 /CMM (150-450); WHITE BLOOD COUNT (AUTO) 13.1 K/uL (4.3-11.0)
--- NOTE | 2020-06-07 13:44 | NUR ---
LAB CALLED PT COVID RESULT NEGATIVE (-)
[2020-06-07 13:46] LABS: ALANINE AMINOTRANSFERASE 8 U/L (12-78); ALBUMIN 1.8 g/dL (3.4-5.0); ALKALINE PHOSPHATASE 92 U/L (46-116); ASPARTATE AMINOTRANSFERASE 9 U/L (15-37); BILIRUBIN,DIRECT 0.1 mg/dL (0.0-0.2); BILIRUBIN,TOTAL 0.3 mg/dL (0.2-1.0); TOTAL PROTEIN, SERUM 6.2 g/dL (6.4-8.2)
[2020-06-07] MEDS ORDERED: MAG355OR18 PO (14:00)
[2020-06-07] MEDS ORDERED: LACT1CAP25 PO (14:00)
[2020-06-07] MEDS ORDERED: NPH,100V SQ (14:00)
[2020-06-07] MEDS ORDERED: AMIN887L PO (14:00)
[2020-06-07 14:03] LABS: BILIRUBIN,URINE NEGATIVE (NEGATIVE); COLOR,URINE YELLOW (YELLOW); LEUKOCYTE ESTERASE ,URINE LARGE (NEGATIVE); NITRITE, URINE NEGATIVE (NEGATIVE); PH,URINE 8.5 (5.0-8.0); PROTEIN,URINE 30 mg/dl (NEGATIVE); UGLUCOSE NEGATIVE (NEGATIVE); UROBILINOGEN,URINE 0.2 EU/dL (0.2)
[2020-06-07 14:30] LABS: BACTERIA,URINE Moderate /HPF (None Seen); RBC,URINE 0-3 /HPF (0-2); SQUAMOUS EPITHELIAL CELL,UR Moderate /HPF (None Seen)
[2020-06-07 14:31] LABS: URINE AMORPHOUS PHOSPHATES Many /HPF (None Seen)
[2020-06-07 14:32] LABS: WBC,URINE 51-80 /HPF (0-3)
--- NOTE | 2020-06-07 14:33 | NUR ---
[facility] CALLED EXPANDING MACHINE OPERATOR PAGED.
--- NOTE | 2020-06-07 14:38 | NUR ---
BED 105 MS
[2020-06-07] MEDS ORDERED: GENTAMICIN 80 MG in IV D5W 50 ML IV ONE (15:00)
--- NOTE | 2020-06-07 15:00 | NUR ---
REPORT GIVEN TO GERALD ORDOÑEZ FOR ABENA.
--- NOTE | 2020-06-07 15:52 | NUR ---
COVID PCR SWAB SENT.
[2020-06-07] MEDS ORDERED: Z GUARD REMEDY 2 OZ OINT TP PRN (16:00)
[2020-06-07] MEDS ORDERED: ONDANSETRON HCL/PF 4 MG/2 ML VIAL IVP PRN (16:00)
[2020-06-07] MEDS ORDERED: MAG HYDROX/AL HYDROX/SIMETH 30 ML UDC GT PRN (16:00)
[2020-06-07] MEDS ORDERED: CLONIDINE HCL 0.1 MG TABLET PO PRN (16:00)
[2020-06-07] MEDS ORDERED: MAGNESIUM HYDROXIDE 30 ML UDC GT PRN (16:00)
[2020-06-07] MEDS ORDERED: CLONIDINE HCL 0.1 MG TABLET GT PRN (16:35)
--- NOTE | 2020-06-07 16:46 | NUR ---
PATIENT TRANSFERRED TO ROOM 105, IN STABLE CONDITION.
--- NOTE | 2020-06-07 16:50 | NUR ---
Patient transferred from ED IN STABLE condition. Initial assessment and body assessment done. Patient on 02 2 liters with 02 sat of 98%. No grimacing or moaning noted. Patient's head of the bed elevated. Noted with yellow clear urine in brief. Wound care provided. Bed is in lowest and locked position.
[2020-06-07] MEDS ORDERED: ACETAMINOPHEN 650 MG/20.3 ML UDC GT PRN (17:00)
[2020-06-07] MEDS: MEROPENEM 1 G in IV NS 0.9% 100 ML IV SCH (17:18)
[2020-06-07] MEDS ORDERED: IV NS 0.9% 1,000 ML IV ONE (17:30)
[2020-06-07 17:51] LABS: IRON, SERUM 10 ug/dl (50-175); TOTAL IRON BINDING CAPACITY 209 ug/dl (250-450)
[2020-06-07] MEDS: DABIGATRAN ETEXILATE MESYLATE 75 MG CAPSULE PO SCH (18:02)
[2020-06-07 18:04] LABS: FERRITIN 79 ng/mL (8-388)
[2020-06-07] MEDS ORDERED: DEXTROSE 50%-WATER 50 ML DISP.SYRIN IV PRN (18:30)
--- NOTE | 2020-06-07 19:15 | NUR ---
KODAK RN CLOSING NOTES Patient is currently in bed and does not show any s/s of respiratory distress. No grimacing and moaning noted. Head of bed kept elevated. On 02 2liters via n/c with 02 sat of 98%. Endorsed to next shift for anupam and to follow up regardign tube feeding order
--- NOTE | 2020-06-07 19:20 | NUR ---
RECEIVED PT IN BED,ASLEEP EASY TO WAKE UP NON VERBAL . ON O2 AT 2LPM VIA NC. . NO RESP DISTRESS NOTED. ON TELE MONITORING SHOWS SINUS RHYTHM WITH HR OF 80'S IN V PACING. NO PAIN NOTED [place]. R UPPER CHEST PORTACATH ON PLACE C D I WITH ONGOIGN LR @ 100 ML/HR INFUSING WELL GTUBE IN PLACE PLACEMNET VERIFIED AND CLAMPED. NO SIGNS OF INFECTION. ALL SAFETY MEASURES IMPLEMENTED PER PROTOCOL. CALL LIGHT WITHIN REACH. BED LOCKED IN LOWEST POSITION. SIDE RAILS UP X 2.
[2020-06-07 20:00] VITALS: BP 116/75
[2020-06-07] MEDS: FERROUS SULFATE (325 MG) 325 MG/TAB TABLET GT SCH (20:05)
[2020-06-07] MEDS: IV LR 1000 ML 1,000 ML IV PRN (20:51)
[2020-06-07] MEDS: BLOOD SUGAR DIAGNOSTIC 1 EACH STRIP IN SCH (21:42)
[2020-06-07] MEDS: MIRTAZAPINE 15 MG TABLET GT SCH (21:42)
[2020-06-07] MEDS: INSULIN REGULAR, HUMAN 100 UNIT/ML 3 ML VIAL SQ PRN (21:44)
[2020-06-08] VITALS: BP 121/76
[2020-06-08] MEDS: MEROPENEM 1 G in IV NS 0.9% 100 ML IV SCH ×3 (01:24→16:42)
[2020-06-08 04:00] VITALS: BP 116/50
[2020-06-08] MEDS: IV LR 1000 ML 1,000 ML IV PRN ×2 (06:33→17:29)
[2020-06-08 06:48] LABS: BASOPHILS # (AUTO) 0.1 /CMM (0.0-0.2); BASOPHILS % (AUTO) 0.7 % (0.0-2.0); EOSINOPHILS % (AUTO) 2.6 % (0.0-6.0); HEMATOCRIT 29 % (33-45); HEMOGLOBIN 8.8 g/dL (11.5-14.8); LYMPHOCYTES # (AUTO) 0.4 /CMM (0.8-4.8); LYMPHOCYTES % (AUTO) 4.1 % (20.0-44.0); MEAN CORPUSCULAR HGB CONC 31 g/dl (31.0-36.0); MEAN CORPUSCULAR VOLUME 81 fL (82-100); MONOCYTES # (AUTO) 0.7 /CMM (0.1-1.30); MONOCYTES % (AUTO) 7.8 % (2.0-12.0); NEUTROPHILS # (AUTO) 8.1 /CMM (1.8-8.9); NEUTROPHILS % (AUTO) 84.8 % (43.0-81.0); PLATELET COUNT (AUTO) 258 /CMM (150-450); RED BLOOD CELL COUNT(AUTO) 3.57 MIL/uL (4.0-5.2); WHITE BLOOD COUNT (AUTO) 9.5 K/uL (4.3-11.0)
--- NOTE | 2020-06-08 06:52 | NUR ---
PT ON BED SLEEP EASY TO WAKE UP OPEN EYES TO STIMULI, TELE MONITOR READS VPACING SINUS RHTHM 80'S NO SIGNIFICANT CHANGES ON CONDITION NOTED, ALL NEEDS ATTENDED WOUND TREATMENT DONE BED ON LOWEST POSITION AND LOCKED SIDE RAILS UP X 2 CALL LIGHT WITHIN REACH WILL ENDORSED TO AM SHIFT NURSE
[2020-06-08 07:14] LABS: CALCIUM, SERUM 8.5 mg/dL (8.5-10.1); CREATININE 0.9 mg/dL (0.6-1.3); MAGNESIUM 2.5 mg/dL (1.8-2.4); PHOSPHORUS 3.1 mg/dL (2.5-4.9); POTASSIUM 4.7 mmol/L (3.5-5.1)
[2020-06-08 07:46] LABS: OCCULT BLOOD STOOL NEGATIVE (NEGATIVE)
--- NOTE | 2020-06-08 07:58 | NUR ---
KODAK RN NOTE RECEIVED PT IN BED,ASLEEP EASY TO WAKE UP NON VERBAL . ON O2 AT 2LPM VIA NC. . NO RESP DISTRESS NOTED. ON TELE MONITORING SHOWS SINUS RHYTHM WITH HR OF V PACING HR 77 . R UPPER CHEST ANGELI CATH ON PLACE C D I WITH ONGOIGN LR @ 100 ML/HR INFUSING WELL GTUBE IN PLACE VERIFIED AND CLAMPED. NO SIGNS OF INFECTION. ALL SAFETY MEASURES IMPLEMENTED CALL LIGHT WITHIN REACH. BED LOCKED IN LOWEST POSITION. SIDE RAILS UP X 2.
[2020-06-08 08:00] VITALS: BP 129/71
[2020-06-08] MEDS: MAGNESIUM OXIDE 400 MG TABLET GT SCH (08:58)
[2020-06-08] MEDS: ACIDOPHILUS/BULGARICUS 1 EACH TAB.CHEW GT SCH (08:58)
[2020-06-08] MEDS: DABIGATRAN ETEXILATE MESYLATE 75 MG CAPSULE PO SCH ×2 (08:59→16:41)
[2020-06-08] MEDS: PROSTAT (PYXIS) 30 ML UDC GT SCH (09:00)
[2020-06-08] MEDS: FERROUS SULFATE (325 MG) 325 MG/TAB TABLET GT SCH (09:08)
[2020-06-08] MEDS: BLOOD SUGAR DIAGNOSTIC 1 EACH STRIP IN SCH ×4 (09:08→23:02)
[2020-06-08] MEDS: ASCORBIC ACID 500 MG TABLET GT SCH (09:09)
[2020-06-08] MEDS: MULTIVIT W/MINERALS 1 TAB TABLET GT SCH (09:11)
--- NOTE | 2020-06-08 10:58 | NUR ---
KODAK RN NOTE SPOKE WITH OLEG ORDOÑEZ TERRITORY MANAGER OK TO START G TUBE FEEDING AND ASKED TO CALL TO DAUGHTER ALSO SPOKE WITH DIRECTORY OPERATOR TO CALL DAUGHTER PHONE NUMBER GIVEN Addendum: 06/08/20 at 1101 by ANNABEL SHRESTHA RN PER DR SQUIRES AWAJUSTINA FOR DEBARMENT DUE TO TEST STILL PENDING FOR PCR WILL F\U
[2020-06-08 12:00] VITALS: BP 149/63
[2020-06-08] MEDS ORDERED: GLUCERNA 1.2 1,000 ML BOTTLE GT PRN (12:00)
--- NOTE | 2020-06-08 13:11 | NUR ---
PAYLOADER MACHINE OPERATOR NOTE TELEPHONE CONSENT FOR DEBRIDEMENT BOTH LEGS OBTAINED, SPOKE WITH DAUGHTER CHESTER
[2020-06-08 16:00] VITALS: BP 145/89
[2020-06-08] MEDS: INSULIN REGULAR, HUMAN 100 UNIT/ML 3 ML VIAL SQ PRN ×2 (17:42→23:02)
[2020-06-08] MEDS: METOPROLOL TARTRATE 25 MG TABLET PO SCH (17:45)
--- NOTE | 2020-06-08 18:26 | NUR ---
KODAK RN NOTES PT AWAKE AND OPEN EYES. ON 2L NC, NO SOB NOTED. G TUBE FEEDING STARTED ORDERED, CALLED [employer] MANY TIMES TO EXCHANGE FEEDING PUMP WITH A WORKING ONE. WOUND DEBRIDEMENT WILL BE DONE BY DR. SQUIRES WHEN PCR IS NEGATIVE. ALL NEEDS ATTENDED, CALL LIGHT WITHIN REACH, ALL NEEDS ATTENDED
[2020-06-08 20:00] VITALS: BP 128/76
--- NOTE | 2020-06-08 20:00 | NUR ---
KODAK RN NOTE RECEIVED PT IN BED,AWAKE NON VERBAL . ON O2 AT 2LPM VIA NC. .NO SOB NO RESP DISTRESS NOTED. ON TELE MONITORING SHOWS V PACING HR 83 . R UPPER CHEST ANGELI CATH ON PLACE INTACT AND PATENT WITH ONGOING NS AT TKO GTUBE IN PLACE ON GLUCERNA 1.2 AT 40CC/HR GOAL IS 60CC/HR INFUSING WELL.HOB ELEVATED FOR ASPIRATION PRECAUTION . ALL SAFETY MEASURES IMPLEMENTED CALL LIGHT WITHIN REACH. BED LOCKED IN LOWEST POSITION. SIDE RAILS UP X 2. WILL CONTINUE TO MONITOR.V/S STABLE AFEBRILE.
--- NOTE | 2020-06-08 22:00 | NUR ---
KODAK RN NOTES BLOOD SUGAR AT 10PM IS 113 NO COVERAGE GIVEN ,LANTUS 10 UNITS GIVEN ORDERED WILL CONTINUE TO MONITOR PTS. WILL CHECK BLOOD SUGAR AGAIN IN AM.
[2020-06-08] MEDS: MIRTAZAPINE 15 MG TABLET GT SCH (22:35)
[2020-06-08] MEDS: INSULIN GLARGINE, 100 UNIT/ML CARTRIDGE SQ SCH (23:05)
[2020-06-09] VITALS: BP 142/66
--- NOTE | 2020-06-09 | NUR ---
td rn notes Glucerna feeding increase to 40cc/hr as tolerated. no residual noted.
[2020-06-09] MEDS: MEROPENEM 1 G in IV NS 0.9% 100 ML IV SCH ×4 (00:21→17:00)
--- NOTE | 2020-06-09 02:00 | NUR ---
td rn notes gt feeding Glucerna well tolerated no residual noted . increase to 50cc/hr order noted and carried out
[2020-06-09 04:00] VITALS: BP 139/69
[2020-06-09 05:47] LABS: BASOPHILS # (AUTO) 0.1 /CMM (0.0-0.2); BASOPHILS % (AUTO) 0.7 % (0.0-2.0); EOSINOPHILS % (AUTO) 3.3 % (0.0-6.0); HEMATOCRIT 27 % (33-45); HEMOGLOBIN 8.6 g/dL (11.5-14.8); LYMPHOCYTES # (AUTO) 0.4 /CMM (0.8-4.8); LYMPHOCYTES % (AUTO) 5.3 % (20.0-44.0); MEAN CORPUSCULAR HGB CONC 31 g/dl (31.0-36.0); MEAN CORPUSCULAR VOLUME 79 fL (82-100); MONOCYTES # (AUTO) 0.6 /CMM (0.1-1.30); MONOCYTES % (AUTO) 7.3 % (2.0-12.0); NEUTROPHILS # (AUTO) 6.7 /CMM (1.8-8.9); NEUTROPHILS % (AUTO) 83.4 % (43.0-81.0); PLATELET COUNT (AUTO) 281 /CMM (150-450); RED BLOOD CELL COUNT(AUTO) 3.44 MIL/uL (4.0-5.2); WHITE BLOOD COUNT (AUTO) 8.1 K/uL (4.3-11.0)
[2020-06-09 06:46] LABS: ALBUMIN 1.7 g/dL (3.4-5.0); BILIRUBIN,TOTAL 0.3 mg/dL (0.2-1.0); CREATININE 0.7 mg/dL (0.6-1.3); MAGNESIUM 2.3 mg/dL (1.8-2.4); PHOSPHORUS 2.9 mg/dL (2.5-4.9); POTASSIUM 4.9 mmol/L (3.5-5.1); TOTAL PROTEIN, SERUM 6.1 g/dL (6.4-8.2)
--- NOTE | 2020-06-09 06:55 | NUR ---
td rn notes GT feeding Glucerna well tolerated no residual noted . increase to 60cc/hr order noted and carried out REACH GOAL .Will endorse to rn day shift for continuity of care.Pts remains on 2 liters v pacing on the monitor.
[2020-06-09] MEDS ORDERED: GLUCERNA 1.2 1,000 ML BOTTLE GT PRN (07:30)
[2020-06-09] MEDS: BLOOD SUGAR DIAGNOSTIC 1 EACH STRIP IN SCH ×4 (07:30→21:37)
--- NOTE | 2020-06-09 07:30 | NUR ---
RN OPENING NOTES RECEIVED PT IN BED, ASLEEP EASY TO WAKE. NON VERBAL. ON O2 @2LPM VIA NC. NO SOB OR ANY RESPIRATORY DISTRESS NOTED. ON TELE MONITORING SHOWS SINUS RHYTHM WITH V PACING. RIGHT UPPER CHEST ANGELI CATH ON PLACE, CLEAN, DRY AND INTACT. WITH NS @ TKO. GTUBE IN PLACE, POSITIVE PLACEMENT CHECKED. GLUCERNA RUNNING @60MLS/HR, NO RESIDUALS. SAFETY MEASURES IMPLEMENTED. CALL LIGHT WITHIN REACH. BED LOCKED AND IN LOWEST POSITION WITH SIDE RAILS UP X2. WILL CONTINUE TO MONITOR.
[2020-06-09 08:00] VITALS: BP 147/60
[2020-06-09] MEDS: MAGNESIUM OXIDE 400 MG TABLET GT SCH (08:37)
[2020-06-09] MEDS: ASCORBIC ACID 500 MG TABLET GT SCH (08:37)
[2020-06-09] MEDS: FERROUS SULFATE (325 MG) 325 MG/TAB TABLET GT SCH (08:37)
[2020-06-09] MEDS: ACIDOPHILUS/BULGARICUS 1 EACH TAB.CHEW GT SCH (08:37)
[2020-06-09] MEDS: DABIGATRAN ETEXILATE MESYLATE 75 MG CAPSULE PO SCH ×2 (08:38→17:23)
[2020-06-09] MEDS: INSULIN REGULAR, HUMAN 100 UNIT/ML 3 ML VIAL SQ PRN ×3 (08:59→22:01)
[2020-06-09] MEDS: METOPROLOL TARTRATE 25 MG TABLET PO SCH ×2 (09:04→21:37)
[2020-06-09] MEDS: DAKINS QUARTER STRENGTH (0.125%) 480 ML BOTTLE TOP SCH (09:04)
[2020-06-09] MEDS: MULTIVIT W/MINERALS 1 TAB TABLET GT SCH (09:04)
[2020-06-09] MEDS: PROSTAT (PYXIS) 30 ML UDC GT SCH (09:05)
--- NOTE | 2020-06-09 09:42 | NUR ---
WOUND CARE CONSULT: PT FOLLOWED BY SURGICAL AND PODIATRY TEAMS FOR WOUND CARE. DEFER TO SURGICAL TEAMS FOR WOUND TREATMENT PLAN. DISCUSSED SKIN PROTECTION WITH NURSING STAFF. PT IS ON [facility] LOW AIRLOSS BED. MD IN AGREEMENT WITH PLAN OF CARE.
[2020-06-09 12:15] VITALS: BP 134/29
[2020-06-09 16:00] VITALS: BP 151/41
--- NOTE | 2020-06-09 18:39 | NUR ---
RN CLOSING NOTES PT RESTING IN BED, ASLEEP EASY TO WAKE. OPENS EYES. ON O2 @2LPM VIA NC. NO SOB OR ANY RESPIRATORY DISTRESS NOTED. ON TELE MONITORING SHOWS SINUS RHYTHM WITH V PACING. RIGHT UPPER CHEST ANGELI CATH ON PLACE, CLEAN, DRY AND INTACT. WITH NS @ TKO. GTUBE IN PLACE, POSITIVE PLACEMENT CHECKED. GLUCERNA RUNNING @60MLS/HR, NO RESIDUALS. ALL DUE MEDS GIVEN. NO SIGNIFICANT CHANGES THROUGHOUT THE SHIFT. SAFETY MEASURES IMPLEMENTED. CALL LIGHT WITHIN REACH. BED LOCKED AND IN LOWEST POSITION WITH SIDE RAILS UP X2. WILL ENDORSE TO NIGHT NURSE FOR ABENA.
--- NOTE | 2020-06-09 19:00 | NUR ---
RN NOTE RECEIVED PATIENT IN BED, ON SEMI RICHARD'S, CONFUSED, OPENS EYES, DOES NOT FOLLOW COMMANDS. PATIENT IN NO S/SX OF ACUTE DISTRESS AT THIS TIME. PATIENT'S BREATHING IS EVEN AND UNLABORED. PATIENT IS ON 2 L OF OXYGEN VIA NC; TOLERATING WELL, SATURATION AT 100%. PATIENT ON TELE MONITOR READING SR WITH V PACING, HR IS 80. ANGELI CATH AT R CHEST WALL PATENT AND FLUSHING WELL, NO S/S OF INFECTION. SAFETY MEASURES IMPLEMENTED. PATIENT BED ALARM IS ON. HEAD OF BED ELEVATED. BED IS LOCKED, IN LOWEST POSITION AND SIDE RAILS UP. CALL LIGHT WITHIN REACH OF THE PATIENT. WILL CONTINUE TO MONITOR AND REASSESS FOR ANY CHANGES.
[2020-06-09 20:00] VITALS: BP 156/51
[2020-06-09] MEDS: MIRTAZAPINE 15 MG TABLET GT SCH (21:37)
[2020-06-09] MEDS: INSULIN GLARGINE, 100 UNIT/ML CARTRIDGE SQ SCH (22:00)
[2020-06-10] VITALS: BP 154/52
[2020-06-10] MEDS: MEROPENEM 1 G in IV NS 0.9% 100 ML IV SCH ×3 (00:11→17:12)
[2020-06-10 04:00] VITALS: BP 154/55
[2020-06-10 06:43] LABS: BASOPHILS # (AUTO) 0.1 /CMM (0.0-0.2); EOSINOPHILS % (AUTO) 4.3 % (0.0-6.0); HEMATOCRIT 30 % (33-45); HEMOGLOBIN 9.2 g/dL (11.5-14.8); LYMPHOCYTES # (AUTO) 0.6 /CMM (0.8-4.8); LYMPHOCYTES % (AUTO) 8.3 % (20.0-44.0); MEAN CORPUSCULAR HGB CONC 31 g/dl (31.0-36.0); MEAN CORPUSCULAR VOLUME 81 fL (82-100); MONOCYTES # (AUTO) 0.6 /CMM (0.1-1.30); MONOCYTES % (AUTO) 7.6 % (2.0-12.0); NEUTROPHILS # (AUTO) 5.9 /CMM (1.8-8.9); NEUTROPHILS % (AUTO) 78.8 % (43.0-81.0); PLATELET COUNT (AUTO) 298 /CMM (150-450); RED BLOOD CELL COUNT(AUTO) 3.73 MIL/uL (4.0-5.2); WHITE BLOOD COUNT (AUTO) 7.5 K/uL (4.3-11.0)
[2020-06-10 06:55] LABS: CREATININE 0.7 mg/dL (0.6-1.3); MAGNESIUM 2.5 mg/dL (1.8-2.4); PHOSPHORUS 2.6 mg/dL (2.5-4.9); POTASSIUM 5.2 mmol/L (3.5-5.1)
--- NOTE | 2020-06-10 07:30 | NUR ---
RN OPENING NOTES RECEIVED PT IN BED, NON VERBAL. ON O2 @2LPM VIA NC. NO SOB OR ANY RESPIRATORY DISTRESS NOTED. ON TELE MONITORING SHOWS SINUS RHYTHM WITH V PACING. RIGHT UPPER CHEST ANGELI CATH ON PLACE, CLEAN, DRY AND INTACT. WITH NS @ TKO. GTUBE IN PLACE, POSITIVE PLACEMENT CHECKED. GLUCERNA RUNNING @60MLS/HR, NO RESIDUALS. SAFETY MEASURES IMPLEMENTED. CALL LIGHT WITHIN REACH. BED LOCKED AND IN LOWEST POSITION WITH SIDE RAILS UP X2. WILL CONTINUE TO MONITOR.
[2020-06-10 07:31] LABS: CALCIUM, SERUM 8.9 mg/dL (8.5-10.1)
[2020-06-10 08:00] VITALS: BP 147/60
[2020-06-10] MEDS: BLOOD SUGAR DIAGNOSTIC 1 EACH STRIP IN SCH ×4 (08:03→21:41)
[2020-06-10] MEDS: INSULIN REGULAR, HUMAN 100 UNIT/ML 3 ML VIAL SQ PRN ×2 (08:05→12:11)
[2020-06-10 08:06] LABS: PTH, INTACT 79 pg/mL (15-65)
[2020-06-10] MEDS: ACIDOPHILUS/BULGARICUS 1 EACH TAB.CHEW GT SCH (09:09)
[2020-06-10] MEDS: FERROUS SULFATE (325 MG) 325 MG/TAB TABLET GT SCH (09:09)
[2020-06-10] MEDS: MAGNESIUM OXIDE 400 MG TABLET GT SCH (09:10)
[2020-06-10] MEDS: MULTIVIT W/MINERALS 1 TAB TABLET GT SCH (09:10)
[2020-06-10] MEDS: METOPROLOL TARTRATE 25 MG TABLET PO SCH ×2 (09:11→21:23)
[2020-06-10] MEDS: PROSTAT (PYXIS) 30 ML UDC GT SCH (09:11)
[2020-06-10] MEDS: ASCORBIC ACID 500 MG TABLET GT SCH (09:12)
[2020-06-10] MEDS: DABIGATRAN ETEXILATE MESYLATE 75 MG CAPSULE PO SCH ×2 (09:17→17:15)
[2020-06-10] MEDS: DAKINS QUARTER STRENGTH (0.125%) 480 ML BOTTLE TOP SCH (09:17)
--- NOTE | 2020-06-10 11:00 | NUR ---
TRANSFERRED TO [facility]. BESIDE REPORT GIVEN TO MAXIMINO OWUSU).
--- NOTE | 2020-06-10 11:10 | NUR ---
RN NOTES RECEIVED PT FROM [facility]. REPORT GIVEN BY ROSEMARIE ORDOÑEZ. VS STABLE. NOT IN DISTRESS. WILL CONTINUE TO MONITOR.
[2020-06-10 12:00] VITALS: BP 134/65
[2020-06-10] MEDS: GLUCERNA 1.2 1,000 ML BOTTLE GT PRN (12:42)
[2020-06-10 16:00] VITALS: BP 159/86
--- NOTE | 2020-06-10 18:52 | NUR ---
RN CLOSING NOTES PT RESTING IN BED, NON VERBAL. ON O2 @2LPM VIA NC. NO SOB OR ANY RESPIRATORY DISTRESS NOTED. ON TELE MONITORING SHOWS SINUS RHYTHM WITH V PACING. RIGHT UPPER CHEST ANGELI CATH ON PLACE, CLEAN, DRY AND INTACT. WITH NS @ TKO. GTUBE IN PLACE, POSITIVE PLACEMENT CHECKED. GLUCERNA RUNNING @60MLS/HR, NO RESIDUALS. SAFETY MEASURES IMPLEMENTED. CALL LIGHT WITHIN REACH. BED LOCKED AND IN LOWEST POSITION WITH SIDE RAILS UP X2. WILL ENDORSE TO NIGHT NURSE FOR ABENA.
--- NOTE | 2020-06-10 19:30 | NUR ---
MS/RN OPENING NOTES RECEIVED PATIENT IN BED RESTING. PATIENT IS ALERT AND ORIENTED OPEN EYES. PATIENT BREATHING IS EVEN AND UNLABORED. PATIENT IN NO SIGNS OF RESPIRATORY DISTRESS OR SOB NOTED. PATIENT HAS IV ACCESS INTACT FLUSHING WELL. PATIENT IN NO ACUTE DISTRESS. G TUBE IN PLACE NO RESIDUAL NOTED. SAFETY MEASURES ARE IN PLACE, BED IS LOCKED AND PLACED IN THE LOW POSITION, SIDE RAILS UP X 3, CALL LIGHT WITHIN REACH. WILL CONTINUE TO MONITOR.
[2020-06-10 20:00] VITALS: BP 147/75
[2020-06-10] MEDS: MIRTAZAPINE 15 MG TABLET GT SCH (21:22)
[2020-06-10] MEDS: INSULIN GLARGINE, 100 UNIT/ML CARTRIDGE SQ SCH (21:43)
[2020-06-11] MEDS: MEROPENEM 1 G in IV NS 0.9% 100 ML IV SCH ×3 (00:39→17:33)
[2020-06-11] MEDS: GLUCERNA 1.2 1,000 ML BOTTLE GT PRN (05:27)
[2020-06-11] MEDS: BLOOD SUGAR DIAGNOSTIC 1 EACH STRIP IN SCH ×4 (06:34→21:01)
[2020-06-11 06:45] LABS: BASOPHILS # (AUTO) 0.1 /CMM (0.0-0.2); BASOPHILS % (AUTO) 1.2 % (0.0-2.0); EOSINOPHILS % (AUTO) 4.1 % (0.0-6.0); HEMATOCRIT 28 % (33-45); HEMOGLOBIN 8.6 g/dL (11.5-14.8); LYMPHOCYTES # (AUTO) 1.3 /CMM (0.8-4.8); LYMPHOCYTES % (AUTO) 16.9 % (20.0-44.0); MEAN CORPUSCULAR HGB CONC 31 g/dl (31.0-36.0); MEAN CORPUSCULAR VOLUME 80 fL (82-100); MONOCYTES # (AUTO) 0.7 /CMM (0.1-1.30); MONOCYTES % (AUTO) 9.3 % (2.0-12.0); NEUTROPHILS # (AUTO) 5.1 /CMM (1.8-8.9); NEUTROPHILS % (AUTO) 68.5 % (43.0-81.0); PLATELET COUNT (AUTO) 289 /CMM (150-450); WHITE BLOOD COUNT (AUTO) 7.5 K/uL (4.3-11.0)
--- NOTE | 2020-06-11 06:55 | NUR ---
MS/RN CLOSING NOTES PATIENT IN BED RESTING. PATIENT IS ALERT AND ORIENTED OPEN EYES. PATIENT BREATHING IS EVEN AND UNLABORED. PATIENT IN NO SIGNS OF RESPIRATORY DISTRESS OR SOB NOTED. PATIENT HAS IV ACCESS INTACT FLUSHING WELL. PATIENT IN NO ACUTE DISTRESS. G TUBE IN PLACE 50CC RESIDUAL NOTED. SAFETY MEASURES ARE IN PLACE, BED IS LOCKED AND PLACED IN THE LOW POSITION, SIDE RAILS UP X 3, CALL LIGHT WITHIN REACH, ALL NEEDS HAVE BEEN MET DURING SHIFT. WILL ENDORSE TO DAY SHIFT NURSE.
--- NOTE | 2020-06-11 07:10 | NUR ---
RN NOTES PATIENT IN BED RESTING, OPENS EYES, NON-VERBAL. BREATHING EVEN AND UNLABORED, ON O2 AT 2LPM VIA NC, NO RESPIRATORY DISTRESS. RCW PORT-A-CATH INTACT. G TUBE IN PLACE, INTACT AND PATENT; FEEDING OF GLUCERNA INFUSING. SAFETY MEASURES ARE IN PLACE: BED LOCKED AND PLACED IN THE LOWEST POSITION, SIDE RAILS UP X3, CALL LIGHT WITHIN REACH. WILL CONTINUE TO MONITOR.
[2020-06-11 07:38] LABS: CALCIUM, SERUM 8.4 mg/dL (8.5-10.1); CREATININE 0.7 mg/dL (0.6-1.3); PHOSPHORUS 2.5 mg/dL (2.5-4.9)
[2020-06-11 07:49] LABS: MAGNESIUM 2.2 mg/dL (1.8-2.4)
[2020-06-11 08:00] VITALS: BP 124/71
--- NOTE | 2020-06-11 08:16 | NUR ---
RN NOTES GT RESIDUAL OF 25CC NOTED.
[2020-06-11] MEDS: ACIDOPHILUS/BULGARICUS 1 EACH TAB.CHEW GT SCH (08:56)
[2020-06-11] MEDS: ASCORBIC ACID 500 MG TABLET GT SCH (08:56)
[2020-06-11] MEDS: MAGNESIUM OXIDE 400 MG TABLET GT SCH (08:56)
[2020-06-11] MEDS: MULTIVIT W/MINERALS 1 TAB TABLET GT SCH (08:57)
[2020-06-11] MEDS: DABIGATRAN ETEXILATE MESYLATE 75 MG CAPSULE PO SCH ×2 (08:57→16:11)
[2020-06-11] MEDS: FERROUS SULFATE (325 MG) 325 MG/TAB TABLET GT SCH (08:57)
[2020-06-11] MEDS: METOPROLOL TARTRATE 25 MG TABLET PO SCH ×2 (08:58→20:44)
[2020-06-11] MEDS: PROSTAT (PYXIS) 30 ML UDC GT SCH (08:58)
[2020-06-11] MEDS: DAKINS QUARTER STRENGTH (0.125%) 480 ML BOTTLE TOP SCH (08:58)
[2020-06-11] MEDS: INSULIN REGULAR, HUMAN 100 UNIT/ML 3 ML VIAL SQ PRN (11:09)
[2020-06-11 16:00] VITALS: BP 133/80
--- NOTE | 2020-06-11 18:59 | NUR ---
RN NOTES PATIENT IN BED RESTING, AWAKE, EYES OPEN, NON-VERBAL. BREATHING EVEN AND UNLABORED, CONTINUES ON O2 AT 2LPM VIA NC, NO SOB NOR RESPIRATORY DISTRESS. RCW PORT-A-CATH INTACT AND PATENT. G TUBE IN PLACE, W/ FEEDING OF GLUCERNA INFUSING WELL. HOB ELEVATED, ASPIRATION PRECS OBSERVED. SAFETY MEASURES MAINTAINED. DRESSING CHANGE DONE ON WOUND ISSUES. WILL ENDORSE TO DRY HEAT ROOM ATTENDANT RN FOR ABENA.
--- NOTE | 2020-06-11 19:30 | NUR ---
RN NOTES RECEIVED PT. AWAKE, NON-VERBAL, G-TUBE FEEDING RUNNING @ 60ML/HR AND PT. IS TOLERATING IT FAIRLY, NOT IN DISTRESS, NO PAIN NOTED, SIDERAILSUPX2, CONTINUE TO MONITOR
[2020-06-11 20:00] VITALS: BP 150/81
[2020-06-11] MEDS: MIRTAZAPINE 15 MG TABLET GT SCH (21:01)
[2020-06-11] MEDS: INSULIN GLARGINE, 100 UNIT/ML CARTRIDGE SQ SCH (21:49)
[2020-06-12] MEDS: GLUCERNA 1.2 1,000 ML BOTTLE GT PRN (05:24)
[2020-06-12] MEDS: MEROPENEM 1 G in IV NS 0.9% 100 ML IV SCH ×2 (05:24→17:07)
[2020-06-12] MEDS: INSULIN REGULAR, HUMAN 100 UNIT/ML 3 ML VIAL SQ PRN ×3 (06:00→22:59)
[2020-06-12 06:06] LABS: *SPE A/G RATIO 0.6 (0.7-1.7); *SPE ALBUMIN 1.9 g/dL (2.9-4.4); *SPE ALPHA-1-GLOBULIN 0.5 g/dL (0.0-0.4); *SPE GLOBULIN, TOTAL 3.4 g/dL (2.2-3.9); *SPE M-SPIKE Not Observed g/dL (Not Observed); *SPEGAMMA GLOBULIN 0.9 g/dL (0.4-1.8)
[2020-06-12] MEDS: BLOOD SUGAR DIAGNOSTIC 1 EACH STRIP IN SCH ×4 (06:38→22:50)
[2020-06-12 06:45] LABS: BASOPHILS % (AUTO) 0.6 % (0.0-2.0); EOSINOPHILS % (AUTO) 4.6 % (0.0-6.0); HEMATOCRIT 29 % (33-45); LYMPHOCYTES # (AUTO) 1.1 /CMM (0.8-4.8); LYMPHOCYTES % (AUTO) 12.9 % (20.0-44.0); MEAN CORPUSCULAR HGB CONC 31 g/dl (31.0-36.0); MEAN CORPUSCULAR VOLUME 79 fL (82-100); MONOCYTES # (AUTO) 0.5 /CMM (0.1-1.30); MONOCYTES % (AUTO) 6.5 % (2.0-12.0); NEUTROPHILS # (AUTO) 6.2 /CMM (1.8-8.9); NEUTROPHILS % (AUTO) 75.4 % (43.0-81.0); PLATELET COUNT (AUTO) 322 /CMM (150-450); RED BLOOD CELL COUNT(AUTO) 3.68 MIL/uL (4.0-5.2); WHITE BLOOD COUNT (AUTO) 8.2 K/uL (4.3-11.0)
--- NOTE | 2020-06-12 06:45 | NUR ---
RN NOTES AWAKE, MORNING CARE RENDERED, NO PAIN NOTED, NOT IN DISTRESS, SIDERAILSUPX2, PT. NEEDS ATTENDED
[2020-06-12 07:00] LABS: CALCIUM, SERUM 9.2 mg/dL (8.5-10.1); CREATININE 0.7 mg/dL (0.6-1.3); MAGNESIUM 2.2 mg/dL (1.8-2.4); PHOSPHORUS 2.9 mg/dL (2.5-4.9); POTASSIUM 5.3 mmol/L (3.5-5.1)
--- NOTE | 2020-06-12 07:38 | NUR ---
MS RN OPENING NOTES RECEIVED PATIENT IN BED, AWAKE, A/O X1; OPENS EYES. PATIENT ON OXYGEN THERAPY AT 2 LPM VIA NASAL CANNULA; BREATHING EVEN AND UNLABORED, NO SOB NOTED AT THIS TIME. NO S/S OF PAIN SUCH FACIAL GRIMACING, MOANING OR GUARDING. RCW PORTACATH PRESENT AND INTACT. SAFETY PRECAUTIONS IN PLACE; BED IN LOW POSITION AND LOCKED, RAILS UP X2, CALL LIGHT WITHIN REACH. WILL CONTINUE TO MONITOR PATIENT.
[2020-06-12 08:16] VITALS: BP 126/76
[2020-06-12] MEDS: ACIDOPHILUS/BULGARICUS 1 EACH TAB.CHEW GT SCH (08:33)
[2020-06-12] MEDS: MULTIVIT W/MINERALS 1 TAB TABLET GT SCH (08:33)
[2020-06-12] MEDS: FERROUS SULFATE (325 MG) 325 MG/TAB TABLET GT SCH (08:33)
[2020-06-12] MEDS: MAGNESIUM OXIDE 400 MG TABLET GT SCH (08:33)
[2020-06-12] MEDS: DAKINS QUARTER STRENGTH (0.125%) 480 ML BOTTLE TOP SCH (08:34)
[2020-06-12] MEDS: METOPROLOL TARTRATE 25 MG TABLET PO SCH ×2 (08:34→21:26)
[2020-06-12] MEDS: ASCORBIC ACID 500 MG TABLET GT SCH (08:34)
[2020-06-12] MEDS: PROSTAT (PYXIS) 30 ML UDC GT SCH (08:50)
[2020-06-12] MEDS: DABIGATRAN ETEXILATE MESYLATE 75 MG CAPSULE PO SCH (08:53)
--- NOTE | 2020-06-12 12:29 | NUR ---
MS RN NOTES SPEECH THERAPIST STOPPED BY FOR SWALLOW EVAL. PATIENT DOES NOT FOLLOW COMMAND THEREFORE THE EVALUATION COULD NOT BE PERFORMED.
--- NOTE | 2020-06-12 13:31 | NUR ---
MS RN NOTES WOUND DEBRIDEMENT DONE AT HE BEDSIDE BY . R LEG WOUND SPECIMEN COLLECTED.
[2020-06-12 16:00] VITALS: BP 140/74
[2020-06-12] MEDS: RIVAROXABAN 10 MG TABLET GT SCH (16:29)
--- NOTE | 2020-06-12 19:14 | NUR ---
MS RN CLOSING NOTES PATIENT IN BED, AWAKE, A/O X1; OPENS EYES. PATIENT ON OXYGEN THERAPY AT 2 LPM VIA NASAL CANNULA; BREATHING EVEN AND UNLABORED, NO SOB NOTED DURING THE DAY. NO S/S OF PAIN SUCH FACIAL GRIMACING, MOANING OR GUARDING. RCW PORTACATH PRESENT AND INTACT. G-TUBE IN PLACE INFUSING GLUCERNA @65 MLS/HR. PATIENT CLEAN AND DRY. ALL NEEDS ATTENDED THROUGHOUT THE DAY. SAFETY PRECAUTIONS IN PLACE; BED IN LOW POSITION AND LOCKED, RAILS UP X2, CALL LIGHT WITHIN REACH. WILL ENDORSE TO MANAGER MATH NURSE.
--- NOTE | 2020-06-12 19:30 | NUR ---
PT AOX1, OPENS EYES AND RESPONDS TO PAINFUL STIMULI. INCONTINENT OF BOWEL AND BLADDER. WOUNDS NOTED TO BLE, DTI TO SACRAL AREA. G- TUBE INFUSING GLUCERNA 1.2 @ 60 ML/HR. HOB ELEVATED AND ASPIRATION PRECAUTIONS ENFORCED. WILL CONTINUE TO MONITOR.
[2020-06-12 20:00] VITALS: BP 141/78
[2020-06-12] MEDS: MIRTAZAPINE 15 MG TABLET GT SCH (21:25)
[2020-06-12] MEDS: INSULIN GLARGINE, 100 UNIT/ML CARTRIDGE SQ SCH (23:01)
--- NOTE | 2020-06-13 06:05 | NUR ---
PRIMARY ASSESSMENT UNCHANGED. NO S/S OF ACUTE DISTRESS. PT STABLE AT THIS TIME
[2020-06-13] MEDS: MEROPENEM 1 G in IV NS 0.9% 100 ML IV SCH ×2 (06:24→17:50)
[2020-06-13] MEDS: BLOOD SUGAR DIAGNOSTIC 1 EACH STRIP IN SCH ×4 (06:40→21:59)
[2020-06-13] MEDS: INSULIN REGULAR, HUMAN 100 UNIT/ML 3 ML VIAL SQ PRN ×4 (06:42→22:02)
[2020-06-13 07:07] LABS: BASOPHILS # (AUTO) 0.2 /CMM (0.0-0.2); BASOPHILS % (AUTO) 2.5 % (0.0-2.0); EOSINOPHILS % (AUTO) 3.6 % (0.0-6.0); HEMATOCRIT 29 % (33-45); LYMPHOCYTES # (AUTO) 1.3 /CMM (0.8-4.8); MEAN CORPUSCULAR HGB CONC 31 g/dl (31.0-36.0); MEAN CORPUSCULAR VOLUME 79 fL (82-100); MONOCYTES # (AUTO) 0.6 /CMM (0.1-1.30); MONOCYTES % (AUTO) 7.3 % (2.0-12.0); NEUTROPHILS # (AUTO) 5.7 /CMM (1.8-8.9); NEUTROPHILS % (AUTO) 70.6 % (43.0-81.0); PLATELET COUNT (AUTO) 323 /CMM (150-450); RED BLOOD CELL COUNT(AUTO) 3.65 MIL/uL (4.0-5.2)
--- NOTE | 2020-06-13 07:20 | NUR ---
MS RN NOTES PATIENT IN BED EYES CLOSED RESPOND TO VERBAL AND TACTILE STIMULI. NO ACUTE DISTRESS NOTED. BREATHING UNLABORED. GTUBE FEEDING INFUSING WELL ON ORDERED SETTING. IV ACCESS PATENT AND INTACT , NO REDNESS OR SWELLING NOTED.SAFETY MEASURES IN PLACE. HEAD OF BED ELEVATED. CALL LIGHT WITHIN REACH. WILL CONTINUE TO MONITOR ACCORDINGLY.
[2020-06-13 08:00] VITALS: BP 138/43
[2020-06-13 08:12] LABS: CREATININE 0.7 mg/dL (0.6-1.3); MAGNESIUM 2.1 mg/dL (1.8-2.4); PHOSPHORUS 2.8 mg/dL (2.5-4.9); POTASSIUM 5.3 mmol/L (3.5-5.1)
[2020-06-13] MEDS: MAGNESIUM OXIDE 400 MG TABLET GT SCH (09:48)
[2020-06-13] MEDS: FERROUS SULFATE (325 MG) 325 MG/TAB TABLET GT SCH (09:48)
[2020-06-13] MEDS: ASCORBIC ACID 500 MG TABLET GT SCH (09:48)
[2020-06-13] MEDS: MULTIVIT W/MINERALS 1 TAB TABLET GT SCH (09:48)
[2020-06-13] MEDS: ACIDOPHILUS/BULGARICUS 1 EACH TAB.CHEW GT SCH (09:48)
[2020-06-13] MEDS: METOPROLOL TARTRATE 25 MG TABLET PO SCH ×2 (09:51→21:38)
[2020-06-13] MEDS: DAKINS QUARTER STRENGTH (0.125%) 480 ML BOTTLE TOP SCH (09:51)
[2020-06-13] MEDS: PROSOURCE / PROSTAT (PYXIS) 30 ML UDC GT SCH (10:25)
[2020-06-13 16:00] VITALS: BP 128/81
[2020-06-13] MEDS: GLUCERNA 1.2 1,000 ML BOTTLE GT PRN (16:13)
[2020-06-13] MEDS: RIVAROXABAN 10 MG TABLET GT SCH (17:48)
[2020-06-13] MEDS: NYSTATIN TOP POWDER 15 GM BOTTLE TP SCH (17:49)
--- NOTE | 2020-06-13 19:00 | NUR ---
MS RN NOTES PATIENT IN BED EYES CLOSED RESPOND TO VERBAL AND TACTILE STIMULI. NO ACUTE DISTRESS NOTED. BREATHING UNLABORED. GTUBE FEEDING INFUSING WELL ON ORDERED SETTING. IV ACCESS PATENT AND INTACT , NO REDNESS OR SWELLING NOTED. TURN AND REPOSITION EVERY 2 HOURS AND NEEDED.NEEDS ATTENDED AND ANTICIPATED. SAFETY MEASURES IN PLACE. CALL LIGHT WITHIN REACH. WILL ENDORSE TO NIGHT NURSE FOR CONTINUITY OF CARE.
--- NOTE | 2020-06-13 19:41 | NUR ---
MS RN OPENING NOTES PATIENT A/OX1; OPENS EYES TO NAME. ON O2 2LPM VIA NASAL CANNULA; TOLERATING WELL. NO S/S OF PAIN OR DISTRESS. HD PORTACATH TO RCW; PATENT AND INTACT; DRESSING C/D/I. GTUBE PEG PATENT AND INTACT; GLUCERNA 1.2 @ 60 ML/HR. SAFETY MEASURES IN PLACE; BED IN LOWEST LOCKED POSITION, SIDE RAILS UPX2, CALL LIGHT WITHIN EASY REACH, BED ALARM ON. WILL CONTINUE PLAN OF CARE.
[2020-06-13 20:00] VITALS: BP 118/40
[2020-06-13] MEDS: MIRTAZAPINE 15 MG TABLET GT SCH (21:37)
[2020-06-13] MEDS: INSULIN GLARGINE, 100 UNIT/ML CARTRIDGE SQ SCH (22:04)
[2020-06-14] MEDS: MEROPENEM 1 G in IV NS 0.9% 100 ML IV SCH ×2 (06:37→19:44)
[2020-06-14] MEDS: BLOOD SUGAR DIAGNOSTIC 1 EACH STRIP IN SCH ×4 (06:37→22:26)
[2020-06-14] MEDS: INSULIN REGULAR, HUMAN 100 UNIT/ML 3 ML VIAL SQ PRN ×3 (06:39→22:32)
[2020-06-14 07:13] LABS: BASOPHILS # (AUTO) 0.1 /CMM (0.0-0.2); BASOPHILS % (AUTO) 0.9 % (0.0-2.0); EOSINOPHILS % (AUTO) 3.4 % (0.0-6.0); HEMATOCRIT 31 % (33-45); HEMOGLOBIN 9.6 g/dL (11.5-14.8); LYMPHOCYTES # (AUTO) 1.5 /CMM (0.8-4.8); LYMPHOCYTES % (AUTO) 17.3 % (20.0-44.0); MEAN CORPUSCULAR HGB CONC 31 g/dl (31.0-36.0); MEAN CORPUSCULAR VOLUME 79 fL (82-100); MONOCYTES # (AUTO) 0.5 /CMM (0.1-1.30); NEUTROPHILS # (AUTO) 6.4 /CMM (1.8-8.9); NEUTROPHILS % (AUTO) 72.4 % (43.0-81.0); PLATELET COUNT (AUTO) 339 /CMM (150-450); RED BLOOD CELL COUNT(AUTO) 3.91 MIL/uL (4.0-5.2); WHITE BLOOD COUNT (AUTO) 8.9 K/uL (4.3-11.0)
--- NOTE | 2020-06-14 07:40 | NUR ---
MS RN CLOSING NOTES PATIENT A/OX1; OPENS EYES TO NAME. ON O2 2LPM VIA NASAL CANNULA; TOLERATING WELL. NO S/S OF PAIN OR DISTRESS. HD PORTACATH TO RCW; PATENT AND INTACT; DRESSING C/D/I. GTUBE PEG PATENT AND INTACT; GLUCERNA 1.2 @ 60 ML/HR. SAFETY MEASURES IN PLACE; BED IN LOWEST LOCKED POSITION, SIDE RAILS UPX2, CALL LIGHT WITHIN EASY REACH, BED ALARM ON. ENDORSED PLAN OF CARE TO ONCOMING RN.
--- NOTE | 2020-06-14 07:51 | NUR ---
MS RN NOTE PATIENT RECEIVED IN STABLE CONDITION, VSS, PATIENT WITH NO S/S OF ACUTE PAIN AT THIS TIME, POC REVIEWED AND TO BE FOLLOWED. TUBE FEEDING INFUSION PER ORDER. BED LOCKED IN LOWEST POSITION, ALL SAFETY MEASURES FOLLOWED. WILL CONTINUE WITH PATIENT'S PLAN OF CARE. END NOTE BN
[2020-06-14 08:00] VITALS: BP 120/66
[2020-06-14] MEDS ORDERED: PROSOURCE / PROSTAT (PYXIS) 30 ML UDC GT SCH (09:00)
[2020-06-14] MEDS: PROSOURCE / PROSTAT (PYXIS) 30 ML UDC GT SCH (09:00)
[2020-06-14] MEDS: MAGNESIUM OXIDE 400 MG TABLET GT SCH (09:18)
[2020-06-14] MEDS: FERROUS SULFATE (325 MG) 325 MG/TAB TABLET GT SCH (09:18)
[2020-06-14] MEDS: MULTIVIT W/MINERALS 1 TAB TABLET GT SCH (09:19)
[2020-06-14] MEDS: ACIDOPHILUS/BULGARICUS 1 EACH TAB.CHEW GT SCH (09:19)
[2020-06-14] MEDS: METOPROLOL TARTRATE 25 MG TABLET PO SCH ×2 (09:19→22:29)
[2020-06-14] MEDS: ASCORBIC ACID 500 MG TABLET GT SCH (09:19)
[2020-06-14] MEDS: DAKINS QUARTER STRENGTH (0.125%) 480 ML BOTTLE TOP SCH (09:21)
[2020-06-14] MEDS: THERAHONEY GEL 1.5 OZ TUBE TP SCH (09:21)
[2020-06-14] MEDS: NYSTATIN TOP POWDER 15 GM BOTTLE TP SCH ×3 (09:22→18:25)
[2020-06-14 09:41] LABS: CREATININE 0.7 mg/dL (0.6-1.3); PHOSPHORUS 2.9 mg/dL (2.5-4.9); POTASSIUM 5.3 mmol/L (3.5-5.1)
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
[2020-06-14] MEDS ORDERED: SODIUM POLYSTYRENE SULFONATE 15 G/60 ML BOTTLE PO ONE (14:30)
[2020-06-14 16:00] VITALS: BP 131/80
[2020-06-14] MEDS: RIVAROXABAN 10 MG TABLET GT SCH (17:00)
[2020-06-14 20:00] VITALS: BP 138/63
--- NOTE | 2020-06-14 21:39 | NUR ---
SPOKE WITH PT DAUGHTER CHESTER. UPDATED ON PTS CONDITION.
[2020-06-14] MEDS: MIRTAZAPINE 15 MG TABLET GT SCH (22:30)
[2020-06-14] MEDS: INSULIN GLARGINE, 100 UNIT/ML CARTRIDGE SQ SCH (22:34)
[2020-06-15] MEDS: GLUCERNA 1.2 1,000 ML BOTTLE GT PRN (02:31)
[2020-06-15] MEDS: MEROPENEM 1 G in IV NS 0.9% 100 ML IV SCH (05:13)
[2020-06-15] MEDS: BLOOD SUGAR DIAGNOSTIC 1 EACH STRIP IN SCH ×3 (06:32→17:30)
[2020-06-15] MEDS: INSULIN REGULAR, HUMAN 100 UNIT/ML 3 ML VIAL SQ PRN ×2 (06:33→12:35)
[2020-06-15 07:13] LABS: BASOPHILS # (AUTO) 0.1 /CMM (0.0-0.2); BASOPHILS % (AUTO) 1.2 % (0.0-2.0); EOSINOPHILS % (AUTO) 3.3 % (0.0-6.0); HEMATOCRIT 27 % (33-45); HEMOGLOBIN 8.4 g/dL (11.5-14.8); LYMPHOCYTES # (AUTO) 1.4 /CMM (0.8-4.8); LYMPHOCYTES % (AUTO) 16.4 % (20.0-44.0); MEAN CORPUSCULAR HGB CONC 31 g/dl (31.0-36.0); MEAN CORPUSCULAR VOLUME 77 fL (82-100); MONOCYTES # (AUTO) 0.6 /CMM (0.1-1.30); MONOCYTES % (AUTO) 7.2 % (2.0-12.0); NEUTROPHILS # (AUTO) 6.2 /CMM (1.8-8.9); NEUTROPHILS % (AUTO) 71.9 % (43.0-81.0); PLATELET COUNT (AUTO) 293 /CMM (150-450); RED BLOOD CELL COUNT(AUTO) 3.47 MIL/uL (4.0-5.2); WHITE BLOOD COUNT (AUTO) 8.6 K/uL (4.3-11.0)
[2020-06-15 07:56] VITALS: BP 135/65
--- NOTE | 2020-06-15 08:15 | NUR ---
MS RN OPENING NOTES PATIENT A/OX1; OPENS EYES TO NAME. ON O2 2L VIA NASAL CANNULA; TOLERATING WELL. NO S/S OF PAIN OR DISTRESS. HD PORTACATH TO RCW; PATENT AND INTACT; DRESSING C/D/I. GTUBE PEG PATENT AND INTACT; GLUCERNA 1.2 @ 60 ML/HR. SAFETY MEASURES IN PLACE; BED IN LOWEST LOCKED POSITION, SIDE RAILS UPX2, CALL LIGHT WITHIN EASY REACH, BED ALARM ON. WILL CONTINUE TO MONITOR.
[2020-06-15] MEDS: MULTIVIT W/MINERALS 1 TAB TABLET GT SCH (08:16)
[2020-06-15] MEDS: PROSOURCE / PROSTAT (PYXIS) 30 ML UDC GT SCH (08:16)
[2020-06-15] MEDS: ACIDOPHILUS/BULGARICUS 1 EACH TAB.CHEW GT SCH (08:16)
[2020-06-15] MEDS: FERROUS SULFATE (325 MG) 325 MG/TAB TABLET GT SCH (08:16)
[2020-06-15] MEDS: MAGNESIUM OXIDE 400 MG TABLET GT SCH (08:17)
[2020-06-15] MEDS: METOPROLOL TARTRATE 25 MG TABLET PO SCH (08:17)
[2020-06-15] MEDS: ASCORBIC ACID 500 MG TABLET GT SCH (08:17)
[2020-06-15] MEDS: DAKINS QUARTER STRENGTH (0.125%) 480 ML BOTTLE TOP SCH (08:31)
[2020-06-15] MEDS: NYSTATIN TOP POWDER 15 GM BOTTLE TP SCH ×3 (08:32→17:55)
[2020-06-15] MEDS: THERAHONEY GEL 1.5 OZ TUBE TP SCH (08:32)
[2020-06-15 08:50] LABS: CALCIUM, SERUM 8.5 mg/dL (8.5-10.1); CREATININE 0.7 mg/dL (0.6-1.3); POTASSIUM 4.8 mmol/L (3.5-5.1)
--- NOTE | 2020-06-15 10:27 | NUR ---
SS Note: ANDERSON received call from [facility] sales representative cash registers, Hill Villar [phone] requesting information in pt.'s current location & initial discharge plan. ANDERSON informed Hill that pt. remains in [facility] and the initial discharge plan is for pt. to return to [facility] [phone] when medically cleared. Hill expressed understanding and stated he will probably visit the pt. at the facility ([facility]) upon her return. Noted. ANDERSON will be available as needed.
[2020-06-15] MEDS ORDERED: COLL30OI TP (14:49)
[2020-06-15] MEDS ORDERED: NYST15PO4 TP (14:49)
[2020-06-15] MEDS ORDERED: METO25TA20 PO (14:49)
[2020-06-15] MEDS ORDERED: FERR325T28 GT (14:49)
[2020-06-15] MEDS ORDERED: RIVA10TA GT (14:49)
[2020-06-15 16:00] VITALS: BP 153/75
[2020-06-15] MEDS: RIVAROXABAN 10 MG TABLET GT SCH (17:55)
--- NOTE | 2020-06-15 17:56 | NUR ---
MS RN NOTE PT WAS DISCHARGED AT 1730 - ACCUCHECK NOT DONE.
--- NOTE | 2020-06-15 18:26 | NUR ---
MS RN DC NOTE PT STABLE, A/O X1. NO SOB/DISTRESS NOTED. NO IV - PT HAS ANGELI-CATH. PT RECEIVED EDUCATION MATERIALS AND DISCHARGE PAPERWORK. DAUGHTER, CHESTER, AWARE OF DC TO [facility]. REPORT GIVEN TO EPHRAIM. PT LEFT WITH EMT IN AMBULANCE.
== END 2020-06-15 18:05 | DRG 981 ==
LOC: ER 12:34 → MEDSG1 14:38 → TELE-TD 16:22 → MEDSG1 06-10 08:10 → MED 06-10 11:04
PROVIDERS: ADMIT Nurse Practitioner Family; ATTEND Student in an Organized Health Care Education/Training Program
PROC: 0LBP0ZZ Excision of Left Lower Leg Tendon, Open Approach (ICD-10-PCS; principal; 2020-06-12)
PROC: 0LBN0ZZ Excision of Right Lower Leg Tendon, Open Approach (ICD-10-PCS; 2020-06-12)
DX: N39.0 Urinary tract infection, site not specified (principal); E43 Unspecified severe protein-calorie malnutrition; G93.41 Metabolic encephalopathy; I48.20 Chronic atrial fibrillation, unspecified; I69.354 Hemiplegia and hemiparesis following cerebral infarction affecting left non-dominant side; D68.59 Other primary thrombophilia; L97.929 Non-pressure chronic ulcer of unspecified part of left lower leg with unspecified severity; L97.919 Non-pressure chronic ulcer of unspecified part of right lower leg with unspecified severity; I13.0 Hypertensive heart and chronic kidney disease with heart failure and stage 1 through stage 4 chronic kidney disease, or unspecified chronic kidney disease; I50.32 Chronic diastolic (congestive) heart failure; G82.20 Paraplegia, unspecified; D62 Acute posthemorrhagic anemia; I25.10 Atherosclerotic heart disease of native coronary artery without angina pectoris; E11.40 Type 2 diabetes mellitus with diabetic neuropathy, unspecified; E11.621 Type 2 diabetes mellitus with foot ulcer; L89.152 Pressure ulcer of sacral region, stage 2; M62.50 Muscle wasting and atrophy, not elsewhere classified, unspecified site; E78.5 Hyperlipidemia, unspecified; Z88.5 Allergy status to narcotic agent; Z88.0 Allergy status to penicillin; Z88.2 Allergy status to sulfonamides; Z88.8 Allergy status to other drugs, medicaments and biological substances; Z88.1 Allergy status to other antibiotic agents; Z91.040 Latex allergy status; Z79.4 Long term (current) use of insulin; Z79.899 Other long term (current) drug therapy; E11.22 Type 2 diabetes mellitus with diabetic chronic kidney disease; E11.622 Type 2 diabetes mellitus with other skin ulcer; D50.9 Iron deficiency anemia, unspecified; E87.5 Hyperkalemia; F03.90 Unspecified dementia, unspecified severity, without behavioral disturbance, psychotic disturbance, mood disturbance, and anxiety; N18.9 Chronic kidney disease, unspecified; Z20.822 Contact with and (suspected) exposure to COVID-19; Z86.718 Personal history of other venous thrombosis and embolism; Z95.828 Presence of other vascular implants and grafts; Z87.440 Personal history of urinary (tract) infections; Z82.49 Family history of ischemic heart disease and other diseases of the circulatory system; M81.0 Age-related osteoporosis without current pathological fracture; G89.29 Other chronic pain; M62.40 Contracture of muscle, unspecified site; R79.89 Other specified abnormal findings of blood chemistry; R00.8 Other abnormalities of heart beat; I49.3 Ventricular premature depolarization; L98.491 Non-pressure chronic ulcer of skin of other sites limited to breakdown of skin
CPT/HCPCS: 36415; 71045-TC; 80048-TC; 80053-TC; 80061-TC; 80076-TC; 81001; 82272-TC; 82550-TC; 82728-TC; 82962-TC; 83540-TC; 83605-TC; 83735-TC; 83970; 84100-TC; 84155; 84165; 84484-TC; 85025-TC; 87070-TC; 87081-TC; 87086-TC; 87186-TC; 92526; 92611-TC; A6253; A6403; C9803; G0378; J1580; J1815; J2185; J7030; J7040; J7050; J7060; J7120; U0003